=== PATIENT | male | born 1945 | race Caucasian/White ===

== ENCOUNTER 2019-05-16 14:53 | Outpatient (CLI) | payer MEDICARE, SELFPAY ==
[2019-05-16 15:55] LABS: Alanine Aminotransferase 16 U/L (0-41); Alkaline Phosphatase 105 IU/L (40-130); Aspartate Amino Transferase 17 U/L (0-40); C Reactive Protein 22.6 mg/L (0.0-4.9); Globulin 4.7 g/dL (1.3-4.6); Total Bilirubin 0.5 mg/dL (0.15-1.2); Total Protein 8.7 g/dL (6.6-8.7)
[2019-05-16 16:11] LABS: Hepatitis C Virus Antibody Non-Reactive (Nonreactive)
[2019-05-16 16:46] LABS: Basophils # 0.1 10^3/uL (0.0-0.1); Basophils % 1.5 %; Eosinophils # 0.5 10^3/uL (0.0-0.8); Eosinophils % 6.4 %; Hematocrit 42.7 % (42.0-52.0); Hemoglobin 13.5 g/dL (11.7-16.6); Lymphocytes # 1.9 10^3/uL (0.8-4.8); Lymphocytes % 23.1 %; Mean Corpuscular HGB Conc 31.6 g/dL (30.0-36.0); Mean Corpuscular Hemoglobin 28.1 pg (28.0-34.0); Mean Platelet Volume 11.2 fL (7.4-10.4); Monocytes # 1.1 10^3/uL (0.2-0.9); Monocytes % 13.3 %; Neutrophils # 4.5 10^3/uL (1.8-7.7); Neutrophils % 55.5 %; Nucleated Red Blood Cells % 0 %; Platelet Count 155 10^3/cmm (130-400); Red Cell Distribution Width 15.6 % (12.1-15.1)
[2019-05-16 16:54] LABS: Hepatitis B Surface Antigen. Non-Reactive (Nonreactive)
[2019-05-16 20:09] LABS: Erythrocyte Sedimentation Rate 69 mm/hr (0-10)
[2019-05-19 12:12] LABS: Quantiferon Mitogen 7.03 IU/mL; Quantiferon Nil 0.02 IU/mL; Quantiferon Plus TB1 0.01 IU/mL; Quantiferon Plus TB2 0.02 IU/mL; Quantiferon TB Gold NEGATIVE (NEGATIVE)
== END 2019-05-16 14:54 | disposition home or self-care (01) ==
LOC: LAB 14:58
PROVIDERS: PCP Family Medicine; Visit Provider Internal Medicine Rheumatology
DX: M05.79 Rheumatoid arthritis with rheumatoid factor of multiple sites without organ or systems involvement (principal); Z79.899 Other long term (current) drug therapy
CPT/HCPCS: 80076; 82565; 85025; 85651; 86140; 86480; 86704; 86803; 87340

== ENCOUNTER 2019-06-11 15:20 | Emergency (ER) | payer MEDICARE, MEDICAID, SELFPAY ==
[2019-06-11 15:22] VITALS: BP 180/74; PULSE 79; RESP 16; TEMP 36.7; O2SAT 93; BMI 32.0
--- NOTE | 2019-06-11 15:32 | XR_ITS ---
WS: [id number] PORTABLE CHEST HISTORY: cough COMPARISON: 05/03/2018, 04/13/2017 Persistent costophrenic angle obliteration and blunting. Similar to prior studies. Areas of atelectas is at the lung bases. No pneumothorax. Cardiac size: Mildly enlarged cardiac silhouette. Mediastinum/Aorta: Mild atherosclerosis aorta. Degenerative changes at the shoulder joints. XR/XR chest 1V portable 00006 IMPRESSION: 1. Stable, chronic costophrenic angle blunting. Probable small chronic effusio ns versus pleural thickening. 2. Stable chronic atelectasis at the lung bases.
--- NOTE | 2019-06-11 16:02 | W.ED.GENADLT ---
HPI - General Adult General: Chief complaint: General Medical Stated complaint: COUGH 2-3 DAYS Time Seen by Provider: 06/11/19 15:27 History of Present Illness: HPI narrative: Paul Cornelius is a nice 74-year-old male sent over by the dialysis clinic for a chest x-ray. He states I do not know why I am here . Patient states he feels fine he has had an occasional cough. His family has had a similar cough. They were concerned about the COVID-19 virus that is pandemic but they went ahead and tested him at the dialysis clinic. Mr. Cornelius has an occasional cough but denies chest pain denies shortness of breath and he denies fever. He states I do not know why I am here . He is agreeable after encouragement to at least have a chest x-ray by me. Associated symptoms: Deny chest pain, confusion, diaphoresis, dyspnea, headache(s), malaise, nausea, rash, palpitations, syncope or vomiting Review of Systems General: Reports: other (negative unless marked) Const: Denies: fever, chills, body aches, fatigue, malaise or diaphoresis Eyes: Denies: change in vision or blurry vision ENMT: Denies: throat pain, painful swallowing, hoarseness, ear pain, ear discharge, Change in hearing or nasal discharge Card: Denies: chest pain, palpitations, irregular heart rhythm, syncope, pre-syncope, shortness of breath on exertion or shortness of breath when lying down Resp: Reports: non-productive cough; Denies: shortness of breath, productive cough, wheezing, coughing up blood or chest congestion GI: Denies: abdominal pain, nausea, vomiting, vomiting blood, coffee grounds in vomit, diarrhea, constipation, cramping, blood in stool or black tarry stool : Denies: flank pain, difficulty urinating, painful urination, urinary frequency, urinary urgency, decreased urine ouput, urinary incontinence or blood in urine Musc: Denies: neck pain, back pain, extremity pain, extremity swelling, joint pain, joint swelling, joint warmth or joint stiffness Skin/Breast: Denies: rash, skin tenderness or yellow skin Neuro: Denies: headache, numbness in extremities, weakness in extremities, changes in sensation, lack of coordination, difficulty walking, dizziness, vertigo or confusion Endo: Denies: excessive thirst, tired all the time, cold intolerance, excessive sweating, flushing or hot flashes Frank/Lymph: Denies: easy bruising, easy bleeding, petechiae or enlarged lymph nodes All/Imm: Denies: hives, throat swelling, tongue swelling, facial swelling or acute wheezing PFSH ED PFSH: Medical History Anemia ASHD (arteriosclerotic heart disease) Atrial fibrillation CHF (congestive heart failure) CKD (chronic kidney disease) Diabetes 1.5, managed as type 2 Diabetic gastroparesis Dyslipidemia ESRD (end stage renal disease) on dialysis HTN (hypertension) Hypothyroidism Mitral regurgitation Myocardial infarction PAD (peripheral artery disease) Pulmonary HTN Family History Father , AGE 61 Cancer LUNG Mother , AGE 62 CHF (congestive heart failure) Social History Smoking and tobacco status: never smoked Marital status: service: No Physical Exam Const: COMMON NORMALS: no apparent distress, oriented x3, no limitations, healthy appearing and well nourished EXAM LIMITATIONS: no altered mental status GENERAL APPEARANCE: cooperative, well kempt and well developed ORIENTATION/CONSCIOUSNESS: Yes awake HENMT: COMMON NORMALS: normocephalic, head/scalp atraumatic, hearing grossly normal bilaterally, external ears normal, EAC's normal, external nose normal and moist oral mucous membranes HEAD & SCALP: normal to inspection, normocephalic and atraumatic FACE & SINUS: normal facial exam and face symmetric NOSE: external nose normal and nares normal EXTERNAL EAR: Yes external ears normal EXTERNAL AUDITORY CANAL: EAC's normal MOUTH: oral and palatal mucosa normal and tongue normal Eye: COMMON NORMALS: PERRL, EOMs intact bilaterally, conjunctivae normal and no scleral icterus GENERAL EYE: normal appearance of both eyes and normal light reflex CONJUNCTIVA: Yes conjunctivae normal SCLERA: sclerae normal CORNEA: Yes corneas normal PUPIL: Yes PERRL DIRECT OPHTHALMOSCOPY: Yes normal light reflex Neck/C-Spine: COMMON NORMALS: full ROM, no lymphadenopathy, supple, no meningeal signs and no JVD GENERAL: Yes normal visual inspection and Yes trachea midline CERVICAL SPINE: Yes cervical ROM normal Chest: COMMONS NORMALS: inspection of chest normal and palpation of chest normal Resp: COMMON NORMALS: normal respiratory effort, no retractions, no use of accessory muscles and clear to auscultation bilaterally EFFORT & INSPECTION: Yes able to speak in complete sentences AUSCULTATION: clear to auscultation bilaterally Cardio: COMMON NORMALS: no JVD, regular rate, regular rhythm, S1 normal heart sound, S2 normal heart sound, no gallops, no clicks, no murmurs and no rub JUGULAR VENOUS DISTENTION: no JVD RATE: regular rate RHYTHM: regular rhythm HEART SOUNDS: S1 normal and S2 normal GI: COMMON NORMALS: soft to palpation, non-tender, no hepatosplenomegaly and no masses INSPECTION: Yes normal to inspection PALPATION: Yes soft and Yes no hepatosplenomegaly : COMMON NORMALS: Yes no CVA tenderness BLADDER/KIDNEY EXAM: Yes no CVA tenderness Back/Pelvis: COMMON NORMALS: no CVA tenderness, thoracic and lumbar spine normal to inspection, no thoracic nor lumbar tenderness and thoraco-lumbar ROM normal Extremity: COMMON NORMALS: normal to inspection, full ROM, normal capillary refill, no joint enlargement, no clubbing, cyanosis or edema and no calf tenderness Neuro: COMMON NORMALS: oriented x3, CN's II-XII intact bilaterally, moves all extremities, no focal motor deficits and no sensory deficits noted MENINGEAL SIGNS: Yes no meningeal signs Psych: COMMON NORMALS: mental status grossly normal, thought process normal, cooperative, affect normal, speech normal and activity/motor behavior normal APPEARANCE: Yes well kempt SPEECH: Yes normal speech THOUGHT PROCESS: normal thought process Skin: COMMON NORMALS: no rashes or lesions noted, skin turgor normal, no jaundice, no petechiae and no mottling GENERAL SKIN EXAM: no rashes or lesions noted and turgor normal Course Vital Signs: Vital signs: Vital Signs Temperature 98.0 F 06/11/19 15:22 Pulse Rate 79 06/11/19 15:22 Respiratory Rate 16 06/11/19 15:22 Blood Pressure 180/74 06/11/19 15:22 Pulse Oximetry 93 06/11/19 15:22 MDM - General Adult MDM Narrative: Medical decision making narrative: Mr. Cornelius is a nice 74-year-old male who comes in with a report of cough. He has had family members sick with similar symptoms. He has been tested for the COVID-19 virus but his family has also been tested and they are negative. I will go and cover him with doxycycline. He agrees to return should his symptoms change or worsen but he is still refusing all lab work and IV at this time. Imaging Data^: CXR: My impression: No acute cardiopulmonary findings. Stable pleural thickening since 2017. Chest x-ray discussed with Dr. Sheikh. Discharge Plan Discharge Patient Disposition: Home, Self-Care Clinical Impression: Bronchitis Condition: Stable Prescriptions: New doxycycline hyclate 100 mg capsule 100 mg PO BID 10 Days Qty: 20 RF: 0 No Action nitroglycerin [Nitrostat] 0.4 mg tablet, sublingual 0.4 mg SUBLINGUAL Q5M PRNRF: 0 amiodarone 200 mg tablet 200 mg PO DAILY RF: 0 atorvastatin 40 mg tablet 40 mg PO DAILY RF: 0 Humalog U-100 Insulin 100 unit/mL cartridge 1 sliding scale dose SUBCUT TID RF: 0 RenaPlex 800 mcg- 12.5 mg tablet 1 tab PO DAILY RF: 0 Fosrenol 1,000 mg powder in packet 1,000 mg PO QID RF: 0 levothyroxine 150 mcg capsule 150 mcg PO DAILY RF: 0 promethazine 25 mg tablet 25 mg PO TID PRNRF: 0 docusate sodium 100 mg capsule 100 mg PO BID RF: 0 mirtazapine 15 mg tablet 15 mg PO DAILY RF: 0 cholecalciferol (vitamin D3) PO DAILY RF: 0 pantoprazole 40 mg tablet,delayed release (DR/EC) 40 mg PO DAILY RF: 0 Cimzia 400 mg/2 mL (200 mg/mL x 2) syringe kit 200 mg SUBCUT .every other week Qty: 1 RF: 0 isosorbide mononitrate 60 mg tablet extended release 24 hr 60 mg PO DAILY Qty: 30 RF: 6 Cimzia 400 mg/2 mL (200 mg/mL x 2) syringe kit 200 mg SUBCUT .every other week Qty: 2 RF: 2 Discharge Orders: Discharge Order (Routine); Ordered 06/11/19 Ordered By: Екатерина Rodriguez Referrals: Hanane Saldaña MD [Primary Care Provider] - 1-3 days Discharge Diet: Advance as tolerated Discharge Activity: Increase activity as tolerated Patient Instructions: Acute Bronchitis (ED) Activity Restrictions/Additional Instructions: Please return to the ER immediately for any of the signs or symptoms listed on your discharge instruction sheets, worsening/changing of your symptoms, you are not getting better as quickly as expected, or for ANY other cause or concerns. Coding Level of Care Code ED Sales Representative Wire Rope for Brendan Cummings
[2019-06-11] MEDS: doxycycline 100 mg Tablet 200 MG PO (16:03)
[2019-06-11 16:26] VITALS: BP 167/66; PULSE 75; RESP 16; O2SAT 98
== END 2019-06-11 16:26 | disposition home or self-care (01) ==
PROVIDERS: Emergency Provider Emergency Medicine; PCP Family Medicine
DX: J40 Bronchitis, not specified as acute or chronic (principal); I48.91 Unspecified atrial fibrillation; E11.22 Type 2 diabetes mellitus with diabetic chronic kidney disease; I13.0 Hypertensive heart and chronic kidney disease with heart failure and stage 1 through stage 4 chronic kidney disease, or unspecified chronic kidney disease; N18.9 Chronic kidney disease, unspecified; I50.9 Heart failure, unspecified; Z82.49 Family history of ischemic heart disease and other diseases of the circulatory system; Z79.4 Long term (current) use of insulin
CPT/HCPCS: 12345; 71045; 99281; 99283

== ENCOUNTER 2019-08-14 19:03 | Emergency (ER) | payer MEDICARE, SELFPAY ==
[2019-08-14 19:39] VITALS: BP 157/66; PULSE 68; RESP 16; TEMP 36.8; O2SAT 93; BMI 32.0
--- NOTE | 2019-08-14 19:42 | XR_ITS ---
WS: [id number] XR knee LT 3V* [id number] REASON FOR EXAM: fall FINDINGS: The meniscal spaces are well preserved. There is no fractures of the femur, tibia, fibula. Heavy arteriosclerotic changes are present. The patella femoral spaces are normal. The patella tibial space is normal. XR/XR knee LT 3V* [id number] IMPRESSION: No fractures of the left knee Heavy arteriosclerotic changes.
--- NOTE | 2019-08-14 19:42 | XR_ITS ---
WS: [id number] XR hip BI m 5V wo/w pel* [id number] REASON FOR EXAM: fall FINDINGS: 5 views of the pelvis and hip joints laterally The right hip shows mild osteoarthritic changes. Minimal degenerate changes of the left hip are seen. The ilium, ischium, and pubis were normal. No fractures of the right or left hip are seen. XR/XR hip BI m 5V wo/w pel* [id number] IMPRESSION: No fractures of either hip joint or pelvis. Degenerate changes of the right hip Mild degenerate changes of the left hip The pelvis was normal otherwise.
--- NOTE | 2019-08-14 19:42 | XR_ITS ---
WS: [id number] XR knee RT 3V* [id number] REASON FOR EXAM: fall FINDINGS: Genu valgus changes at the knee are noted. The meniscal spaces appear to be normal. There is heavy arteriosclerotic changes in the popliteal arteries. Patella femoral articulations are normal. Patella tibial spaces were normal. XR/XR knee RT 3V* [id number] IMPRESSION: No fractures are seen involving the right knee Mild genu valgus changes at the knee Arteriosclerotic changes.
--- NOTE | 2019-08-14 19:43 | ED_ITS ---
HPI - Fall General: Chief Complaint: Fall Stated Complaint: fall Time Seen by Provider: 08/14/19 19:15 Source: patient and family Mode of arrival: ambulatory Limitations: no limitations History of Present Illness: HPI Narrative: Patient is a very nice 74-year-old male who presents to ED today for evaluation following a fall. Patient tells me he was in his electronic wheelchair outside when he struck a tree root causing him to fall forward out of the wheelchair. Patient states he struck his bilateral knees. He is complaining of bilateral knee pain and bilateral hip pain. Patient has not been ambulatory in approximately 4 years. He denies striking his head, LOC, neck or back pain. MD complaint: fall Onset (ago): hour(s) Fall from: wheelchair Fall witnessed: yes, by family Place fall occurred: home Prolonged down time: no Symptoms prior to fall: none Location of injury - extremities: Bilateral: knee Associated symptoms-after fall: Reports no associated symptoms; Denies abdominal pain, chest pain, headache(s) or neck pain Review of Systems Eyes: Denies: change in vision or blurry vision Card: Denies: chest pain Resp: Denies: dyspnea GI: Denies: abdominal pain, nausea or vomiting Musc: Reports: joint pain (bilateral knees/hips); Denies: neck pain, back pain, extremity pain, extremity swelling or joint swelling Neuro: Denies: headache(s), numbness in extremities, weakness in extremities or sensory changes [facility] ED PFSH: Medical History (Updated 08/14/19 @ 20:44 by ROBERTO Norris) Anemia ASHD (arteriosclerotic heart disease) Atrial fibrillation CHF (congestive heart failure) CKD (chronic kidney disease) Diabetes 1.5, managed as type 2 Diabetic gastroparesis Dyslipidemia ESRD (end stage renal disease) on dialysis HTN (hypertension) Hypothyroidism Mitral regurgitation Myocardial infarction PAD (peripheral artery disease) Pulmonary HTN Family History Father , AGE 61 Cancer LUNG Mother , AGE 62 CHF (congestive heart failure) Social History Smoking and tobacco status: never smoked Marital status: service: No Physical Exam Const: COMMON NORMALS: no acute distress, average body habitus, patient oriented x3, no limitations, healthy appearing, alert and well nourished HENMT: COMMON NORMALS: normocephalic and atraumatic HEAD & SCALP: normocephalic and atraumatic Neck/C-Spine: COMMON NORMALS: full ROM CERVICAL SPINE: Yes cervical ROM normal, No pain with cervical ROM, No Cervical spine tenderness and No Paracervical muscle tenderness Chest: COMMONS NORMALS: normal inspection of the chest and normal palpation of entire chest wall Resp: COMMON NORMALS: normal respiratory effort and clear to auscultation bilaterally AUSCULTATION: clear to auscultation bilaterally Cardio: COMMON NORMALS: regular rate and regular rhythm RATE: regular rate RHYTHM: regular rhythm Back/Pelvis: COMMON NORMALS: thoracic and lumbar spine normal to inspection, no thoracic nor lumbar tenderness and thoraco-lumbar ROM normal Extremity: GENERAL: Yes normal exam except as noted OTHER: bilateral anterior knee abrasions; he maintains full but painful ROM of bilateral knees L>R (he states pain is only present with bending the knee-no form of palpation causes him discomfort); he is able to flex hip joints; he seems to be tender to palpation of lateral hips; legs are not shortened or rotated; LE pulses and cap refill normal/intact Neuro: COMMON NORMALS: patient oriented x3, moves all extremities, no focal motor deficits and no sensory deficits noted SENSORIUM/ORIENTATION: Yes alert Skin: COMMON NORMALS: no rashes or lesions noted NARRATIVE SKIN EXAM: abrasions to bilateral knees-minor GENERAL SKIN EXAM: no rashes or lesions noted Course Vital Signs: Vital signs: Vital Signs Temperature 98.3 F 08/14/19 19:39 Pulse Rate 65 08/14/19 19:48 Respiratory Rate 18 08/14/19 19:48 Blood Pressure 164/60 08/14/19 19:48 Pulse Oximetry 96 08/14/19 19:48 MDM - Fall Imaging Data^: bilateral hip/pelvis XR: My impression: NAD bilateral knee XR: My impression: arthritis, no acute fxs noted Discharge Plan Discharge Patient Disposition: Home, Self-Care Clinical Impression: Acute bilateral knee pain Fall from motorized wheelchair Qualifiers: Encounter type: initial encounter Qualified Code(s): V00.818A - Other accident with wheelchair (powered), initial encounter Condition: Stable Prescriptions: New hydrocodone-acetaminophen 5-325 mg tablet 1 tab PO Q6H PRN (Reason: pain) Qty: 10 RF: 0 No Action nitroglycerin [Nitrostat] 0.4 mg tablet, sublingual 0.4 mg SUBLINGUAL Q5M PRNRF: 0 atorvastatin 40 mg tablet 40 mg PO DAILY RF: 0 Humalog U-100 Insulin 100 unit/mL cartridge 1 sliding scale dose SUBCUT TID RF: 0 RenaPlex 800 mcg- 12.5 mg tablet 1 tab PO DAILY RF: 0 Fosrenol 1,000 mg powder in packet 1,000 mg PO QID RF: 0 levothyroxine 150 mcg capsule 150 mcg PO DAILY RF: 0 promethazine 25 mg tablet 25 mg PO TID PRNRF: 0 docusate sodium 100 mg capsule 100 mg PO BID RF: 0 mirtazapine 15 mg tablet 15 mg PO DAILY RF: 0 cholecalciferol (vitamin D3) PO DAILY RF: 0 pantoprazole 40 mg tablet,delayed release (DR/EC) 40 mg PO DAILY RF: 0 Cimzia 400 mg/2 mL (200 mg/mL x 2) syringe kit 200 mg SUBCUT .every other week Qty: 1 RF: 0 isosorbide mononitrate 60 mg tablet extended release 24 hr 60 mg PO DAILY Qty: 30 RF: 6 Cimzia 400 mg/2 mL (200 mg/mL x 2) syringe kit 200 mg SUBCUT .every other week Qty: 2 RF: 2 amiodarone 200 mg tablet 200 mg PO DAILY 90 Days Qty: 90 RF: 3 Discharge Orders: Discharge Order (Routine); Ordered 08/14/19 Ordered By: Bridget Roland Referrals: Hanane Saldaña MD [Primary Care Provider] - Activity Restrictions/Additional Instructions: Please follow up with primary care in one week for continued pain. Coding Level of Care Code ED Duct Layer Supervisor for Chg Fwd Exam Comprehensive
[2019-08-14 19:48] VITALS: BP 164/60; PULSE 65; RESP 18; O2SAT 96
[2019-08-14] MEDS: HYDROcodone-acetaminophen 5-325 mg Tablet 2 TAB PO (20:52)
[2019-08-14 21:06] VITALS: BP 151/63; PULSE 66; RESP 16; O2SAT 94
== END 2019-08-14 21:08 | disposition home or self-care (01) ==
PROVIDERS: Emergency Provider Physician Assistant; PCP Family Medicine
DX: M25.562 Pain in left knee (principal); M25.561 Pain in right knee; V00.811A Fall from moving wheelchair (powered), initial encounter; Z79.4 Long term (current) use of insulin; I48.91 Unspecified atrial fibrillation; I11.0 Hypertensive heart disease with heart failure; I50.9 Heart failure, unspecified; E13.9 Other specified diabetes mellitus without complications; E78.5 Hyperlipidemia, unspecified; I25.2 Old myocardial infarction
CPT/HCPCS: 12345; 73523; 73562; 99281; 99283

== ENCOUNTER → 2019-09-03 16:16 | Outpatient (BNVA) | payer MEDICARE, MEDICAID, SELFPAY | PROVIDERS: PCP Family Medicine; Visit Provider Internal Medicine Rheumatology | DX: Z79.899 Other long term (current) drug therapy (principal) | CPT/HCPCS: 36415; 80076; 82565; 85025; 85651; 86140 ==

== ENCOUNTER → 2019-09-17 15:42 | Outpatient (BNVA) | payer MEDICARE, SELFPAY | PROVIDERS: PCP Family Medicine; Visit Provider Internal Medicine | DX: M06.9 Rheumatoid arthritis, unspecified (principal) | CPT/HCPCS: 99213 ==

== ENCOUNTER 2019-09-23 11:53 | Outpatient (CLI) | payer MEDICARE, SELFPAY ==
--- NOTE | 2019-09-23 12:01 | XRR_ITS ---
PROCEDURE INFORMATION: Exam: XR Left Femur Exam date and time: 09/23/2019 12:22 PM Age: 74 years old Clinical indication: Thigh; Patient HX: C/O left femur pain x 5 years; Additional info: Followup abnormal lesion TECHNIQUE: Imaging protocol: XR Left femur. Views: Frontal and lateral views. COMPARISON: CR Femur 2 views LEFT* [id number] 02/03/2015 6:00 PM FINDINGS: Bones/joints: Stable nonspecific cystic and sclerotic lesion of the lesser trochanter. No acute bony abnormality identified. Soft tissues: Unremarkable. Vasculature: Vascular calcifications are present. XR/XR femur LT min 2V* [id number] IMPRESSION: 1. Stable nonspecific cystic and sclerotic lesion of the lesser trochanter. 2. No acute bony abnormality identified.
== END 2019-09-23 11:54 | disposition home or self-care (01) ==
LOC: RAD 11:56
PROVIDERS: PCP Family Medicine; Visit Provider Internal Medicine
DX: M79.605 Pain in left leg (principal)
CPT/HCPCS: 73552

== ENCOUNTER 2019-11-04 07:50 | Outpatient (CLI) | payer MEDICARE, MEDICAID, SELFPAY ==
[2019-11-04 07:56] VITALS: BMI 32.0
--- NOTE | 2019-11-04 07:57 | ECG_ITS ---
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 Interpretive Statements NAME OF STUDY: LEXISCAN SESTAMIBI STRESS TEST INDICATION: [Chest Pain] Procedure: At the baseline, the blood pressure was 169/76 mmHg, oxygen saturation 98% with a heart rate of 60 bpm. The electrocardiogram showed normal sinus rhythm, normal axis and normal ST and T's. The Lexiscan was infused over a period of 20 seconds. Total of 0.4 mg of Lexiscan was infused. The stress phase was continued for a total of 5 minutes. Heart rate at the end of stress phase was 68 bpm, oxygen saturation 94% with a blood pressure of 168/85 mmHg. The EKG at the peak infusion revealed sinus rhythm with no significant ST or T wave changes. Sestamibi was injected 20 seconds after Lexiscan infusion. Blood pressure at the end of recovery phase was 164/81mmHg. Oxygen saturation was 93% with a heart rate of 65 bpm. Conclusions: 1. Normal EKG response to Lexiscan infusion. 2. No Lexiscan induced chest pain or cardiac arrhythmia. 3. Normal blood pressure and heart rate response. 4. Sestamibi/sestamibi perfusion scan pending; see separate report. Electronically Signed On 11-05-2019 11:58:30 CDT by Walt Mcdonald M.D. [email or web address]
--- NOTE | 2019-11-04 07:58 | NMCV_ITS ---
NM heather perf SPECT r/s* [id number] Paul Cornelius Age: 74 Gender: M : 1945 Exam Date: 11/04/2019 08:49 Ordering Phys: Walt Mcdonald M.D ([email or web address]) Technologist: RAGINI Moreno Exam Location: [facility] Indications: CHEST PAIN STRESS TEST [facility] IMAGE PROTOCOL Rest/Stress 1 Lexiscan Day Radiopharmaceutical Dose (mCi) Administration Site Administered by Rest: Tc-99m 10.7 IV RAGINI Bar Sestamibi Stress:Tc-99m 32.9 IV RAGINI Moreno Sestamiree Rest: 04-Nov-2019 60 Discovery 630 Stress: 04-Nov-2019 30 Discovery 630 0.4mg Lexiscan. Images obtained in supine and prone position. SPECT RESULTS Technical Quality: Excellent Raw Data Analysis: Normal Image Corrections: No attenuation or motion correction applied Summed Stress Score: 6 Summed Rest Score: 7 Summed Difference Score: 1 PERFUSION FINDINGS There is basal to mid inferolateral wall perfusion defect with minimal reversibility noted. FUNCTIONAL RESULTS (calculated via Gated SPECT) Stress Image LV EF (%): 57 Stress EDV (mL):138 TID: 0.99 Stress ESV (mL):59 FUNCTIONAL FINDINGS: Overall function is normal. Inferolateral wall shows moderate hypokinesis IMPRESSIONS 1. Basal to mid inferolateral wall mostly fixed perfusion defect is notedQu 2. Normal LV systolic function with EF of 57%. Walt Mcdonald MD (Electronically Signed) Final Date: 05 November 2019 11:22 S
--- NOTE | 2019-11-04 09:34 | SUR.PREOP ---
Patient reports no pain or discomfort prior to the start of the procedure.
[2019-11-04] MEDS: regadenoson 0.4 Mg/5 ml Syringe IVP (09:36)
[2019-11-04 09:50] VITALS: BP 161/64; PULSE 64
== END 2019-11-04 07:51 | disposition home or self-care (01) ==
PROVIDERS: PCP Family Medicine; Visit Provider Internal Medicine
DX: R07.9 Chest pain, unspecified (principal)
CPT/HCPCS: 78452; 93017; A9500; J2785

== ENCOUNTER 2020-01-21 15:32 | Emergency (ER) | payer MEDICARE, MEDICAID, SELFPAY ==
[2020-01-21] VITALS (13 sets, daily range): BP systolic 134–160; BP diastolic 59–74; PULSE 63–69; RESP 15–21; TEMP 36.8–37.3; O2SAT 88–97; BMI 32.0
--- NOTE | 2020-01-21 16:08 | XR_ITS ---
WS: [id number] XR chest 1V portable [id number] REASON FOR EXAM: dyspnea FINDINGS: The heart is enlarged. There is minimal tortuosity of the thoracic aorta. The previous examination of 06/11/2019 demonstrates blunting of the costophrenic angles and chronic i nterstitial changes in both lower lungs. On the current examination these findings are again noted ho wever they appear somewhat more prominent in the right lower lung. The chest is otherwise unchanged compared to the previous study. XR/XR chest 1V portable [id number] IMPRESSION: Significant chronic changes in the lungs make it difficult to determine acute a bnormality. There may be infiltrative changes in the right lung base that are a cute or subacute. The patient has a CT scan of the chest scheduled which should resolve these issues.
--- NOTE | 2020-01-21 16:17 | PC.NURSE ---
Pt was taken to room 11 and placed on 2LNC and COVID precautions.
[2020-01-21 16:38] LABS: Basophils # 0.1 10^3/uL (0.0-0.1); Basophils % 1.6 %; Eosinophils # 0.2 10^3/uL (0.0-0.8); Eosinophils % 3.2 %; Hemoglobin 10.8 g/dL (11.7-16.6); Lymphocytes % 19.4 %; Mean Corpuscular HGB Conc 31.8 g/dL (30.0-36.0); Mean Corpuscular Hemoglobin 28.2 pg (28.0-34.0); Mean Corpuscular Volume 88.8 fL (80-94); Mean Platelet Volume 11.4 fL (7.4-10.4); Monocytes # 0.9 10^3/uL (0.2-0.9); Monocytes % 18.3 %; Neutrophils # 2.84 10^3/uL (1.8-7.7); Neutrophils % 57.3 %; Nucleated Red Blood Cells % 0 %; Platelet Count 88 10^3/cmm (130-400); Red Blood Count 3.83 10^6/uL (4.1-5.3); Red Cell Distribution Width 14.5 % (12.1-15.1)
[2020-01-21 16:49] LABS: Fibrinogen 455 mg/dL (174-498)
[2020-01-21 16:58] LABS: Alanine Aminotransferase 12 U/L (0-41); Albumin Level 3.5 g/dL (3.5-5.2); Alkaline Phosphatase 120 IU/L (40-130); Anion Gap 15.5 (5-19); Aspartate Amino Transferase 22 U/L (0-40); Blood Urea Nitrogen 24 mg/dL (8-23); C Reactive Protein 80.6 mg/L (0.0-4.9); Calcium 8.8 mg/dL (8.5-10.5); Carbon Dioxide 30 mmol/L (22-29); Chloride 94 mmol/L (98-107); Creatine Phosphokinase 48 U/L (39-308); Globulin 3.8 g/dL (1.3-4.6); Glucose 95 mg/dL (65-115); Lactate Dehydrogenase 161 U/L (135-225); Magnesium 2.1 mg/dL (1.7-2.3); Osmolality Calculated 284 mOsm/kg (285-295); Potassium 4.5 mmol/L (3.5-5.1); Sodium 135 mmol/L (136-145); Total Bilirubin 0.8 mg/dL (0.15-1.2); Total Protein 7.3 g/dL (6.6-8.7)
[2020-01-21 17:08] LABS: Lactic Sepsis W/Reflex 1.3 mmol/L (0.5-2.2)
[2020-01-21 17:09] LABS: ABG PCO2 41.9 mmHg (35-45); ABG PH Result 7.48 (7.35-7.45); Alveolar-Arterial Oxygen Gradi 2.7 mmHg (5-10); Arterial Blood Gas Hematocrit 32.4 % (42-52); Base Excess ABG 6.9 mmol/L (-2.0-2.0); Blood Gas Allen Test Pos; Blood Gas Operator Identificat CAK; Blood Gas Sample Site Brachial, left; Blood Gas Sample Type Arterial; Carboxyhemoglobin 1.2 %THgb (0.4-20.1); HCO3 ABG 31.1 mmol/L (22-26); Ionized Calcium Level - ABG 1.1 mmol/L (1.1-1.4); Methemoglobin 0.8 % (0.4-1.5); Oxygen Device NC; Oxygen Saturation ABG 94.9; PO2 ABG 76.7 mmHg (80.0-100.0); Potassium Level - ABG 4.2 mmol/L (3.5-5.0); Total Hemoglobin 10.6 g/dL (14-18)
[2020-01-21 17:14] LABS: Influenza A by IFA Negative (Negative); Influenza B by IFA Negative (Negative)
--- NOTE | 2020-01-21 17:57 | ED_ITS ---
Documented by User: Terrell Peñaloza DO 01/22/20 06:39 HPI - COVID General: Chief Complaint: Infusion Benjamín Stated Complaint: COVID + Time Seen by Provider: 01/21/20 16:08 Triage information: Has fever, cough or shortness of breath . No known COVID + exposure last 14 days History of Present Illness: HPI Narrative: 74-year-old male presents emergency room with complaint of recent positive Covid test. He was tested for rapid antigen test at [facility] there is morning. The [employer] that seen him called and that we are going to get him set up for outpatient IV monoclonal antibody infusion tomorrow. This is a new treatment for COVID-19 and has emergency authorization use. There is no data as to timing of infusing antibody in relation to his dialysis. Was decided after conferring with other physicians and medical branch of incident command to start the infusion after patient had been dialyzed. He is supposed to come tomorrow morning for a scheduled outpatient infusion became tonight to the ER because he does not have a ride for tomorrow morning. Is very vague as to symptoms he has some GI upset with nausea and vomiting intermittently but no diarrhea. He has had some low-grade fever at home. MD complaint: known COVID positive Prior covid testing: yes, results known Prior testing date: 01/21/20 COVID 19 common symptoms: positive non-productive cough, fatigue, body aches, nausea and vomiting; negative throat pain, nasal congestion or diarrhea COVID 19 other sytmptoms: negative chest pressure, chest pain, requiring more oxygen or respiratory distress Onset (ago): day(s) (1-2) Severity: moderate Pertinent comorbid conditions: diabetes, hypertension, COPD/respiratory disease, chronic kidney disease and on home oxygen Treatment prior to arrival: none COVID Results: No Data to Display Review of Systems Const: Reports: body aches and fatigue ENMT: Denies: throat pain, ear or mastoid pain, nasal discharge or nasal congestion Card: Denies: chest pain Resp: Reports: non-productive cough GI: Reports: nausea and vomiting; Denies: diarrhea : Denies: flank pain, dysuria, urinary frequency or urinary urgency Skin/Breast: Denies: rash or pruritus PFSH ED PFSH: Medical History Anemia ASHD (arteriosclerotic heart disease) Atrial fibrillation CHF (congestive heart failure) CKD (chronic kidney disease) Diabetes 1.5, managed as type 2 Diabetic gastroparesis Dyslipidemia ESRD (end stage renal disease) on dialysis HTN (hypertension) Hypothyroidism Mitral regurgitation Myocardial infarction PAD (peripheral artery disease) Pulmonary HTN Rheumatoid arthritis Family History Father , AGE 61 Cancer LUNG Mother , AGE 62 CHF (congestive heart failure) Social History Smoking and tobacco status: never smoked Marital status: service: No Physical Exam Const: COMMON NORMALS: no acute distress GENERAL APPEARANCE: cooperative and comfortable HENMT: COMMON NORMALS: normocephalic, atraumatic and hearing grossly normal bilaterally HEAD & SCALP: normocephalic and atraumatic Eye: COMMON NORMALS: Equal, round and reactive pupils present, EOMs intact bilaterally, conjunctivae normal and no scleral icterus CONJUNCTIVA: Yes conjunctivae normal PUPIL: Yes Equal, round and reactive pupils present Neck/C-Spine: COMMON NORMALS: no JVD Resp: COMMON NORMALS: normal respiratory effort, No retractions, No use of accessory muscles and clear to auscultation bilaterally AUSCULTATION: clear to auscultation bilaterally Cardio: COMMON NORMALS: no JVD, regular rate, regular rhythm and No murmurs present (Cardio) RATE: regular rate RHYTHM: regular rhythm GI: COMMON NORMALS: Soft to palpation and No hepatosplenomegaly present AUSCULTATION: Yes normoactive bowel sounds PALPATION: Yes Soft to palpation, No Tenderness to palpation present (GI), No Guarding due to palpation present (GI) and Yes No hepatosplenomegaly present Extremity: COMMON NORMALS: normal to inspection, capillary refill normal, no clubbing, cyanosis or edema, no calf tenderness and no pedal edema Skin: COMMON NORMALS: no rashes or lesions noted GENERAL SKIN EXAM: no rashes or lesions noted Course Vital Signs: Vital signs: Vital Signs Temperature 98.4 F 01/21/20 22:00 Pulse Rate 65 01/21/20 22:00 Respiratory Rate 15 01/21/20 22:00 Blood Pressure 152/66 01/21/20 22:00 Pulse Oximetry 96 01/21/20 22:00 MDM - COVID MDM Narrative: Medical decision making narrative: Care turned over to Dr. Silva. At change of shift patient should be able to be discharged home. CT results are pending as well. Lab Data: Labs: Lab Results 01/21/20 01/21/20 01/21/20 Range/Units 14:40 16:26 16:26 WBC (4.0-10.0) 10^3/ uL RBC (4.1-5.3) 10^6/u L Hgb (11.7-16.6) g/dL Hct (42.0-52.0) % MCV (80-94) fL MCH (28.0-34.0) pg MCHC (30.0-36.0) g/dL RDW (12.1-15.1) % Plt Count (130-400) 10^3/c mm MPV (7.4-10.4) fL Neut % (Auto) % Lymph % (Auto) % [place] % (Auto) % Eos % (Auto) % Baso % (Auto) % Neut # (Auto) (1.8-7.7) 10^3/u L Lymph # (Auto) (0.8-4.8) 10^3/u L [place] # (Auto) (0.2-0.9) 10^3/u L Eos # (Auto) (0.0-0.8) 10^3/u L Baso # (Auto) (0.0-0.1) 10^3/u L Nucleated RBC % (a uto) % Nucleated RBCs # /100WBC Fibrinogen 455 (174-498) mg/dL D-Dimer 5.60 H (0-0.59) ug/mIFE U Specimen Type Sample Site ABG pH (7.35-7.45) ABG pCO2 (35-45) mmHg ABG pO2 (80.0-100.0) mmH g ABG HCO3 (22-26) mmol/L ABG O2 Saturation ABG Base Excess (-2.0-2.0) mmol/ L Silvio Test A-a O2 Gradient (5-10) mmHg Hematocrit (42-52) % Hgb O2 Saturation (95-100) % Carboxyhemoglobin (0.4-20.1) %THgb Methemoglobin (0.4-1.5) % Total Hemoglobin (14-18) g/dL Ionized Calcium (1.1-1.4) mmol/L O2 Delivery Device O2 Liters/Min % Information Security Manager ID Sodium 135 L (136-145) mmol/L Potassium 4.5 (3.5-5.1) mmol/L Chloride 94 L (98-107) mmol/L Carbon Dioxide 30 H (22-29) mmol/L Anion Gap 15.5 (5-19) BUN 24 H (8-23) mg/dL Creatinine 7.4 H* (0.7-1.2) mg/dL GFR Calculation Not Reportable Glucose 95 (65-115) mg/dL Calculated Osmolal ity 284 L (285-295) mOsm/k g Lactic Acid (0.5-2.2) mmol/L Calcium 8.8 (8.5-10.5) mg/dL Magnesium 2.1 (1.7-2.3) mg/dL Total Bilirubin 0.8 (0.15-1.2) mg/dL AST 22 (0-40) U/L ALT 12 (0-41) U/L Alkaline Phosphata se 120 (40-130) IU/L Lactate Dehydrogen ase 161 (135-225) U/L Creatine Kinase 48 (39-308) U/L C-Reactive Protein 80.6 H (0.0-4.9) mg/L Total Protein 7.3 (6.6-8.7) g/dL Albumin 3.5 (3.5-5.2) g/dL Globulin 3.8 (1.3-4.6) g/dL Procalcitonin 0.50 (0-0.5) ng/mL Influenza Type A A g Negative (Negative) Influenza Type B A g Negative (Negative) 01/21/20 01/21/20 01/21/20 Range/Units 16:26 16:44 16:58 WBC 5.0 (4.0-10.0) 10^3/ uL RBC 3.83 L (4.1-5.3) 10^6/u L Hgb 10.8 L (11.7-16.6) g/dL Hct 34.0 L (42.0-52.0) % MCV 88.8 (80-94) fL MCH 28.2 (28.0-34.0) pg MCHC 31.8 (30.0-36.0) g/dL RDW 14.5 (12.1-15.1) % Plt Count 88 L (130-400) 10^3/c mm MPV 11.4 H (7.4-10.4) fL Neut % (Auto) 57.3 % Lymph % (Auto) 19.4 % [place] % (Auto) 18.3 % Eos % (Auto) 3.2 % Baso % (Auto) 1.6 % Neut # (Auto) 2.84 (1.8-7.7) 10^3/u L Lymph # (Auto) 1.0 (0.8-4.8) 10^3/u L [place] # (Auto) 0.9 (0.2-0.9) 10^3/u L Eos # (Auto) 0.2 (0.0-0.8) 10^3/u L Baso # (Auto) 0.1 (0.0-0.1) 10^3/u L Nucleated RBC % (a uto) 0 % Nucleated RBCs # 0.0 /100WBC Fibrinogen (174-498) mg/dL D-Dimer (0-0.59) ug/mIFE U Specimen Type Arterial Sample Site Brachial, left ABG pH 7.48 H (7.35-7.45) ABG pCO2 41.9 (35-45) mmHg ABG pO2 76.7 L (80.0-100.0) mmH g ABG HCO3 31.1 H (22-26) mmol/L ABG O2 Saturation 94.9 ABG Base Excess 6.9 H (-2.0-2.0) mmol/ L Silvio Test Pos A-a O2 Gradient 2.7 L (5-10) mmHg Hematocrit 32.4 L (42-52) % Hgb O2 Saturation 93.0 L (95-100) % Carboxyhemoglobin 1.2 (0.4-20.1) %THgb Methemoglobin 0.8 (0.4-1.5) % Total Hemoglobin 10.6 L (14-18) g/dL Ionized Calcium 1.1 (1.1-1.4) mmol/L O2 Delivery Device Nc O2 Liters/Min 2.0 % Information Security Manager ID Cak Sodium 136.0 (136-145) mmol/L Potassium 4.2 (3.5-5.1) mmol/L Chloride (98-107) mmol/L Carbon Dioxide (22-29) mmol/L Anion Gap (5-19) BUN (8-23) mg/dL Creatinine (0.7-1.2) mg/dL GFR Calculation Glucose 92.0 (65-115) mg/dL Calculated Osmolal ity (285-295) mOsm/k g Lactic Acid 1.3 (0.5-2.2) mmol/L Calcium (8.5-10.5) mg/dL Magnesium (1.7-2.3) mg/dL Total Bilirubin (0.15-1.2) mg/dL AST (0-40) U/L ALT (0-41) U/L Alkaline Phosphata se (40-130) IU/L Lactate Dehydrogen ase (135-225) U/L Creatine Kinase (39-308) U/L C-Reactive Protein (0.0-4.9) mg/L Total Protein (6.6-8.7) g/dL Albumin (3.5-5.2) g/dL Globulin (1.3-4.6) g/dL Procalcitonin (0-0.5) ng/mL Influenza Type A A g (Negative) Influenza Type B A g (Negative) COVID Results: No Data to Display Bamlanivimab Consideration Inclusion/Exclusion Criteria age >/= 65 positive rapid antigen test at [facility] BMI >/= 35, diabetes and chronic kidney disease with Cr >/= 2.0 not requiring hospitalization and no increase oxygen requirement (if chronically on oxygen) (Patient on a baseline of 2 L/min at home, he is generally noncompliant with) Patient education Bamlanivimab education: patient/family/caregiver received/reviewed fact sheet, Emergency Use Authorization/unapproved drug status discussed with patient/family/caregiver, alternatives to this treatment discussed with patient/family/caregiver, risks and benefits of medication reviewed with patient/family/caregiver, patient/family/caregiver given opportunity for questions, which were answered and patient consents to receiving Bamlanivimab Plan for treatment Meets criteria for BAM infusion Bamlanivimab information given and Order infusion of Bamlanivimab today. Discharge Plan Discharge Patient Disposition: Home Clinical Impression: COVID-19 Condition: Stable Prescriptions: No Action nitroglycerin [Nitrostat] 0.4 mg tablet, sublingual 0.4 mg SUBLINGUAL Q5M PRN (Reason: CHEST PAINS) RF: 0 atorvastatin 40 mg tablet 40 mg PO DAILY RF: 0 RenaPlex 800 mcg- 12.5 mg tablet 1 tab PO DAILY RF: 0 Fosrenol 1,000 mg powder in packet 1,000 mg PO QID RF: 0 levothyroxine 150 mcg capsule 150 mcg PO DAILY RF: 0 promethazine 25 mg tablet 25 mg PO TID PRN (Reason: N/V) RF: 0 docusate sodium 100 mg capsule 100 mg PO BID RF: 0 mirtazapine 15 mg tablet 15 mg PO DAILY RF: 0 cholecalciferol (vitamin D3) 1 tab PO DAILY RF: 0 pantoprazole 40 mg tablet,delayed release (DR/EC) 40 mg PO DAILY RF: 0 amiodarone 200 mg tablet 200 mg PO DAILY 90 Days Qty: 90 RF: 3 Cimzia 400 mg/2 mL (200 mg/mL x 2) syringe kit 200 mg SUBCUT .every other week Qty: 2 RF: 2 isosorbide mononitrate 60 mg tablet extended release 24 hr 60 mg PO DAILY Qty: 90 RF: 3 Cimzia 400 mg/2 mL (200 mg/mL x 2) syringe kit 200 mg SUBCUT .every other week Qty: 2 RF: 5 hydrocodone-acetaminophen 5-325 mg tablet 1 tab PO Q6H PRN (Reason: pain) Qty: 10 RF: 0 cetirizine 10 mg Tablet 10 mg PO DAILY RF: 0 Lido-Prilo Josemanuel Pack 2.5-2.5 % Kit See Rx Instructions .ROUTE .COMPLEX RF: 0 amlodipine 5 mg tablet 5 mg PO DAILY RF: 0 Lantus Solostar U-100 Insulin 100 unit/mL (3 mL) insulin pen See Rx Instructions .ROUTE .COMPLEX RF: 0 Discharge Orders: Discharge Order (Routine); Ordered 01/21/20 Ordered By: Sumi Silva Referrals: Hanane Saldaña MD [Primary Care Provider] - Discharge Diet: Advance as tolerated Discharge Activity: Resume usual activity Patient Instructions: Viral Syndrome (ED) Activity Restrictions/Additional Instructions: return to the ED if increasing shortness of breath or any other new or concerning symptoms. See your primary care doctor about abnormal findings on your CT today - these will need to be further evaluated as an outpatient. Coding Level of Care Code ED Installer Metal Flooring for Jasbirg Fwd Exam Comprehensive Documented by User: Sumi Silva MD 01/24/20 06:16 HPI - COVID General: Chief Complaint: Infusion Bamlanivimab Stated Complaint: COVID + Time Seen by Provider: 01/21/20 16:08 COVID Results: No Data to Display PFS ED PFSH: Medical History Anemia ASHD (arteriosclerotic heart disease) Atrial fibrillation CHF (congestive heart failure) CKD (chronic kidney disease) Diabetes 1.5, managed as type 2 Diabetic gastroparesis Dyslipidemia ESRD (end stage renal disease) on dialysis HTN (hypertension) Hypothyroidism Mitral regurgitation Myocardial infarction PAD (peripheral artery disease) Pulmonary HTN Rheumatoid arthritis Family History Father , AGE 61 Cancer LUNG Mother , AGE 62 CHF (congestive heart failure) Social History Smoking and tobacco status: never smoked Marital status: service: No Course ED course: I assumed care of this patient from Dr. Dean at [facility]. He is a dialysis patient who is positive for Covid. He is a candidate for bamlaivimab and the infusion was done in the ER. He has been observed following the infusion and has had no problems. He is in good spirits. His CT today did show some chronic findings including a right pleural effusion. The radiologist was concerned that it has changed since the CT done a few years ago. She said it has become increasingly complex and calcified and there is concern for some infection possibly even TB or fungal infection. There is also some atelectasis in the right base associated with that. Additionally in his right IJ he had a Port-A-Cath previously and now there is a small fragment of the catheter left in the brachiocephalic vein. The patient tells me that he had that Port-A-Cath removed over a year ago which makes me feel like this is not something that needs to be addressed today. I explained these findings to the patient and he understands to follow-up with his primary care doctor to see if any further interventions need to be done. Vital Signs: Vital signs: Vital Signs Temperature 98.4 F 01/21/20 22:00 Pulse Rate 65 01/21/20 22:00 Respiratory Rate 15 01/21/20 22:00 Blood Pressure 152/66 01/21/20 22:00 Pulse Oximetry 96 01/21/20 22:00 MDM - COVID Lab Data: Labs: Lab Results 01/21/20 01/21/20 01/21/20 Range/Units 14:40 16:26 16:26 WBC (4.0-10.0) 10^3/ uL RBC (4.1-5.3) 10^6/u L Hgb (11.7-16.6) g/dL Hct (42.0-52.0) % MCV (80-94) fL MCH (28.0-34.0) pg MCHC (30.0-36.0) g/dL RDW (12.1-15.1) % Plt Count (130-400) 10^3/c mm MPV (7.4-10.4) fL Neut % (Auto) % Lymph % (Auto) % [place] % (Auto) % Eos % (Auto) % Baso % (Auto) % Neut # (Auto) (1.8-7.7) 10^3/u L Lymph # (Auto) (0.8-4.8) 10^3/u L [place] # (Auto) (0.2-0.9) 10^3/u L Eos # (Auto) (0.0-0.8) 10^3/u L Baso # (Auto) (0.0-0.1) 10^3/u L Nucleated RBC % (a uto) % Nucleated RBCs # /100WBC Fibrinogen 455 (174-498) mg/dL D-Dimer 5.60 H (0-0.59) ug/mIFE U Specimen Type Sample Site ABG pH (7.35-7.45) ABG pCO2 (35-45) mmHg ABG pO2 (80.0-100.0) mmH g ABG HCO3 (22-26) mmol/L ABG O2 Saturation ABG Base Excess (-2.0-2.0) mmol/ L Silvio Test A-a O2 Gradient (5-10) mmHg Hematocrit (42-52) % Hgb O2 Saturation (95-100) % Carboxyhemoglobin (0.4-20.1) %THgb Methemoglobin (0.4-1.5) % Total Hemoglobin (14-18) g/dL Ionized Calcium (1.1-1.4) mmol/L O2 Delivery Device O2 Liters/Min % Information Security Manager ID Sodium 135 L (136-145) mmol/L Potassium 4.5 (3.5-5.1) mmol/L Chloride 94 L (98-107) mmol/L Carbon Dioxide 30 H (22-29) mmol/L Anion Gap 15.5 (5-19) BUN 24 H (8-23) mg/dL Creatinine 7.4 H* (0.7-1.2) mg/dL GFR Calculation Not Reportable Glucose 95 (65-115) mg/dL Calculated Osmolal ity 284 L (285-295) mOsm/k g Lactic Acid (0.5-2.2) mmol/L Calcium 8.8 (8.5-10.5) mg/dL Magnesium 2.1 (1.7-2.3) mg/dL Total Bilirubin 0.8 (0.15-1.2) mg/dL AST 22 (0-40) U/L ALT 12 (0-41) U/L Alkaline Phosphata se 120 (40-130) IU/L Lactate Dehydrogen ase 161 (135-225) U/L Creatine Kinase 48 (39-308) U/L C-Reactive Protein 80.6 H (0.0-4.9) mg/L Total Protein 7.3 (6.6-8.7) g/dL Albumin 3.5 (3.5-5.2) g/dL Globulin 3.8 (1.3-4.6) g/dL Procalcitonin 0.50 (0-0.5) ng/mL Influenza Type A A g Negative (Negative) Influenza Type B A g Negative (Negative) 01/21/20 01/21/20 01/21/20 Range/Units 16:26 16:44 16:58 WBC 5.0 (4.0-10.0) 10^3/ uL RBC 3.83 L (4.1-5.3) 10^6/u L Hgb 10.8 L (11.7-16.6) g/dL Hct 34.0 L (42.0-52.0) % MCV 88.8 (80-94) fL MCH 28.2 (28.0-34.0) pg MCHC 31.8 (30.0-36.0) g/dL RDW 14.5 (12.1-15.1) % Plt Count 88 L (130-400) 10^3/c mm MPV 11.4 H (7.4-10.4) fL Neut % (Auto) 57.3 % Lymph % (Auto) 19.4 % [place] % (Auto) 18.3 % Eos % (Auto) 3.2 % Baso % (Auto) 1.6 % Neut # (Auto) 2.84 (1.8-7.7) 10^3/u L Lymph # (Auto) 1.0 (0.8-4.8) 10^3/u L [place] # (Auto) 0.9 (0.2-0.9) 10^3/u L Eos # (Auto) 0.2 (0.0-0.8) 10^3/u L Baso # (Auto) 0.1 (0.0-0.1) 10^3/u L Nucleated RBC % (a uto) 0 % Nucleated RBCs # 0.0 /100WBC Fibrinogen (174-498) mg/dL D-Dimer (0-0.59) ug/mIFE U Specimen Type Arterial Sample Site Brachial, left ABG pH 7.48 H (7.35-7.45) ABG pCO2 41.9 (35-45) mmHg ABG pO2 76.7 L (80.0-100.0) mmH g ABG HCO3 31.1 H (22-26) mmol/L ABG O2 Saturation 94.9 ABG Base Excess 6.9 H (-2.0-2.0) mmol/ L Silvio Test Pos A-a O2 Gradient 2.7 L (5-10) mmHg Hematocrit 32.4 L (42-52) % Hgb O2 Saturation 93.0 L (95-100) % Carboxyhemoglobin 1.2 (0.4-20.1) %THgb Methemoglobin 0.8 (0.4-1.5) % Total Hemoglobin 10.6 L (14-18) g/dL Ionized Calcium 1.1 (1.1-1.4) mmol/L O2 Delivery Device Nc O2 Liters/Min 2.0 % Information Security Manager ID Cak Sodium 136.0 (136-145) mmol/L Potassium 4.2 (3.5-5.1) mmol/L Chloride (98-107) mmol/L Carbon Dioxide (22-29) mmol/L Anion Gap (5-19) BUN (8-23) mg/dL Creatinine (0.7-1.2) mg/dL GFR Calculation Glucose 92.0 (65-115) mg/dL Calculated Osmolal ity (285-295) mOsm/k g Lactic Acid 1.3 (0.5-2.2) mmol/L Calcium (8.5-10.5) mg/dL Magnesium (1.7-2.3) mg/dL Total Bilirubin (0.15-1.2) mg/dL AST (0-40) U/L ALT (0-41) U/L Alkaline Phosphata se (40-130) IU/L Lactate Dehydrogen ase (135-225) U/L Creatine Kinase (39-308) U/L C-Reactive Protein (0.0-4.9) mg/L Total Protein (6.6-8.7) g/dL Albumin (3.5-5.2) g/dL Globulin (1.3-4.6) g/dL Procalcitonin (0-0.5) ng/mL Influenza Type A A g (Negative) Influenza Type B A g (Negative) COVID Results: No Data to Display Discharge Plan Discharge Patient Disposition: Home Clinical Impression: COVID-19 Condition: Stable Prescriptions: No Action nitroglycerin [Nitrostat] 0.4 mg tablet, sublingual 0.4 mg SUBLINGUAL Q5M PRN (Reason: CHEST PAINS) RF: 0 atorvastatin 40 mg tablet 40 mg PO DAILY RF: 0 RenaPlex 800 mcg- 12.5 mg tablet 1 tab PO DAILY RF: 0 Fosrenol 1,000 mg powder in packet 1,000 mg PO QID RF: 0 levothyroxine 150 mcg capsule 150 mcg PO DAILY RF: 0 promethazine 25 mg tablet 25 mg PO TID PRN (Reason: N/V) RF: 0 docusate sodium 100 mg capsule 100 mg PO BID RF: 0 mirtazapine 15 mg tablet 15 mg PO DAILY RF: 0 cholecalciferol (vitamin D3) 1 tab PO DAILY RF: 0 pantoprazole 40 mg tablet,delayed release (DR/EC) 40 mg PO DAILY RF: 0 amiodarone 200 mg tablet 200 mg PO DAILY 90 Days Qty: 90 RF: 3 Cimzia 400 mg/2 mL (200 mg/mL x 2) syringe kit 200 mg SUBCUT .every other week Qty: 2 RF: 2 isosorbide mononitrate 60 mg tablet extended release 24 hr 60 mg PO DAILY Qty: 90 RF: 3 Cimzia 400 mg/2 mL (200 mg/mL x 2) syringe kit 200 mg SUBCUT .every other week Qty: 2 RF: 5 hydrocodone-acetaminophen 5-325 mg tablet 1 tab PO Q6H PRN (Reason: pain) Qty: 10 RF: 0 cetirizine 10 mg Tablet 10 mg PO DAILY RF: 0 Lido-Prilo Josemanuel Pack 2.5-2.5 % Kit See Rx Instructions .ROUTE .COMPLEX RF: 0 amlodipine 5 mg tablet 5 mg PO DAILY RF: 0 Lantus Solostar U-100 Insulin 100 unit/mL (3 mL) insulin pen See Rx Instructions .ROUTE .COMPLEX RF: 0 Discharge Orders: Discharge Order (Routine); Ordered 01/21/20 Ordered By: Sumi Silva Referrals: Hanane Saldaña MD [Primary Care Provider] - Discharge Diet: Advance as tolerated Discharge Activity: Resume usual activity Patient Instructions: Viral Syndrome (ED) Activity Restrictions/Additional Instructions: return to the ED if increasing shortness of breath or any other new or concerning symptoms. See your primary care doctor about abnormal findings on your CT today - these will need to be further evaluated as an outpatient. Coding Level of Care Code ED Installer Metal Flooring for Chg Fwd Exam Comprehensive
--- NOTE | 2020-01-21 19:09 | CTR_ITS ---
PROCEDURE INFORMATION: Exam: CT Angiography Chest With Contrast Exam date and time: 01/21/2020 7:21 PM Age: 74 years old Clinical indication: Cough and shortness of breath; Additional info: Cp, SOB, covid, esrd TECHNIQUE: Imaging protocol: Computed tomographic angiography of the chest with intravenous contrast. 3D rendering (Not supervised by radiologist): MIP and/or 3D reconstructed images were created by the technologist. Radiation optimization: All CT scans at this facility use at least one of these dose optimization techniques: automated exposure control; mA and/or kV adjustment per patient size (includes targeted exams where dose is matched to clinical indication); or iterative reconstruction. Contrast material: VISI 320; Contrast volume: 70 ml; Contrast route: INTRAVENOUS (IV); COMPARISON: CT Chest/Abdomen/Pelvis wo IV 07/06/2016 4:51 PM RADIATION DOSE METRICS: Total DLP (mGy-cm): 630.45 FINDINGS: Tubes, catheters and devices: The right IJ Port-A-Cath has been removed. There is a small piece of the catheter still within the right brachiocephalic vein however (series 601, image 38). Pulmonary arteries: No filling defects in the pulmonary arteries to suggest pulmonary embolism. Aorta: Moderate atherosclerotic changes in the visualized arteries. No evidence for aortic aneurysm. Lungs: Tracheobronchial structures are patent. Atelectasis and/or pneumonia in the posterior right lower lobe. No pulmonary parenchymal nodules or masses. Pleural space: Small left pleural effusion, decreased in size. Redemonstration of a moderate right pleural effusion. There is interval development of calcification and pleural thickening around the periphery of the effusion. Heart: Stable moderate enlargement of the heart. Insert stable aortic and mitral valveStable moderate atherosclerotic calcification in the coronary arteries. Mediastinal space: The esophagus is unremarkable. The esophagus is unremarkable. Lymph nodes: Numerous mediastinal lymph nodes, the majority measure less than 1 cm in short axis. Few partially calcified lymph nodes. The largest measures 1.4 cm in short axis. Findings are stable. Liver: The visualized liver is unremarkable. Gallbladder and bile ducts: Stable findings consistent with a previous cholecystectomy. Pancreas: The visualized pancreas is unremarkable. No pancreatic ductal dilatation. Spleen: Multiple calcified granulomas in the spleen. Calcification along the lateral surface of the spleen is stable, this may be due to sequela of remote infection or trauma. Adrenals: The right and left adrenal glands are unremarkable. Kidneys and ureters: Moderate atrophy of the visualized left kidney. Bones/joints: Findings suggesting prior cervical spine fusion. Degenerative changes in the spine and shoulders. Soft tissues: The extrathoracic soft tissues are unremarkable. CT/CT angio chest PE protcl [id number] IMPRESSION: 1. Redemonstration of a moderate right pleural effusion. There is interval development of calcification and pleural thickening around the periphery of the effusion. Findings are concerning for an infected pleural effusion, including tuberculous or fungal infection. Recommend clinical correlation. 2. Atelectasis and/or pneumonia in the posterior right lower lobe. Recommend followup chest imaging in 4-6 weeks to insure resolution of these findings. 3. The right IJ Port-A-Cath has been removed. There is a small piece of the catheter still within the right brachiocephalic vein however (series 601, image 38). 4. No evidence for pulmonary embolism. 5. Small left pleural effusion, decreased in size. 6. Few mildly enlarged mediastinal lymph nodes and numerous sub cm short axis lymph nodes are stable. 7. Incidental/nonacute findings are listed in the report. Radiation Dose CTDIVOL = (mGy): DLP = 630.45 (mGy-cm)
[2020-01-21] MEDS: iodixanol 320 mg/mL 100mL Btl 70 ML IV (19:44)
--- NOTE | 2020-01-21 20:56 | PC.NURSE ---
bam infusion complete, to monitor pt for another hour before d/c
--- NOTE | 2020-01-27 14:15 | DCPLANNER ---
Addendum entered by Kathleen Peterson 02/05/20 11:55: 02.03.20 tried to call no answer 02.05.20 - not admitted anywhere - did come to ER but not for anything related to COVID. - patients stated that he is feeling a little better he has good days and he has bad days. Addendum entered by Kathleen Peterson 02/05/20 11:54: 12 spoke with patients , she stated that he has been in the bed all day, getting up and getting ready for dialysis. Patients stated patient is feeling about the same, no fever, still has headache and aches all over but stated that patient stated that he does feel better since the infusion. Addendum entered by Kathleen Peterson 02/05/20 11:53: Monday February 03, 2020 at 3:[address] Saldaña follow up appointment Addendum entered by Kathleen Peterson 02/05/20 11:53: 01.27.20 spoke with patients Sahra *before injection - really sick really down / after injection on 01.24.20 patient was feeling better got out of bed felt really good - no fever - still coughing - on 01.26.20 patient started feeling bad again, but had dialysis on 01.26.20 - has not gotten out of bed today, but not unusually day after dialysis treatment. Has a meter to read oxygen. *Does not have a follow up appointment with Dr. Saldaña, RAKESH made appt for 02.03.20 at 3:40 with , called patient and informed patients of the scheduled appt. Original Note: rehabilitation manager made follow up call with patient due to receiving BAM infusion.
== END 2020-01-21 22:00 | disposition home or self-care (01) ==
PROVIDERS: Family Medicine; Emergency Provider Emergency Medicine; PCP Family Medicine
DX: U07.1 COVID-19 (principal); Z79.4 Long term (current) use of insulin; I48.91 Unspecified atrial fibrillation; I11.0 Hypertensive heart disease with heart failure; I50.9 Heart failure, unspecified; E13.9 Other specified diabetes mellitus without complications; E78.5 Hyperlipidemia, unspecified; I25.2 Old myocardial infarction
CPT/HCPCS: 12345; 36600; 71045; 71275; 80051; 80053; 82330; 82550; 82805; 83605; 83615; 83735; 84145; 85025; 85378; 85384; 86140; 87804; 96365; 99283; 99284; J7050; Q9967

== ENCOUNTER 2020-02-03 09:01 | Emergency (ER) | payer MEDICARE, MEDICAID, SELFPAY ==
[2020-02-03 09:14] VITALS: BP 138/56; PULSE 61; RESP 18; TEMP 37.2; O2SAT 97; BMI 32.0
--- NOTE | 2020-02-03 09:21 | CT_ITS ---
WS: [id number] CT LUMBAR SPINE, noncontrast. HISTORY: pain/radiculopathy TECHNIQUE: Contiguous 2.5 mm axial imaging are performed. Sagittal and coronal reformats are submitte d and reviewed. All CT scans at [facility] use at least one of these dose optimization te chniques: automated exposure control; mA and/or kV adjustment per patient size (includes targeted exa ms where dose is matched to clinical indication); or iterative reconstruction. IV contrast: None DLP: 2597.24 mGy.cm COMPARISON: 12/15/2013 Normal lumbar alignment. No fracture or significant loss of disc space height. No pars defects. L1-2: Normal. L2-3: Mild facet joint arthritis. Ligamentum flavum hypertrophy. No stenosis. L3-4: Mild narrowing of the central canal with mild ligamentum flavum hypertrophy and facet arthritis and annular disc bulging. Mild central and subarticular recess stenosis. L4-5: Diffuse annular disc bulging with mild ligamentum flavum hypertrophy and facet arthritis. Moder ate central stenosis with mild bilateral foraminal stenosis. Mild progression of the central stenosis since the prior study. L5-S1: Mild annular disc bulging. There is a shallow central disc protrusion contacting the ventral t hecal sac. Mild central, subarticular recess and foraminal stenosis. Very similar to the prior study. Moderate atherosclerosis abdominal aorta. Atherosclerotic plaque extends into the proximal mesenteric arteries and into the iliac arteries bilaterally. Small amount of degenerative air in the SI joints. CT/CT lumbar spine wo con* [id number] IMPRESSION: 1. No acute fracture. 2. Moderate central with mild bilateral foraminal stenosis at L4-5. Minimal pr ogression since the prior study. 3. Mild central, subarticular recess and foraminal stenosis at L5-S1. 4. Mild central and subarticular recess stenosis at L3-4.
[2020-02-03 09:57] VITALS: RESP 18
[2020-02-03] MEDS: ondansetron 2 mg/ML SDV 2 mL 4 MG IVP (09:57)
[2020-02-03] MEDS: morphine 4 mg/mL SDV 1 mL IVP (09:57)
[2020-02-03 09:59] LABS: Alanine Aminotransferase 18 U/L (0-41); Albumin Level 3.1 g/dL (3.5-5.2); Alkaline Phosphatase 105 IU/L (40-130); Anion Gap 14.1 (5-19); Aspartate Amino Transferase 23 U/L (0-40); Blood Urea Nitrogen 14 mg/dL (8-23); Calcium 8.1 mg/dL (8.5-10.5); Carbon Dioxide 33 mmol/L (22-29); Chloride 93 mmol/L (98-107); Globulin 3.8 g/dL (1.3-4.6); Glucose 101 mg/dL (65-115); Osmolality Calculated 285 mOsm/kg (285-295); Potassium 3.1 mmol/L (3.5-5.1); Sodium 137 mmol/L (136-145); Total Bilirubin 0.5 mg/dL (0.15-1.2); Total Protein 6.9 g/dL (6.6-8.7)
--- NOTE | 2020-02-03 09:59 | W.ED.BACK ---
HPI - Back Pain/Injury General: Chief Complaint: COVID symptoms Stated Complaint: BACK PAIN Time Seen by Provider: 02/03/20 09:06 History of Present Illness: HPI Narrative: 74-year-old male presents emergency room with complaint of low back pain he has had this chronically has gotten worse lately cannot recall any trauma but he has significantly worse radicular leg pain he reports it is to the point where he is difficult time moving his legs they feel weak he denies any difficulty with bowel or bladder control he denies any urinary retention he does have some decreased urinary output because of his end-stage renal disease. As a secondary note he did test positive for Covid recently and was given a monoclonal antibody infusion. He was previously not on any oxygen he is now at 2 L/min which was started after his antibody infusion but he is maintaining on he said his breathing today is doing well his diarrhea has decreased and overall his symptoms seem to be better. He identifies today's back pain is a separate issue. MD elicited complaint: back pain Pertinent past history: prior back pain Onset (ago): day(s) Timing: constant Severity: severe Similar Symptoms Previously: Yes Quality: sharp and aching Location: lumbar spine Radiation: left leg below the knee and right leg below the knee Exacerbating factors: sitting upright and walking Relieving factors: supine Associated symptoms: Reports difficulty walking, tingling/numbness/burning and weakness; Deny abdominal pain, arthralgias, chills, change in bowel habits, dysuria, fatigue, fecal incontinence, fever(s), hematuria, myalgias, nausea, numbness, syncope, urinary frequency, urinary urgency or vomiting Review of Systems Const: Denies: fever(s), chills or fatigue ENMT: Denies: throat pain, ear or mastoid pain, nasal discharge or nasal congestion Card: Denies: syncope Resp: Denies: dyspnea, productive cough or non-productive cough GI: Denies: abdominal pain, nausea, vomiting, fecal incontinence or change in bowel habits : Denies: dysuria, urinary urgency or hematuria Skin/Breast: Denies: rash or pruritus Neuro: Reports: difficulty walking [facility] PFSH: Medical History (Updated 02/03/20 @ 10:44 by Terrell Peñaloza DO) Anemia ASHD (arteriosclerotic heart disease) Atrial fibrillation CHF (congestive heart failure) CKD (chronic kidney disease) Diabetes 1.5, managed as type 2 Diabetic gastroparesis Dyslipidemia ESRD (end stage renal disease) on dialysis HTN (hypertension) Hypothyroidism Mitral regurgitation Myocardial infarction PAD (peripheral artery disease) Pulmonary HTN Rheumatoid arthritis Family History Father , AGE 61 Cancer LUNG Mother , AGE 62 CHF (congestive heart failure) Social History Smoking and tobacco status: never smoked Marital status: service: No Physical Exam Const: COMMON NORMALS: no acute distress GENERAL APPEARANCE: cooperative and comfortable ORIENTATION/CONSCIOUSNESS: Yes awake, Yes oriented to person, Yes oriented to place and Yes oriented to time HENMT: COMMON NORMALS: normocephalic, atraumatic and hearing grossly normal bilaterally HEAD & SCALP: normocephalic and atraumatic Neck/C-Spine: COMMON NORMALS: no JVD Resp: COMMON NORMALS: normal respiratory effort, No retractions, No use of accessory muscles and clear to auscultation bilaterally AUSCULTATION: clear to auscultation bilaterally Cardio: COMMON NORMALS: no JVD, regular rate, regular rhythm and No murmurs present (Cardio) RATE: regular rate RHYTHM: regular rhythm GI: COMMON NORMALS: Soft to palpation and No hepatosplenomegaly present AUSCULTATION: Yes normoactive bowel sounds PALPATION: Yes Soft to palpation, No Tenderness to palpation present (GI), No Guarding due to palpation present (GI) and Yes No hepatosplenomegaly present Extremity: COMMON NORMALS: normal to inspection, capillary refill normal, no clubbing, cyanosis or edema, no calf tenderness and no pedal edema Neuro: SENSORIUM/ORIENTATION: Yes oriented to person, Yes oriented to place and Yes oriented to time Skin: COMMON NORMALS: no rashes or lesions noted GENERAL SKIN EXAM: no rashes or lesions noted Course Vital Signs: Vital signs: Vital Signs Temperature 99.0 F 02/03/20 09:14 Pulse Rate 61 02/03/20 09:14 Respiratory Rate 18 02/03/20 09:57 Blood Pressure 138/56 02/03/20 09:14 Pulse Oximetry 97 02/03/20 09:14 MDM - Back Pain/Injury MDM Narrative: Medical decision making narrative: CT lumbar spine reviewed discussed with the patient. No significant changes. Currently the patient does not ambulate he usually just uses a wheelchair. We will give him pain medications have him follow-up with his primary care doctor is does say his pain is improved at this point after the medications he was given here. Patient also recently was diagnosed with Covid and was given a monoclonal antibody infusion from his breathing and Covid point of view he seems to be doing very well he has no worsening of symptoms and has not had any increase in oxygen requirement. He had been started on oxygen after his antibody infusion. Lab Data: Labs: Lab Results 02/03/20 02/03/20 Range/Units 09:31 09:31 WBC 5.1 (4.0-10.0) 10^3/ uL RBC 3.92 L (4.1-5.3) 10^6/u L Hgb 10.8 L (11.7-16.6) g/dL Hct 33.5 L (42.0-52.0) % MCV 85.5 (80-94) fL MCH 27.6 L (28.0-34.0) pg MCHC 32.2 (30.0-36.0) g/dL RDW 13.8 (12.1-15.1) % Plt Count 89 L (130-400) 10^3/c mm MPV 11.2 H (7.4-10.4) fL Neut % (Auto) 62.9 % Lymph % (Auto) 16.6 % [place] % (Auto) 15.4 % Eos % (Auto) 3.5 % Baso % (Auto) 1.2 % Neut # (Auto) 3.22 (1.8-7.7) 10^3/u L Lymph # (Auto) 0.9 (0.8-4.8) 10^3/u L [place] # (Auto) 0.8 (0.2-0.9) 10^3/u L Eos # (Auto) 0.2 (0.0-0.8) 10^3/u L Baso # (Auto) 0.1 (0.0-0.1) 10^3/u L Nucleated RBC % (a uto) 0 % Nucleated RBCs # 0.0 /100WBC Sodium 137 (136-145) mmol/L Potassium 3.1 L (3.5-5.1) mmol/L Chloride 93 L (98-107) mmol/L Carbon Dioxide 33 H (22-29) mmol/L Anion Gap 14.1 (5-19) BUN 14 (8-23) mg/dL Creatinine 4.7 H (0.7-1.2) mg/dL GFR Calculation Not Reportable Glucose 101 (65-115) mg/dL Calculated Osmolal ity 285 (285-295) mOsm/k g Calcium 8.1 L (8.5-10.5) mg/dL Total Bilirubin 0.5 (0.15-1.2) mg/dL AST 23 (0-40) U/L ALT 18 (0-41) U/L Alkaline Phosphata se 105 (40-130) IU/L Total Protein 6.9 (6.6-8.7) g/dL Albumin 3.1 L (3.5-5.2) g/dL Globulin 3.8 (1.3-4.6) g/dL Discharge Plan Discharge Patient Disposition: Home Clinical Impression: Back pain of lumbar region with sciatica, ESRD (end stage renal disease) on dialysis, COVID-19 Condition: Stable Prescriptions: New hydrocodone-acetaminophen 5-325 mg tablet 1 tab PO Q6H PRN (Reason: pain) Qty: 20 RF: 0 No Action nitroglycerin [Nitrostat] 0.4 mg tablet, sublingual 0.4 mg SUBLINGUAL Q5M PRN (Reason: CHEST PAINS) RF: 0 atorvastatin 40 mg tablet 40 mg PO DAILY RF: 0 Fosrenol 1,000 mg powder in packet See Rx Instructions .ROUTE .COMPLEX RF: 0 levothyroxine 150 mcg capsule 150 mcg PO DAILY RF: 0 promethazine 25 mg tablet 25 mg PO TID PRN (Reason: Nausea And Vomiting) RF: 0 docusate sodium 100 mg capsule 100 mg PO BID PRN (Reason: Constipation) RF: 0 mirtazapine 15 mg tablet 15 mg PO BEDTIME RF: 0 pantoprazole 40 mg tablet,delayed release (DR/EC) 40 mg PO DAILY RF: 0 amiodarone 200 mg tablet 200 mg PO DAILY 90 Days Qty: 90 RF: 3 isosorbide mononitrate 60 mg tablet extended release 24 hr 60 mg PO DAILY Qty: 90 RF: 3 Cimzia 400 mg/2 mL (200 mg/mL x 2) syringe kit 200 mg SUBCUT .every other week Qty: 2 RF: 5 hydrocodone-acetaminophen 5-325 mg tablet 1 tab PO Q6H PRN (Reason: pain) Qty: 10 RF: 0 Tylenol Extra Strength 500 mg Tablet 1,000 mg PO PRN RF: 0 lidocaine-prilocaine 2.5-2.5 % cream See Rx Instructions .ROUTE .COMPLEX RF: 0 Vitamin D3 25 mcg (1,000 unit) Tablet 25 mcg PO DAILY RF: 0 RenaPlex-D 800 mcg-12.5 mg -2,000 unit tablet 1 tab PO DAILY RF: 0 cetirizine 10 mg Tablet 10 mg PO DAILY RF: 0 amlodipine 5 mg tablet 5 mg PO DAILY RF: 0 Lantus Solostar U-100 Insulin 100 unit/mL (3 mL) insulin pen See Rx Instructions .ROUTE .COMPLEX RF: 0 Discharge Orders: Discharge ED (Routine); Ordered 02/03/20 Ordered By: Terrell Peñaloza Referrals: Hanane Saldaña MD [Primary Care Provider] - Discharge Diet: Usual diet Discharge Activity: Resume usual activity Coding Level of Care Code ED 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
--- NOTE | 2020-02-03 10:07 | PC.NURSE ---
patient to ct
[2020-02-03 10:38] LABS: Basophils # 0.1 10^3/uL (0.0-0.1); Basophils % 1.2 %; Eosinophils # 0.2 10^3/uL (0.0-0.8); Eosinophils % 3.5 %; Hematocrit 33.5 % (42.0-52.0); Hemoglobin 10.8 g/dL (11.7-16.6); Lymphocytes # 0.9 10^3/uL (0.8-4.8); Lymphocytes % 16.6 %; Mean Corpuscular HGB Conc 32.2 g/dL (30.0-36.0); Mean Corpuscular Hemoglobin 27.6 pg (28.0-34.0); Mean Corpuscular Volume 85.5 fL (80-94); Mean Platelet Volume 11.2 fL (7.4-10.4); Monocytes # 0.8 10^3/uL (0.2-0.9); Monocytes % 15.4 %; Neutrophils # 3.22 10^3/uL (1.8-7.7); Neutrophils % 62.9 %; Nucleated Red Blood Cells % 0 %; Platelet Count 89 10^3/cmm (130-400); Red Blood Count 3.92 10^6/uL (4.1-5.3); Red Cell Distribution Width 13.8 % (12.1-15.1); White Blood Count 5.1 10^3/uL (4.0-10.0)
[2020-02-03] MEDS: metoclopramide 5 mg/mL SDV 2 mL 10 MG IVP (10:58)
[2020-02-03 11:22] LABS: Gastricult Occult Blood Negative (Negative)
[2020-02-03 11:45] VITALS: BP 138/54; PULSE 60; RESP 18; O2SAT 99
[2020-02-03 11:46] VITALS: BP 134/56; PULSE 61; RESP 20; O2SAT 99
== END 2020-02-03 11:48 | disposition home or self-care (01) ==
PROVIDERS: Emergency Provider Family Medicine; PCP Family Medicine
DX: M54.40 Lumbago with sciatica, unspecified side (principal); U07.1 COVID-19; E13.22 Other specified diabetes mellitus with diabetic chronic kidney disease; I13.2 Hypertensive heart and chronic kidney disease with heart failure and with stage 5 chronic kidney disease, or end stage renal disease; I50.9 Heart failure, unspecified; N18.6 End stage renal disease; Z99.2 Dependence on renal dialysis; Z79.4 Long term (current) use of insulin; I48.91 Unspecified atrial fibrillation; E78.5 Hyperlipidemia, unspecified; I25.2 Old myocardial infarction
CPT/HCPCS: 12345; 72131; 80053; 82271; 85025; 96374; 96375; 99282; 99283; J2270; J2405; J2765

== ENCOUNTER 2020-04-10 22:19 | Emergency (ER) | payer MEDICARE, MEDICAID, SELFPAY ==
[2020-04-10 22:28] VITALS: BP 181/72; PULSE 73; RESP 16; TEMP 36.3; O2SAT 97; BMI 32.0
--- NOTE | 2020-04-10 22:40 | XRR_ITS ---
PROCEDURE INFORMATION: Exam: XR Abdomen, 1 View Exam date and time: 04/10/2020 11:09 PM Age: 75 years old Clinical indication: Constipation TECHNIQUE: Imaging protocol: XR of the abdomen. Views: Frontal supine view of the abdomen. 1 View. COMPARISON: CT abdomen con [id number] 02/05/2017 4:36 PM FINDINGS: Gastrointestinal tract: Lucency in the central abdominal suggest free air. No bowel dilation. Bones/joints: Unremarkable. XR/XR KUB [id number] IMPRESSION: Free air is suspected. A CT of the abdomen and pelvis is suggested for further evaluation.
--- NOTE | 2020-04-10 22:43 | ED_ITS ---
HPI - Abdominal Pain General: Chief Complaint: Abdominal Pain Stated Complaint: constipation, ab pain Time Seen by Provider: 04/10/20 22:37 Source: patient Mode of arrival: ambulatory Limitations: no limitations History of Present Illness: HPI narrative: 75-year-old male history of end- stage renal disease and is currently on dialysis. He states that he gets constipation at times has not had a bowel movement last 3 to 4 days. He is taking stool softeners but states he still has not had a bowel movement and is starting to have some lower abdominal pain. Denies any nausea or vomiting. States his pain is cramping and rates it a 7 out of 10. MD elicited complaint: abdominal pain Pertinent past history: constipation Onset (ago): day(s) Pain Consistency: constant Location: Periumbilical Severity: moderate Quality: cramping Radiation: none Associated Symptoms: Reports constipation; Denies chills, dysuria and fever(s) Review of Systems Const: Denies: fever(s), chills, body aches or change in appetite Eyes: Denies: blurry vision or eye discomfort ENMT: Denies: throat pain or dental pain Card: Denies: chest pain Resp: Denies: dyspnea GI: Reports: abdominal pain and constipation : Denies: dysuria Musc: Denies: neck pain or back pain Skin/Breast: Denies: rash Neuro: Denies: headache(s) Psych: Denies: depression Frank/Lymph: Denies: easy bruising All/Imm: Denies: urticaria PFSH ED PFSH: Medical History (Updated 04/11/20 @ 02:08 by Yanet Gutierrez MD) Anemia ASHD (arteriosclerotic heart disease) Atrial fibrillation CHF (congestive heart failure) CKD (chronic kidney disease) Diabetes 1.5, managed as type 2 Diabetic gastroparesis Dyslipidemia ESRD (end stage renal disease) on dialysis HTN (hypertension) Hypothyroidism Mitral regurgitation Myocardial infarction PAD (peripheral artery disease) Pulmonary HTN Rheumatoid arthritis Family History Father , AGE 61 Cancer LUNG Mother , AGE 62 CHF (congestive heart failure) Social History Smoking and tobacco status: never smoked Marital status: service: No Physical Exam Const: COMMON NORMALS: no acute distress, patient oriented x3 and healthy appearing HENMT: COMMON NORMALS: normocephalic and atraumatic HEAD & SCALP: normocephalic and atraumatic Eye: COMMON NORMALS: Equal, round and reactive pupils present and EOMs intact bilaterally PUPIL: Yes Equal, round and reactive pupils present Neck/C-Spine: COMMON NORMALS: full ROM and supple Chest: COMMONS NORMALS: normal inspection of the chest and normal palpation of entire chest wall Resp: COMMON NORMALS: normal respiratory effort, No retractions, No use of accessory muscles and clear to auscultation bilaterally AUSCULTATION: clear to auscultation bilaterally Cardio: COMMON NORMALS: regular rate, regular rhythm and No murmurs present (Cardio) RATE: regular rate RHYTHM: regular rhythm GI: COMMON NORMALS: Normal to inspection, nondistended, normoactive bowel sounds present, Soft to palpation, non-tender and no masses PALPATION: Yes Soft to palpation Extremity: COMMON NORMALS: normal to inspection and full ROM Neuro: COMMON NORMALS: patient oriented x3, moves all extremities and no focal motor deficits Psych: COMMON NORMALS: mental status grossly normal, Normal thought process present and cooperative THOUGHT PROCESS: Normal thought process present Skin: COMMON NORMALS: no rashes or lesions noted and no wounds GENERAL SKIN EXAM: no rashes or lesions noted Course Vital Signs: Vital signs: Vital Signs Temperature 97.9 F 04/11/20 02:50 Pulse Rate 76 04/11/20 02:50 Respiratory Rate 16 04/11/20 02:50 Blood Pressure 160/74 04/11/20 02:50 Pulse Oximetry 95 04/11/20 02:50 MDM - Abdominal Pain MDM Narrative: Medical decision making narrative: Paul presents here with abdominal pain does have cystitis noted on CT along with hematuria. He has no small bowel obstruction or constipation. Did offer him admission as he is having pain and a cystitis with his end-stage renal disease. He states he like to try outpatient treatment first. We will place him on oral antibiotics and nausea medicine and he is to follow-up with PCP as scheduled and return to ER if worsening. He understands and agrees the plan. Lab Data: Labs: Lab Results 04/11/20 04/11/20 04/11/20 Range/Units 01:25 01:25 01:43 WBC 12.0 H (4.0-10.0) 10^3/ uL RBC 4.64 (4.1-5.3) 10^6/u L Hgb 13.3 (11.7-16.6) g/dL Hct 40.6 L (42.0-52.0) % MCV 87.5 (80-94) fL MCH 28.7 (28.0-34.0) pg MCHC 32.8 (30.0-36.0) g/dL RDW 17.2 H (12.1-15.1) % Plt Count 128 L (130-400) 10^3/c mm MPV 11.4 H (7.4-10.4) fL Neut % (Auto) 72.9 % Lymph % (Auto) 11.6 % [place] % (Auto) 9.0 % Eos % (Auto) 5.1 % Baso % (Auto) 1.2 % Neut # (Auto) 8.77 H (1.8-7.7) 10^3/u L Lymph # (Auto) 1.4 (0.8-4.8) 10^3/u L [place] # (Auto) 1.1 H (0.2-0.9) 10^3/u L Eos # (Auto) 0.6 (0.0-0.8) 10^3/u L Baso # (Auto) 0.1 (0.0-0.1) 10^3/u L Nucleated RBC % (a uto) 0 % Nucleated RBCs # 0.0 /100WBC Sodium Cancelled 127 L Potassium Cancelled 4.0 Chloride Cancelled 89 L Carbon Dioxide Cancelled 25 Anion Gap Cancelled 17.0 BUN Cancelled 26 H Creatinine Cancelled 5.0 H GFR Calculation Cancelled Not Reportable Glucose Cancelled 163 H Calculated Osmolal ity Cancelled 272 L Calcium Cancelled 8.6 Total Bilirubin Cancelled 0.4 AST Cancelled 20 ALT Cancelled 23 Alkaline Phosphata se Cancelled 133 H Total Protein Cancelled 7.9 Albumin Cancelled 3.4 L Globulin Cancelled 4.5 Lipase Cancelled 56 Imaging Data ^: CT Abd/Pel: Radiologist's impression: [address] [address] [address] Scan Report Signed Patient: Paul Cornelius [id number] 1945 [id number] Age/Sex: 75 / M ADM Date: 04/10/20 Loc: ER Room/Bed: Attending Dr: Ordering Provider/Ordering MD: Yanet Gutierrez MD Date of Service: 04/11/20 Procedure(s): CT abdomen pelvis wo con [id number] Accession Number(s): [id number] Report Number: [id number] PROCEDURE INFORMATION: Exam: CT Abdomen And Pelvis Without Contrast Exam date and time: 04/11/2020 12:55 AM Age: 75 years old Clinical indication: Other: Hematuria; Abdominal pain; Generalized; Additional info: Abd pain TECHNIQUE: Imaging protocol: Computed tomography of the abdomen and pelvis without contrast. Radiation optimization: All CT scans at this facility use at least one of these dose optimization techniques: automated exposure control; mA and/or kV adjustment per patient size (includes targeted exams where dose is matched to clinical indication); or iterative reconstruction. COMPARISON: CT Chest/Abdomen/Pelvis wo IV 07/06/2016 4:51 PM RADIATION DOSE METRICS: Total DLP (mGy-cm): 1382.56 FINDINGS: Pleural spaces: There is a small loculated right pleural effusion with marked pleural thickening and calcification. There is partial atelectasis of the right lower lobe. There is a 10 mm noncalcified pulmonary nodule in the inferior left lower lobe. Liver: The liver is normal. Gallbladder and bile ducts: The gallbladder is absent. There is no intrahepatic or extrahepatic bile duct dilation. Pancreas: The pancreas is unremarkable. Spleen: The spleen is mildly enlarged. There is dystrophic calcification along the lateral aspect of the spleen. Adrenal glands: The adrenal glands are unremarkable. Kidneys and ureters: There is moderate atrophy of both kidneys. There is no hydronephrosis or stones. Stomach and bowel: The stomach is unremarkable. The small bowel is nondilated. The colon is unremarkable. Appendix: The appendix is not visible. Intraperitoneal space: There is no free air or significant intraperitoneal free fluid. Vasculature: There is severe aortic atherosclerotic disease. Lymph nodes: There is no lymphadenopathy in the retroperitoneum, mesentery, pelvis or inguinal regions. Urinary bladder: The bladder wall is markedly thickened. There is pericystic edema. Reproductive: The prostate and seminal vesicles are unremarkable. Bones/joints: Bones are unremarkable. Soft tissues: The abdominal wall is intact. CT/CT abdomen pelvis wo con [id number] IMPRESSION: 1. Markedly thickened bladder wall with pericystic edema suggests cystitis. 2. Chronic loculated right pleural effusion or empyema. 3. 10 mm left lower lobe pulmonary nodule. For both low risk and high risk patients, consider CT Chest at 3 months, PET/CT, or biopsy. (Reference: Amanda) 4. Bilateral renal atrophy. No hydronephrosis or stones. 5. Incidental findings above. Discharge Plan Discharge Patient Disposition: Home Clinical Impression: Acute cystitis Qualifiers: Hematuria presence: with hematuria Qualified Code(s): N30.01 - Acute cystitis with hematuria Abdominal pain Qualifiers: Abdominal location: generalized Qualified Code(s): R10.84 - Generalized abdominal pain Condition: Stable Prescriptions: New Keflex 500 mg capsule 500 mg PO Q6H 7 Days Qty: 28 RF: 0 ondansetron 4 mg tablet,disintegrating 4 mg PO Q6H PRN (Reason: nausea and vomiting) Qty: 14 RF: 0 No Action ceftriaxone 1 gram recon soln 1 g IM ONCE Qty: 1 RF: 0 lidocaine (PF) 20 mg/mL (2 %) solution 20 mg IM ONCE Qty: 1 RF: 0 clindamycin HCl 300 mg capsule 300 mg PO TID Qty: 30 RF: 0 nitroglycerin [Nitrostat] 0.4 mg tablet, sublingual 0.4 mg SUBLINGUAL Q5M PRN (Reason: CHEST PAINS) RF: 0 atorvastatin 40 mg tablet 40 mg PO DAILY RF: 0 Fosrenol 1,000 mg powder in packet See Rx Instructions .ROUTE .COMPLEX RF: 0 levothyroxine 150 mcg capsule 150 mcg PO DAILY RF: 0 promethazine 25 mg tablet 25 mg PO TID PRN (Reason: Nausea And Vomiting) RF: 0 docusate sodium 100 mg capsule 100 mg PO BID PRN (Reason: Constipation) RF: 0 mirtazapine 15 mg tablet 15 mg PO BEDTIME RF: 0 pantoprazole 40 mg tablet,delayed release (DR/EC) 40 mg PO DAILY RF: 0 amiodarone 200 mg tablet 200 mg PO DAILY 90 Days Qty: 90 RF: 3 isosorbide mononitrate 60 mg tablet extended release 24 hr 60 mg PO DAILY Qty: 90 RF: 3 Cimzia 400 mg/2 mL (200 mg/mL x 2) syringe kit 200 mg SUBCUT .every other week Qty: 2 RF: 5 Tylenol Extra Strength 500 mg Tablet 1,000 mg PO PRN RF: 0 lidocaine-prilocaine 2.5-2.5 % cream See Rx Instructions .ROUTE .COMPLEX RF: 0 Vitamin D3 25 mcg (1,000 unit) Tablet 25 mcg PO DAILY RF: 0 RenaPlex-D 800 mcg-12.5 mg -2,000 unit tablet 1 tab PO DAILY RF: 0 hydrocodone-acetaminophen 5-325 mg tablet 1 tab PO Q6H PRN (Reason: pain) Qty: 20 RF: 0 cetirizine 10 mg Tablet 10 mg PO DAILY RF: 0 amlodipine 5 mg tablet 5 mg PO DAILY RF: 0 Lantus Solostar U-100 Insulin 100 unit/mL (3 mL) insulin pen See Rx Instructions .ROUTE .COMPLEX RF: 0 Discharge Orders: Discharge ED (Routine); Ordered 04/11/20 Ordered By: Yanet Gutierrez Referrals: Hanane Saldñaa MD [Primary Care Provider] - 1-3 days Discharge Diet: Advance as tolerated Discharge Activity: Resume usual activity Patient Instructions: Urinary Tract Infection in Men (ED), Abdominal Pain (ED) Coding Level of Care Code ED Education Technician for Brendan Fwnaomi Exam Comprehensive
[2020-04-10 22:51] VITALS: BP 169/63; PULSE 67; RESP 16; O2SAT 97
[2020-04-10 23:32] VITALS: BP 167/82; PULSE 78; RESP 16; O2SAT 97
[2020-04-11] VITALS: BP 157/66; PULSE 76; RESP 16; O2SAT 96
[2020-04-11] MEDS: lactulose oral liq 20 gm/30 mL UDC 30 GM PO (00:21)
[2020-04-11 00:30] VITALS: BP 157/66; PULSE 65; RESP 16; O2SAT 97
--- NOTE | 2020-04-11 00:52 | CTR_ITS ---
PROCEDURE INFORMATION: Exam: CT Abdomen And Pelvis Without Contrast Exam date and time: 04/11/2020 12:55 AM Age: 75 years old Clinical indication: Other: Hematuria; Abdominal pain; Generalized; Additional info: Abd pain TECHNIQUE: Imaging protocol: Computed tomography of the abdomen and pelvis without contrast. Radiation optimization: All CT scans at this facility use at least one of these dose optimization techniques: automated exposure control; mA and/or kV adjustment per patient size (includes targeted exams where dose is matched to clinical indication); or iterative reconstruction. COMPARISON: CT Chest/Abdomen/Pelvis wo IV 07/06/2016 4:51 PM RADIATION DOSE METRICS: Total DLP (mGy-cm): 1382.56 FINDINGS: Pleural spaces: There is a small loculated right pleural effusion with marked pleural thickening and calcification. There is partial atelectasis of the right lower lobe. There is a 10 mm noncalcified pulmonary nodule in the inferior left lower lobe. Liver: The liver is normal. Gallbladder and bile ducts: The gallbladder is absent. There is no intrahepatic or extrahepatic bile duct dilation. Pancreas: The pancreas is unremarkable. Spleen: The spleen is mildly enlarged. There is dystrophic calcification along the lateral aspect of the spleen. Adrenal glands: The adrenal glands are unremarkable. Kidneys and ureters: There is moderate atrophy of both kidneys. There is no hydronephrosis or stones. Stomach and bowel: The stomach is unremarkable. The small bowel is nondilated. The colon is unremarkable. Appendix: The appendix is not visible. Intraperitoneal space: There is no free air or significant intraperitoneal free fluid. Vasculature: There is severe aortic atherosclerotic disease. Lymph nodes: There is no lymphadenopathy in the retroperitoneum, mesentery, pelvis or inguinal regions. Urinary bladder: The bladder wall is markedly thickened. There is pericystic edema. Reproductive: The prostate and seminal vesicles are unremarkable. Bones/joints: Bones are unremarkable. Soft tissues: The abdominal wall is intact. CT/CT abdomen pelvis wo con [id number] IMPRESSION: 1. Markedly thickened bladder wall with pericystic edema suggests cystitis. 2. Chronic loculated right pleural effusion or empyema. 3. 10 mm left lower lobe pulmonary nodule. For both low risk and high risk patients, consider CT Chest at 3 months, PET/CT, or biopsy. (Reference: Amanda) 4. Bilateral renal atrophy. No hydronephrosis or stones. 5. Incidental findings above. REFERENCES: Amanda Tanner, et al. Guidelines for Management of Incidental Pulmonary Nodules Detected on CT Images: From the Fleischner Society 2017. Radiology. 2017;284(1):228-243. Radiation Dose CTDIVOL = (mGy): DLP = 1382.56 (mGy-cm)
[2020-04-11 01:30] LABS: Basophils # 0.1 10^3/uL (0.0-0.1); Basophils % 1.2 %; Eosinophils # 0.6 10^3/uL (0.0-0.8); Eosinophils % 5.1 %; Hematocrit 40.6 % (42.0-52.0); Hemoglobin 13.3 g/dL (11.7-16.6); Lymphocytes # 1.4 10^3/uL (0.8-4.8); Lymphocytes % 11.6 %; Mean Corpuscular HGB Conc 32.8 g/dL (30.0-36.0); Mean Corpuscular Hemoglobin 28.7 pg (28.0-34.0); Mean Corpuscular Volume 87.5 fL (80-94); Mean Platelet Volume 11.4 fL (7.4-10.4); Monocytes # 1.1 10^3/uL (0.2-0.9); Neutrophils # 8.77 10^3/uL (1.8-7.7); Neutrophils % 72.9 %; Nucleated Red Blood Cells % 0 %; Platelet Count 128 10^3/cmm (130-400); Red Blood Count 4.64 10^6/uL (4.1-5.3); Red Cell Distribution Width 17.2 % (12.1-15.1)
[2020-04-11 02:00] VITALS: BP 196/68; PULSE 87; RESP 16; O2SAT 95
[2020-04-11 02:03] LABS: Alanine Aminotransferase 23 U/L (0-41); Albumin Level 3.4 g/dL (3.5-5.2); Alkaline Phosphatase 133 IU/L (40-130); Aspartate Amino Transferase 20 U/L (0-40); Blood Urea Nitrogen 26 mg/dL (8-23); Calcium 8.6 mg/dL (8.5-10.5); Carbon Dioxide 25 mmol/L (22-29); Chloride 89 mmol/L (98-107); Globulin 4.5 g/dL (1.3-4.6); Glucose 163 mg/dL (65-115); Lipase 56 U/L (13-60); Osmolality Calculated 272 mOsm/kg (285-295); Sodium 127 mmol/L (136-145); Total Bilirubin 0.4 mg/dL (0.15-1.2); Total Protein 7.9 g/dL (6.6-8.7)
[2020-04-11] MEDS: cefTRIAXone 1,000 MG in sodium chloride 0.9% (plus) 50 ML 100 MG IV (02:20)
[2020-04-11] MEDS: ondansetron 2 mg/ML SDV 2 mL 4 MG IVP (02:20)
[2020-04-11 02:50] VITALS: BP 160/74; PULSE 76; RESP 16; TEMP 36.6; O2SAT 95
== END 2020-04-11 02:50 | disposition home or self-care (01) ==
PROVIDERS: Emergency Provider Emergency Medicine; PCP Family Medicine
DX: N30.01 Acute cystitis with hematuria (principal); Z79.4 Long term (current) use of insulin; I48.91 Unspecified atrial fibrillation; E13.22 Other specified diabetes mellitus with diabetic chronic kidney disease; I13.2 Hypertensive heart and chronic kidney disease with heart failure and with stage 5 chronic kidney disease, or end stage renal disease; I50.9 Heart failure, unspecified; N18.6 End stage renal disease; Z99.2 Dependence on renal dialysis; E78.5 Hyperlipidemia, unspecified; I25.2 Old myocardial infarction
CPT/HCPCS: 74018; 74176; 80053; 83690; 85025; 96365; 96375; 99283; J0696; J2405

== ENCOUNTER 2020-04-19 11:52 | Observation (INO) | payer MEDICARE, MEDICAID, SELFPAY ==
[2020-04-19] VITALS (22 sets, daily range): BP systolic 100–164; BP diastolic 40–73; PULSE 55–63; RESP 14–18; TEMP 36.3–37.1; O2SAT 92–96; BMI 32.0
--- NOTE | 2020-04-19 09:00 | XACV_ITS ---
Exam Room: [facility] Ht: 185 cm Wt: 110 kg BSA: 2.41 m2 Gender: Male : 1945 Any Known Allergies: Other Exam Priority: Routine Procedure(s): Procedure Description: Diagnostic procedure Procedure Description: Coronary Angiography Procedure Description: Pressure Wire Diagnostic Cath Status: Elective Diagnostic Findings * LM has mild luminal irregularities. * RCA has diffuse minor luminal irregularities.. * Proximal LAD is a calcified artery. It has a moderate to severe proximal vessel 70% stenosis. * P * roximal Left Anterior Descending Coronary Artery: Moderate 70% stenosis, JUAN JOSE: 3 flow. * Ostial left circumflex artery has severe 90% stenosis. pCIRC: Severe 90% stenosis, JUAN JOSE: 3 flow. * Coronary angiography shows right dominance. Interventional Findings * Given moderate to severe proximal LAD stenosis, we decided to perform FFR of LAD. Left main artery was engaged with XB 3.5 guide catheter. IV heparin was used to maintain an ACT above 250 seconds. After zeroing and equalizing the pressure wire, it was used to cross into mid LAD. IV adenosine infusion was started and FFR was measured. It was ischemic with a FFR value of 0.76. At this time we decided to consult with CT surgery and procedure was stopped. FFR wire and guide catheter were removed. 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 . Conclusions 1. There is severe coronary artery disease with two vessel disease including proximal LAD( FFR ischemic at 0.76) and ostial LCx disease. Recommendations * Admit to CSU. * We will consult CT surgery team for evaluation for CABG as has an ostial LCx stenosis and proximal LAD severe disease. * In case CT surgery does not consider him a good surgical candidate, we will proceed with multivessel PCI. * Patient missed his hemodialysis today, will consult nephrololgy to dialyze him today. Interventional RX Recommendation: CABG Diagnostic RX Recommendation: CABG Anticoagulation: Heparin Pressures Phase:Rest AO : 127 / 54 ( 75 ) @ 6:16:00 AM Clinical Evaluation EBL: 5mL-10mL Procedural Details Procedure Consent Obtained. Pre-Procedure Time Out. Identified patient by full name and date of as verbalized by the patient/guarantor. Does the consent match the physician's order: Yes. Accurate & Complete Informed Consent: Yes. Inpatient/Outpatient History & Physical on Chart: Yes. If H&P is completed, is and addenduem needed: No; If yes, is the addendum complete: N/A. Visualize and Verify Site with Patient/Guarantor: N/A. Relevant Radiology Images available: N/A. Pre-op teaching completed and patient verbalized understanding. The risks, benefits, and alternatives of sedation and/or procedure were discussed by physician. The patient agrees to continue. Procedure started. [facility] Clinical Fraility Score: 4: Vulnerable. 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 Chest Pain Symptom Assessment: Typical Angina Symptoms. Cardiovascular Instability: No. Correct patient, site and procedure confirmed by cath team. PERRLA. Strong, equal hand respiratory tech bilaterally. Lungs clear x 5 lobes. IV Site on Arrival: 20 gauge in the left IJ. IV Site on Arrival: 18 gauge in the left anticubital. IV Fluids: 0.9% NaCl at KVO. 0 mL infused prior to manufacturing lab technician. Pre Procedural Pulses: bilateral dorsalis pedis was Doppled. Pre Procedural Pulses: bilateral posterior tibial was Doppled. Oxygen started at 2liters/min via nasal canula. PT has AV fistula in right arm for hemodialysis. bilateral groins was prepped with chloroprep then draped in the usual sterile fashion. Baseline sample Acquired. HR: 65 BPM. Physician notified. Equipment: 6F - Femoral. Cardiac Cath Pack. ACIST Manifold Kit Model BT 2000. Heparinized Saline (2 units/mL), 1000 mL bag. Kit, Micropuncture. Physician arrived. Physician scrubbed in. Immediate Pre-Procedure Time Out. Correct Patient: Yes; Correct Procedure: Yes; Correct Site: Yes; Correct Patient Position: Yes; Correct Supplies: Yes; Dried Flammable Prep: Yes; Blood Products Available: N/A;. Lidocaine 1% infiltrated to the right groin. Arterial access obtained with micropuncture set. A 6 [place] JL4 catheter in over wire. Multiple views taken of left coronary artery. Catheter removed over the standard wire. A 5 [place] JR4 catheter in over wire. Multiple views taken of right coronary artery. Catheter removed over the standard wire. Inventory is CRD 6 FR XB 3.5 GUIDE. 6 [place] XB 3.5 guide catheter was inserted over the wire. FFR guidewire was advanced through the guide catheter to lesion in the prox LAD. An FFR value of 0.77 was obtained for a lesion located at Prox LAD. Dr Mcdonald spoke with Dr Ramsay at this time to discuss case. Fractional flow reserve measurements obtained. Wire out. Guide catheter out. Physician scrubbed out. A Suture was successful obtaining hemostatsis at the Right Femoral artery insertion site. Sheath(s) sutured into position with 2-0 silk and sterile 4x4's and Op-site applied over the site. No oozing or signs and symptoms of hematoma noted. Post Procedure: Pulses reassessed and unchanged. PERRLA. Strong, equal hand respiratory tech bilaterally. No VTE prophylaxis required. Medication's Wasted: Lidocaine 1% = 12 mL. Medication's Wasted: Heparin = 2000 units. Medication's Wasted: Other = adenosine 59 mg. Total IV fluids: 75 mL. Contrast type used: Omnipaque 300 mgI/mL, 500 mL bottle. Post-op diagnosis: multivessel CAD,. Complications: none. Estimated blood loss: 5mL-10mL. Procedure completed. Patient transferred by bed to 1st floor. Vital chart was stopped. Access Site Site: Right Femoral artery Sheath Size: 6 Fr Hemostasis Method: Suture Hemostasis Success: Successful Procedure Medications Start: 12:10 PM Stop: 12:10 PM Medication: Versed Amount: 1 mg Route: I.V. Start: 12:10 PM Stop: 12:10 PM Medication: Fentanyl Amount: 50 mcg Route: I.V. Start: 12:14 PM Stop: 12:14 PM Medication: Versed Amount: 1 mg Route: I.V. Start: 12:17 PM Stop: 12:17 PM Medication: Fentanyl Amount: 50 mcg Route: I.V. Start: 12:24 PM Stop: 12:24 PM Medication: Heparin Amount: 7000 units Route: I.V. I, the attending physician, have reviewed and verified all procedure medications. Yes, all medications given per verbal order History/Risk Factors Hypertension: Yes Dyslipidemia: Yes Peripheral Arterial Disease (PAD): Yes Myocardial Infarction (HI): Yes Obesity: Yes Renal Disease: Yes Tobacco Use: Never Dialysis: Current Prior Interventions PCI: No CABG: No Valve Surgery: No Report Signatures Finalized by Walt Mcdonald MD on 04/29/2020 11:09 AM
[2020-04-19 10:12] LABS: Basophils # 0.1 10^3/uL (0.0-0.1); Basophils % 0.9 %; Eosinophils # 0.8 10^3/uL (0.0-0.8); Eosinophils % 8.9 %; Hemoglobin 10.5 g/dL (11.7-16.6); Lymphocytes # 1.6 10^3/uL (0.8-4.8); Lymphocytes % 18.5 %; Mean Corpuscular HGB Conc 31.8 g/dL (30.0-36.0); Mean Corpuscular Hemoglobin 28.5 pg (28.0-34.0); Mean Corpuscular Volume 89.4 fL (80-94); Mean Platelet Volume 10.4 fL (7.4-10.4); Monocytes # 0.9 10^3/uL (0.2-0.9); Monocytes % 10.2 %; Neutrophils # 5.15 10^3/uL (1.8-7.7); Neutrophils % 61.1 %; Nucleated Red Blood Cells % 0 %; Platelet Count 157 10^3/cmm (130-400); Red Blood Count 3.69 10^6/uL (4.1-5.3); White Blood Count 8.4 10^3/uL (4.0-10.0)
[2020-04-19 10:23] LABS: INR 1.16 (0.8-1.2)
[2020-04-19 10:29] LABS: Anion Gap 18.8 (5-19); Blood Urea Nitrogen 40 mg/dL (8-23); Calcium 8.4 mg/dL (8.5-10.5); Carbon Dioxide 25 mmol/L (22-29); Chloride 96 mmol/L (98-107); Glucose 91 mg/dL (65-115); Osmolality Calculated 287 mOsm/kg (285-295); Potassium 5.8 mmol/L (3.5-5.1); Sodium 134 mmol/L (136-145)
--- NOTE | 2020-04-19 10:48 | SUR.PREOP ---
CRITICAL LAB THIS NURSE RECEIVED A CALL FROM LAB REPORTING A CRITICAL CREATININE OF 8.0. DR LANE WAS NOTIFIED IN PERSON. THE PATIENT HAS ESRD ON HEMODIALYSIS, WHICH HE HAD Sunday04/16/20. ORDERS RECEIVED TO ARRANGE FOR INPATIENT DIALYSIS TODAY AFTER THE PATIENTS PROCEDURE.
[2020-04-19] MEDS: diphenhydrAMINE 50 mg Capsule PO (10:50)
--- NOTE | 2020-04-19 10:53 | PC.NURSE ---
pt complaining of pain on his bottom. looked and he has a large reddened area including both buttocks, in the reddened area on left buttock there is a darker red area. pt is laying on his side to relieve that pain.
[2020-04-19] MEDS: ondansetron 2 mg/ML SDV 2 mL 4 MG IVP (11:48)
--- NOTE | 2020-04-19 11:49 | P.HP_ITS ---
Providers/Chief Complaint Primary Care Provider: Hanane Saldaña MD Chief Complaint: [facility] History of Present Illness 75 year-old man with past medical history of coronary artery disease, end-stage renal disease on dialysis, peripheral artery disease, diabetes, atrial fibrillation who underwent angiogram by Dr. Otero in 2019 when he found one vessel disease involving circumflex lesion at the ostium which he decided not to intervene on because of ostial disease and risk for compromising LAD flow. Previously his pain was well controlled with medical therapy however now his says that he is grabbing his chest more frequently and chest pain comes on and off almost daily now. It is substernal, both on exertion and at rest. He is not on anticoagulation at this time. On his last visit we had ordered a Lexiscan which showed mostly fixed perfusion defect in basal to mid inferolateral wall. Review of Systems Const: Denies: fever(s), chills, body aches or change in appetite Eyes: Denies: blurry vision or eye discomfort ENMT: Denies: throat pain or dental pain Card: Denies: chest pain Resp: Denies: dyspnea : Denies: dysuria Musc: Denies: neck pain or back pain Skin/Breast: Denies: rash Neuro: Denies: headache(s) Psych: Denies: depression Frank/Lymph: Denies: easy bruising All/Imm: Denies: urticaria Medications/Allergies Home Medications Medication Instructions Recorded Confirmed Last Taken Type docusate sodium 100 mg capsule 100 mg PO BID PRN 04/11/19 04/19/20 04/19/20 06:00 History lanthanum 1,000 mg oral powder See Rx Instructions .ROUTE 04/11/19 04/19/20 04/19/20 06:00 History packet .COMPLEX each levothyroxine 150 mcg capsule 150 mcg PO DAILY 04/11/19 04/19/20 04/19/20 06:00 History mirtazapine 15 mg tablet 15 mg PO BEDTIME 04/11/19 04/19/20 04/19/20 06:00 History nitroglycerin 0.4 mg sublingual 0.4 mg SUBLINGUAL Q5M PRN 04/11/19 04/19/20 04/19/20 06:00 History tablet pantoprazole 40 mg tablet,delayed 40 mg PO DAILY 04/11/19 04/19/20 04/19/20 06:00 History release promethazine 25 mg tablet 25 mg PO TID PRN 04/11/19 04/19/20 04/19/20 06:00 History amiodarone 200 mg tablet 200 mg PO DAILY 90 Days #90 tab 07/08/19 04/19/20 04/19/20 06:00 Rx isosorbide mononitrate 60 mg 60 mg PO DAILY #90 tab 11/04/19 04/19/20 04/19/20 06:00 Rx tablet,extended release 24 hr certolizumab pegol 200 mg SUBCUT .every other week #2 12/11/19 04/19/20 03/20/20 Rx each amlodipine 5 mg PO DAILY 01/21/20 04/19/20 04/19/20 06:00 History cetirizine 10 mg PO DAILY 01/21/20 04/19/20 04/19/20 06:00 History insulin glargine [Lantus Solostar See Rx Instructions .ROUTE .COMPLEX 01/21/20 04/19/20 Unknown History U-100 Insulin] acetaminophen [Tylenol Extra 1,000 mg PO PRN 02/03/20 04/19/20 04/19/20 06:00 History Strength] cholecalciferol (vitamin D3) 25 mcg PO DAILY 02/03/20 04/19/20 04/19/20 06:00 History [Vitamin D3] hydrocodone-acetaminophen 1 tab PO Q6H PRN #20 tab 02/03/20 04/19/20 04/19/20 06:00 Rx lidocaine-prilocaine See Rx Instructions .ROUTE .COMPLEX 02/03/20 04/19/20 04/19/20 06:00 History vit B,D-MO-bbvt-selen-vit D3-E 1 tab PO DAILY 02/03/20 04/19/20 04/19/20 06:00 History [RenaPlex-D] clindamycin HCl 300 mg capsule 300 mg PO TID #30 cap 02/17/20 04/19/20 04/19/20 06:00 Rx ondansetron 4 mg PO Q6H PRN #14 tab 04/11/20 04/19/20 04/19/20 06:00 Rx Allergies Allergy/AdvReac Type Severity Reaction Status Date / Time No Known Allergies Allergy Verified 04/10/20 22:32 PFSH Acute PFSH: Medical History Anemia ASHD (arteriosclerotic heart disease) Atrial fibrillation CHF (congestive heart failure) CKD (chronic kidney disease) Diabetes 1.5, managed as type 2 Diabetic gastroparesis Dyslipidemia ESRD (end stage renal disease) on dialysis HTN (hypertension) Hypothyroidism Mitral regurgitation Myocardial infarction PAD (peripheral artery disease) Pulmonary HTN Rheumatoid arthritis Family History Father , AGE 61 Cancer LUNG Mother , AGE 62 CHF (congestive heart failure) Social History Smoking and tobacco status: never smoked Marital status: service: No Vitals/I&O/Wt Last Vital Signs Temp 98.2 F 04/19/20 10:36 Pulse 63 04/19/20 10:36 Resp 17 04/19/20 10:36 BP 146/64 04/19/20 10:36 Pulse Ox 96 04/19/20 10:36 Weight last 48 hrs Weight 243 lb Physical Exam Const: COMMON NORMALS: no acute distress and patient oriented x3 HENMT: COMMON NORMALS: normocephalic Eye: COMMON NORMALS: Equal, round and reactive pupils present Resp: COMMON NORMALS: normal respiratory effort AUSCULTATION: clear to a uscultation bilaterally Cardio: HEART SOUNDS: S1 normal heart sound present, S2 normal heart sound present and no murmurs GI: PALPATION: Yes Soft to palpation Extremity: COMMON NORMALS: no pedal edema Neuro: COMMON NORMALS: patient oriented x3 Data : 04/19/20 10:00 04/19/20 10:00 A&P Assessment and plan (1) Chest pain: Status: Acute (2) ESRD (end stage renal disease) on dialysis: Status: Acute (3) PAD (peripheral artery disease): Status: Acute (4) Diabetes 1.5, managed as type 2: Status: Acute (5) ASHD (arteriosclerotic heart disease): Status: Acute (6) HTN (hypertension): Status: Acute (7) Dyslipidemia: Status: Acute Patient has been having worsening typical chest pain. He has known stenosis of ostial LCx which was a medium sized vessel and was treated medically . But now the symptoms are worse. We will proceed with left heart cath and possible percutaneous coronary intervention. Risks and benefits discussed with patient and his . Risks including bleeding, infection, abnormal heart rhythm, heart attack, stroke and have been discussed. Patient understands the risks and benefits and wants to proceed with the procedure. Attestations Medical Necessity Statement*: Care not expected to cross 2 midnights. Patient will undergo left heart cath with possible coronary intervention. Patient will require to be dialyzed post procedure. 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
[2020-04-19 11:50] LABS: SARS Covid-2 Antigen Negative (Negative)
[2020-04-19] MEDS: aspirin 325 mg Tablet PO (11:55)
--- NOTE | 2020-04-19 13:11 | PC.NURSE ---
Received pt to room 108 from cardiac cath. A&O x3. Resp even and non-labored no distress noted. IV patent no redness or swelling noted. Pts drsg on groin dry and intact. Pt had no c/o pain or discomfort at the present time.
--- NOTE | 2020-04-19 14:35 | P.CONIM_ITS ---
Providers/Reason For Consult Consulting Physican/Specialty*: Nephrology Reason for Consult*: ESRD mgmt Attending Physician: Walt Mcdonald M.D Primary Care Provider: Hanane Saldaña MD History of Present Illness History of Present Illness Paul Cornelius is a 75 year old male presenting for elective LHC given increase in symptoms of chest pain. He has dialysis MWF at a local clinic, missed today. He feels otherwise well, denies extremity edema and no other hypervolemic Sx. No uremic Sx He has been on hemodialysis for roughly 4 years, he is unaware of the cause of his renal failure. He has a fistula in his right arm which is working nicely. No recent issues with this. Hemodynamics reviewed, stable. Review of Systems Narrative: ROS - 12 point review of systems completed per HPI and subjective assessment, this includes Constitutional: No weakness, fatigue Respiratory: No SOB on exertion, comfortable at rest CardioVasc: No chest pain, palpitations Gastrointestinal: No nausea, no vomiting Neurological: No seizures, no AMS Derm: No new rashes, lesions or wounds Immunological: No seasonal and no food allergies Meds/Allergies Home Medications and Allergies Home Medications Medication Instructions Recorded Confirmed Last Taken Type docusate sodium 100 mg capsule 100 mg PO BID PRN 04/11/19 04/19/20 04/19/20 06:00 History lanthanum 1,000 mg oral powder See Rx Instructions .ROUTE 04/11/19 04/19/20 04/19/20 06:00 History packet .COMPLEX each levothyroxine 150 mcg capsule 150 mcg PO DAILY 04/11/19 04/19/20 04/19/20 06:00 History mirtazapine 15 mg tablet 15 mg PO BEDTIME 04/11/19 04/19/20 04/19/20 06:00 History nitroglycerin 0.4 mg sublingual 0.4 mg SUBLINGUAL Q5M PRN 04/11/19 04/19/20 04/19/20 06:00 History tablet pantoprazole 40 mg tablet,delayed 40 mg PO DAILY 04/11/19 04/19/20 04/19/20 06:00 History release promethazine 25 mg tablet 25 mg PO TID PRN 04/11/19 04/19/20 04/19/20 06:00 History amiodarone 200 mg tablet 200 mg PO DAILY 90 Days #90 tab 07/08/19 04/19/20 04/19/20 06:00 Rx isosorbide mononitrate 60 mg 60 mg PO DAILY #90 tab 11/04/19 04/19/20 04/19/20 06:00 Rx tablet,extended release 24 hr certolizumab pegol 200 mg SUBCUT .every other week #2 12/11/19 04/19/20 03/20/20 Rx each amlodipine 5 mg PO DAILY 01/21/20 04/19/20 04/19/20 06:00 History cetirizine 10 mg PO DAILY 01/21/20 04/19/20 04/19/20 06:00 History insulin glargine [Lantus Solostar See Rx Instructions .ROUTE .COMPLEX 01/21/20 04/19/20 Unknown History U-100 Insulin] acetaminophen [Tylenol Extra 1,000 mg PO PRN 02/03/20 04/19/20 04/19/20 06:00 History Strength] cholecalciferol (vitamin D3) 25 mcg PO DAILY 02/03/20 04/19/20 04/19/20 06:00 History [Vitamin D3] hydrocodone-acetaminophen 1 tab PO Q6H PRN #20 tab 02/03/20 04/19/20 04/19/20 06:00 Rx lidocaine-prilocaine See Rx Instructions .ROUTE .COMPLEX 02/03/20 04/19/20 04/19/20 06:00 History vit B,P-ZD-fdya-selen-vit D3-E 1 tab PO DAILY 02/03/20 04/19/20 04/19/20 06:00 History [RenaPlex-D] clindamycin HCl 300 mg capsule 300 mg PO TID #30 cap 02/17/20 04/19/20 04/19/20 06:00 Rx ondansetron 4 mg PO Q6H PRN #14 tab 04/11/20 04/19/20 04/19/20 06:00 Rx Allergies Allergy/AdvReac Type Severity Reaction Status Date / Time No Known Allergies Allergy Verified 04/10/20 22:32 Current Medications Current Medications Generic Name Dose Route Start Last Admin Trade Name Freq PRN Reason Stop Dose Admin Sodium Chloride 1,000 mls @ 50 mls/hr 04/19/20 09:00 04/19/20 10:57 Sodium Chloride 0.9% IV 04/20/20 04:59 Not Given .Q20H ONE PFSH Acute PFSH: Medical History Anemia ASHD (arteriosclerotic heart disease) Atrial fibrillation CHF (congestive heart failure) CKD (chronic kidney disease) Diabetes 1.5, managed as type 2 Diabetic gastroparesis Dyslipidemia ESRD (end stage renal disease) on dialysis HTN (hypertension) Hypothyroidism Mitral regurgitation Myocardial infarction PAD (peripheral artery disease) Pulmonary HTN Rheumatoid arthritis Family History Father , AGE 61 Cancer LUNG Mother , AGE 62 CHF (congestive heart failure) Social History Smoking and tobacco status: never smoked Marital status: service: No Vitals/I&O/Wt Last Vital Signs Temp 97.9 F 04/19/20 13:08 Pulse 60 04/19/20 13:08 Resp 18 04/19/20 13:08 BP 142/54 04/19/20 13:08 Pulse Ox 96 04/19/20 10:36 Weight last 48 hrs Weight 110.223 kg Physical Exam Narrative: EXAM NARRATIVE: Constitutional: Awake, comfortable HEENT: Wet mucosa, no jvp, non icteric Lungs: Bilaterally clear without discernible wheeze, rales in all lung zones CVS: S1 S2, no murmurs Abdo: Soft, BS ok Ext 4: Minimal edema, peripheral perfusion with no cyanosis Neurological: Grossly non-focal A&P Additional A&P Information 1. ESRD We will plan to do dialysis today, 2K bath, ultrafiltration of 2-3 L. If he remains in the hospital Sunday, will dialyze him then also. Dose medications for GFR less than 15 on dialysis. 2. CAD For [facility] with PCI tomorrow per Dr. Mcdonald Defer management to him of course 3. Hyperkalemia. This will correct with hemodialysis, a.m. labs. 4. Chronic dialysis issues Management of all chronic outpatient dialysis issues will be deferred to the outpatient dialysis team including anemia management, secondary hyperparathyroidism, hyperphosphatemia etc. Continue phosphorus binders during hospital stay, will give him some PhosLo. Allen Lr MD Nephrology [phone] Patient seen and examined via telemedicine, with the assistance of the bedside RN > 25 min spent in evaluation and mgmt of patient Coding Level of Care Code Acute Bone Cooking Operator for Brendan Cummings
[2020-04-19] MEDS: HYDROcodone-acetaminophen 5-325 mg Tablet 1 TAB PO (14:55)
[2020-04-19] MEDS: clindamycin 150 mg Capsule 300 MG PO ×2 (14:55→19:56)
[2020-04-19 15:43] LABS: Partial Thromboplastin Time 77.9 SECONDS (23.9-36.7)
[2020-04-19 16:39] LABS: Partial Thromboplastin Time 39.1 SECONDS (23.9-36.7)
--- NOTE | 2020-04-19 17:05 | PC.NURSE ---
Sheath removed at this time PTT less than 45 pressure held for 20 min patinet tolerated well no hematoma formation patient verbalized understanding of bedrest will contniue to monitor
--- NOTE | 2020-04-19 17:52 | PC.NURSE ---
Pt presents lying in bed receiving dialysis. Pt had no c/o pain or discomfort at the present time. Pt had no s/s of bleeding or hematoma around cath sight. Call light in reach. Will continue to monitor.
[2020-04-19] MEDS: calcium acetate 667 mg Capsule 1334 MG PO (18:21)
--- NOTE | 2020-04-19 18:35 | PC.NURSE ---
Pts has permission from Dr. Flores to stay the night with pt. instrument assembly supervisor and security notified.
--- NOTE | 2020-04-19 20:19 | PC.NURSE ---
See dialysis vital signs from 1720 - 1905.
[2020-04-19 23:32] LABS: Glucose Point of Care 102 mg/dL (70-110)
--- NOTE | 2020-04-19 23:40 | PC.NURSE ---
Dr. Groves notified of patient having 10 units of Lantus due and blood sugar of 102. Ordered to non-admin.
[2020-04-20] VITALS (79 sets, daily range): BP systolic 112–164; BP diastolic 42–69; PULSE 56–74; RESP 16–18; TEMP 36.3–36.8; O2SAT 56–100
[2020-04-20] MEDS: ondansetron 4 MG Tablet PO ×2 (03:19→16:50)
[2020-04-20 04:00] LABS: Basophils # 0.1 10^3/uL (0.0-0.1); Basophils % 1.2 %; Eosinophils # 0.4 10^3/uL (0.0-0.8); Eosinophils % 7.6 %; Hematocrit 31.4 % (42.0-52.0); Hemoglobin 10.3 g/dL (11.7-16.6); Lymphocytes # 1.3 10^3/uL (0.8-4.8); Lymphocytes % 21.5 %; Mean Corpuscular HGB Conc 32.8 g/dL (30.0-36.0); Mean Corpuscular Hemoglobin 28.5 pg (28.0-34.0); Mean Platelet Volume 11.2 fL (7.4-10.4); Monocytes # 0.7 10^3/uL (0.2-0.9); Monocytes % 12.2 %; Neutrophils # 3.33 10^3/uL (1.8-7.7); Neutrophils % 57.3 %; Nucleated Red Blood Cells % 0 %; Platelet Count 147 10^3/cmm (130-400); Red Blood Count 3.61 10^6/uL (4.1-5.3); Red Cell Distribution Width 15.9 % (12.1-15.1); White Blood Count 5.8 10^3/uL (4.0-10.0)
[2020-04-20 04:19] LABS: Anion Gap 14.3 (5-19); Blood Urea Nitrogen 22 mg/dL (8-23); Calcium 8.3 mg/dL (8.5-10.5); Carbon Dioxide 30 mmol/L (22-29); Chloride 96 mmol/L (98-107); Glucose 97 mg/dL (65-115); Osmolality Calculated 283 mOsm/kg (285-295); Potassium 5.3 mmol/L (3.5-5.1); Sodium 135 mmol/L (136-145)
[2020-04-20 05:46] LABS: Glucose Point of Care 101 mg/dL (70-110)
--- NOTE | 2020-04-20 06:48 | XACV_ITS ---
Exam Room: [facility] Ht: 185 cm Wt: 110 kg BSA: 2.41 m2 Gender: Male : 1945 Any Known Allergies: Other Exam Priority: Routine Procedure(s): Procedure Description: Diagnostic procedure Procedure Description: PCI procedure Procedure Description: Drug Eluting Coronary Stent Procedure Description: PTCA Diagnostic Cath Status: Elective Diagnostic Findings * Indication: Patient has been having worsening anginal symptoms. We consulted CT surgery for possible CABG, however, they thought PCI will be better option as they might not be able to graft the LCx. * This is a staged PCI. For complete diagnostic procedure report, please refer to procedure performed on 04/19/2020. * LM has mild luminal irregularities.. * Proximal Left Anterior Descending Coronary Artery: Moderate 70% stenosis, JUAN JOSE: 3 flow. FFR was ischemic.. * Ostial to pCIRC: Severe 90% stenosis, JUAN JOSE: 3 flow. * Coronary angiography shows right dominance. PCI Status: Elective PCI Indication: Other Interventional Findings * Procedure detail: We engaged left main artery using XB 3.5 guide catheter. IV heparin was used to maintain an ACT above 250 seconds. A 0.014 run-through guidewire was used to cross theLAD stenosis. We predilated the stenosis with 3.00x 8 mm semicompliant balloon. This was followed by placement of 4.0x18mm resolute [place] drug-eluting stent. We post dilated the stent with a 4.0x6mm NC balloon. We then crossed the LCx stenosis with a runthrough guidewire. We predilated the stenosis with a 2.5x8mm semicompliant balloon. This was followed by placement of a 2.5x12mm Resolute [place] SHANIA. At this time final angiogram was performed that showed excellent stent expansion, no residual stenosis and JUAN JOSE-3 flow. Guidewire and guide catheter were removed. Femoral sheath was sutured in place for removal later. Patient left the Furniture Decals Inspector in a stable condition. * Proximal Left Anterior Descending Coronary Artery: 70% stenosis treated with AB TREK 3.00X08 RX BALLOON, AB TREK 3.00X15 RX BALLOON, MDT R OMAR 4.0X18 SHANIA, and CHARLEY MALCOLM EUPHORA RX 4.0X06MM BALLOON. 0% residual stenosis, JUAN JOSE: 3 flow. * pCIRC: 90% stenosis treated with AB TREK 2.50X8 RX BALLOON and MDT R OMAR 2.5X12 SHANIA. 0% residual stenosis, JUAN JOSE: 3 flow. Conclusions 1. There is severe coronary artery disease with two vessel disease. 2. Proximal Left Anterior Descending Coronary Artery was treated with three Balloon and Drug Eluting Stent. 3. pCIRC was treated with Balloon and Drug Eluting Stent. Recommendations * Aspirin and Plavix for atleast 1 year. * Statin thearpy. * Blood pressure control. * Dialyze inpatient before discharge tomorrow. * Follow up with cardiology office in 7-10 days. Interventional RX Recommendation: PCI w/o planned CABG Diagnostic RX Recommendation: PCI w/o planned CABG Anticoagulation: Heparin Pressures Phase:Rest AO : 124 / 57 ( 84 ) @ 5:41:00 AM 124 / 65 ( 86 ) @ 6:27:00 AM Clinical Evaluation EBL: 5mL-10mL Procedural Details Pre-Procedure Time Out. Identified patient by full name and date of as verbalized by the patient/guarantor. Does the consent match the physician's order: Yes. Accurate & Complete Informed Consent: Yes. Inpatient/Outpatient History & Physical on Chart: Yes. If H&P is completed, is and addenduem needed: No; If yes, is the addendum complete: N/A. Visualize and Verify Site with Patient/Guarantor: N/A. Relevant Radiology Images available: Yes. Pre-op teaching completed and patient verbalized understanding. The risks, benefits, and alternatives of sedation and/or procedure were discussed by physician. The patient agrees to continue. Procedure started. Correct patient, site and procedure confirmed by cath team. Current diagnosis: Chest Pain. PERRLA. 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 Lungs clear x 5 lobes. IV Site on Arrival: 20 gauge in the left anticubital. IV Fluids: 0.9% NaCl at KVO. 0 mL infused prior to labeling strategist. Pre Procedural Pulses: bilateral posterior tibial was 2+. Pre Procedural Pulses: bilateral dorsalis pedis was 2+. Pre Procedural Pulses: bilateral radial was 3+. Oxygen started at 2liters/min via nasal canula. bilateral groins was prepped with chloroprep then draped in the usual sterile fashion. right radial was prepped with chloroprep then draped in the usual sterile fashion. Physician notified. Baseline sample Acquired. HR: 62 BPM. Equipment: 6F - Femoral. Cardiac Cath Pack. ACIST Manifold Kit Model BT 2000. Heparinized Saline (2 units/mL), 1000 mL bag. Kit, Micropuncture. Physician arrived. Physician scrubbed in. Immediate Pre-Procedure Time Out. Correct Patient: Yes; Correct Procedure: Yes; Correct Site: Yes; Correct Patient Position: Yes; Correct Supplies: Yes; Dried Flammable Prep: Yes; Blood Products Available: No;. Lidocaine 1% infiltrated to the right groin. Arterial access obtained with micropuncture set. 6FR glidesheath inserted into the femoral artery. 6 azerbaijani XB 3.5 guide catheter was inserted over the wire. [place] guidewire was advanced through the guide catheter to lesion in the prox LAD. ACT drawn. Results 265 seconds. Therapeutic limits - pre-heparin administration 90-150 seconds and monitoring heparin during a vascular procedure >250 seconds. Inflation number : 1 A AB TREK 3.00X08 RX BALLOON was prepped and advanced across the Prox LAD , then inflated to 8 ESHA for 0:12 seconds. Inflation number: 2 The AB TREK 3.00X08 RX BALLOON was reinflated across the Prox LAD, to 8 ESHA for 0:16 seconds. Inflation number: 3 The AB TREK 3.00X08 RX BALLOON was reinflated across the Prox LAD, to 8 ESHA for 0:09 seconds. Balloon out. Inflation number : 4 A AB TREK 3.00X15 RX BALLOON was prepped and advanced across the Prox LAD , then inflated to 12 ESHA for 0:25 seconds. Balloon out. Inflation number: 5 The AB TREK 3.00X15 RX BALLOON was reinflated across the Prox LAD, to 12 ESHA for 0:19 seconds. Inflation number: 6 The AB TREK 3.00X15 RX BALLOON was reinflated across the Prox LAD, to 12 ESHA for 0:08 seconds. Balloon out. Runthrough wire inserted. Inflation Number : 7 A MDT R OMAR 4.0X18 SHANIA -Lot Number# [id number] was prepped and advanced across the Prox LAD. The stent was deployed at 12 ESHA for 0:30 seconds. Stent expiration date: 11/17/2021. Inflation number : 8 A MDT NC EUPHORA RX 4.0X06MM BALLOON was prepped and advanced across the Prox LAD , then inflated to 16 ESHA for 0:13 seconds. Inflation number: 9 The MDT NC EUPHORA RX 4.0X06MM BALLOON was reinflated across the Prox LAD, to 16 ESHA for 0:19 seconds. Balloon out. Diag wire out. [place] wire out. [place] guidewire was advanced through the guide catheter to lesion in the prox Circ. Guidewire advanced across lesion. Inflation number : 1 A AB TREK 2.50X8 RX BALLOON was prepped and advanced across the Prox CX , then inflated to 8 ESHA for 0:11 seconds. Inflation number: 2 The AB TREK 2.50X8 RX BALLOON was reinflated across the Prox CX, to 10 ESHA for 0:22 seconds. Angiography performed. Balloon out over wire. Angiography performed. Inflation Number : 3 A MDT R OMAR 2.5X12 SHANIA -Lot Number# [id number] was prepped and advanced across the Prox CX. The stent was deployed at 12 ESHA for 0:25 seconds. Expiration: 12-26-2021. Stent balloon out over wire. Angiography performed. Physicain review of films. Runthrough wire out. Angiography performed. Guide catheter out. A Right femoral angiogram was performed to determine safe placement of closure device. Sheath(s) sutured into position with 2-0 silk and sterile 4x4's and Op-site applied over the site. No oozing or signs and symptoms of hematoma noted. Arterial sheath flushed and connected to tranducer and pressure bag with heparinized saline. Post Procedure: Pulses reassessed and unchanged. PERRLA. 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 No VTE prophylaxis required. Contrast type used: Visipaque 320 mgI/mL, 500 mL bottle. A Suture was successful obtaining hemostatsis at the Right Femoral artery insertion site. Total IV fluids: 95 mL. Medication's Wasted: Other = Fentanyl 25 mcg. Medication's Wasted: Nitro = 49.8 mcg. Estimated blood loss: 5mL-10mL. Procedure completed. Medication's Wasted: Heparin = 3000 units. ACT drawn. Results 269 seconds. Therapeutic limits - pre-heparin administration 90-150 seconds and monitoring heparin during a vascular procedure >250 seconds. Vital chart was stopped. Patient transferred by bed to 1st floor. Access Site Site: Right Femoral artery Sheath Size: 6 Fr Hemostasis Method: Suture Hemostasis Success: Successful Procedure Medications Start: 11:21 AM Stop: 11:21 AM Medication: Versed Amount: 1 mg Route: I.V. Start: 11:22 AM Stop: 11:22 AM Medication: Fentanyl Amount: 12.5 mcg Route: I.V. Start: 11:26 AM Stop: 11:26 AM Medication: Heparin Amount: 8000 units Route: I.V. Start: 11:28 AM Stop: 11:28 AM Medication: Versed Amount: 0.5 mg Route: I.V. Start: 11:36 AM Stop: 11:36 AM Medication: Heparin Amount: 1000 units Route: I.V. Start: 11:48 AM Stop: 11:48 AM Medication: Versed Amount: 0.5 mg Route: I.V. Start: 11:48 AM Stop: 11:48 AM Medication: Fentanyl Amount: 25 mcg Route: I.V. Start: 11:53 AM Stop: 11:53 AM Medication: Versed Amount: 0.5 mg Route: I.V. Start: 11:53 AM Stop: 11:53 AM Medication: Fentanyl Amount: 25 mcg Route: I.V. Start: 11:54 AM Stop: 11:54 AM Medication: Versed Amount: 0.5 mg Route: I.V. Start: 11:54 AM Stop: 11:54 AM Medication: Heparin Amount: 1000 units Route: I.V. Start: 12:03 PM Stop: 12:03 PM Medication: Nitrogylcerin Amount: 200 mcg Route: I.A. Start: 12:13 PM Stop: 12:13 PM Medication: Plavix Amount: 600 mg Route: P.O. Start: 12:13 PM Stop: 12:13 PM Medication: Heparin Amount: 1000 units Route: I.V. Start: 12:16 PM Stop: 12:16 PM Medication: Versed Amount: 1 mg Route: I.V. Start: 12:24 PM Stop: 12:24 PM Medication: Aggrastat 12.5 mg/250 mL Amount: 55 ml Route: I.V. bolus Start: 12:25 PM Stop: 12:25 PM Medication: Aggrastat 12.5 mg/250 mL Amount: 19.8 ml/hr Route: I.VDebbie ruiz I, the attending physician, have reviewed and verified all procedure medications. Yes, all medications given per verbal order History/Risk Factors Hypertension: Yes Dyslipidemia: Yes Peripheral Arterial Disease (PAD): Yes Myocardial Infarction ([place]): Yes Obesity: Yes Renal Disease: Yes Tobacco Use: Never Dialysis: Current Prior Interventions PCI: No CABG: No Valve Surgery: No Report Signatures Finalized by Walt Mcdonald MD on 05/02/2020 01:10 PM
--- NOTE | 2020-04-20 09:43 | PC.CHAP ---
Pastoral Care Encounter/Spiritual Assessment Type of Contact [] Declined foreign exchange dealer visit [] Patient/Family/Request visit [] Outpatient visit [] Follow-up visit [] Physician referral [] Code/Alert [x] Routine visit [] Staff referral [] Actively dying [] Patient sleeping [x] Family support [] [] Out of room [] Palliative care [] [] Receiving care in room [] Pre-surgical visit [] Trauma [] Long length of stay [] ICU visit [] Other: Relational/Emotional Strength [] Patient feels connected with others/family/visitors/staff [] Distress [] Loneliness/isolation [] Abandonment Spirituality of Patient [x] Person of Jesika [] Attends Uatsdin of their Jesika [] Believes in Prayer [] Reads Bible or Buddhist materials [] There are Spiritual issues to be addressed Small Products Assembler Interventions [x] Prayer [x] Active listening [x] Non-anxious presence [x] Spiritual/emotional support [] Crisis/trauma care [] Spiritual counseling [] Bereavement support [] Provided bereavement packet [] Provided Bible/devotional materials [] Provided toy/stuffed animal, coloring book to patient or family member [] Provided Communion [] Anointing/[place] [] Salvation [x] Completed spiritual assessment [] Other: Impact on Illness or Injury [] Angry [] Fearful [] Anxious [] Often cries [] Exhaustion [] Unable to work [] Unable to attend uatsdin [] Unable to walk/stand [] Unable to read [] Unable to drive [] Unable to eat/drink [] Unable to sleep [] Unable to be with family [] Patient intubated [] Other: Summary present with patient.. patient feeling stronger.. Time spent with patient 15 min
[2020-04-20] MEDS: clindamycin 150 mg Capsule 300 MG PO ×2 (10:08→15:37)
[2020-04-20] MEDS: amiodarone 200 mg Tablet PO (10:08)
[2020-04-20] MEDS: levothyroxine 75 mcg Tablet 150 MCG PO (10:08)
[2020-04-20] MEDS: isosorbide mononitrate ER 60 mg Tablet PO (10:09)
[2020-04-20] MEDS: amlodipine 5 mg Tablet PO (10:09)
[2020-04-20] MEDS: calcium acetate 667 mg Capsule 1334 MG PO ×2 (10:09→21:11)
--- NOTE | 2020-04-20 12:16 | PC.NURSE ---
Pt left room in route to radiographer cardiac catheterization at approximately 1100am.
--- NOTE | 2020-04-20 13:05 | PC.NURSE ---
Pt arrived in room from heart cath at 1300. Received report from MARTHA Bonilla. Pt arrived to room receiving aggrastat IV at 19.8 ml/hr. will call to confirm dosage
--- NOTE | 2020-04-20 13:44 | PM.PN ---
Subjective Subjective: Interval history: Just returned from [facility] where he had a stent placed. Feels otherwise well and he doesn't have any acute uremic or hypervolemic Sx He denies chest pain, palpitations, shortness of breath. Eating and drinking normally, Vitals/I&O/Wt Last Vital Signs Temp 98.0 F 04/20/20 13:30 Pulse 57 L 04/20/20 13:33 Resp 18 04/20/20 13:33 BP 138/58 04/20/20 13:33 Pulse Ox 95 04/20/20 13:33 04/19/20 04/20/20 04/20/20 22:59 06:59 14:59 Intake Total 300 / 300 Balance 300 / 300 Weight last 48 hrs Weight 110.223 kg Physical Exam Narrative: EXAM NARRATIVE: Constitutional: Awake, comfortable HEENT: Wet mucosa, no jvp, non icteric Lungs: Bilaterally clear without discernible wheeze, rales in all lung zones CVS: S1 S2, no murmurs Abdo: Soft, BS ok Ext 4: Minimal edema, peripheral perfusion with no cyanosis Neurological: Grossly non-focal Data : 04/20/20 03:16 04/20/20 03:16 A&P Additional A&P Information 1. ESRD We will plan to do dialysis tomorrow, 2K bath, ultrafiltration of 2-3 L. If he remains in the hospital Sunday, will dialyze him then also. Dose medications for GFR less than 15 on dialysis. 2. CAD S/p [facility] with stent placed; report pending, mgmt per Dr Mcdonald 3. Hyperkalemia. Mild and will correct with hemodialysis in am 4. Chronic dialysis issues Management of all chronic outpatient dialysis issues will be deferred to the outpatient dialysis team including anemia management, secondary hyperparathyroidism, hyperphosphatemia etc. Continue phosphorus binders during hospital stay, will give him some PhosLo. Likely DC tomorrow Allen Lr MD Nephrology [phone] Patient seen and examined via telemedicine, with the assistance of the bedside RN > 25 min spent in evaluation and mgmt of patient Attestations Medical Necessity Statement*: ESRD mgmt Coding Level of Care Code Acute Configuration Management Advisor for Jasbirg Emiliano
--- NOTE | 2020-04-20 13:53 | PC.NURSE ---
Pt lying in bed resting with eyes closed. Resp even and non-labored no distress noted. Drsg to groin dry and intact. No irregularities noted. Pt had no c/o pain or discomfort at the present time. Call light in reach. at bedside. Will cont to monitor.
[2020-04-20 13:55] LABS: Glucose Point of Care 95 mg/dL (70-110)
--- NOTE | 2020-04-20 15:30 | PC.NURSE ---
Pts PTT resulted at 167.0. Mark Ortiz notified. No new orders received.
[2020-04-20] MEDS: aspirin 325 mg Tablet PO (15:37)
--- NOTE | 2020-04-20 15:48 | PC.NURSE ---
Pt lying in bed resting with eyes closed. Resp even and non-labored no distress or sob noted. Pts drsg to groin dry and intact no irregularities noted. Pt aggrastate at 19.8 ml/hr. Pts IV patent and intact no redness noted. Pt had no c/o pain or discomfort at the present time. Call light in reach. Will continue to monitor.
--- NOTE | 2020-04-20 16:30 | PC.NURSE ---
Aggrastat stopped at 1630.
[2020-04-20 16:55] LABS: Glucose Point of Care 90 mg/dL (70-110)
[2020-04-20 19:25] LABS: Partial Thromboplastin Time 33.7 SECONDS (23.9-36.7)
--- NOTE | 2020-04-20 19:58 | PC.NURSE ---
Pt lying in bed resting with eyes open watching TV. Pt resp even and non-labored no distress noted. Pts drsg to groin dry and intact. Pt had no c/o pain or discomfort at the present time. Call light in reach will continue to monitor.
--- NOTE | 2020-04-20 20:01 | PC.NURSE ---
Pts PTT resulted at 167.0. Dr. Flores notified.
--- NOTE | 2020-04-20 20:39 | PM.PN ---
Subjective Subjective: Interval history: Patient came yesterday for outpatient for left heart cath with worsening angina. Cardiac cath showed severe ostial LCx stenosis and severe proximal LAD stenosis (FFR 0.77). Patient was admitted. Case was discussed with Dr Ramsay for possible CABG, however he recommended proceeding with PCI after looking at the cath images and given patient's risk factors he will be high risk for CABG. He was dialyzed yesterday. Patient underwent successful PCI of proximal LAD and ostial LCx with SHANIA x 2. Started on aspirin and Plavix Vitals/I&O/Wt Last Vital Signs Temp 98.0 F 04/20/20 20:15 Pulse 58 L 04/20/20 20:15 Resp 18 04/20/20 20:15 BP 142/67 04/20/20 20:15 Pulse Ox 98 04/20/20 20:15 04/20/20 04/20/20 04/20/20 06:59 14:59 22:59 Intake Total 300 / 300 Balance 300 / 300 Weight last 48 hrs Weight 243 lb Physical Exam Const: COMMON NORMALS: no acute distress and patient oriented x3 HENMT: COMMON NORMALS: normocephalic Eye: COMMON NORMALS: Equal, round and reactive pupils present Resp: COMMON NORMALS: normal respiratory effort AUSCULTATION: clear to auscultation bilaterally Cardio: HEART SOUNDS: S1 normal heart sound present, S2 normal heart sound present and no murmurs GI: PALPATION: Yes Soft to palpation Extremity: COMMON NORMALS: no pedal edema Neuro: COMMON NORMALS: patient oriented x3 Psych: COMMON NORMALS: mental status grossly normal Data : 04/20/20 03:16 04/20/20 03:16 A&P Assessment and plan (1) Chest pain: Status: Acute (2) ESRD (end stage renal disease) on dialysis: Status: Acute (3) PAD (peripheral artery disease): Status: Acute (4) Diabetes 1.5, managed as type 2: Status: Acute (5) ASHD (arteriosclerotic heart disease): Status: Acute (6) HTN (hypertension): Status: Acute (7) Dyslipidemia: Status: Acute Patient underwent successful PCI of proximal LAD and ostial LCx with SHANIA x 2 today after discussion with CT surgery. They reviewed the images and given patient's underlying risk fators have recommended percutaneous revascularization. Aspirin and Plavix Statin therapy Sliding scale insulin Nephrology on board. Patient was dialyzed yesterday. Likely patient will be dialyzed before discharge tomorrow Attestations Medical Necessity Statement*: Care expected to cross 2 midnights. Patient underwent PCI of proximal LAD and ostial LCx today. Will need dialysis tomorrow morning before discharge. Coding Level of Care Code Acute Scanning Supervisor for Jasbirg Fwd Diagnoses Chest pain R07.9 ESRD (end stage renal disease) on dialysis N18.6; Z99.2 PAD (peripheral artery disease) I73.9 Diabetes 1.5, managed as type 2 E13.9 ASHD (arteriosclerotic heart disease) I25.10 HTN (hypertension) I10 Dyslipidemia E78.5
[2020-04-20 21:05] LABS: Glucose Point of Care 71 mg/dL (70-110)
--- NOTE | 2020-04-20 21:12 | PC.NURSE ---
Dr Groves notified of blood glucose 71, order to hold lantus and give juice
--- NOTE | 2020-04-20 22:36 | PC.NURSE ---
pulled sheath at 2154 with Destiny Simeon RN, held manual pressure for 20 min, small hematoma noted at site, held pressure with flat hand for additional 5 min with improvement noted, pedal pulses present, pt tolerated well, no bleeding noted to site
[2020-04-21] VITALS (9 sets, daily range): BP systolic 132–154; BP diastolic 54–58; PULSE 56–59; RESP 12–18; TEMP 36.3–36.6; O2SAT 100
[2020-04-21 04:55] LABS: Basophils # 0.1 10^3/uL (0.0-0.1); Basophils % 1.5 %; Eosinophils # 0.5 10^3/uL (0.0-0.8); Eosinophils % 7.1 %; Hematocrit 31.8 % (42.0-52.0); Hemoglobin 10.1 g/dL (11.7-16.6); Lymphocytes # 1.1 10^3/uL (0.8-4.8); Lymphocytes % 14.3 %; Mean Corpuscular HGB Conc 31.8 g/dL (30.0-36.0); Mean Corpuscular Hemoglobin 28.2 pg (28.0-34.0); Mean Corpuscular Volume 88.8 fL (80-94); Mean Platelet Volume 11.4 fL (7.4-10.4); Monocytes # 0.8 10^3/uL (0.2-0.9); Monocytes % 10.4 %; Neutrophils # 5.02 10^3/uL (1.8-7.7); Neutrophils % 66.3 %; Nucleated Red Blood Cells % 0 %; Platelet Count 153 10^3/cmm (130-400); Red Blood Count 3.58 10^6/uL (4.1-5.3); Red Cell Distribution Width 15.9 % (12.1-15.1); White Blood Count 7.6 10^3/uL (4.0-10.0)
[2020-04-21 05:10] LABS: Anion Gap 15.6 (5-19); Blood Urea Nitrogen 33 mg/dL (8-23); Carbon Dioxide 27 mmol/L (22-29); Chloride 92 mmol/L (98-107); Glucose 63 mg/dL (65-115); Osmolality Calculated 273 mOsm/kg (285-295); Potassium 5.6 mmol/L (3.5-5.1); Sodium 129 mmol/L (136-145)
--- NOTE | 2020-04-21 06:27 | PM.PN ---
Subjective Subjective: Interval history: seen during dialysis, no complaints Medications: Reviewed: Yes Vitals/I&O/Wt Last Vital Signs Temp 97.8 F 04/21/20 04:15 Pulse 57 L 04/21/20 05:45 Resp 12 04/21/20 04:15 BP 154/56 04/21/20 04:15 Pulse Ox 100 04/21/20 04:15 Weight last 48 hrs Weight 110.223 kg Physical Exam Const: COMMON NORMALS: no acute distress GENERAL APPEARANCE: cooperative Extremity: OTHER: RUE AVF Data : 04/21/20 04:26 04/21/20 04:26 A&P Additional A&P Information 1. ESRD, HD MWF 2. CAD s/p PCI, SHANIA x 2 yesterday 3. DM 4. Hypertension 5. Anemia 6. Mild hyponatremia, hyperkalemia - HD today Recommend: low K diet, fluid restrict, no IVs, BPs, blood draws right arm Attestations Medical Necessity Statement*: per primary service Time Spent in Patient Care: 16 - 35 minutes Coding Level of Care Code Acute Sales Agent Food Vending Service for Brendan Cummings
[2020-04-21] MEDS: levothyroxine 75 mcg Tablet 150 MCG PO (10:55)
[2020-04-21] MEDS: clopidogrel 75 mg Tablet PO (10:55)
[2020-04-21] MEDS: isosorbide mononitrate ER 60 mg Tablet PO (10:56)
[2020-04-21 10:58] LABS: Glucose Point of Care 106 mg/dL (70-110)
[2020-04-21] MEDS: aspirin 81 mg EC Tablet PO (10:59)
[2020-04-21] MEDS: amlodipine 5 mg Tablet PO (11:01)
--- NOTE | 2020-04-21 11:03 | PM.DCS ---
Discharge Providers Date of Admission: 04/19/20 11:52 Date of Discharge: April 21, 2020 Attending Provider at Admission: Walt Mcdonald M.D Attending Provider at Discharge: Walt Mcdonald M.D Primary Care Provider: Hanane Saldaña MD Diagnoses at Discharge Discharge Diagnosis (1) Chest pain: Status: Resolved (2) ESRD (end stage renal disease) on dialysis: Status: Acute (3) PAD (peripheral artery disease): Status: Acute (4) Diabetes 1.5, managed as type 2: Status: Acute (5) ASHD (arteriosclerotic heart disease): Status: Acute (6) HTN (hypertension): Status: Acute (7) Dyslipidemia: Status: Acute Reason for Visit Reason for Visit: [facility] Brief History: 75 year-old man with past medical history of coronary artery disease, end-stage renal disease on dialysis, peripheral artery disease, diabetes, atrial fibrillation who underwent angiogram by Dr. Otero in 2019 when he found one vessel disease involving circumflex lesion at the ostium which he decided not to intervene on because of ostial disease and risk for compromising LAD flow. Previously his pain was well controlled with medical therapy however now his says that he is grabbing his chest more frequently and chest pain comes on and off almost daily now. It is substernal, both on exertion and at rest. He is not on anticoagulation at this time. On his last visit we had ordered a Lexiscan which showed mostly fixed perfusion defect in basal to mid inferolateral wall. However given significant worsening chest pain symptoms, patient was scheduled for coronary angiography. Hospital Course Hospital Course 75 year-old man with past medical history of coronary artery disease, end-stage renal disease on dialysis, peripheral artery disease, diabetes, atrial fibrillation who underwent angiogram by Dr. Otero in 2019 when he found one vessel disease involving circumflex lesion at the ostium which he decided not to intervene on because of ostial disease and risk for compromising LAD flow. Previously his pain was well controlled with medical therapy however now his says that he is grabbing his chest more frequently and chest pain comes on and off almost daily now. It is substernal, both on exertion and at rest. He is not on anticoagulation at this time. On his last visit we had ordered a Lexiscan which showed mostly fixed perfusion defect in basal to mid inferolateral wall. Patient was found to have severe ostial left circumflex artery disease. We also performed FFR for proximal LAD stenosis which was significant and confirmed severe stenosis. We discussed the case with Dr. Ramsay from CT surgery for possible revascularization with CABG however he thought percutaneous coronary intervention would be a better option. As patient had missed his dialysis as outpatient, we consulted nephrology and got patient dialyzed. Next day patient underwent successful revascularization of ostial left circumflex artery and proximal LAD with SHANIA x2. Patient had a repeat dialysis after PCI. He was discharged in a stable condition the following day with plan for follow-up as outpatient. Physical Exam Const: COMMON NORMALS: no acute distress and patient oriented x3 HENMT: COMMON NORMALS: normocephalic Eye: COMMON NORMALS: Equal, round and reactive pupils present Resp: COMMON NORMALS: normal respiratory effort AUSCULTATION: clear to auscultation bilaterally Cardio: HEART SOUNDS: S1 normal heart sound present, S2 normal heart sound present and no murmurs GI: PALPATION: Yes Soft to palpation Extremity: COMMON NORMALS: no pedal edema Neuro: COMMON NORMALS: patient oriented x3 Psych: COMMON NORMALS: mental status grossly normal Discharge Data Data Completed and Pending: Pending at discharge Category Date Time Status CAMPUS MONITOR request for service Routin e Exams 04/19/20 09:00 Taken CAMPUS MONITOR request for service Routin e Exams 04/20/20 06:48 Ordered Labs from last 24 hours 04/21/20 04/21/20 04/21/20 10:54 04:26 04:26 WBC 7.6 RBC 3.58 L Hgb 10.1 L Hct 31.8 L MCV 88.8 MCH 28.2 MCHC 31.8 RDW 15.9 H Plt Count 153 MPV 11.4 H Neut % (Auto) 66.3 Lymph % (Auto) 14.3 [place] % (Auto) 10.4 Eos % (Auto) 7.1 Baso % (Auto) 1.5 Neut # (Auto) 5.02 Lymph # (Auto) 1.1 [place] # (Auto) 0.8 Eos # (Auto) 0.5 Baso # (Auto) 0.1 Nucleated RBC % (a uto) 0 Nucleated RBCs # 0.0 APTT Sodium 129 L Potassium 5.6 H Chloride 92 L Carbon Dioxide 27 Anion Gap 15.6 BUN 33 H Creatinine 6.9 H* GFR Calculation Not Reportable Glucose 63 L POC Glucose 106 Calculated Osmolal ity 273 L Calcium 9.0 04/20/20 04/20/20 04/20/20 21:00 18:30 16:48 WBC RBC Hgb Hct MCV MCH MCHC RDW Plt Count MPV Neut % (Auto) Lymph % (Auto) [place] % (Auto) Eos % (Auto) Baso % (Auto) Neut # (Auto) Lymph # (Auto) [place] # (Auto) Eos # (Auto) Baso # (Auto) Nucleated RBC % (a uto) Nucleated RBCs # APTT 33.7 D Sodium Potassium Chloride Carbon Dioxide Anion Gap BUN Creatinine GFR Calculation Glucose POC Glucose 71 90 Calculated Osmolal ity Calcium 04/20/20 04/20/20 15:20 13:39 WBC RBC Hgb Hct MCV MCH MCHC RDW Plt Count MPV Neut % (Auto) Lymph % (Auto) [place] % (Auto) Eos % (Auto) Baso % (Auto) Neut # (Auto) Lymph # (Auto) [place] # (Auto) Eos # (Auto) Baso # (Auto) Nucleated RBC % (a uto) Nucleated RBCs # APTT 167.0 H* D Sodium Potassium Chloride Carbon Dioxide Anion Gap BUN Creatinine GFR Calculation Glucose POC Glucose 95 Calculated Osmolal ity Calcium Vitals: Last Vital Signs Temp 97.8 F 04/21/20 04:15 Pulse 57 L 04/21/20 05:45 Resp 12 04/21/20 04:15 BP 154/56 04/21/20 04:15 Pulse Ox 100 04/21/20 04:15 Discharge Plan Discharge Patient Disposition: Home Condition: Stable Prescriptions: New clopidogrel 75 mg Tablet 75 mg PO DAILY Qty: 90 RF: 3 aspirin 81 mg Tablet,Delayed Release (Dr/Ec) 81 mg PO DAILY Qty: 90 RF: 3 Continued nitroglycerin [Nitrostat] 0.4 mg tablet, sublingual 0.4 mg SUBLINGUAL Q5M PRN (Reason: CHEST PAINS) RF: 0 Fosrenol 1,000 mg powder in packet See Rx Instructions .ROUTE .COMPLEX RF: 0 levothyroxine 150 mcg capsule 150 mcg PO DAILY RF: 0 docusate sodium 100 mg capsule 100 mg PO BID PRN (Reason: Constipation) RF: 0 mirtazapine 15 mg tablet 15 mg PO BEDTIME RF: 0 pantoprazole 40 mg tablet,delayed release (DR/EC) 40 mg PO DAILY RF: 0 amiodarone 200 mg tablet 200 mg PO DAILY 90 Days Qty: 90 RF: 3 Cimzia 400 mg/2 mL (200 mg/mL x 2) syringe kit 200 mg SUBCUT .every other week Qty: 2 RF: 5 acetaminophen [Tylenol Extra Strength] 500 mg Tablet 1,000 mg PO PRN RF: 0 RenaPlex-D 800 mcg-12.5 mg -2,000 unit tablet 1 tab PO DAILY RF: 0 hydrocodone-acetaminophen 5-325 mg tablet 1 tab PO Q6H PRN (Reason: pain) Qty: 20 RF: 0 cephalexin 500 mg Capsule 500 mg PO UNK RF: 0 cetirizine 10 mg Tablet 10 mg PO DAILY RF: 0 Lantus Solostar U-100 Insulin 100 unit/mL (3 mL) insulin pen See Rx Instructions .ROUTE .COMPLEX RF: 0 ondansetron 4 mg tablet,disintegrating 4 mg PO Q6H PRN (Reason: nausea and vomiting) Qty: 14 RF: 0 Changed amlodipine 5 mg tablet 10 mg PO DAILY Qty: 0 RF: 0 Discontinued isosorbide mononitrate 60 mg tablet extended release 24 hr 60 mg PO DAILY Qty: 90 RF: 3 Discharge Orders: Discharge Order (Routine); Ordered 04/21/20 Ordered By: Walt Mcdonald Referrals: Walt Mcdonald M.D [Physician] - 1 month (Please follow-up with Dr. Mcdonald on May 19 at 2:00P.M. If you have any questions or need to reschedule. Please call ) Elinor Kessler FNP [Nurse Practitioner] - 7-10 days (Please follow-up with Elinor Kessler on April 28 at 1:30P.M. If any questions or need to reschedule. Please call ) Discharge Diet: Cardiac and Diabetic Discharge Activity: Increase activity as tolerated Patient Instructions: Aspirin (By mouth), Clopidogrel (By mouth), Left Heart Catheterization (DC), Coronary Angioplasty (DC), Chest Pain Stoplight, Post Angiogram Home Care Instructions Activity Restrictions/Additional Instructions: Please do not lift more than 5 pounds of weight for the next 5 days Discharge Attestations Time Spent in Discharge Care*: greater than 30 min Quality Metrics Clinical Quality Measures During this hospital stay, did patient experience: None Coding Level of Care Code Acute Coastal/Harbor Defense Officer for Chg Fwd Diagnoses Chest pain R07.9 ESRD (end stage renal disease) on dialysis N18.6; Z99.2 PAD (peripheral artery disease) I73.9 Diabetes 1.5, managed as type 2 E13.9 ASHD (arteriosclerotic heart disease) I25.10 HTN (hypertension) I10 Dyslipidemia E78.5
[2020-04-21] MEDS: calcium acetate 667 mg Capsule 1334 MG PO (11:04)
--- NOTE | 2020-04-21 12:55 | PC.NURSE ---
Discharge instructions given per the physician's orders. Patient verbalized understanding of teaching and medication changes and did not have any further questions. IV has been removed. Patient requests to wait to get dressed until arrives to help him. No further needs identified at this time. Nurse to continue to monitor.
== END 2020-04-21 13:36 | disposition home or self-care (01) ==
LOC: CSU 04-20 07:29
PROVIDERS: Admitting Provider Internal Medicine; PCP Family Medicine; Visit Provider Internal Medicine
DX: I25.10 Atherosclerotic heart disease of native coronary artery without angina pectoris (principal); R07.9 Chest pain, unspecified; N18.6 End stage renal disease; Z99.2 Dependence on renal dialysis; I73.9 Peripheral vascular disease, unspecified; E13.9 Other specified diabetes mellitus without complications; I10 Essential (primary) hypertension; E78.5 Hyperlipidemia, unspecified; E03.9 Hypothyroidism, unspecified; I25.2 Old myocardial infarction; M06.9 Rheumatoid arthritis, unspecified
CPT/HCPCS: 36415; 36416; 80048; 82962; 85025; 85347; 85610; 85730; 87426; 90935; 93454; 93571; C1725; C1769; C1874; C1887; C1894; C9600; C9601; G0378; J0153; J1644; J2250; J2405; J3010; J3246; J3490; J7030; Q0162; Q0163; Q3014; Q9967

== ENCOUNTER 2020-05-07 11:46 | Inpatient (IN) | payer MEDICARE, MEDICAID, SELFPAY ==
[2020-05-07] VITALS (25 sets, daily range): BP systolic 97–132; BP diastolic 51–70; PULSE 67–145; RESP 13–26; TEMP 36.4–36.9; O2SAT 90–100; BMI 32.0
--- NOTE | 2020-05-07 11:53 | XR_ITS ---
WS: [id number] Portable AP upright chest, 05/07/2020 Clinical Data: a fib rvr Comparison: Portable chest, 01/21/2020 Findings: Bilateral lower lobe patchy opacities are present with more opacity on the right than the l eft. There are small pleural effusions or pleural reaction bilaterally unchanged. The upper lobes are clear. The heart is minimally enlarged. The pulmonary vascularity is not increased. No pneumonia or pneumothorax is seen. The aortic arch and descending aorta show calcification and tortuosity. Monitor leads are on the chest wall. The patient has had an anterior cervical disc fusion. XR/XR chest 1V portable [id number] Impression: 1. Bilateral lower lobe opacities which may represent chronic lower lobe inters titial change. 2. Pleural reaction or small bilateral pleural effusions unchanged. 3. Atherosclerosis and cardiomegaly.
--- NOTE | 2020-05-07 11:56 | ECG_ITS ---
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1945 Requested By: Derek Preciado Order Number: [id number] Justin MD: KIMBERLY MOORE Measurements Intervals [place] Rate: 132 P: [place]: QRS: -60 QRSD: 145 T: 90 QT: 354 QTc: 525 Interpretive Statements ATRIAL FIBRILLATION WITH RAPID VENTRICULAR RESPONSE LEFT AXIS DEVIATION [QRS AXIS < -30] INTRAVENTRICULAR CONDUCTION DELAY [130+ ms QRS DURATION] Compared to ECG 05/03/2018 23:46:01 Left-axis deviation now present Intraventricular conduction delay now present Sinus rhythm no longer present Short DE interval no longer present Prolonged QT interval no longer present Electronically Signed On 05-07-2020 19:24:03 PIPE FINISHER by KIMBERLY MOORE [id number]
[2020-05-07 12:21] LABS: ABG PCO2 32.5 mmHg (35-45); Arterial Blood Gas Hematocrit 38.1 % (42-52); Base Excess ABG 2.8 mmol/L (-2.0-2.0); Blood Gas Allen Test Pos; Blood Gas Operator Identificat glc; Blood Gas Sample Site Radial, left; Blood Gas Sample Type Arterial; HCO3 ABG 25.5 mmol/L (22-26); Oxygen Device ROOM AIR; PO2 ABG 56.1 mmHg (80.0-100.0)
--- NOTE | 2020-05-07 13:21 | W.ED.ARRPALP ---
HPI - Arrhythmia/Palpitations General: Chief Complaint: Arrhythmia/Palpitations Stated Complaint: TACHYCARDIA/ AFIB Time Seen by Provider: 05/07/20 11:48 History of Present Illness: HPI narrative: The patient is a 75-year-old male with past medical history atrial fibrillation, end-stage renal disease on hemodialysis Sunday. Patient had up to hemodialysis and was very short of breath saying he did not feel very well. He was in A. fib RVR rate 160s with left bundle branch block. EMS gave 150 mg amiodarone in route. His rate on arrival was 140s. He did not get hemodialysis. MD complaint: rapid heart beat Duration: constant Severity: severe Arrhythmia history: atrial fibrillation Associated symptoms: Reports short of breath; Deny anxiety Review of Systems General: Reports: 10 or more systems reviewed and unremarkable except in HPI and below Const: Denies: fatigue Eyes: Denies: change in vision, blurry vision or eye redness ENMT: Denies: throat pain, swelling of lips/tongue, ear or mastoid pain or nasal congestion Card: Reports: palpitations; Denies: chest pain, irregular heart rhythm, edema, dyspnea on exertion or orthopnea Resp: Reports: dyspnea; Denies: productive cough or non-productive cough GI: Denies: abdominal pain, diarrhea or GI cramping : Denies: flank pain, urinary frequency or urinary urgency Musc: Denies: neck pain, back pain, extremity pain, joint pain, joint redness, limited range of motion or muscle weakness Skin/Breast: Denies: rash, pruritus, erythema, skin pain or skin tenderness Neuro: Denies: headache(s), numbness in extremities, weakness in extremities, sensory changes, difficulty walking, dizziness, confusion or Slurred speech present Psych: Denies: anxiety or depression Endo: Denies: polyuria All/Imm: Denies: urticaria, throat swelling or tongue swelling PFSH ED PFSH: Medical History (Updated 05/07/20 @ 13:57 by Derek Preciado MD) Anemia ASHD (arteriosclerotic heart disease) Atrial fibrillation CHF (congestive heart failure) CKD (chronic kidney disease) Diabetes 1.5, managed as type 2 Diabetic gastroparesis Dyslipidemia ESRD (end stage renal disease) on dialysis HTN (hypertension) Hypothyroidism Mitral regurgitation Myocardial infarction PAD (peripheral artery disease) Pulmonary HTN Rheumatoid arthritis Family History Father , AGE 61 Cancer LUNG Mother , AGE 62 CHF (congestive heart failure) Social History Smoking and tobacco status: never smoked Marital status: service: No Physical Exam Const: COMMON NORMALS: no acute distress, average body habitus, patient oriented x3, no limitations, healthy appearing, alert and well nourished GENERAL APPEARANCE: cooperative, comfortable, well kempt, well developed and anxious ORIENTATION/CONSCIOUSNESS: Yes awake, Yes oriented to person, Yes oriented to place and Yes oriented to time HENMT: COMMON NORMALS: normocephalic, external ears normal and Normal external nose present HEAD & SCALP: normal to inspection and normocephalic NOSE: Normal external nose present EXTERNAL EAR: Yes external ears normal MOUTH: Normal oral and palatal mucosa present THROAT: posterior oropharynx normal Eye: COMMON NORMALS: Equal, round and reactive pupils present and EOMs intact bilaterally GENERAL EYE: appearance normal, both eyes and all related structures PUPIL: Yes Equal, round and reactive pupils present Neck/C-Spine: COMMON NORMALS: full ROM, no lymphadenopathy, no meningeal signs and no JVD GENERAL: Yes normal visual inspection Lymph: LYMPHATIC: no lymphadenopathy noted Chest: COMMONS NORMALS: normal inspection of the chest and normal palpation of entire chest wall Resp: COMMON NORMALS: normal respiratory effort, No retractions, No use of accessory muscles, clear to auscultation bilaterally and percussion normal EFFORT & INSPECTION: Yes able to speak in complete sentences AUSCULTATION: clear to auscultation bilaterally PERCUSSION: percussion normal Cardio: COMMON NORMALS: no JVD, S1 normal heart sound present, S2 normal heart sound present and Peripheral pulses 2+ throughout RATE: tachycardic RHYTHM: abnormal rhythm (A. fib RVR rate 140s) irregularly irregular HEART SOUNDS: S1 normal heart sound present and S2 normal heart sound present PERIPHERAL PULSES: Peripheral pulses 2+ throughout GI: COMMON NORMALS: Normal to inspection, nondistended, normoactive bowel sounds present, Soft to palpation, non-tender and no masses INSPECTION: Yes normal to inspection PALPATION: Yes Soft to palpation : COMMON NORMALS: Yes no CVA tenderness BLADDER/KIDNEY EXAM: Yes no CVA tenderness Back/Pelvis: COMMON NORMALS: no CVA tenderness, thoracic and lumbar spine normal to inspection, no thoracic nor lumbar tenderness and thoraco-lumbar ROM normal Extremity: COMMON NORMALS: normal to inspection, full ROM, capillary refill normal, no joint enlargement and no pedal edema NARRATIVE EXTREMITY EXAM: Patent fistula upper extremity GENERAL: Yes normal exam except as noted Neuro: COMMON NORMALS: patient oriented x3, CN's II-XII intact bilaterally, moves all extremities, no focal motor deficits, no sensory deficits noted and gait normal SENSORIUM/ORIENTATION: Yes alert, Yes oriented to person, Yes oriented to place and Yes oriented to time MENINGEAL SIGNS: Yes no meningeal signs Psych: COMMON NORMALS: mental status grossly normal, Normal thought process present, cooperative, normal affect and speech normal APPEARANCE: Yes well kempt ATTITUDE: Yes calm SPEECH: Yes normal speech THOUGHT PROCESS: Normal thought process present Skin: COMMON NORMALS: no rashes or lesions noted GENERAL SKIN EXAM: no rashes or lesions noted Course Vital Signs: Vital signs: Vital Signs Temperature 98.5 F 05/07/20 11:49 Pulse Rate 120 H 05/07/20 12:46 Respiratory Rate 23 H 05/07/20 12:46 Blood Pressure 122/68 05/07/20 12:46 Pulse Oximetry 100 05/07/20 12:46 MDM - Arrhythmia/Palpitations MDM Narrative: Medical decision making narrative: Patient has A. fib with RVR and elevated creatinine from his end-stage renal disease. He was given 150 amiodarone by the EMS and started on a Cardizem drip. His rate is now in the low 100s. He is stable for admission. Discussed with Dr. Bullard who accepts to the CSU Lab Data: Labs: Lab Results 05/07/20 05/07/20 05/07/20 Range/Units 12:09 12:58 13:03 WBC 9.9 (4.0-10.0) 10^3/ uL RBC 3.39 L (4.1-5.3) 10^6/u L Hgb 9.7 L (11.7-16.6) g/dL Hct 31.0 L (42.0-52.0) % MCV 91.4 (80-94) fL MCH 28.6 (28.0-34.0) pg MCHC 31.3 (30.0-36.0) g/dL RDW 16.1 H (12.1-15.1) % Plt Count 137 (130-400) 10^3/c mm MPV 10.6 H (7.4-10.4) fL Neut % (Auto) 78.3 % Lymph % (Auto) 8.5 % [place] % (Auto) 10.0 % Eos % (Auto) 1.5 % Baso % (Auto) 0.9 % Neut # (Auto) 7.78 H (1.8-7.7) 10^3/u L Lymph # (Auto) 0.8 (0.8-4.8) 10^3/u L [place] # (Auto) 1.0 H (0.2-0.9) 10^3/u L Eos # (Auto) 0.2 (0.0-0.8) 10^3/u L Baso # (Auto) 0.1 (0.0-0.1) 10^3/u L Nucleated RBC % (a uto) 0 % Nucleated RBCs # 0.0 /100WBC PT 15.40 H (12.1-14.9) SECO NDS INR 1.18 (0.8-1.2) Specimen Type Arterial Sample Site Radial, left ABG pH 7.50 H (7.35-7.45) ABG pCO2 32.5 L (35-45) mmHg ABG pO2 56.1 L (80.0-100.0) mmH g ABG HCO3 25.5 (22-26) mmol/L ABG Base Excess 2.8 H (-2.0-2.0) mmol/ L Silvio Test Pos Hematocrit 38.1 L (42-52) % O2 Delivery Device Room air FiO2 21.0 % Agricultural Aircraft Pilot ID glc Sodium (136-145) mmol/L Potassium (3.5-5.1) mmol/L Chloride (98-107) mmol/L Carbon Dioxide (22-29) mmol/L Anion Gap (5-19) BUN (8-23) mg/dL Creatinine (0.7-1.2) mg/dL GFR Calculation Glucose (65-115) mg/dL Calculated Osmolal ity (285-295) mOsm/k g Lactate (0.5-2.2) mmol/L Calcium (8.5-10.5) mg/dL Total Bilirubin (0.15-1.2) mg/dL AST (0-40) U/L ALT (0-41) U/L Alkaline Phosphata se (40-130) IU/L Troponin T Baselin e (0-15) ng/L Total Protein (6.6-8.7) g/dL Albumin (3.5-5.2) g/dL Globulin (1.3-4.6) g/dL 05/07/20 05/07/20 05/07/20 Range/Units 13:03 13:03 13:03 WBC (4.0-10.0) 10^3/ uL RBC (4.1-5.3) 10^6/u L Hgb (11.7-16.6) g/dL Hct (42.0-52.0) % MCV (80-94) fL MCH (28.0-34.0) pg MCHC (30.0-36.0) g/dL RDW (12.1-15.1) % Plt Count (130-400) 10^3/c mm MPV (7.4-10.4) fL Neut % (Auto) % Lymph % (Auto) % [place] % (Auto) % Eos % (Auto) % Baso % (Auto) % Neut # (Auto) (1.8-7.7) 10^3/u L Lymph # (Auto) (0.8-4.8) 10^3/u L [place] # (Auto) (0.2-0.9) 10^3/u L Eos # (Auto) (0.0-0.8) 10^3/u L Baso # (Auto) (0.0-0.1) 10^3/u L Nucleated RBC % (a uto) % Nucleated RBCs # /100WBC PT (12.1-14.9) SECO NDS INR (0.8-1.2) Specimen Type Sample Site ABG pH (7.35-7.45) ABG pCO2 (35-45) mmHg ABG pO2 (80.0-100.0) mmH g ABG HCO3 (22-26) mmol/L ABG Base Excess (-2.0-2.0) mmol/ L Silvio Test Hematocrit (42-52) % O2 Delivery Device FiO2 % Agricultural Aircraft Pilot ID Sodium 132 L (136-145) mmol/L Potassium 5.0 (3.5-5.1) mmol/L Chloride 94 L (98-107) mmol/L Carbon Dioxide 23 (22-29) mmol/L Anion Gap 20.0 H (5-19) BUN 30 H (8-23) mg/dL Creatinine 6.6 H* (0.7-1.2) mg/dL GFR Calculation Not Reportable Glucose 139 H (65-115) mg/dL Calculated Osmolal ity 282 L (285-295) mOsm/k g Lactate 1.8 (0.5-2.2) mmol/L Calcium 7.9 L (8.5-10.5) mg/dL Total Bilirubin 0.6 (0.15-1.2) mg/dL AST 17 (0-40) U/L ALT 15 (0-41) U/L Alkaline Phosphata se 125 (40-130) IU/L Troponin T Baselin e 67 H (0-15) ng/L Total Protein 6.8 (6.6-8.7) g/dL Albumin 3.0 L (3.5-5.2) g/dL Globulin 3.8 (1.3-4.6) g/dL Discharge Plan Discharge Patient Disposition: Admitted As Inpatient Clinical Impression: Atrial fibrillation with rapid ventricular response, ESRD on dialysis, Elevated troponin Condition: Stable Coding Level of Care Code ED Climbing Guide for Brendan Fwd Exam Comprehensive
[2020-05-07 13:24] LABS: Basophils # 0.1 10^3/uL (0.0-0.1); Basophils % 0.9 %; Eosinophils # 0.2 10^3/uL (0.0-0.8); Eosinophils % 1.5 %; Hemoglobin 9.7 g/dL (11.7-16.6); Lymphocytes # 0.8 10^3/uL (0.8-4.8); Lymphocytes % 8.5 %; Mean Corpuscular HGB Conc 31.3 g/dL (30.0-36.0); Mean Corpuscular Hemoglobin 28.6 pg (28.0-34.0); Mean Corpuscular Volume 91.4 fL (80-94); Mean Platelet Volume 10.6 fL (7.4-10.4); Neutrophils # 7.78 10^3/uL (1.8-7.7); Neutrophils % 78.3 %; Nucleated Red Blood Cells % 0 %; Platelet Count 137 10^3/cmm (130-400); Red Blood Count 3.39 10^6/uL (4.1-5.3); Red Cell Distribution Width 16.1 % (12.1-15.1); White Blood Count 9.9 10^3/uL (4.0-10.0)
[2020-05-07 13:27] LABS: INR 1.18 (0.8-1.2)
[2020-05-07] MEDS: levofloxacin-dextrose 5 % 750 MG/150 ML PREMIX 100 MG IV (13:31)
[2020-05-07 13:33] LABS: Lactate (Lactic Acid level) 1.8 mmol/L (0.5-2.2)
[2020-05-07 13:34] LABS: Alanine Aminotransferase 15 U/L (0-41); Alkaline Phosphatase 125 IU/L (40-130); Aspartate Amino Transferase 17 U/L (0-40); Blood Urea Nitrogen 30 mg/dL (8-23); Calcium 7.9 mg/dL (8.5-10.5); Carbon Dioxide 23 mmol/L (22-29); Chloride 94 mmol/L (98-107); Globulin 3.8 g/dL (1.3-4.6); Glucose 139 mg/dL (65-115); Osmolality Calculated 282 mOsm/kg (285-295); Sodium 132 mmol/L (136-145); Total Bilirubin 0.6 mg/dL (0.15-1.2); Total Protein 6.8 g/dL (6.6-8.7)
[2020-05-07 13:36] LABS: Troponin(5th) Baseline 67 ng/L (0-15)
--- NOTE | 2020-05-07 13:56 | ECG_ITS ---
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1945 Requested By: Derek Preciado Order Number: [id number] Justin MD: KIMBERLY MOORE Measurements Intervals [place] Rate: 108 P: [place]: QRS: -57 QRSD: 140 T: 99 QT: 395 QTc: 530 Interpretive Statements ATRIAL FIBRILLATION WITH RAPID VENTRICULAR RESPONSE WITH ABERRANT CONDUCTION OR VENTRICULAR PREMATURE COMPLEXES LEFT AXIS DEVIATION [QRS AXIS < -30] INTRAVENTRICULAR CONDUCTION DELAY [130+ ms QRS DURATION] Compared to ECG 05/07/2020 12:07:14 THERE IS NO SIGNIFICANT CHANGE Electronically Signed On 05-07-2020 19:26:48 BUILDING TECH by KIMBERLY MOORE [id number]
--- NOTE | 2020-05-07 16:07 | PM.HP ---
Providers/Chief Complaint Admitting Physician: David Bullard MD Primary Care Provider: Hanane Saldaña MD Chief Complaint: TACHYCARDIA/ AFIB History of Present Illness Paul Cornelius is a 75 year old male presents to emergency department from outpatient dialysis unit with atrial fibrillation with rapid ventricular response. Patient had incomplete dialysis. His right arm was clamped and needle stayed in when he presents to medical [facility]. Patient produced very minimal amount of urine and apparently patient had green purulent urine on Sunday and was started on some antibiotic, details unknown. He had fever 102 on Sunday along with nausea and vomiting. at bedside reports that patient vomited bilious fluid throughout the whole day yesterday. In ER patient noted to be in atrial fibrillation with rapid ventricular response and started on Cardizem drip. Apparently he had some ectopic ventricular beats but no telemetry available. His history is complicated by coronary angiogram with 2 stents placed approximately 1 week ago to circumflex and LAD. Reports that next day after procedure he had some mild pressure-like chest discomfort off-and-on. Reports that he has been somewhat short of breath. Reports that he is supposed to use oxygen at home but does not have tanks. During my evaluation patient denies chest pain or shortness of breath. Review of Systems Narrative: Except as mentioned in HPI. Const: Reports: fever(s); Denies: chills Eyes: Denies: change in vision ENMT: Denies: throat pain or change in hearing Card: Denies: chest pain, edema or lightheadedness Resp: Denies: dyspnea or productive cough GI: Reports: nausea, vomiting and diarrhea; Denies: abdominal pain, dysphagia, constipation, hematochezia or melena : Reports: dysuria Musc: Denies: joint pain or joint swelling Skin/Breast: Denies: rash or erythema Neuro: Denies: headache(s) or weakness in extremities Psych: Denies: depression Endo: Denies: excessive sweating Frank/Lymph: Denies: easy bleeding or tender lymph nodes All/Imm: Denies: throat swelling Medications/Allergies Home Medications Medication Instructions Recorded Confirmed Last Taken Type docusate sodium 100 mg capsule 100 mg PO BID@0700,2100 PRN 04/11/19 05/07/20 05/06/20 History lanthanum 1,000 mg oral powder See Rx Instructions .ROUTE 04/11/19 05/07/20 04/19/20 06:00 History packet .COMPLEX each levothyroxine 150 mcg capsule 150 mcg PO DAILY@0900 04/11/19 05/07/20 05/07/20 History mirtazapine 15 mg tablet 15 mg PO BEDTIME@2100 04/11/19 05/07/20 05/06/20 History nitroglycerin 0.4 mg sublingual 0.4 mg SUBLINGUAL Q5M PRN 04/11/19 05/07/20 04/19/20 06:00 History tablet pantoprazole 40 mg tablet,delayed 40 mg PO DAILY@0900 04/11/19 05/07/20 05/07/20 History release certolizumab pegol 200 mg SUBCUT .every other week #2 12/11/19 05/07/20 03/20/20 Rx each Lantus Solostar U-100 Insulin See Rx Instructions .ROUTE .COMPLEX 01/21/20 05/07/20 Unknown History cetirizine 10 mg PO DAILY@0901/21/20 05/07/20 05/07/20 History RenaPlex-D 1 tab PO DAILY@0902/03/20 05/07/20 05/07/20 History acetaminophen [Tylenol Extra 1,000 mg PO PRN 02/03/20 05/07/20 05/06/20 History Strength] hydrocodone-acetaminophen 1 tab PO Q6H PRN #20 tab 02/03/20 05/07/20 04/19/20 06:00 Rx ondansetron 4 mg PO Q6H PRN #14 tab 04/11/20 05/07/20 04/19/20 06:00 Rx amiodarone 200 mg PO DAILY@0905/07/20 05/07/20 05/07/20 History amlodipine 10 mg PO DAILY@0905/07/20 05/07/20 05/07/20 History aspirin 81 mg PO DAILY@0905/07/20 05/07/20 05/07/20 History clopidogrel 75 mg PO DAILY@0900 05/07/20 05/07/20 05/07/20 History Allergies Allergy/AdvReac Type Severity Reaction Status Date / Time No Known Allergies Allergy Verified 04/10/20 22:32 PFSH Acute PFSH: Medical History (Updated 05/07/20 @ 16:23 by David Bullard MD) Anemia ASHD (arteriosclerotic heart disease) Atrial fibrillation BPH (benign prostatic hyperplasia) CHF (congestive heart failure) CKD (chronic kidney disease) DDD (degenerative disc disease) Diabetes 1.5, managed as type 2 Diabetic gastroparesis Dyslipidemia ESRD (end stage renal disease) on dialysis GERD (gastroesophageal reflux disease) HTN (hypertension) Hypothyroidism Mitral regurgitation Myocardial infarction PAD (peripheral artery disease) Pulmonary HTN Rheumatoid arthritis Surgical History (Updated 05/07/20 @ 16:16 by David Bullard MD) S/P appendectomy S/P carpal tunnel release S/P cervical spinal fusion S/P cholecystectomy Status post coronary angiogram Family History Father , AGE 61 Cancer LUNG Mother , AGE 62 CHF (congestive heart failure) Social History Smoking and tobacco status: never smoked Marital status: service: No Vitals/I&O/Wt Last Vital Signs Temp 97.6 F 05/07/20 15:44 Pulse 95 05/07/20 15:44 Resp 24 H 05/07/20 15:44 BP 132/51 05/07/20 15:44 Pulse Ox 100 05/07/20 15:44 05/07/20 05/07/20 05/07/20 06:59 14:59 22:59 Intake Total 150 / 150 Balance 150 / 150 Weight last 48 hrs Weight 110.223 kg Physical Exam Const: COMMON NORMALS: no acute distress, patient oriented x3 and alert HENMT: COMMON NORMALS: normocephalic and atraumatic HEAD & SCALP: normocephalic and atraumatic Eye: COMMON NORMALS: EOMs intact bilaterally, conjunctivae normal and no scleral icterus CONJUNCTIVA: Yes conjunctivae normal Neck/C-Spine: COMMON NORMALS: no lymphadenopathy and no meningeal signs Lymph: LYMPHATIC: no lymphadenopathy noted Chest: COMMONS NORMALS: normal palpation of entire chest wall Resp: COMMON NORMALS: No use of accessory muscles OTHER: Minimal bibasilar Rales. Cardio: COMMON NORMALS: regular rate RHYTHM: abnormal rhythm irregularly irregular OTHER: No lower extremity edema GI: COMMON NORMALS: Soft to palpation and non-tender PALPATION: Yes Soft to palpation RECTAL EXAM: Yes deferred : COMMON NORMALS: Yes no CVA tenderness BLADDER/KIDNEY EXAM: Yes no CVA tenderness Back/Pelvis: COMMON NORMALS: no CVA tenderness and thoracic and lumbar spine normal to inspection Extremity: COMMON NORMALS: normal to inspection and capillary refill normal Neuro: COMMON NORMALS: patient oriented x3 and no focal motor deficits SENSORIUM/ORIENTATION: Yes alert MENINGEAL SIGNS: Yes no meningeal signs Psych: COMMON NORMALS: mental status grossly normal, Normal thought process present and cooperative THOUGHT PROCESS: Normal thought process present Skin: COMMON NORMALS: no rashes or lesions noted Data : 05/07/20 13:03 05/07/20 13:03 Micro: Microbiology 05/07/20 13:19 Blood Culture - Preliminary Blood SPECIMEN COLLECTED 05/07/20 13:03 Blood Culture - Preliminary Blood SPECIMEN COLLECTED A&P Assessment and plan (1) Atrial fibrillation with rapid ventricular response: Status: Acute (2) ESRD on dialysis: Status: Acute (3) Urinary tract infection: Status: Acute (4) Normocytic normochromic anemia: Status: Acute (5) Atypical chest pain: Status: Acute (6) Dehydration with hyponatremia: Status: Acute Additional A&P Information PLAN: Continue Cardizem drip. Continue Plavix and aspirin. Patient reports compliance at home. Patient is not therapeutically anticoagulated. Dr. Mcdonald will see patient in consultation and we will discuss regarding therapeutic anticoagulation with Arpit. Heparin for prophylaxis for now with monitoring of hemoglobin and platelets. Discussed with Dr. Dasilva and we will go ahead and remove right arm clamp but leave needle in at this point. Dialysis nurse will see patient and remove needle. Plan to have dialysis tomorrow. We will straight cath and send urine for urinalysis and start patient on Primaxin. Awaiting culture results. Consider small normal saline boluses if BP on the low side. Since patient reported somewhat diarrheal bowel movement will check for C. difficile infection. Attestations Medical Necessity Statement*: Patient with atrial fibrillation and rapid ventricle response as well as UTI requires close inpatient monitoring and treatment. I expect patient will require more than 2 midnights. Time Spent in Patient Care: Greater than 35 minutes Coding Level of Care Code Acute Embroidery Specialist for [facility] Fwd Diagnoses Atrial fibrillation with rapid ventricular response I48.91 ESRD on dialysis N18.6; Z99.2 Urinary tract infection N39.0 Normocytic normochromic anemia D64.9 Atypical chest pain R07.89 Dehydration with hyponatremia E86.0; E87.1
[2020-05-07] MEDS: HYDROcodone-acetaminophen 5-325 mg Tablet 1 TAB PO (16:19)
[2020-05-07 16:20] LABS: Troponin 5 2HR 61.23 ng/L (0-15)
[2020-05-07 16:21] LABS: Troponin 5 2HR Delta -5.77 ABS# (0-10)
[2020-05-07 16:39] LABS: Glucose Point of Care 137 mg/dL (70-110)
[2020-05-07] MEDS: heparin 5,000 unit/mL INJ 1 mL 5000 UNIT SUBCUT (17:04)
[2020-05-07] MEDS: dilTIAZem 30 mg Tablet PO ×2 (17:28→23:26)
--- NOTE | 2020-05-07 17:56 | ECG_ITS ---
[facility] Test Date: 2020-05-07 Pat Name: Paul Cornelius Department: Room: 112 Gender: Male Lead Carpenter: : 1945 Requested By: Derek Preciado Order Number: [id number] Justin MD: KIMBERLY MOORE Measurements Intervals [place] Rate: 92 P: ID: QRS: -49 QRSD: 137 T: 83 QT: 428 QTc: 531 Interpretive Statements ATRIAL FIBRILLATION MARKED LEFT AXIS DEVIATION [QRS AXIS < -30] INTRAVENTRICULAR CONDUCTION DELAY [130+ ms QRS DURATION] Compared to ECG 05/07/2020 13:41:55 Atrial flutter no longer present Ventricular premature complex(es) no longer present Aberrant conduction of supraventricular beat(s) no longer present Electronically Signed On 05-07-2020 19:25:06 [employer] 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
[2020-05-07 18:43] LABS: Sulfosalicylic Acid Urine Positive (Negative); Urine Appearance Hazy (CLEAR); Urine Color Brown (Yellow); pH Urine 8 (5-7)
[2020-05-07 18:44] LABS: Add Urine Microscopic? YES; Bilirubin Urine Neg (Negative); Blood Urine 3+ (Negative); Glucose Urine UA Norm (Normal); Ketones Urine Negative (Negative); Leukocyte Esterase Urine 2+ (Negative); Nitrate Urine Negative (Negative); Protein Urine 3+ (Negative); Urobilinogen Urine Norm (Negative)
[2020-05-07 18:46] LABS: Add Urine Culture? Yes; Amorphous Sediment Urine 4+ /hpf; Bacteria Urine 1+ /hpf; Squamous Epithelial Cell Urine 0-4 /hpf (0-5); WBC Urine TOO NUMEROUS TO CNT /hpf (0-5)
--- NOTE | 2020-05-07 19:26 | PC.NURSE ---
admitted from er via stretcher at 1540.report received.pt is alert and awake.oriented x 4.was at dialysis clinic when heart rate noted to be elevated.emergently brought to er...so right dialysis fistula remained accessed.[facility] nurse contacted,and she states she will come and remove needle.afib on monitor.cardizem drip infusing at 5 mg/hr.hr 90's to 100.bp stable.oriented to room environment.instructed to notify staff for any pain,bleeding,sob..or for any concerns at all.pt verb understanding of instructions.
--- NOTE | 2020-05-07 19:34 | PC.NURSE ---
nurse from [facility] came and de-accessed right upper arm dialysis fistula at 1800.drsg remains dry and intact.palpable thrill and audible bruit noted.
--- NOTE | 2020-05-07 20:23 | P.CONIM_ITS ---
Providers/Reason For Consult Consulting Physican/Specialty*: Teresa Dasilva DO, telenephrology Reason for Consult*: ESRD Attending Physician: David Bullard MD Primary Care Provider: Hanane Saldaña MD History of Present Illness History of Present Illness Paul Cornelius is a 75 year old male sent to ER from dialysis due to tachycardia. He arrived with one needle in AVF and clamp on second needle site. pharmacy sales assistant removed needle and made sure hemostasis occurred. Recent UTI, PTCA with stent placement. MARTHA Degroot states he is sleeping comfortably and O2 sat 97% room air Meds/Allergies Home Medications and Allergies Home Medications Medication Instructions Recorded Confirmed Last Taken Type docusate sodium 100 mg capsule 100 mg PO BID@0700,2100 PRN 04/11/19 05/07/20 05/06/20 History lanthanum 1,000 mg oral powder See Rx Instructions .ROUTE 04/11/19 05/07/20 04/19/20 06:00 History packet .COMPLEX each levothyroxine 150 mcg capsule 150 mcg PO DAILY@0900 04/11/19 05/07/20 05/07/20 History mirtazapine 15 mg tablet 15 mg PO BEDTIME@2100 04/11/19 05/07/20 05/06/20 History nitroglycerin 0.4 mg sublingual 0.4 mg SUBLINGUAL Q5M PRN 04/11/19 05/07/20 06:00 History tablet pantoprazole 40 mg tablet,delayed 40 mg PO DAILY@0900 04/11/19 05/07/20 05/07/20 History release certolizumab pegol 200 mg SUBCUT .every other week #2 12/11/19 05/07/20 03/20/20 Rx each Lantus Solostar U-100 Insulin See Rx Instructions .ROUTE .COMPLEX 01/21/20 05/07/20 Unknown History cetirizine 10 mg PO DAILY@0900 01/21/20 05/07/20 05/07/20 History RenaPlex-D 1 tab PO DAILY@0900 02/03/20 05/07/20 05/07/20 History acetaminophen [Tylenol Extra 1,000 mg PO PRN 02/03/20 05/07/20 05/06/20 History Strength] hydrocodone-acetaminophen 1 tab PO Q6H PRN #20 tab 02/03/20 05/07/20 04/19/20 06:00 Rx ondansetron 4 mg PO Q6H PRN #14 tab 04/11/20 05/07/20 04/19/20 06:00 Rx amiodarone 200 mg PO DAILY@0900 05/07/20 05/07/20 05/07/20 History amlodipine 10 mg PO DAILY@0900 05/07/20 05/07/20 05/07/20 History aspirin 81 mg PO DAILY@0900 05/07/20 05/07/20 05/07/20 History clopidogrel 75 mg PO DAILY@0900 05/07/20 05/07/20 05/07/20 History Allergies Allergy/AdvReac Type Severity Reaction Status Date / Time No Known Allergies Allergy Verified 04/10/20 22:32 Current Medications Current Medications Generic Name Dose Route Start Last Admin Trade Name Freq PRN Reason Stop Dose Admin Hydrocodone Bitart/Acetaminophen 1 tab 05/07/20 15:40 05/07/20 16:19 Hydrocodone-Acetaminophen 5-325 Mg Tablet PO 1 tab Q6H PRN Administration pain Diltiazem HCl 30 mg 05/07/20 17:30 05/07/20 17:28 Diltiazem 30 Mg Tablet PO 30 mg Q6H ANNEMARIE Administration Diltiazem HCl 125 mg/ Sodium 125 mls @ 0 mls/hr 05/07/20 12:30 05/07/20 12:34 Chloride IV 5 mg/hr .Q0M ANNEMARIE 5 mls/hr Administration Protocol Per Protocol Imipenem/Cilastatin Sodium 250 100 mls @ 200 mls/hr 05/07/20 17:15 05/07/20 17:03 mg/ Sodium Chloride IV 200 mls/hr Q12H ANNEMARIE Administration Protocol Insulin Aspart 0 unit 05/07/20 18:00 05/07/20 19:13 Insulin Aspart 100 Unit/1 Ml SUBCUT Not Given TIDWM ANNEMARIE Protocol PFSH Acute PFSH: Medical History Anemia ASHD (arteriosclerotic heart disease) Atrial fibrillation BPH (benign prostatic hyperplasia) CHF (congestive heart failure) CKD (chronic kidney disease) DDD (degenerative disc disease) Diabetes 1.5, managed as type 2 Diabetic gastroparesis Dyslipidemia ESRD (end stage renal disease) on dialysis GERD (gastroesophageal reflux disease) HTN (hypertension) Hypothyroidism Mitral regurgitation Myocardial infarction PAD (peripheral artery disease) Pulmonary HTN Rheumatoid arthritis Surgical History S/P appendectomy S/P carpal tunnel release S/P cervical spinal fusion S/P cholecystectomy Status post coronary angiogram Family History Father , AGE 61 Cancer LUNG Mother , AGE 62 CHF (congestive heart failure) Social History Smoking and tobacco status: never smoked Marital status: service: No Vitals/I&O/Wt Last Vital Signs Temp 97.8 F 05/07/20 19:35 Pulse 79 05/07/20 19:35 Resp 18 05/07/20 19:35 BP 113/54 05/07/20 19:35 Pulse Ox 98 05/07/20 19:35 05/07/20 05/07/20 05/07/20 06:59 14:59 22:59 Intake Total 270 / 270 Output Total 0 / 0 Balance 270 / 270 Weight last 48 hrs Weight 110.223 kg Data Micro: Micro: Microbiology 05/07/20 13:19 Blood Culture - Pr eliminary Blood SPECIMEN [facility] 05/07/20 13:03 Blood Culture - Pr eliminary Blood SPECIMEN [facility] Other Data: Other data: CXR 1. Bilateral lower lobe opacities which may represent chronic lower lobe interstitial change. 2. Pleural reaction or small bilateral pleural effusions unchanged. 3. Atherosclerosis and cardiomegaly. A&P Additional A&P Information 1. ESRD on incenter HD 3x weekly 2. New onset atrial fibrillation 3. CAD 4. Recent UTI with CT 04/11/20 findings of significant cystitis 5. Anemia 6. Hyponatremia Recommend: HD 05/08/20. Panculture. NO IVs, BPs, blood draws arm with AVF Coding Level of Care Code Acute Catcher Plug for Chg [facility]
[2020-05-07 20:40] LABS: Glucose Point of Care 138 mg/dL (70-110)
[2020-05-07] MEDS: apixaban 5 mg Tablet PO (20:54)
[2020-05-07] MEDS: mirtazapine 15 mg Tablet PO (20:54)
--- NOTE | 2020-05-07 22:20 | P.CONIM_ITS ---
Providers/Reason For Consult Consulting Physican/Specialty*: Walt Mcdonald MD/ Cardiology Reason for Consult*: Troponin elevation/Afib Attending Physician: David Bullard MD Primary Care Provider: Hanane Saldaña MD History of Present Illness History of Present Illness 75 year old male presented to emergency department from outpatient dialysis unit with palpitations and tachycardia. Patient was found to be in afib with RVR. Cardiology consulted as patient had recent PCI to proximal LAD and ostial circumflex artery and had troponin elevation. Patient had incomplete dialysis. He had recent fever as well. Patient denies active chest pain. EKG shows afib but no ischemic changes. He is not on anticoagulation and is on aspirin and plavix. Review of Systems Narrative: Except as mentioned in HPI. Const: Reports: fever(s); Denies: chills Eyes: Denies: change in vision ENMT: Denies: throat pain or change in hearing Card: Denies: chest pain, edema or lightheadedness Resp: Denies: dyspnea or productive cough GI: Reports: nausea, vomiting and diarrhea; Denies: abdominal pain, dysphagia, constipation, hematochezia or melena : Reports: dysuria Musc: Denies: joint pain or joint swelling Skin/Breast: Denies: rash or erythema Neuro: Denies: headache(s) or weakness in extremities Psych: Denies: depression Endo: Denies: excessive sweating Frank/Lymph: Denies: easy bleeding or tender lymph nodes All/Imm: Denies: throat swelling Meds/Allergies Home Medications and Allergies Home Medications Medication Instructions Recorded Confirmed Last Taken Type docusate sodium 100 mg capsule 100 mg PO BID@0700,2100 PRN 04/11/19 05/07/20 05/06/20 History lanthanum 1,000 mg oral powder See Rx Instructions .ROUTE 04/11/19 05/07/20 04/19/20 06:00 History packet .COMPLEX each levothyroxine 150 mcg capsule 150 mcg PO DAILY@0900 04/11/19 05/07/20 05/07/20 History mirtazapine 15 mg tablet 15 mg PO BEDTIME@2100 04/11/19 05/07/20 05/06/20 History nitroglycerin 0.4 mg sublingual 0.4 mg SUBLINGUAL Q5M PRN 04/11/19 05/07/20 04/19/20 06:00 History tablet pantoprazole 40 mg tablet,delayed 40 mg PO DAILY@0900 04/11/19 05/07/20 05/07/20 History release certolizumab pegol 200 mg SUBCUT .every other week #2 12/11/19 05/07/20 03/20/20 Rx each Lantus Solostar U-100 Insulin See Rx Instructions .ROUTE .COMPLEX 01/21/20 05/07/20 Unknown History cetirizine 10 mg PO DAILY@0900 01/21/20 05/07/20 05/07/20 History RenaPlex-D 1 tab PO DAILY@0900 02/03/20 05/07/20 05/07/20 History acetaminophen [Tylenol Extra 1,000 mg PO PRN 02/03/20 05/07/20 05/06/20 History Strength] hydrocodone-acetaminophen 1 tab PO Q6H PRN #20 tab 02/03/20 05/07/20 04/19/20 06:00 Rx ondansetron 4 mg PO Q6H PRN #14 tab 04/11/20 05/07/20 04/19/20 06:00 Rx amiodarone 200 mg PO DAILY@0900 05/07/20 05/07/20 05/07/20 History amlodipine 10 mg PO DAILY@0900 05/07/20 05/07/20 05/07/20 History aspirin 81 mg PO DAILY@0900 05/07/20 05/07/20 05/07/20 History clopidogrel 75 mg PO DAILY@0900 05/07/20 05/07/20 05/07/20 History Allergies Allergy/AdvReac Type Severity Reaction Status Date / Time No Known Allergies Allergy Verified 04/10/20 22:32 Current Medications Current Medications Generic Name Dose Route Start Last Admin Trade Name Freq PRN Reason Stop Dose Admin Hydrocodone Bitart/Acetaminophen 1 tab 05/07/20 15:40 05/07/20 16:19 Hydrocodone-Acetaminophen 5-325 Mg Tablet PO 1 tab Q6H PRN Administration pain Apixaban 5 mg 05/07/20 21:00 05/07/20 20:54 Apixaban 5 Mg Tablet PO 5 mg BID@0900,2100 ANNEMARIE Administration Diltiazem HCl 30 mg 05/07/20 17:30 05/07/20 17:28 Diltiazem 30 Mg Tablet PO 30 mg Q6H ANNEMARIE Administration Diltiazem HCl 125 mg/ Sodium 125 mls @ 0 mls/hr 05/07/20 12:30 05/07/20 12:34 Chloride IV 5 mg/hr .Q0M ANNEMARIE 5 mls/hr Administration Protocol Per Protocol Imipenem/Cilastatin Sodium 250 100 mls @ 200 mls/hr 05/07/20 17:15 05/07/20 17:03 mg/ Sodium Chloride IV 200 mls/hr Q12H ANNEMARIE Administration Protocol Insulin Aspart 0 unit 05/07/20 18:00 05/07/20 19:13 Insulin Aspart 100 Unit/1 Ml SUBCUT Not Given TIDWM ANNEMARIE Protocol Mirtazapine 15 mg 05/07/20 21:00 05/07/20 20:54 Mirtazapine 15 Mg Tablet PO 15 mg BEDTIME@2100 ANNEMARIE Administration PFSH Acute PFSH: Medical History Anemia ASHD (arteriosclerotic heart disease) Atrial fibrillation BPH (benign prostatic hyperplasia) CHF (congestive heart failure) CKD (chronic kidney disease) DDD (degenerative disc disease) Diabetes 1.5, managed as type 2 Diabetic gastroparesis Dyslipidemia ESRD (end stage renal disease) on dialysis GERD (gastroesophageal reflux disease) HTN (hypertension) Hypothyroidism Mitral regurgitation Myocardial infarction PAD (peripheral artery disease) Pulmonary HTN Rheumatoid arthritis Surgical History S/P appendectomy S/P carpal tunnel release S/P cervical spinal fusion S/P cholecystectomy Status post coronary angiogram Family History Father , AGE 61 Cancer LUNG Mother , AGE 62 CHF (congestive heart failure) Social History Smoking and tobacco status: never smoked Marital status: service: No Vitals/I&O/Wt Last Vital Signs Temp 97.8 F 05/07/20 19:35 Pulse 67 05/07/20 20:25 Resp 18 05/07/20 19:35 BP 113/54 05/07/20 19:35 Pulse Ox 96 05/07/20 20:25 05/07/20 05/07/20 05/07/20 06:59 14:59 22:59 Intake Total 270 / 270 Output Total 0 / 0 Balance 270 / 270 Weight last 48 hrs Weight 243 lb Physical Exam Const: COMMON NORMALS: no acute distress and patient oriented x3 Resp: COMMON NORMALS: clear to auscultation bilaterally AUSCULTATION: clear to auscultation bilaterally Cardio: COMMON NORMALS: S2 normal heart sound present RATE: tachycardic RHYTHM: abnormal rhythm HEART SOUNDS: S1 normal heart sound present and S2 normal heart sound present GI: COMMON NORMALS: Soft to palpation PALPATION: Yes Soft to palpation Extremity: COMMON NORMALS: normal to inspection, full ROM and no pedal edema Neuro: COMMON NORMALS: patient oriented x3 Psych: COMMON NORMALS: mental status grossly normal Data Micro: Micro: Microbiology 05/07/20 13:03 Blood Culture - Pr eliminary Blood 05/07/20 13:19 Blood Culture - Pr eliminary Blood SPECIMEN [facility] A&P Assessment and plan (1) Elevated troponin: Status: Acute (2) ESRD on dialysis: Status: Acute (3) Atrial fibrillation with rapid ventricular response: Status: Acute (4) HTN (hypertension): Status: Acute (5) CHF (congestive heart failure): Status: Acute (6) Coronary artery disease: Status: Acute Patient presented with chest discomfort and afib with RVR. We were consulted by ER for troponin elevation in setting of recent PCI to proximal LAD and ostial LCx. Patient's EKG does not show ischemic changes. He is chest pain free at this time. Troponin elevation secondary to demand ischemia in setting of tachycardia and ESRD Trend Troponins Order Echo Will recommend initiating Eliquis 5mg BID. Can stop aspirin. Continue plavix Continue amiodarone PO. Can switch cardizem gtt to PO cardizem 30q 6 Thank you for involving us with care of this patient. We will continue to follow. Please call with questions Coding Level of Care Code Acute Foreign Languages Professor for [facility] Fwd Diagnoses Elevated troponin R77.8 ESRD on dialysis N18.6; Z99.2 Atrial fibrillation with rapid ventricular response I48.91 HTN (hypertension) I10 CHF (congestive heart failure) I50.9 Coronary artery disease I25.10
[2020-05-08] VITALS (32 sets, daily range): BP systolic 103–128; BP diastolic 59–65; PULSE 84–105; RESP 13–26; TEMP 36.1–37.6; O2SAT 93–98
[2020-05-08 05:58] LABS: Basophils # 0.1 10^3/uL (0.0-0.1); Basophils % 0.7 %; Eosinophils # 0.4 10^3/uL (0.0-0.8); Eosinophils % 5.2 %; Hematocrit 30.7 % (42.0-52.0); Hemoglobin 9.6 g/dL (11.7-16.6); Lymphocytes # 0.8 10^3/uL (0.8-4.8); Mean Corpuscular HGB Conc 31.3 g/dL (30.0-36.0); Mean Corpuscular Hemoglobin 28.1 pg (28.0-34.0); Mean Corpuscular Volume 89.8 fL (80-94); Monocytes # 0.7 10^3/uL (0.2-0.9); Monocytes % 8.7 %; Neutrophils % 75.9 %; Nucleated Red Blood Cells % 0 %; Platelet Count 132 10^3/cmm (130-400); Red Blood Count 3.42 10^6/uL (4.1-5.3); Red Cell Distribution Width 15.7 % (12.1-15.1); White Blood Count 8.3 10^3/uL (4.0-10.0)
[2020-05-08] MEDS: dilTIAZem 30 mg Tablet PO (06:20)
[2020-05-08 06:25] LABS: Alanine Aminotransferase 14 U/L (0-41); Albumin Level 2.7 g/dL (3.5-5.2); Alkaline Phosphatase 106 IU/L (40-130); Anion Gap 18.2 (5-19); Aspartate Amino Transferase 15 U/L (0-40); Blood Urea Nitrogen 44 mg/dL (8-23); Carbon Dioxide 25 mmol/L (22-29); Chloride 93 mmol/L (98-107); Glucose 107 mg/dL (65-115); Magnesium 1.9 mg/dL (1.7-2.3); Osmolality Calculated 284 mOsm/kg (285-295); Potassium 5.2 mmol/L (3.5-5.1); Sodium 131 mmol/L (136-145); Thyroid Stimulating Hormone 2.02 uIU/mL (0.27-4.20); Total Bilirubin 0.5 mg/dL (0.15-1.2); Total Protein 6.7 g/dL (6.6-8.7)
[2020-05-08 06:41] LABS: Glucose Point of Care 113 mg/dL (70-110)
[2020-05-08 07:18] LABS: Hepatitis B Surface Antigen Non-Reactive (Nonreactive)
--- NOTE | 2020-05-08 08:28 | P.PN_ITS ---
Subjective Subjective: Interval history: seen during dialysis no new complaints. Reports suprapubic pain, states he makes very little urine Medications: Reviewed: Yes Vitals/I&O/Wt Last Vital Signs Temp 98.6 F 05/08/20 03:52 Pulse 104 H 05/08/20 06:00 Resp 20 H 05/08/20 03:52 BP 103/59 05/08/20 03:52 Pulse Ox 97 05/08/20 03:52 05/07/20 05/08/20 05/08/20 22:59 06:59 14:59 Intake Total 567.167 / 567.167 0 / 567.167 Output Total 0 / 0 Balance 567.167 / 567.167 0 / 567.167 Weight last 48 hrs Weight 110.223 kg Physical Exam Const: COMMON NORMALS: no acute distress GENERAL APPEARANCE: cooperative Extremity: GENERAL: No edema Data : 05/08/20 05:21 05/08/20 05:21 Other Labs: U/A TNTC WBC albumin 2.7, Ca 8, Mg 1.9, LFT normal Micro: Microbiology 05/07/20 13:03 Blood Culture - Preliminary Blood 05/07/20 13:19 Blood Culture - Preliminary Blood SPECIMEN COLLECTED A&P Additional A&P Information 1. ESRD on incenter HD 3x weekly 2. New onset atrial fibrillation 3. CAD 4. UTI with CT 04/11/20 findings of significant cystitis 5. Anemia 6. Hyponatremia Recommend: HD today. Begin antibiotics pending culture results. Bladder scan. Consulting urology. NO IVs, BPs, blood draws arm with AVF Attestations Medical Necessity Statement*: per primary service Time Spent in Patient Care: 16 - 35 minutes Coding Level of Care Code Acute [employer] Lay Out Worker for Brendan Cummings
[2020-05-08] MEDS: pantoprazole DR 40 mg Tablet PO ×2 (11:04→11:09)
[2020-05-08] MEDS: apixaban 5 mg Tablet PO ×2 (11:05→21:18)
[2020-05-08] MEDS: amiodarone 200 mg Tablet PO (11:05)
[2020-05-08] MEDS: levothyroxine 150 mcg Tablet PO (11:05)
[2020-05-08] MEDS: HYDROcodone-acetaminophen 5-325 mg Tablet 1 TAB PO (11:06)
[2020-05-08] MEDS: clopidogrel 75 mg Tablet PO (11:06)
[2020-05-08] MEDS: cetirizine 10 mg Tablet PO (11:06)
--- NOTE | 2020-05-08 11:37 | P.PN_ITS ---
Subjective Subjective: Interval history: Cardiology coverage This is a 75-year-old white male with history of atherosclerotic heart disease, status post recent PCI of the proximal LAD and ostial circumflex artery, on hemodialysis,, is admitted to hospital with new onset of atrial flutter/fibrill ation with rapid ventricular rate. He was started on IV Cardizem and is currently on p.o. Heart rate seems to be staying in the normal range. He was started on Eliquis. Aspirin was discontinued. Patient seems to be doing okay with no evidence of any bleeding. No chest pain or unusual shortness of breath. Medications: Reviewed: Yes Medication Review Details: Current Medications Acetaminophen (Acetaminophen 500 Mg Tablet) 1,000 mg PO PRN PRN PRN Reason: MILD PAIN OR INCREASE TEMP Hydrocodone Bitart/Acetaminophen (Hydrocodone-Acetaminophen 5-325 Mg Tablet) 1 tab PO Q6H PRN PRN Reason: pain Last Admin: 05/08/20 11:06 Dose: 1 tab Documented by: Amiodarone HCl (Amiodarone 200 Mg Tablet) 200 mg PO DAILY@0900 [facility] Last Admin: 05/08/20 11:05 Dose: 200 mg Documented by: Apixaban (Apixaban 5 Mg Tablet) 5 mg PO BID@0900,2100 [facility] Last Admin: 05/08/20 11:05 Dose: 5 mg Documented by: Cetirizine HCl (Cetirizine 10 Mg Tablet) 10 mg PO DAILY@0900 [facility] Last Admin: 05/08/20 11:06 Dose: 10 mg Documented by: Clopidogrel Bisulfate (Clopidogrel 75 Mg Tablet) 75 mg PO DAILY@0900 [facility] Last Admin: 05/08/20 11:06 Dose: 75 mg Documented by: Dextrose (Dextrose 50% Syringe 50 Ml) 25 ml IVP ONCE PRN; Protocol PRN Reason: hypoglycemia protocol Dextrose (Dextrose 50% Syringe 50 Ml) 50 ml IVP PRN PRN; Protocol PRN Reason: hypoglycemia protocol Diltiazem HCl (Diltiazem 30 Mg Tablet) 30 mg PO Q6H [facility] Last Admin: 05/08/20 06:20 Dose: 30 mg Documented by: Docusate Sodium (Docusate Sodium 100 Mg Capsule) 100 mg PO BID@0700,2100 PRN PRN Reason: Constipation Glucagon (Glucagon 1 Mg/Ml Inj 1 Ml) 1 mg IM ONCE PRN; Protocol PRN Reason: Adult Acute Hypoglycemia Prot. Diltiazem HCl 125 mg/ Sodium (Chloride) 125 mls @ 0 mls/hr IV .Q0M [facility]; Protocol Last Titration: 05/08/20 05:09 Dose: Infused Documented by: Imipenem/Cilastatin Sodium 250 (mg/ Sodium Chloride) 100 mls @ 200 mls/hr IV Q12H [facility]; Protocol Last Admin: 05/08/20 06:20 Dose: 200 mls/hr Documented by: Dextrose (D5w) 500 mls @ 100 mls/hr IV ONCE PRN; Protocol PRN Reason: Adult Acute Hypoglycemia Prot Sodium Chloride (Sodium Chloride 0.9%) 1,000 mls @ 0 mls/hr IV .Q0M PRN PRN Reason: hypotension or symptomatic Insulin Aspart (Insulin Aspart 100 Unit/1 Ml) 0 unit SUBCUT TIDWM [facility]; Protocol Last Admin: 05/08/20 09:42 Dose: Not Given Documented by: Levothyroxine Sodium (Levothyroxine 150 Mcg Tablet) 150 mcg PO DAILY@0900 [facility] Last Admin: 05/08/20 11:05 Dose: 150 mcg Documented by: Mirtazapine (Mirtazapine 15 Mg Tablet) 15 mg PO BEDTIME@2100 [facility] Last Admin: 05/07/20 20:54 Dose: 15 mg Documented by: Nitroglycerin (Nitroglycerin 0.4 Mg Sublingual Tablet) 0.4 mg SUBLINGUAL Q5M PRN PRN Reason: CHEST PAINS Non-Formulary Medication (Vit B,A-Ls-Elaf-Selen-Vit D3-E [Renaplex-D]) 1 tab PO DAILY@0900 [facility] Last Admin: 05/08/20 11:11 Dose: Not Given Documented by: Ondansetron HCl (Ondansetron 2 Mg/Ml Sdv 2 Ml) 4 mg IVP Q8H PRN PRN Reason: vomiting, or N/V if npo Pantoprazole Sodium (Pantoprazole Dr 40 Mg Tablet) 40 mg PO DAILY@0900 [facility] Last Admin: 05/08/20 11:04 Dose: 40 mg Documented by: Pantoprazole Sodium (Pantoprazole Dr 40 Mg Tablet) 40 mg PO DAILY [facility] Last Admin: 05/08/20 11:09 Dose: 40 mg Documented by: Vitals/I&O/Wt Last Vital Signs Temp 97.0 F L 05/08/20 10:59 Pulse 98 05/08/20 10:59 Resp 21 H 05/08/20 10:59 BP 128/59 05/08/20 10:59 Pulse Ox 97 05/08/20 10:59 05/07/20 05/08/20 05/08/20 22:59 06:59 14:59 Intake Total 567.167 / 567.167 0 / 567.167 Output Total 0 / 0 Balance 567.167 / 567.167 0 / 567.167 Weight last 48 hrs Weight 243 lb Physical Exam Narrative: EXAM NARRATIVE: GENERAL: The patient is alert and oriented times three. Not in any acute distress. HEENT: Moderate pallor. No icterus or lymphadenopathy.Oral cavity: There are no mucous membrane lesions. NECK: Trachea appears to be central. No masses noted. No JVD or thyromegaly appreciated. RESPIRATORY: Chest is symmetrical. No intercostals muscle retraction or any accessory muscle activation. There is no chest wall tenderness. Breath sounds are heard bilaterally. No rales or rhonchi heard. No evidence of any consolida tion. BREASTS: Deferred. HEART: The heart sounds are normal. No S3 or S4. Short systolic murmur at the base of the heart. No diastolic murmurs. No pericardial rub ABDOMEN: No vessel pulsations or distention. No tenderness. No organomegaly appreciated. Bowel sounds are normally heard. : Deferred. RECTAL: Deferred. LYMPHATIC: No lymphadenopathy noted in the neck or groin. EXTREMITIES: Dialysis fistula in the right upper extremity MUSCULOSKELETAL: No acute joint deformities or swelling SKIN: There are no significant rashes or ecchymosis NEUROPSYCHIATRIC: The patient is alert and oriented x3. Appears to be in a good mood. No tremors or rigidity noted. Data : 05/08/20 05:21 05/08/20 05:21 Micro: Microbiology 05/07/20 13:03 Blood Culture - Preliminary Blood 05/07/20 13:19 Blood Culture - Preliminary Blood SPECIMEN COLLECTED A&P Assessment and plan (1) ASHD (arteriosclerotic heart disease): Patient is status post recent PCI of the proximal LAD/ostial circumflex artery lesion. Currently remaining stable with no chest pain. No evidence of a myocardial injury. The 6-hour troponin T delta was -2. Status: Acute (2) ESRD (end stage renal disease) on dialysis: Patient is on hemodialysis. Seems to be stable. Status: Acute (3) Atrial fibrillation with rapid ventricular response: Currently he is in sinus rhythm with a heart rate of 82 bpm. May continue on the current medications. Status: Acute (4) Normocytic normochromic anemia: Most likely from the end-stage renal disease. Status: Acute (5) PAD (peripheral artery disease): Currently for stable with no specific symptoms. May continue on the current medication. Status: Acute Attestations Medical Necessity Statement*: Disposition as per the primary. Other Attestations: If the patient continues to remain stable, may be dis charged home from a cardiac standpoint. Need to be seen in the [facility] in a week to be seen by the nurse practitioner. Please make an appointment to be seen by Dr. Mcdonald in 1 month. Coding Level of Care Code Acute Combatant Diver Qualified for [facility] Fwd Diagnoses ASHD (arteriosclerotic heart disease) I25.10 ESRD (end stage renal disease) on dialysis N18.6; Z99.2 Atrial fibrillation with rapid ventricular response I48.91 Normocytic normochromic anemia D64.9 PAD (peripheral artery disease) I73.9
[2020-05-08 11:46] LABS: Glucose Point of Care 87 mg/dL (70-110)
[2020-05-08] MEDS: dilTIAZem ER (24HR) 120 mg Capsule PO (14:14)
--- NOTE | 2020-05-08 15:43 | PM.PN ---
Subjective Subjective: Interval history: Patient reports feeling much better this morning. He had hemodialysis earlier today. His urine is showing gross pyuria. His vitals appear stable. He denies shortness of breath or chest pain. Denies abdominal pain. Vitals/I&O/Wt Last Vital Signs Temp 97.3 F L 05/08/20 15:21 Pulse 87 05/08/20 15:21 Resp 18 05/08/20 15:21 BP 113/65 05/08/20 15:21 Pulse Ox 98 05/08/20 15:21 05/08/20 05/08/20 05/08/20 06:59 14:59 22:59 Intake Total 0 / 567.167 450 / 450 Balance 0 / 567.167 450 / 450 Weight last 48 hrs Weight 110.223 kg Data : 05/08/20 05:21 05/08/20 05:21 Micro: Microbiology 05/07/20 13:19 Blood Culture - Preliminary Blood NEGATIVE TO DATE 05/07/20 13:03 Blood Culture - Preliminary Blood A&P Assessment and plan (1) Atrial fibrillation with rapid ventricular response: Status: Acute (2) ESRD on dialysis: Status: Acute (3) Urinary tract infection: Status: Acute (4) Normocytic normochromic anemia: Status: Acute (5) Atypical chest pain: Status: Acute (6) Dehydration with hyponatremia: Status: Acute Additional A&P Information PLAN: Will continue current monitoring and treatment including IV antibiotics. Awaiting culture results. UTI appears to be the reason of patient's A. fib with RVR. Appreciate Dr. Aguilar's help Attestations Medical Necessity Statement*: Patient with urine tract infection as well as A. fib with RVR requires close inpatient monitoring and treatment until deemed safe for discharge. 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
[2020-05-08 16:36] LABS: Glucose Point of Care 161 mg/dL (70-110)
--- NOTE | 2020-05-08 19:33 | PC.NURSE ---
bedside report conducted with day shift nurse. Patient had dialysis today and 2.5 L of fluid was removed. Patient doing well with pulse controlled on Cardizem 120 ER. Patient possible discharge to home tomorrow. Will continue to monitor and assist as needed following CPOC
[2020-05-08 20:14] LABS: Glucose Point of Care 106 mg/dL (70-110)
[2020-05-08] MEDS: mirtazapine 15 mg Tablet PO (21:18)
[2020-05-09] VITALS (64 sets, daily range): BP systolic 114–127; BP diastolic 61–67; PULSE 85–91; RESP 12–16; TEMP 36.6–37; O2SAT 93–98
[2020-05-09 05:08] LABS: Basophils # 0.1 10^3/uL (0.0-0.1); Basophils % 1.3 %; Eosinophils # 0.7 10^3/uL (0.0-0.8); Eosinophils % 10.5 %; Hematocrit 27.5 % (42.0-52.0); Hemoglobin 8.7 g/dL (11.7-16.6); Lymphocytes % 15.8 %; Mean Corpuscular HGB Conc 31.6 g/dL (30.0-36.0); Mean Corpuscular Hemoglobin 28.3 pg (28.0-34.0); Mean Corpuscular Volume 89.6 fL (80-94); Mean Platelet Volume 11.1 fL (7.4-10.4); Monocytes # 0.7 10^3/uL (0.2-0.9); Monocytes % 11.5 %; Neutrophils # 3.79 10^3/uL (1.8-7.7); Neutrophils % 60.3 %; Nucleated Red Blood Cells % 0 %; Platelet Count 132 10^3/cmm (130-400); Red Blood Count 3.07 10^6/uL (4.1-5.3); Red Cell Distribution Width 15.6 % (12.1-15.1); White Blood Count 6.3 10^3/uL (4.0-10.0)
[2020-05-09 05:37] LABS: Alanine Aminotransferase 11 U/L (0-41); Albumin Level 2.6 g/dL (3.5-5.2); Alkaline Phosphatase 114 IU/L (40-130); Anion Gap 14.2 (5-19); Aspartate Amino Transferase 15 U/L (0-40); Blood Urea Nitrogen 34 mg/dL (8-23); Carbon Dioxide 29 mmol/L (22-29); Chloride 93 mmol/L (98-107); Globulin 3.9 g/dL (1.3-4.6); Glucose 107 mg/dL (65-115); Magnesium 1.9 mg/dL (1.7-2.3); Osmolality Calculated 282 mOsm/kg (285-295); Potassium 4.2 mmol/L (3.5-5.1); Sodium 132 mmol/L (136-145); Total Bilirubin 0.5 mg/dL (0.15-1.2); Total Protein 6.5 g/dL (6.6-8.7)
[2020-05-09 07:27] LABS: Glucose Point of Care 123 mg/dL (70-110)
[2020-05-09] MEDS: dilTIAZem ER (24HR) 120 mg Capsule PO (08:43)
[2020-05-09] MEDS: cetirizine 10 mg Tablet PO (08:44)
[2020-05-09] MEDS: levothyroxine 150 mcg Tablet PO (08:44)
[2020-05-09] MEDS: clopidogrel 75 mg Tablet PO (08:44)
[2020-05-09] MEDS: apixaban 5 mg Tablet PO (08:44)
[2020-05-09] MEDS: amiodarone 200 mg Tablet PO (08:44)
[2020-05-09] MEDS: pantoprazole DR 40 mg Tablet PO ×2 (08:45→09:01)
--- NOTE | 2020-05-09 09:10 | P.PN_ITS ---
Subjective Subjective: Interval history: no new complaints. No sensation to void. Bladder scan 390 ml Medications: Reviewed: Yes Vitals/I&O/Wt Last Vital Signs Temp 97.8 F 05/09/20 07:29 Pulse 89 05/09/20 07:29 Resp 12 05/09/20 07:29 BP 115/61 05/09/20 07:29 Pulse Ox 94 05/09/20 07:29 05/08/20 05/09/20 05/09/20 21:59 06:59 14:59 Intake Total 220 / 220 Output Total Balance 220 / 220 Weight last 48 hrs Weight 110.223 kg Physical Exam Const: COMMON NORMALS: no acute distress GENERAL APPEARANCE: cooperative Extremity: OTHER: Right UE AVF + bruising, + thrill per [facility] Data : 05/09/20 04:28 05/09/20 04:28 Other Labs: Hb 8.7, albumin 2.6, calcium 8, Mg 1.9, LFT normal C diff neg urine culture no growth ( was on antibiotics prior to admission) Micro: Microbiology 05/07/20 15:20 C.difficile Toxin B Gene (PCR) - Final Stool Routine Collection 05/07/20 13:19 Blood Culture - Preliminary Blood NEGATIVE TO DATE A&P Additional A&P Information 1. ESRD on [facility]center HD 3x weekly MWF 2. New onset atrial fibrillation 3. CAD 4. UTI with CT 04/11/20 findings of significant cystitis. On imipenem, urine culture no growth 5. Anemia. Hb lower today. Heme test stool 6. Hyponatremia, mild, stable Recommend: HD tomorrow. Consult urology. NO IVs, BPs, blood draws right arm Attestations Medical Necessity Statement*: per primarys service Time Spent in Patient Care: Greater than 35 minutes Coding Level of Care Code Acute Daytime Babysitter for Brendan Cummings
--- NOTE | 2020-05-09 09:20 | PC.NURSE ---
Addendum entered by VARUN Salas 05/09/20 09:22: 05/08/2020 0900am Original Note: Patient did not receive 0900 meds because he was off the unit receiving dialysis. Patient got meds when he returned to the floor just before 11am. Pt did not require insulin per sliding scale before departure to dialysis.
[2020-05-09 11:45] LABS: Glucose Point of Care 148 mg/dL (70-110)
--- NOTE | 2020-05-09 12:28 | P.DS_ITS ---
Discharge Providers Date of Admission: 05/07/20 13:52 Date of Discharge: May 09, 2020 Attending Provider at Admission: David Bullard MD Attending Provider at Discharge: David Bullard MD Primary Care Provider: Hanane Saldaña MD Diagnoses at Discharge Discharge Diagnosis (1) Atrial fibrillation with rapid ventricular response: Status: Acute (2) ESRD on dialysis: Status: Acute (3) Urinary tract infection: Status: Acute (4) Normocytic normochromic anemia: Status: Acute (5) Atypical chest pain: Status: Acute (6) Dehydration with hyponatremia: Status: Acute Reason for Visit Reason for Visit: TACHYCARDIA/ AFIB Hospital Course Hospital Course Patient presented with atrial fibrillation with rapid ventricular response. Patient was started on Cardizem and heart rate gradually improved. He was found to have urinary tract infection treated with Primaxin initially. This morning patient denied any complaints including shortness of breath or chest pain. Patient reports that he really wants to go home. He denies fever chills or s weating. Reports good appetite and oral intake. Patient is not interested in waiting for urine culture to be back. He does understand that antibiotic with discharging may not be sufficient. Reports that he will come back if he is not doing well. Since patient is on amiodarone I cannot dismiss patient on fluoroquinolones. He responded well to Primaxin. I will change antibiotic to cefepime 2 g after hemodialysis. We will give him first dose now and I will prescribe 3 more doses post discharge. Since patient is started on Eliquis after discussing risks and benefits. I will discontinue aspirin. Patient has baseline anemia and I will request CBC repeat in several days with results sent to primary care physician. Patient's bladder scan showed 394 mL of urine. I am worried to discharge patient with Mendez catheter. I will request outpatient follow-up with Dr. Monique for further evaluation. Physical Exam Narrative: EXAM NARRATIVE: Lungs are clear and heart is irregularly irregular. Abdomen is soft and nontender with positive bowel sounds. No lower extremity edema. Discharge Data Data Completed and Pending: Completed Studies During Hospitalization Category Date Time Status XR chest 1V [place] [id number] Urgent Exams 05/07/20 11:53 Completed Pending at discharge Category Date Time Status Blood Culture Sta t Lab 05/07/20 13:19 Results Complete Blood Co unt w/Auto AM LABS Lab 05/10/20 04:00 Ordered Comprehensive Met abolic Panel AM LA BS Lab 05/10/20 04:00 Ordered Magnesium AM LABS Lab 05/10/20 04:00 Ordered Urine Culture Sta t Lab 05/07/20 16:25 Results Labs from last 24 hours 05/09/20 05/09/20 05/09/20 11:15 07:13 04:28 WBC RBC Hgb Hct MCV MCH MCHC RDW Plt Count MPV Neut % (Auto) Lymph % (Auto) [place] % (Auto) Eos % (Auto) Baso % (Auto) Neut # (Auto) Lymph # (Auto) [place] # (Auto) Eos # (Auto) Baso # (Auto) Nucleated RBC % (a uto) Nucleated RBCs # Sodium 132 L Potassium 4.2 Chloride 93 L Carbon Dioxide 29 Anion Gap 14.2 BUN 34 H Creatinine 6.0 H* GFR Calculation Not Reportable Glucose 107 POC Glucose 148 H 123 H Calculated Osmolal ity 282 L Calcium 8.0 L Magnesium 1.9 Total Bilirubin 0.5 AST 15 ALT 11 Alkaline Phosphata se 114 Total Protein 6.5 L Albumin 2.6 L Globulin 3.9 05/09/20 05/08/20 05/08/20 04:28 20:03 16:32 WBC 6.3 RBC 3.07 L Hgb 8.7 L Hct 27.5 L MCV 89.6 MCH 28.3 MCHC 31.6 RDW 15.6 H Plt Count 132 MPV 11.1 H Neut % (Auto) 60.3 Lymph % (Auto) 15.8 [place] % (Auto) 11.5 Eos % (Auto) 10.5 Baso % (Auto) 1.3 Neut # (Auto) 3.79 Lymph # (Auto) 1.0 [place] # (Auto) 0.7 Eos # (Auto) 0.7 Baso # (Auto) 0.1 Nucleated RBC % (a uto) 0 Nucleated RBCs # 0.0 Sodium Potassium Chloride Carbon Dioxide Anion Gap BUN Creatinine GFR Calculation Glucose POC Glucose 106 161 H Calculated Osmolal ity Calcium Magnesium Total Bilirubin AST ALT Alkaline Phosphata se Total Protein Albumin Globulin 05/08/20 11:31 WBC RBC Hgb Hct MCV MCH MCHC RDW Plt Count MPV Neut % (Auto) Lymph % (Auto) [place] % (Auto) Eos % (Auto) Baso % (Auto) Neut # (Auto) Lymph # (Auto) [place] # (Auto) Eos # (Auto) Baso # (Auto) Nucleated RBC % (a uto) Nucleated RBCs # Sodium Potassium Chloride Carbon Dioxide Anion Gap BUN Creatinine GFR Calculation Glucose POC Glucose 87 Calculated Osmolal ity Calcium Magnesium Total Bilirubin AST ALT Alkaline Phosphata se Total Protein Albumin Globulin Vitals: Last Vital Signs Temp 98.3 F 05/09/20 11:24 Pulse 87 05/09/20 11:06 Resp 12 05/09/20 11:06 BP 126/66 05/09/20 11:06 Pulse Ox 95 05/09/20 11:06 Discharge Plan Discharge Patient Disposition: Home Condition: Stable Prescriptions: New Eliquis 5 mg Tablet 5 mg PO BID@0900,2100 Qty: 60 RF: 0 cefepime 2 gram recon soln 2 g IV Q48H Qty: 3 RF: 0 diltiazem HCl 120 mg Capsule,Extended Release 24hr 120 mg PO DAILY Qty: 30 RF: 0 Continued nitroglycerin [Nitrostat] 0.4 mg tablet, sublingual 0.4 mg SUBLINGUAL Q5M PRN (Reason: CHEST PAINS) RF: 0 Fosrenol 1,000 mg powder in packet See Rx Instructions .ROUTE .COMPLEX RF: 0 levothyroxine 150 mcg capsule 150 mcg PO DAILY@0900 RF: 0 docusate sodium 100 mg capsule 100 mg PO BID@0700,2100 PRN (Reason: Constipation) RF: 0 mirtazapine 15 mg tablet 15 mg PO BEDTIME@2100 RF: 0 pantoprazole 40 mg tablet,delayed release (DR/EC) 40 mg PO DAILY@0900 RF: 0 Cimzia 400 mg/2 mL (200 mg/mL x 2) syringe kit 200 mg SUBCUT .every other week Qty: 2 RF: 5 acetaminophen [Tylenol Extra Strength] 500 mg Tablet 1,000 mg PO PRN RF: 0 RenaPlex-D 800 mcg-12.5 mg -2,000 unit tablet 1 tab PO DAILY@0900 RF: 0 hydrocodone-acetaminophen 5-325 mg tablet 1 tab PO Q6H PRN (Reason: pain) Qty: 20 RF: 0 amiodarone 200 mg tablet 200 mg PO DAILY@0900 RF: 0 clopidogrel 75 mg tablet 75 mg PO DAILY@0900 RF: 0 cetirizine 10 mg Tablet 10 mg PO DAILY@0900 RF: 0 Lantus Solostar U-100 Insulin 100 unit/mL (3 mL) insulin pen See Rx Instructions .ROUTE .COMPLEX RF: 0 ondansetron 4 mg tablet,disintegrating 4 mg PO Q6H PRN (Reason: nausea and vomiting) Qty: 14 RF: 0 Discontinued amlodipine 5 mg tablet 10 mg PO DAILY@0900 RF: 0 aspirin 81 mg tablet,delayed release (DR/EC) 81 mg PO DAILY@0900 RF: 0 Discharge Orders: Discharge Order (Routine); Ordered 05/09/20 Ordered By: David Bullard Other Ambulatory Orders: Complete Blood Count w/Auto (Routine) Timeframe: 3 Days Location: Determined by Patient Ordered By: David Bullard Referrals: Brenden Monique MD [Physician] - 1 week (Earliest possible) Walt Mcdonald M.D [Physician] - 2 weeks Hanane Saldaña MD [Primary Care Provider] - 4-7 days Discharge Diet: Advance as tolerated Discharge Activity: Increase activity as tolerated Activity Restrictions/Additional Instructions: Please call your doctor or present to emergency department if your condition worsens or you develop diarrhea, lightheadedness, fatigue or see blood in your stool or black stool. Please note that you will need to have 3 more days of antibiotic after hemodialysis. Please discuss with your doctor to follow-up on urine culture results to adjust antibiotic as needed. Discharge Attestations Time Spent in Discharge Care*: greater than 30 min Quality Metrics Clinical Quality Measures During this hospital stay, did patient experience: None Coding Level of Care Code Acute Chg FW DC note Diagnoses Atrial fibrillation with rapid ventricular response I48.91 ESRD on dialysis N18.6; Z99.2 Urinary tract infection N39.0 Normocytic normochromic anemia D64.9 Atypical chest pain R07.89 Dehydration with hyponatremia E86.0; E87.1
[2020-05-09] MEDS: cefepime 2,000 MG in sodium chloride 0.9% (plus) 50 ML 100 MG IV (13:10)
[2020-05-09] MEDS: HYDROcodone-acetaminophen 5-325 mg Tablet 1 TAB PO (13:18)
--- NOTE | 2020-05-09 14:30 | PC.NURSE ---
Spoke with [facility] care management with concerns of ordered IV medications Dr Bullard wrote for infusions to be given after Dialysis Meena made attempts to contact dialysis company no after hours number available plan to fax discharge info and RX to dialysis company for infusion [facility]ena to follow up New medications called in to [facility] [place]: medications electronically sent to [facility] by mistake
== END 2020-05-09 15:45 | disposition home or self-care (01) | DRG 308 ==
LOC: ER 13:57 → CSU 14:53
PROVIDERS: Internal Medicine; Admitting Provider Internal Medicine; Emergency Provider Family Medicine; PCP Family Medicine; Visit Provider Internal Medicine
DX: I48.91 Unspecified atrial fibrillation (principal); N18.6 End stage renal disease; I13.2 Hypertensive heart and chronic kidney disease with heart failure and with stage 5 chronic kidney disease, or end stage renal disease; N39.0 Urinary tract infection, site not specified; E87.1 Hypo-osmolality and hyponatremia; I25.10 Atherosclerotic heart disease of native coronary artery without angina pectoris; Z95.5 Presence of coronary angioplasty implant and graft; Z99.81 Dependence on supplemental oxygen; D63.1 Anemia in chronic kidney disease; N40.0 Benign prostatic hyperplasia without lower urinary tract symptoms; E11.22 Type 2 diabetes mellitus with diabetic chronic kidney disease; I50.9 Heart failure, unspecified; E78.5 Hyperlipidemia, unspecified; K21.9 Gastro-esophageal reflux disease without esophagitis; E03.9 Hypothyroidism, unspecified; I34.0 Nonrheumatic mitral (valve) insufficiency; I25.2 Old myocardial infarction; E11.51 Type 2 diabetes mellitus with diabetic peripheral angiopathy without gangrene; I27.20 Pulmonary hypertension, unspecified; M06.9 Rheumatoid arthritis, unspecified; Z98.1 Arthrodesis status; E86.0 Dehydration; Z79.4 Long term (current) use of insulin; Z79.02 Long term (current) use of antithrombotics/antiplatelets; Z79.891 Long term (current) use of opiate analgesic
CPT/HCPCS: 36415; 36416; 36600; 71045; 80053; 81001; 82803; 82962; 83605; 83735; 84443; 84484; 85025; 85610; 87040; 87086; 87340; 87493; 90935; 93005; 96365; 96366; 96367; 96372; 97162; 97530; 99285; J0692; J0743; J1644; J1815; J1956; J3490

== ENCOUNTER 2020-06-03 20:55 | Inpatient (IN) | payer MEDICARE, MEDICAID, SELFPAY ==
[2020-06-03 20:59] VITALS: BP 97/55; PULSE 142; RESP 20; O2SAT 94; BMI 32.0
--- NOTE | 2020-06-03 21:16 | ECG_ITS ---
[facility] Test Date: 2020-06-03 Pat Name: Paul Cornelius Department: Room: Gender: Male [employer] Dispatcher: : 1945 Requested By: Derek Preciado Order Number: [id number] Anderson MD: Farrah Guzman M.D. Measurements Intervals [place] Rate: 150 P: AL: QRS: -68 QRSD: 166 T: 87 QT: 348 QTc: 550 Interpretive Statements ATRIAL FLUTTER/TACHYCARDIA WITH RAPID VENTRICULAR RESPONSE LEFT AXIS DEVIATION [QRS AXIS < -30] INTRAVENTRICULAR CONDUCTION DELAY [130+ ms QRS DURATION] CRITICAL TEST RESULT Compared to ECG 05/07/2020 17:41:24 Atrial fibrillation no longer present Electronically Signed On 06-03-2020 22:25:54 CDT by Farrah Guzman M.D. [id number]
[2020-06-03 21:40] VITALS: BP 96/54; PULSE 150; RESP 26; O2SAT 95
[2020-06-03] MEDS: ondansetron 2 mg/ML SDV 2 mL 4 MG IVP (21:55)
[2020-06-03] MEDS: sodium chloride 0.9% 1,000 ML 999 ML IV ×2 (21:55→22:51)
[2020-06-03] MEDS: diphenhydrAMINE 50 mg/mL SDV 1mL 25 MG IVP (21:55)
[2020-06-03 22:02] LABS: Basophils # 0.1 10^3/uL (0.0-0.1); Basophils % 1.3 %; Eosinophils % 0.1 %; Hematocrit 32.9 % (42.0-52.0); Lymphocytes # 0.7 10^3/uL (0.8-4.8); Lymphocytes % 9.5 %; Mean Corpuscular HGB Conc 30.4 g/dL (30.0-36.0); Mean Corpuscular Volume 95.4 fL (80-94); Mean Platelet Volume 10.3 fL (7.4-10.4); Monocytes # 0.6 10^3/uL (0.2-0.9); Monocytes % 7.6 %; Neutrophils # 6.07 10^3/uL (1.8-7.7); Neutrophils % 81.1 %; Nucleated Red Blood Cells % 0 %; Platelet Count 98 10^3/cmm (130-400); Red Blood Count 3.45 10^6/uL (4.1-5.3); Red Cell Distribution Width 17.2 % (12.1-15.1); White Blood Count 7.5 10^3/uL (4.0-10.0)
[2020-06-03 22:10] VITALS: BP 102/54; PULSE 147; RESP 19; O2SAT 96
[2020-06-03 22:22] LABS: Lactate (Lactic Acid level) 3.8 mmol/L (0.5-2.2)
[2020-06-03 22:25] LABS: Troponin(5th) Baseline 69 ng/L (0-15)
--- NOTE | 2020-06-03 22:28 | CTR_ITS ---
PROCEDURE INFORMATION: Exam: CT Abdomen And Pelvis Without Contrast Exam date and time: 06/03/2020 10:31 PM Age: 75 years old Clinical indication: Vomiting; Prior surgery; Surgery type: Stents; Additional info: Vomiting blood, diarrhea TECHNIQUE: Imaging protocol: Computed tomography of the abdomen and pelvis without contrast. Radiation optimization: All CT scans at this facility use at least one of these dose optimization techniques: automated exposure control; mA and/or kV adjustment per patient size (includes targeted exams where dose is matched to clinical indication); or iterative reconstruction. COMPARISON: CT abdomen pelvis wo con [id number] 04/11/2020 1:46 AM RADIATION DOSE METRICS: Total DLP (mGy-cm): 1799.17 FINDINGS: Lungs: Stable 9 mm left lower lobe nodule versus rounded atelectasis. Pleural spaces: Stable loculated right pleural effusion with a calcified wall. Liver: Normal. No mass. Gallbladder and bile ducts: There has been a cholecystectomy. Pancreas: There is mild haziness in the fat surrounding the pancreas. Spleen: Stable splenic calcifications. Adrenal glands: Normal. No mass. Kidneys and ureters: Stable bilateral renal atrophy. Stable small left renal cysts. Stomach and bowel: There is gastric wall thickening with perigastric fat stranding. There is rectal wall thickening and perirectal fat stranding. Appendix: No evidence of appendicitis. Intraperitoneal space: Unremarkable. No free air. No significant fluid collection. Vasculature: Unremarkable. No abdominal aortic aneurysm. Lymph nodes: Unremarkable. No enlarged lymph nodes. Urinary bladder: Unremarkable as visualized. Reproductive: Unremarkable as visualized. Bones/joints: Unremarkable. No acute fracture. Soft tissues: Unremarkable. CT/CT abdomen pelvis con [id number] IMPRESSION: 1. Gastritis. 2. Proctitis. 3. Questionable, mild acute pancreatitis. 4. Stable 9 mm left lower lobe nodule versus rounded atelectasis. Radiation Dose CTDIVOL = (mGy): DLP = 1799.17 (mGy-cm)
--- NOTE | 2020-06-03 22:40 | ED_ITS ---
HPI - Arrhythmia/Palpitations General: Chief Complaint: Arrhythmia/Palpitations Stated Complaint: n,v,weakness,high hr Time Seen by Provider: 06/03/20 21:07 History of Present Illness: HPI narrative: The patient is a 75-year-old male with past medical history of end-stage renal disease on dialysis comes to the ER severely hypotensive and A. fib with RVR. He says he got his second Covid shot yesterday and after dialysis began to feel ill nauseous, vomiting, and diarrhea. It continued all today and he feels generally weak. He has atrial fibrillation, had stents placed in his heart 2 weeks ago, has end-stage renal disease on dialysis, chronic A. fib on Eliquis. His vomit today began to look dark as well. His arrival blood pressure was 97/55 with heart rate in the 140s. He is pale and generally weak. Associated symptoms: Reports nausea and vomiting; Deny anxiety Review of Systems General: Reports: 10 or more systems reviewed and unremarkable except in HPI and below Const: Reports: fatigue and malaise; Denies: fever(s) or chills Eyes: Denies: change in vision, blurry vision or eye redness ENMT: Denies: throat pain, swelling of lips/tongue, ear or mastoid pain or nasal congestion Card: Denies: chest pain, palpitations, irregular heart rhythm, edema, dyspnea on exertion or orthopnea Resp: Denies: dyspnea, productive cough or non-productive cough GI: Reports: nausea, vomiting and diarrhea; Denies: abdominal pain or GI cramping : Denies: flank pain, urinary frequency or urinary urgency Musc: Denies: neck pain, back pain, extremity pain, joint pain, joint redness, limited range of motion or muscle weakness Skin/Breast: Denies: rash, pruritus, erythema, skin pain or skin tenderness Neuro: Denies: headache(s), numbness in extremities, weakness in extremities, sensory changes, difficulty walking, dizziness, confusion or Slurred speech present Psych: Denies: anxiety or depression Endo: Denies: polyuria All/Imm: Denies: urticaria, throat swelling or tongue swelling PFSH ED PFSH: Medical History Anemia ASHD (arteriosclerotic heart disease) Atrial fibrillation BPH (benign prostatic hyperplasia) CHF (congestive heart failure) CKD (chronic kidney disease) DDD (degenerative disc disease) Diabetes 1.5, managed as type 2 Diabetic gastroparesis Dyslipidemia ESRD (end stage renal disease) on dialysis GERD (gastroesophageal reflux disease) HTN (hypertension) Hypothyroidism Mitral regurgitation Myocardial infarction PAD (peripheral artery disease) Pulmonary HTN Rheumatoid arthritis Surgical History S/P appendectomy S/P carpal tunnel release S/P cervical spinal fusion S/P cholecystectomy Status post coronary angiogram Family History Father , AGE 61 Cancer LUNG Mother , AGE 62 CHF (congestive heart failure) Social History Smoking and tobacco status: never smoked Marital status: service: No Physical Exam 2 Const: COMMON NORMALS: no acute distress, average body habitus, patient oriented x3, no limitations, alert and well nourished GENERAL APPEARANCE: cooperative and ill appearing NUTRITIONAL APPEARANCE: overweight ORIENTATION/CONSCIOUSNESS: Yes awake, Yes oriented to person, Yes oriented to place and Yes oriented to time OTHER: Somnolent HENMT: COMMON NORMALS: normocephalic, external ears normal and Normal external nose present HEAD & SCALP: normal to inspection and normocephalic NOSE: Normal external nose present EXTERNAL EAR: Yes external ears normal MOUTH: Normal oral and palatal mucosa present THROAT: posterior oropharynx normal Eye: COMMON NORMALS: Equal, round and reactive pupils present and EOMs intact bilaterally GENERAL EYE: appearance normal, both eyes and all related structures PUPIL: Yes Equal, round and reactive pupils present Neck/C-Spine: COMMON NORMALS: full ROM, no lymphadenopathy, no meningeal signs and no JVD GENERAL: Yes normal visual inspection Lymph: LYMPHATIC: no lymphadenopathy noted Chest: COMMONS NORMALS: normal inspection of the chest and normal palpation of entire chest wall Resp: COMMON NORMALS: normal respiratory effort, No retractions, No use of accessory muscles, clear to auscultation bilaterally and percussion normal EFFORT & INSPECTION: Yes able to speak in complete sentences AUSCULTATION: clear to auscultation bilaterally PERCUSSION: percussion normal Cardio: COMMON NORMALS: no JVD, S1 normal heart sound present, S2 normal heart sound present and Peripheral pulses 2+ throughout RATE: tachycardic RHYTHM: abnormal rhythm irregularly irregular HEART SOUNDS: S1 normal heart sound present and S2 normal heart sound present PERIPHERAL PULSES: Peripheral pulses 2+ throughout OTHER: Initially A. fib RVR then went to a sinus tachycardia rate 140s shortly after arrival. GI: COMMON NORMALS: Normal to inspection, nondistended, normoactive bowel sounds present, Soft to palpation, non-tender and no masses INSPECTION: Yes normal to inspection PALPATION: Yes Soft to palpation : COMMON NORMALS: Yes no CVA tenderness BLADDER/KIDNEY EXAM: Yes no CVA tenderness Back/Pelvis: COMMON NORMALS: no CVA tenderness, thoracic and lumbar spine normal to inspection, no thoracic nor lumbar tenderness and thoraco-lumbar ROM normal Extremity: COMMON NORMALS: normal to inspection, full ROM, capillary refill normal, no joint enlargement and no pedal edema GENERAL: Yes normal exam except as noted Neuro: COMMON NORMALS: patient oriented x3, CN's II-XII intact bilaterally, moves all extremities, no focal motor deficits, no sensory deficits noted and gait normal SENSORIUM/ORIENTATION: Yes alert, Yes oriented to person, Yes oriented to place and Yes oriented to time MENINGEAL SIGNS: Yes no meningeal signs Psych: COMMON NORMALS: mental status grossly normal, Normal thought process present, cooperative, normal affect and speech normal ATTITUDE: Yes calm SPEECH: Yes normal speech THOUGHT PROCESS: Normal thought process present Skin: COMMON NORMALS: no rashes or lesions noted NARRATIVE SKIN EXAM: Pallo r GENERAL SKIN EXAM: no rashes or lesions noted and pallor Course Vital Signs: Vital signs: Vital Signs Pulse Rate 140 H 06/03/20 23:30 Respiratory Rate 26 H 06/03/20 23:30 Blood Pressure 104/52 06/03/20 23:30 Pulse Oximetry 93 06/03/20 23:30 MDM - Arrhythmia/Palpitations MDM Narrative: Medical decision making narrative: Patient came in severely hypotensive and tachycardic in A. fib RVR after a day and a half of vomiting and diarrhea likely related to his second Covid vaccine. He was given 2 L of IV fluids with some mild improvement of his blood pressure. His original heart rate was A. fib RVR however he transition to a atrial flutter/tachycardia which is sinus and in the 140s. Antiarrhythmics were held due to his low blood pre ssure and the fact that he already takes Cardizem and amiodarone orally. Also he had a mild dark vomitus in the ER on arrival likely related to his Eliquis. Potassium was also elevated and he was given calcium gluconate, D50, and insulin to help with this. Lactic acid also elevated as expected in his condition. Discussed with Dr. Schwartz who agreed with plan of care IV fluids and admit to ICU. Discussed with Dr. Groves who accepts to ICU Lab Data: Labs: Lab Results 06/03/20 06/03/20 06/03/20 Range/Units 21:47 21:47 21:47 WBC 7.5 (4.0-10.0) 10^3/ uL RBC 3.45 L (4.1-5.3) 10^6/u L Hgb 10.0 L (11.7-16.6) g/dL Hct 32.9 L (42.0-52.0) % MCV 95.4 H (80-94) fL MCH 29.0 (28.0-34.0) pg MCHC 30.4 (30.0-36.0) g/dL RDW 17.2 H (12.1-15.1) % Plt Count 98 L (130-400) 10^3/c mm MPV 10.3 (7.4-10.4) fL Neut % (Auto) 81.1 % Lymph % (Auto) 9.5 % [place] % (Auto) 7.6 % Eos % (Auto) 0.1 % Baso % (Auto) 1.3 % Neut # (Auto) 6.07 (1.8-7.7) 10^3/u L Lymph # (Auto) 0.7 L (0.8-4.8) 10^3/u L [place] # (Auto) 0.6 (0.2-0.9) 10^3/u L Eos # (Auto) 0.0 (0.0-0.8) 10^3/u L Baso # (Auto) 0.1 (0.0-0.1) 10^3/u L Nucleated RBC % (a uto) 0 % Nucleated RBCs # 0.0 /100WBC Sodium 131 L (136-145) mmol/L Potassium 6.0 H (3.5-5.1) mmol/L Chloride 91 L (98-107) mmol/L Carbon Dioxide 23 (22-29) mmol/L Anion Gap 23.0 H (5-19) BUN 28 H (8-23) mg/dL Creatinine 5.7 H* (0.7-1.2) mg/dL GFR Calculation Not Reportable Glucose 162 H (65-115) mg/dL Calculated Osmolal ity 281 L (285-295) mOsm/k g Lactate 3.8 H (0.5-2.2) mmol/L Calcium 8.1 L (8.5-10.5) mg/dL Total Bilirubin 0.5 (0.15-1.2) mg/dL AST 27 (0-40) U/L ALT 22 (0-41) U/L Alkaline Phosphata se 139 H (40-130) IU/L Troponin T Baselin e (0-15) ng/L Total Protein 7.6 (6.6-8.7) g/dL Albumin 3.6 (3.5-5.2) g/dL Globulin 4.0 (1.3-4.6) g/dL Lipase 20 (13-60) U/L 06/03/20 Range/Units 21:47 WBC (4.0-10.0) 10^3/ uL RBC (4.1-5.3) 10^6/u L Hgb (11.7-16.6) g/dL Hct (42.0-52.0) % MCV (80-94) fL MCH (28.0-34.0) pg MCHC (30.0-36.0) g/dL RDW (12.1-15.1) % Plt Count (130-400) 10^3/c mm MPV (7.4-10.4) fL Neut % (Auto) % Lymph % (Auto) % [place] % (Auto) % Eos % (Auto) % Baso % (Auto) % Neut # (Auto) (1.8-7.7) 10^3/u L Lymph # (Auto) (0.8-4.8) 10^3/u L [place] # (Auto) (0.2-0.9) 10^3/u L Eos # (Auto) (0.0-0.8) 10^3/u L Baso # (Auto) (0.0-0.1) 10^3/u L Nucleated RBC % (a uto) % Nucleated RBCs # /100WBC Sodium (136-145) mmol/L Potassium (3.5-5.1) mmol/L Chloride (98-107) mmol/L Carbon Dioxide (22-29) mmol/L Anion Gap (5-19) BUN (8-23) mg/dL Creatinine (0.7-1.2) mg/dL GFR Calculation Glucose (65-115) mg/dL Calculated Osmolal ity (285-295) mOsm/k g Lactate (0.5-2.2) mmol/L Calcium (8.5-10.5) mg/dL Total Bilirubin (0.15-1.2) mg/dL AST (0-40) U/L ALT (0-41) U/L Alkaline Phosphata se (40-130) IU/L Troponin T Baselin e 69 H (0-15) ng/L Total Protein (6.6-8.7) g/dL Albumin (3.5-5.2) g/dL Globulin (1.3-4.6) g/dL Lipase (13-60) U/L Discharge Plan Discharge Patient Disposition: Admitted As Inpatient Clinical Impression: Acute hypotension, Gastroenteritis, Atrial fibrillation with rapid ventricular response, Elevated lactic acid level, Acute hyperkalemia, Dialysis patient Condition: Stable Coding Level of Care Code ED Animal Treatment Investigator for Brendan Cummings
[2020-06-03 22:51] LABS: Alanine Aminotransferase 22 U/L (0-41); Albumin Level 3.6 g/dL (3.5-5.2); Alkaline Phosphatase 139 IU/L (40-130); Aspartate Amino Transferase 27 U/L (0-40); Blood Urea Nitrogen 28 mg/dL (8-23); Calcium 8.1 mg/dL (8.5-10.5); Carbon Dioxide 23 mmol/L (22-29); Glucose 162 mg/dL (65-115); Lipase 20 U/L (13-60); Total Bilirubin 0.5 mg/dL (0.15-1.2); Total Protein 7.6 g/dL (6.6-8.7)
[2020-06-03 23:01] VITALS: BP 98/54; PULSE 148; RESP 16; O2SAT 99
[2020-06-03 23:04] LABS: Chloride 91 mmol/L (98-107); Osmolality Calculated 281 mOsm/kg (285-295); Sodium 131 mmol/L (136-145)
--- NOTE | 2020-06-03 23:16 | ECG_ITS ---
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1945 Requested By: Derek Preciado Order Number: [id number] Justin MD: KIMBERLY MOORE Measurements Intervals [place] Rate: 140 P: NE: QRS: -84 QRSD: 157 T: 81 QT: 367 QTc: 562 Interpretive Statements ATRIAL FLUTTER/TACHYCARDIA WITH RAPID VENTRICULAR RESPONSE RIGHT BUNDLE BRANCH BLOCK [120+ ms QRS DURATION, UPRIGHT V1, 40+ ms S IN I/aVL/V4/V5/V6] LEFT ANTERIOR FASCICULAR BLOCK [QRS AXIS <= -45, QR IN I, RS IN II] Compared to ECG 06/03/2020 22:07:03 Right bundle-branch block now present Left anterior fascicular block now present Left-axis deviation no longer present Intraventricular conduction delay no longer present Electronically Signed On 06-04-2020 20:22:53 CDT by KIMBERLY MOORE [id number]
[2020-06-03 23:30] VITALS: BP 104/52; PULSE 140; RESP 26; O2SAT 93
--- NOTE | 2020-06-03 23:51 | PM.HP ---
Providers/Chief Complaint Primary Care Provider: Hanane Saldaña MD Chief Complaint: n,v,weakness,high hr History of Present Illness Paul Cornelius is a 75 year old male who has arterial disease gets dialyzed Sunday and Sunday, presented today with chief complaint of recurrent nausea and vomiting. Patient is stating that his symptoms started after his last dialysis session on Sunday, no preexciting event, his is not sick with similar complaints, no recent use of antibiotics, he is endorsing fever 102.2 at home, no dysuria, endorsing abdominal pain and multiple bouts of emesis. He has not noticed any blood in his stool, no recent traveling, he is also stating that his symptoms began after getting second shot of COVID-19 vaccine. Patient is endorsing chronic neck pain and headache he has not noticed any change in the intensity of pain. Diagnosis in the ER revealed hypotension, dehydration, lactic acidemia due to dehydration, heart rate 150s A. fib RVR, he was given 2 L normal saline bolus which improved his blood pressure 204/52 and heart rate came down to 100-140 range, he was awake and alert was able to mention above HPI. CT abdomen pelvis revealed gastroenteritis no leukocytosis, he has been afebrile however septic on admission, noticed that his vomitus contained coffee-ground content, BMP revealed potassium of 6 for which she received insulin along D50 and calcium gluconate Review of Systems Const: Reports: fever(s), chills, fatigue and malaise Eyes: Denies: change in vision ENMT: Denies: throat pain Card: Denies: chest pain Resp: Denies: dyspnea GI: Reports: abdominal pain, nausea, vomiting and diarrhea : Denies: flank pain Musc: Reports: neck pain and back pain Skin/Breast: Reports: lesions Neuro: Reports: headache(s) Psych: Denies: anxiety Endo: Denies: polyuria Frank/Lymph: Denies: easy bruising All/Imm: Denies: urticaria Medications/Allergies Home Medications Medication Instructions Recorded Confirmed Last Taken Type docusate sodium 100 mg capsule 100 mg PO BID@0700,2100 PRN 04/11/19 05/18/20 05/06/20 History lanthanum 1,000 mg oral powder See Rx Instructions .ROUTE 04/11/19 05/18/20 04/19/20 06:00 History packet .COMPLEX each levothyroxine 150 mcg capsule 150 mcg PO DAILY@0900 04/11/19 05/18/20 05/07/20 History mirtazapine 15 mg tablet 15 mg PO BEDTIME@2100 04/11/19 05/18/20 05/06/20 History nitroglycerin 0.4 mg sublingual 0.4 mg SUBLINGUAL Q5M PRN 04/11/19 05/18/20 04/19/20 06:00 History tablet pantoprazole 40 mg tablet,delayed 40 mg PO DAILY@0900 04/11/19 05/18/20 05/07/20 History release certolizumab pegol 200 mg SUBCUT .every other week #2 12/11/19 05/18/20 03/20/20 Rx each Lantus Solostar U-100 Insulin See Rx Instructions .ROUTE .COMPLEX 01/21/20 05/18/20 Unknown History cetirizine 10 mg PO DAILY@0900 01/21/20 05/18/20 05/07/20 History RenaPlex-D 1 tab PO DAILY@0900 02/03/20 05/18/20 05/07/20 History acetaminophen [Tylenol Extra 1,000 mg PO PRN 02/03/20 05/18/20 05/06/20 History Strength] hydrocodone-acetaminophen 1 tab PO Q6H PRN #20 tab 02/03/20 05/18/20 04/19/20 06:00 Rx ondansetron 4 mg PO Q6H PRN #14 tab 04/11/20 05/18/20 04/19/20 06:00 Rx clopidogrel 75 mg PO DAILY@0900 05/07/20 05/18/20 05/07/20 History apixaban [Eliquis] 5 mg PO BID@0900,2100 #60 tab 05/09/20 05/18/20 Unknown Rx cefepime 2 g IV Q48H #3 ea 05/09/20 05/18/20 Unknown Rx diltiazem HCl 120 mg PO DAILY #30 cap 05/09/20 05/18/20 Unknown Rx isosorbide mononitrate 60 mg 60 mg PO DAILY #90 tab 05/18/20 05/18/20 Unknown Rx tablet,extended release 24 hr amiodarone 200 mg tablet 200 mg PO DAILY@0900 #90 tab 06/01/20 Unknown Rx Allergies Allergy/AdvReac Type Severity Reaction Status Date / Time No Known Allergies Allergy Verified 05/11/20 15:53 PFSH Acute PFSH: Medical History Anemia ASHD (arteriosclerotic heart disease) Atrial fibrillation BPH (benign prostatic hyperplasia) CHF (congestive heart failure) CKD (chronic kidney disease) DDD (degenerative disc disease) Diabetes 1.5, managed as type 2 Diabetic gastroparesis Dyslipidemia ESRD (end stage renal disease) on dialysis GERD (gastroesophageal reflux disease) HTN (hypertension) Hypothyroidism Mitral regurgitation Myocardial infarction PAD (peripheral artery disease) Pulmonary HTN Rheumatoid arthritis Surgical History S/P appendectomy S/P carpal tunnel release S/P cervical spinal fusion S/P cholecystectomy Status post coronary angiogram Family History Father , AGE 61 Cancer LUNG Mother , AGE 62 CHF (congestive heart failure) Social History Smoking and tobacco status: never smoked Marital status: service: No Vitals/I&O/Wt Last Vital Signs Pulse 140 H 06/03/20 23:30 Resp 26 H 06/03/20 23:30 BP 104/52 06/03/20 23:30 Pulse Ox 93 06/03/20 23:30 Weight last 48 hrs Weight 110.223 kg Physical Exam Narrative: EXAM NARRATIVE: Very pleasant male Clinically dehydrated laying flat/supine in his bed Saturating well on room air Tender abdomen on deep palpation S1, S2 variable A. fib RVR Clinical signs of dehydration Low symmetry no edema gangrene ulcer Left great toe amputation Awake alert oriented x3 GCS 15 No neurological deficits Dry mucous membranes No sign of cellulitis or joint swelling Data : 06/03/20 21:47 06/03/20 21:47 A&P Assessment and plan (1) Sepsis: Status: Acute (2) Gastroenteritis: Status: Acute (3) Acute hypotension: Status: Acute (4) Atrial fibrillation with rapid ventricular response: Status: Acute (5) Elevated lactic acid level: Status: Acute (6) Acute hyperkalemia: Status: Acute (7) Diabetic gastroparesis: Status: Acute (8) Hypothyroidism: Status: Acute (9) ESRD (end stage renal disease) on dialysis: Status: Acute Additional A&P Information Sepsis secondary to gastroenteritis CT abdomen also is concerning for proctitis and pancreatitis however lipase level is normal, normal transaminases with high alkaline phosphatase We will keep him on Zosyn and give him gentle fluid he received 2 L normal saline in the ER Requested blood culture and urine analysis A. fib with acute RVR Responding to fluid resuscitation, continue Eliquis, amiodarone for now along diltiazem If he stays above 110 would add Cardizem drip Elevated lactic acid due to sepsis Underlying dehydration Anticipate improvement with fluid resuscitation Hyperkalemia: Received calcium gluconate insulin and D50 in the ER End-stage renal disease: Telemetry nephro consulted, last dialysis session was on Sunday via right fistula Full code Clear liquid diet DVT prophylaxis not indicated due to Eliquis use Attestations Medical Necessity Statement*: Anticipating stay in the hospital cross more than 2 midnights for sepsis secondary to gastroenteritis, pancreatitis Time Spent in Patient Care: (>than 50% of time spent in counselling and/or direct pt care on unit). 50mins Coding Level of Care Code Acute Congressional Representative for Chg Fwd Diagnoses Sepsis A41.9 Gastroenteritis K52.9 Acute hypotension I95.9 Atrial fibrillation with rapid ventricular response I48.91 Elevated lactic acid level R79.89 Acute hyperkalemia E87.5 Diabetic gastroparesis E11.43; K31.84 Hypothyroidism E03.9 ESRD (end stage renal disease) on dialysis N18.6; Z99.2
[2020-06-04] VITALS (88 sets, daily range): BP systolic 75–132; BP diastolic 18–78; PULSE 77–147; RESP 1–28; TEMP 36.4–37; O2SAT 71–100; BMI 29.1
[2020-06-04 00:05] LABS: Troponin 5 2HR 65.11 ng/L (0-15)
[2020-06-04 00:10] LABS: Troponin 5 2HR Delta -3.89 ABS# (0-10)
[2020-06-04] MEDS: insulin regular-human 100 units/1 mL 10 UNIT IVP (01:05)
--- NOTE | 2020-06-04 01:49 | ECG_ITS ---
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1945 Requested By: Roger Groves Order Number: [id number] Reading MD: ROGER MOORE Measurements Intervals [place] Rate: 148 P: 54 MA: 153 QRS: -69 QRSD: 162 T: 83 QT: 357 QTc: 560 Interpretive Statements ATRIAL FLUTTER MARKED LEFT AXIS DEVIATION [QRS AXIS < -30] INTRAVENTRICULAR CONDUCTION DELAY [130+ ms QRS DURATION] WARNING: DATA QUALITY MAY AFFECT INTERPRETATION INTERPRETATION BASED ON A DEFAULT AGE OF 40 YEARS Compared to ECG 06/03/2020 23:36:24 NO SIG CHANGE Electronically Signed On 06-04-2020 20:15:11 CDT by ROGER MOORE [id number]
[2020-06-04] MEDS: sodium chloride 0.9% 1,000 ML 30 ML IV (02:09)
--- NOTE | 2020-06-04 02:49 | PM.CONSULT ---
Providers/Reason For Consult Consulting Physican/Specialty*: tila modi md / telenephrology Reason for Consult*: hyperkalemia and ESRD care Attending Physician: Roger Groves MD Primary Care Provider: Hanane Saldaña MD History of Present Illness History of Present Illness Paul Cornelius is a 75 year old male A fib, h/o uti's, ESRD on HD MWF, DM, htn. Pt here w/ n/v and fevers for 3 days since getting COVID-19 vaccine he states. he also c/o lower abd pain. He was found to be in a fib w/ RVR in ER. pt now in ICU w/ a fib and hypotension. Renal called to consult. Review of Systems General: Reports: 10 or more systems reviewed and unremarkable except in HPI and below Narrative: fevers, n/v/abd pain. no urine output, + diarrhea. no sob or cp. + palps Meds/Allergies Home Medications and Allergies Home Medications Medication Instructions Recorded Confirmed Last Taken Type docusate sodium 100 mg capsule 100 mg PO BID@0700,2100 PRN 04/11/19 05/18/20 05/06/20 History lanthanum 1,000 mg oral powder See Rx Instructions .ROUTE 04/11/19 05/18/20 04/19/20 06:00 History packet .COMPLEX each levothyroxine 150 mcg capsule 150 mcg PO DAILY@0900 04/11/19 05/18/20 05/07/20 History mirtazapine 15 mg tablet 15 mg PO BEDTIME@2100 04/11/19 05/18/20 05/06/20 History nitroglycerin 0.4 mg sublingual 0.4 mg SUBLINGUAL Q5M PRN 04/11/19 05/18/20 04/19/20 06:00 History tablet pantoprazole 40 mg tablet,delayed 40 mg PO DAILY@0900 04/11/19 05/18/20 05/07/20 History release certolizumab pegol 200 mg SUBCUT .every other week #2 12/11/19 05/18/20 03/20/20 Rx each Lantus Solostar U-100 Insulin See Rx Instructions .ROUTE .COMPLEX 01/21/20 05/18/20 Unknown History cetirizine 10 mg PO DAILY@0900 01/21/20 05/18/20 05/07/20 History RenaPlex-D 1 tab PO DAILY@0900 02/03/20 05/18/20 05/07/20 History acetaminophen [Tylenol Extra 1,000 mg PO PRN 02/03/20 05/18/20 05/06/20 History Strength] hydrocodone-acetaminophen 1 tab PO Q6H PRN #20 tab 02/03/20 05/18/20 04/19/20 06:00 Rx ondansetron 4 mg PO Q6H PRN #14 tab 04/11/20 05/18/20 04/19/20 06:00 Rx clopidogrel 75 mg PO DAILY@0900 05/07/20 05/18/20 05/07/20 History apixaban [Eliquis] 5 mg PO BID@0900,2100 #60 tab 05/09/20 05/18/20 Unknown Rx cefepime 2 g IV Q48H #3 ea 05/09/20 05/18/20 Unknown Rx diltiazem HCl 120 mg PO DAILY #30 cap 05/09/20 05/18/20 Unknown Rx isosorbide mononitrate 60 mg 60 mg PO DAILY #90 tab 05/18/20 05/18/20 Unknown Rx tablet,extended release 24 hr amiodarone 200 mg tablet 200 mg PO DAILY@0900 #90 tab 06/01/20 Unknown Rx Allergies Allergy/AdvReac Type Severity Reaction Status Date / Time No Known Allergies Allergy Verified 05/11/20 15:53 Current Medications Current Medications Generic Name Dose Route Start Last Admin Trade Name Freq PRN Reason Stop Dose Admin Sodium Chloride 1,000 mls @ 30 mls/hr 06/04/20 01:38 06/04/20 02:09 Sodium Chloride 0.9% IV 06/04/20 07:00 30 mls/hr .Q24H ANNEMARIE Administration PFSH Acute PFSH: Medical History Anemia ASHD (arteriosclerotic heart disease) Atrial fibrillation BPH (benign prostatic hyperplasia) CHF (congestive heart failure) CKD (chronic kidney disease) DDD (degenerative disc disease) Diabetes 1.5, managed as type 2 Diabetic gastroparesis Dyslipidemia ESRD (end stage renal disease) on dialysis GERD (gastroesophageal reflux disease) HTN (hypertension) Hypothyroidism Mitral regurgitation Myocardial infarction PAD (peripheral artery disease) Pulmonary HTN Rheumatoid arthritis Surgical History S/P appendectomy S/P carpal tunnel release S/P cervical spinal fusion S/P cholecystectomy Status post coronary angiogram Family History Father , AGE 61 Cancer LUNG Mother , AGE 62 CHF (congestive heart failure) Social History Smoking and tobacco status: never smoked Marital status: service: No Vitals/I&O/Wt Last Vital Signs Temp 98.2 F 06/04/20 01:40 Pulse 136 H 06/04/20 02:15 Resp 22 H 06/04/20 02:15 BP 83/56 06/04/20 02:15 Pulse Ox 85 L 06/04/20 02:15 06/03/20 06/03/20 06/04/20 14:59 22:59 06:59 Intake Total 60 / 60 Balance 60 / 60 Weight last 48 hrs Weight 110.223 kg Physical Exam Narrative: EXAM NARRATIVE: vs noted- a fib w/ rvr, hypotension comfortable, NARD heent- nc/at, eomi, anicteric neck supple lungs crackles b/l heart irreg irreg, +JOSIANE abd lower tender b/l, +BS, soft, ND ext - RUE AVF w/ thrill and bruit no leg edema left great toe amputated poor DP and PT pulses seen and examined w/ RN- telehealth visit A&P Additional A&P Information 75 yr old man 1. sepsis- will straight cath and send ua and cx- was negative last admission -however he improved w/ abx CT abd non contrast noted-1. Gastritis. 2. Proctitis. 3. Questionable, mild acute pancreatitis. 4. Stable 9 mm left lower lobe nodule versus rounded atelectasis. 2. urology- Dr. Renetta Barrientos from 05/17/20 noted- cystoscopy: normal urethra, prostate and bladder, no evidence of bloody efflux. 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 ESRD- treat k w/ d50, reg insulin, calcium, bicarb -hold kayexalate given abd issues and question of proctitis -HD in am if BP and HR improves 3b. lactic acidosis- likely from abd process or hypotension- repeat lactate- if remains high and abd pain- please have surgery examine abd and consider contrats ct scan 4.a fib w/ RVR- has had multiple episodes. follows w/ Dr. Aguilar- -getting amiodarone now. may need fluids known CAD- s/p PCI of prox :AD and ostial L Cx in Mar 2020 DM control -will straight cath now for ur cx 5. hgb 10- monitor, may need epo 6. thrombocytopenia- plts down to 98 from 132- q infection related- monitor 7. hyponatremia- appears chronic- monitor w/ HD 8. bone -mineral- metabolism of ESRD- monitor ca, phos, pth -hypocalcemia- also check vit d levels seen w/ rN- telehealth visit discussed w/ Dr. Groves Consult Attestations Medical Necessity Statement: 1. infection- sepsis- given hypotension and RVR, hyperkalemia, ESRD Time Spent in Patient Care: Greater than 35 minutes Coding Level of Care Code Acute Inside Steward/Stewardess for Chg Emiliano
[2020-06-04] MEDS: piperacillin-tazobactam 3.375 GM in sodium chloride 0.9% (plus) 50 ML IV (02:58)
--- NOTE | 2020-06-04 03:28 | PC.NURSE ---
Admitted to ICU 10 via stretcher from ED. Patient awake, alert, and oriented. Large diarrhea BM noted, cleaned and new brief applied. Sacrum, buttock, and testes excoriated, aloe vesta applied. Heart rate 140-150's A-fib noted with heart rate 140's to 150's. Not[address] Dr. Groves, orders given for Amiodarone bolus and Amiodarone drip. Dr. Velasco consulted, telenephrology consent obtained. Assessed per Dr. Velasco, orders given to do straight cath and send urine to lab. Orders given to call Dr. Velasco with chemistry results and notify of urine appearance. Hemodialysis ordered.
[2020-06-04 03:35] LABS: Basophils # 0.1 10^3/uL (0.0-0.1); Basophils % 1.2 %; Eosinophils % 0.3 %; Hematocrit 32.3 % (42.0-52.0); Hemoglobin 9.6 g/dL (11.7-16.6); Lymphocytes # 0.9 10^3/uL (0.8-4.8); Lymphocytes % 11.4 %; Mean Corpuscular HGB Conc 29.7 g/dL (30.0-36.0); Mean Corpuscular Hemoglobin 29.3 pg (28.0-34.0); Mean Corpuscular Volume 98.5 fL (80-94); Monocytes # 0.7 10^3/uL (0.2-0.9); Monocytes % 9.4 %; Neutrophils # 5.99 10^3/uL (1.8-7.7); Neutrophils % 77.3 %; Nucleated Red Blood Cells % 0.3 %; Platelet Count 106 10^3/cmm (130-400); Red Blood Count 3.28 10^6/uL (4.1-5.3); Red Cell Distribution Width 17.3 % (12.1-15.1); White Blood Count 7.7 10^3/uL (4.0-10.0)
[2020-06-04 04:13] LABS: 25 Hydroxy Vitamin D 66 ng/mL (30-100); Alanine Aminotransferase 37 U/L (0-41); Albumin Level 2.9 g/dL (3.5-5.2); Alkaline Phosphatase 121 IU/L (40-130); Anion Gap 19.4 (5-19); Aspartate Amino Transferase 61 U/L (0-40); Blood Urea Nitrogen 31 mg/dL (8-23); Calcium 8.4 mg/dL (8.5-10.5); Carbon Dioxide 21 mmol/L (22-29); Chloride 96 mmol/L (98-107); Globulin 4.2 g/dL (1.3-4.6); Glucose 159 mg/dL (65-115); Iron 50 ug/dL (59-158); Osmolality Calculated 282 mOsm/kg (285-295); Percent Saturation 29.4 % (20-50); Potassium 5.4 mmol/L (3.5-5.1); Sodium 131 mmol/L (136-145); Total Bilirubin 0.6 mg/dL (0.15-1.2); Total Iron Binding Capacity 170 mcg/dl; Total Protein 7.1 g/dL (6.6-8.7); Unsaturated Iron Binding 120 ug/dL (112-347)
[2020-06-04 04:14] LABS: Urine Appearance Cloudy (CLEAR); Urine Color Dark Yellow (Yellow); pH Urine 9 (5-7)
[2020-06-04 04:15] LABS: Bilirubin Urine Neg (Negative); Blood Urine 3+ (Negative); Glucose Urine UA Norm (Normal); Ketones Urine 1+ (Negative); Leukocyte Esterase Urine 2+ (Negative); Nitrate Urine Negative (Negative); Protein Urine 3+ (Negative); Sulfosalicylic Acid Urine Positive (Negative); Urobilinogen Urine Norm (Negative)
[2020-06-04 04:16] LABS: Add Urine Culture? Yes; Amorphous Sediment Urine 4+ /hpf; Bacteria Urine 2+ /hpf; RBC Urine TOO NUMEROUS TO CNT /hpf (0-2); Squamous Epithelial Cell Urine 0-4 /hpf (0-5); WBC Urine TOO NUMEROUS TO CNT /hpf (0-5)
[2020-06-04 04:32] LABS: Ferritin 2292 ng/mL (30-400)
[2020-06-04] MEDS: ondansetron 2 mg/ML SDV 2 mL 4 MG IVP (06:30)
[2020-06-04 07:42] LABS: Glucose Point of Care 170 mg/dL (70-110)
[2020-06-04 07:42] LABS: Glucose Point of Care 100 mg/dL (70-110)
--- NOTE | 2020-06-04 09:22 | PC.NURSE ---
Doctor has been notified about patient pain.
[2020-06-04 10:43] LABS: Lactate (Lactic Acid level) 1.4 mmol/L (0.5-2.2)
--- NOTE | 2020-06-04 10:44 | PM.PN ---
Subjective Subjective: Interval history: Afebrile since admission, hemodynamically stable today, continues on amiodarone infusion, A. fib with RVR, heart rate between 120s to 130s. More awake and alert today. Started on full liquid diet. C. difficile PCR returned positive, discontinue Zosyn, start p.o. vancomycin.Undergoing HD today Medications: Reviewed: Yes Vitals/I&O/Wt Last Vital Signs Temp 98.4 F 06/04/20 10:00 Pulse 94 06/04/20 10:00 Resp 20 H 06/04/20 10:00 BP 117/67 06/04/20 10:00 Pulse Ox 95 06/04/20 09:45 06/03/20 06/04/20 06/04/20 22:59 06:59 14:59 Intake Total 274 / 274 2999 / 2999 Output Total 100 / 100 Balance 174 / 174 2999 / 2999 Weight last 48 hrs Weight 100.289 kg Weight 110.223 kg Physical Exam Narrative: EXAM NARRATIVE: GEN: Awake, alert and oriented, no acute distress CVS: S1S2 N RS: CTA B/L anteriorly Abd: Soft, nt/nd , bs+ Data : 06/05/20 05:00 06/05/20 05:00 A&P Assessment and plan (1) Sepsis: Status: Acute (2) Gastroenteritis: Status: Acute (3) Acute hypotension: Status: Acute (4) Atrial fibrillation with rapid ventricular response: Status: Acute (5) Elevated lactic acid level: Status: Acute (6) Acute hyperkalemia: Status: Acute (7) Diabetic gastroparesis: Status: Acute (8) Hypothyroidism: Status: Acute (9) ESRD (end stage renal disease) on dialysis: Status: Acute Additional A&P Information Sepsis secondary C. difficile diarrhea. CT abdomen also is concerning for proctitis and pancreatitis however lipase level is normal, normal transaminases with high alkaline phosphatase Discontinue piperacillin tazobactam Start p.o. vancomycin 125 every 6 hours Encourage p.o. intake and hydration A. fib with acute RVR Currently on amiodarone infusion, started overlap with p.o. Cardizem, aim to titrate titrate off later today. Elevated lactic acid due to sepsis Now resolved Hyperkalemia: Received calcium gluconate insulin and D50 in the ER, status post hemodialysis today End-stage renal disease: Appreciate renal recommendations Full code Advance diet to full liquid, and if tolerated to GI soft DVT prophylaxis currently on Eliquis Attestations Medical Necessity Statement*: Sepsis due to C. difficile colitis, slowly improving, HD today. Coding Level of Care Code Acute Superintendent Local for g Fwd Diagnoses Sepsis A41.9 Gastroenteritis K52.9 Acute hypotension I95.9 Atrial fibrillation with rapid ventricular response I48.91 Elevated lactic acid level R79.89 Acute hyperkalemia E87.5 Diabetic gastroparesis E11.43; K31.84 Hypothyroidism E03.9 ESRD (end stage renal disease) on dialysis N18.6; Z99.2
[2020-06-04 10:53] LABS: Calcium 8.1 mg/dL (8.5-10.5)
[2020-06-04] MEDS: HYDROcodone-acetaminophen 5-325 mg Tablet 1 TAB PO (11:44)
[2020-06-04] MEDS: pantoprazole DR 40 mg Tablet PO (11:45)
[2020-06-04] MEDS: apixaban 5 mg Tablet PO ×2 (11:45→21:06)
[2020-06-04] MEDS: levothyroxine 75 mcg Tablet 150 MCG PO (11:45)
[2020-06-04] MEDS: dilTIAZem ER (12HR) 60 mg Capsule PO ×2 (11:46→17:35)
[2020-06-04 11:56] LABS: Glucose Point of Care 81 mg/dL (70-110)
[2020-06-04 12:20] LABS: Hepatitis B Surface AB 3.5 (11.5-1000); Hepatitis B Surface Antigen Non-Reactive (Nonreactive); Hepatitis C Virus Antibody Non-Reactive (Nonreactive)
[2020-06-04] MEDS: b-complex-vitamin c Tablet 1 EACH PO (13:12)
--- NOTE | 2020-06-04 13:16 | PC.NURSE ---
PO vitamin and PO vanc given late due to pharmacy.
--- NOTE | 2020-06-04 14:39 | PC.NURSE ---
Patient not coughing.
[2020-06-04 17:31] LABS: Glucose Point of Care 68 mg/dL (70-110)
[2020-06-04] MEDS: mirtazapine 15 mg Tablet PO (21:06)
[2020-06-05] VITALS (95 sets, daily range): BP systolic 89–124; BP diastolic 39–74; PULSE 83–94; RESP 0–29; TEMP 36.6–37.4; O2SAT 62–100
[2020-06-05 00:29] LABS: Glucose Point of Care 84 mg/dL (70-110)
[2020-06-05 05:41] LABS: Basophils # 0.1 10^3/uL (0.0-0.1); Basophils % 0.8 %; Eosinophils # 0.3 10^3/uL (0.0-0.8); Eosinophils % 3.5 %; Hematocrit 26.7 % (42.0-52.0); Hemoglobin 8.3 g/dL (11.7-16.6); Lymphocytes # 0.8 10^3/uL (0.8-4.8); Mean Corpuscular HGB Conc 31.1 g/dL (30.0-36.0); Mean Corpuscular Hemoglobin 29.2 pg (28.0-34.0); Mean Platelet Volume 11.6 fL (7.4-10.4); Monocytes # 0.6 10^3/uL (0.2-0.9); Monocytes % 8.1 %; Neutrophils # 6.01 10^3/uL (1.8-7.7); Neutrophils % 77.2 %; Nucleated Red Blood Cells % 0 %; Platelet Count 91 10^3/cmm (130-400); Red Blood Count 2.84 10^6/uL (4.1-5.3); Red Cell Distribution Width 16.9 % (12.1-15.1); White Blood Count 7.8 10^3/uL (4.0-10.0)
[2020-06-05 06:04] LABS: Alanine Aminotransferase 65 U/L (0-41); Albumin Level 2.4 g/dL (3.5-5.2); Alkaline Phosphatase 96 IU/L (40-130); Aspartate Amino Transferase 79 U/L (0-40); Blood Urea Nitrogen 22 mg/dL (8-23); Calcium 7.2 mg/dL (8.5-10.5); Carbon Dioxide 28 mmol/L (22-29); Chloride 93 mmol/L (98-107); Globulin 3.3 g/dL (1.3-4.6); Glucose 228 mg/dL (65-115); Magnesium 1.7 mg/dL (1.7-2.3); Osmolality Calculated 285 mOsm/kg (285-295); Phosphorus 4.7 mg/dL (2.5-4.5); Sodium 132 mmol/L (136-145); Total Bilirubin 0.4 mg/dL (0.15-1.2); Total Protein 5.7 g/dL (6.6-8.7)
[2020-06-05 07:39] LABS: Glucose Point of Care 98 mg/dL (70-110)
[2020-06-05] MEDS: dilTIAZem ER (12HR) 60 mg Capsule PO ×2 (09:04→18:02)
[2020-06-05] MEDS: levothyroxine 75 mcg Tablet 150 MCG PO (09:05)
[2020-06-05] MEDS: atorvastatin 40 mg Tablet PO (09:05)
[2020-06-05] MEDS: pantoprazole DR 40 mg Tablet PO (09:06)
[2020-06-05] MEDS: b-complex-vitamin c Tablet 1 EACH PO (09:18)
[2020-06-05] MEDS: apixaban 5 mg Tablet PO ×2 (09:18→21:12)
--- NOTE | 2020-06-05 10:52 | PM.PN ---
Subjective Subjective: Interval history: 3 episodes of diarrhea overnight. No further episodes of vomiting. Tolerating a full liquid diet currently. Converted back to sinus rhythm, heart rate between 80 to 90 bpm. Afebrile, hemodynamically stable Medications: Reviewed: Yes Vitals/I&O/Wt Last Vital Signs Temp 98.6 F 06/05/20 10:00 Pulse 84 06/05/20 10:00 Resp 20 H 06/05/20 10:00 BP 110/55 06/05/20 10:00 Pulse Ox 99 06/05/20 10:00 06/04/20 06/05/20 06/05/20 22:59 06:59 14:59 Intake Total 1238 / 5237 1700 / 6937 1112 / 1112 Output Total 100 / 100 Balance 1138 / 5137 1700 / 6837 1112 / 1112 Weight last 48 hrs Weight 100.244 kg Weight 100.289 kg Weight 110.223 kg Physical Exam Narrative: EXAM NARRATIVE: GEN: Awake, alert and oriented, no acute distress CVS: S1S2 N RS: CTA B/L anteriorly Abd: Soft, nt/nd , bs+ Extremities bilateral lower extremity foot drop, toe amputation, no current signs of infection or cellulitis. Data : 06/05/20 05:00 06/05/20 05:00 Micro: Microbiology 06/05/20 08:00 Sputum Culture - Preliminary Sputum - Expectorated Sputum 06/04/20 03:13 Urine Culture - Preliminary Urine,Clean Catch 06/04/20 01:45 Enteric Pathogens (PCR) - Final Stool - Stool Aspirate C.difficile Toxin B Gene (PCR) - Final A&P Assessment and plan (1) Sepsis: Status: Acute (2) Gastroenteritis: Status: Acute (3) Acute hypotension: Status: Acute (4) Atrial fibrillation with rapid ventricular response: Status: Acute (5) Elevated lactic acid level: Status: Acute (6) Acute hyperkalemia: Status: Acute (7) Diabetic gastroparesis: Status: Acute (8) Hypothyroidism: Status: Acute (9) ESRD (end stage renal disease) on dialysis: Status: Acute (10) C. difficile colitis: Status: Acute Additional A&P Information Sepsis secondary C. difficile diarrhea. Sepsis is now resolved, patient is hemodynamically stable, afebrile, no leukocytosis at this present time. Overnight with 3 episodes of diarrhea, reports some mild soreness in the periumbilical area but improved over yesterday. Tolerating full liquid diet, advance to GI soft. CT abdomen with findings of proctitis, incidentally noted pancreatitis, however no clinical symptoms to suggest this otherwise. Lipase within normal limits Continue p.o. vancomycin 125 every 6 hours Risk factor likely to be recent course of cefepime for UTI. Encourage p.o. intake and hydration Discontinue IV fluids today. No urgent indication for HD today. A. fib with acute RVR Converted to sinus rhythm now, discontinue amiodarone infusion, continue p.o. Cardizem for now Hyperkalemia: Now resolved End-stage renal disease: Appreciate renal recommendations Chronic anemia, hemoglobin currently stable at 8.3. Thrombocytopenia, chronic, fluctuates between 80-120 Full code Advance diet to full liquid, and if tolerated to GI soft DVT prophylaxis currently on Eliquis PT/OT eval Attestations Medical Necessity Statement*: C diff diarrhea, A fib with RVR, turn off amiodarone today, monitor closely Coding Level of Care Code Acute Membership Sales Representative for Chg Fwd Diagnoses Sepsis A41.9 Gastroenteritis K52.9 Acute hypotension I95.9 Atrial fibrillation with rapid ventricular response I48.91 Elevated lactic acid level R79.89 Acute hyperkalemia E87.5 Diabetic gastroparesis E11.43; K31.84 Hypothyroidism E03.9 ESRD (end stage renal disease) on dialysis N18.6; Z99.2 C. difficile colitis A04.72
--- NOTE | 2020-06-05 10:59 | PM.PN ---
Subjective Subjective: Interval history: Doing better today with improved diarrhea. Dialysis went well yesterday. Remains slightly tachycardic but in sinus rhythm now. No edema and no other volume related Sx. No uremic Sx Vitals/I&O/Wt Last Vital Signs Temp 98.6 F 06/05/20 10:00 Pulse 84 06/05/20 10:00 Resp 20 H 06/05/20 10:00 BP 110/55 06/05/20 10:00 Pulse Ox 99 06/05/20 10:00 06/04/20 06/05/20 06/05/20 22:59 06:59 14:59 Intake Total 1238 / 5237 1700 / 6937 1112 / 1112 Output Total 100 / 100 Balance 1138 / 5137 1700 / 6837 1112 / 1112 Weight last 48 hrs Weight 100.244 kg Weight 100.289 kg Weight 110.223 kg Physical Exam Const: COMMON NORMALS: no acute distress Neck/C-Spine: COMMON NORMALS: no JVD Chest: COMMONS NORMALS: normal inspection of the chest and normal palpation of entire chest wall Resp: COMMON NORMALS: normal respiratory effort and No retractions Cardio: COMMON NORMALS: no JVD, regular rate, regular rhythm, S1 normal heart sound present and S2 normal heart sound present RATE: regular rate RHYTHM: regular rhythm HEART SOUNDS: S1 normal heart sound present and S2 normal heart sound present Extremity: COMMON NORMALS: normal to inspection Data : 06/05/20 05:00 06/05/20 05:00 Micro: Microbiology 06/05/20 08:00 Sputum Culture - Preliminary Sputum - Expectorated Sputum 06/04/20 03:13 Urine Culture - Preliminary Urine,Clean Catch 06/04/20 01:45 Enteric Pathogens (PCR) - Final Stool - Stool Aspirate C.difficile Toxin B Gene (PCR) - Final A&P Additional A&P Information 1. ESRD No acute need for dialysis today, plan next session on Sunday cont dialysis MWF Dose meds for eGFR < 15 on HD 2. CDiff On Po Vanco 3. Afib/SVT Back in NSR, rate coming down Mgmt per cardiology team 4. Anemia Hb drifting down, if this persists will give EPO and check iron Thanks for consult, it is a pleasure to follow these cases with you > 25 min spent in patient hannah Lr MD Nephro [phone] Attestations Medical Necessity Statement*: Eval for ESRD Coding Level of Care Code Acute Shellfish Meat Separator Operator for Chg Emiliano
[2020-06-05 11:39] LABS: Glucose Point of Care 146 mg/dL (70-110)
[2020-06-05] MEDS: HYDROcodone-acetaminophen 5-325 mg Tablet 1 TAB PO (13:33)
--- NOTE | 2020-06-05 13:35 | PC.NURSE ---
Patient states that he will be unable to sit up and urinate.
[2020-06-05 18:37] LABS: Glucose Point of Care 103 mg/dL (70-110)
[2020-06-05 20:42] LABS: Glucose Point of Care 150 mg/dL (70-110)
[2020-06-05] MEDS: mirtazapine 15 mg Tablet PO (21:12)
[2020-06-06] VITALS (54 sets, daily range): BP systolic 97–123; BP diastolic 47–65; PULSE 80–93; RESP 7–32; TEMP 36.6–36.8; O2SAT 88–100
[2020-06-06 05:33] LABS: Basophils # 0.1 10^3/uL (0.0-0.1); Basophils % 0.7 %; Eosinophils # 0.5 10^3/uL (0.0-0.8); Eosinophils % 6.8 %; Hematocrit 28.8 % (42.0-52.0); Hemoglobin 9.1 g/dL (11.7-16.6); Lymphocytes # 1.1 10^3/uL (0.8-4.8); Lymphocytes % 15.2 %; Mean Corpuscular HGB Conc 31.6 g/dL (30.0-36.0); Mean Corpuscular Hemoglobin 29.7 pg (28.0-34.0); Mean Corpuscular Volume 94.1 fL (80-94); Mean Platelet Volume 11.3 fL (7.4-10.4); Monocytes # 0.9 10^3/uL (0.2-0.9); Neutrophils # 4.69 10^3/uL (1.8-7.7); Nucleated Red Blood Cells % 0 %; Platelet Count 110 10^3/cmm (130-400); Red Blood Count 3.06 10^6/uL (4.1-5.3); Red Cell Distribution Width 16.8 % (12.1-15.1); White Blood Count 7.2 10^3/uL (4.0-10.0)
[2020-06-06 05:51] LABS: Alanine Aminotransferase 65 U/L (0-41); Albumin Level 2.8 g/dL (3.5-5.2); Alkaline Phosphatase 104 IU/L (40-130); Anion Gap 16.4 (5-19); Aspartate Amino Transferase 50 U/L (0-40); Blood Urea Nitrogen 32 mg/dL (8-23); Calcium 7.4 mg/dL (8.5-10.5); Carbon Dioxide 28 mmol/L (22-29); Chloride 93 mmol/L (98-107); Globulin 3.6 g/dL (1.3-4.6); Glucose 104 mg/dL (65-115); Magnesium 1.9 mg/dL (1.7-2.3); Osmolality Calculated 283 mOsm/kg (285-295); Potassium 4.4 mmol/L (3.5-5.1); Sodium 133 mmol/L (136-145); Total Bilirubin 0.5 mg/dL (0.15-1.2); Total Protein 6.4 g/dL (6.6-8.7)
[2020-06-06 07:22] LABS: Glucose Point of Care 126 mg/dL (70-110)
--- NOTE | 2020-06-06 07:35 | P.PN_ITS ---
Subjective Subjective: Interval history: seen and examined. feels better. back in sinus rhythm. diarrhea improving, has some edema. converted to sinus rhythm. Medications: Reviewed: Yes Medication Review Details: Current Medications Hydrocodone Bitart/Acetaminophen (Hydrocodone-Acetaminophen 5-325 Mg Tablet) 1 tab PO Q4H PRN PRN Reason: MODERATE PAIN Last Admin: 06/05/20 13:33 Dose: 1 tab Documented by: Apixaban (Apixaban 5 Mg Tablet) 5 mg PO BID@0900,2100 COUNT INCLUDES THE [facility] Last Admin: 06/05/20 21:12 Dose: 5 mg Documented by: Atorvastatin Calcium (Atorvastatin 40 Mg Tablet) 40 mg PO DAILY COUNT INCLUDES THE [facility] Last Admin: 06/05/20 09:05 Dose: 40 mg Documented by: Bisacodyl (Bisacodyl 5 Mg Tablet) 5 mg PO DAILY COUNT INCLUDES THE [facility] Last Admin: 06/05/20 09:15 Dose: Not Given Documented by: Dextrose (Dextrose 50% Syringe 50 Ml) 25 ml IVP ONCE PRN; Protocol PRN Reason: hypoglycemia protocol Dextrose (Dextrose 50% Syringe 50 Ml) 50 ml IVP PRN PRN; Protocol PRN Reason: hypoglycemia protocol Diltiazem HCl (Diltiazem Er (12hr) 60 Mg Capsule) 60 mg PO BID COUNT INCLUDES THE [facility] Last Admin: 06/05/20 18:02 Dose: 60 mg Documented by: Glucagon (Glucagon 1 Mg/Ml Inj 1 Ml) 1 mg IM ONCE PRN; Protocol PRN Reason: Adult Acute Hypoglycemia Prot. Dextrose (D5w) 500 mls @ 100 mls/hr IV ONCE PRN; Protocol PRN Reason: Adult Acute Hypoglycemia Prot Albumin Human (Albumin) 12.5 gm in 50 mls @ 60 mls/hr IV PRN PRN PRN Reason: Hypotension and/or symptomatic Insulin Aspart (Insulin Aspart 100 Unit/1 Ml) 0 unit SUBCUT WM&BEDTIME COUNT INCLUDES THE [facility]; Protocol Last Admin: 06/06/20 07:34 Dose: Not Given Documented by: Levothyroxine Sodium (Levothyroxine 75 Mcg Tablet) 150 mcg PO DAILY@0900 COUNT INCLUDES THE [facility] Last Admin: 06/05/20 09:05 Dose: 150 mcg Documented by: Mirtazapine (Mirtazapine 15 Mg Tablet) 15 mg PO BEDTIME@2100 COUNT INCLUDES THE [facility] Last Admin: 06/05/20 21:12 Dose: 15 mg Documented by: Multivitamins (B-Hobkkzz-Wcpnyvx C Tablet) 1 each PO DAILY@0900 COUNT INCLUDES THE [facility] Last Admin: 06/05/20 09:18 Dose: 1 each Documented by: Ondansetron HCl (Ondansetron 2 Mg/Ml Sdv 2 Ml) 4 mg IVP Q6H PRN PRN Reason: NAUSEA AND VOMITING Last Admin: 06/04/20 06:30 Dose: 4 mg Documented by: Pantoprazole Sodium (Pantoprazole Dr 40 Mg Tablet) 40 mg PO DAILY@0900 COUNT INCLUDES THE [facility] Last Admin: 06/05/20 09:06 Dose: 40 mg Documented by: Vancomycin HCl (Vancomycin 1,000 Mg Oral Naya (Btl)) 125 mg PO QID COUNT INCLUDES THE [facility] Last Admin: 06/05/20 17:13 Dose: 1.25 ml Documented by: Vitals/I&O/Wt Last Vital Signs Temp 98.3 F 06/06/20 04:00 Pulse 85 06/06/20 06:15 Resp 11 L 06/06/20 06:15 BP 101/55 06/06/20 06:15 Pulse Ox 97 06/06/20 06:15 06/05/20 06/06/20 06/06/20 22:59 06:59 14:59 Intake Total 704 / 2400 325 / 2725 Output Total 0 / 0 0 / 0 Balance 704 / 2400 325 / 2725 Weight last 48 hrs Weight 100.244 kg Physical Exam Narrative: EXAM NARRATIVE: vs noted- BP low, but in NSR comfortable, NARD heent- nc/at, eomi, anicteric neck supple lungs basal crackles b/l heart - NSR, +JOSIANE abd lower tender b/l, +BS, soft, ND ext - RUE AVF w/ thrill and bruit 1+ leg edema left great toe amputated poor DP and PT pulses seen and examined w/ RN- telehealth visit Data : 06/06/20 05:11 06/06/20 05:11 Micro: Microbiology 06/05/20 08:00 Sputum Culture - Preliminary Sputum - Expectorated Sputum 06/04/20 03:13 Urine Culture - Preliminary Urine,Clean Catch A&P Additional A&P Information 1. ESRD No acute need for dialysis today, plan next session on Sunday cont dialysis MWF Dose meds for eGFR < 15 on HD 2. CDiff On Po Vanco 3. Afib/SVT Back in NSR, Mgmt per cardiology team 4. Anemia Hb 9.1 will give EPO iron sat 29%, ferritin 2292- no iv iron 5. hyponatremia- from renal failure- monitor w/ HD 6. DM control 7. lactate improved 8. phos binders -pth 92- no vit d analouges -vit d levels pending 9. abnormal u/a noted -ur cx NGTD Thanks for consult, it is a pleasure to follow these cases with you 30 min spent in patient eval Attestations Medical Necessity Statement*: c diff, ESRD, a fib to NSR Time Spent in Patient Care: 16 - 35 minutes Coding Level of Care Code Acute Test Data Developer for Brendan Cummings
[2020-06-06] MEDS: levothyroxine 75 mcg Tablet 150 MCG PO (08:37)
[2020-06-06] MEDS: atorvastatin 40 mg Tablet PO (08:37)
[2020-06-06] MEDS: sevelamer 800 mg Tablet PO (08:37)
[2020-06-06] MEDS: apixaban 5 mg Tablet PO (08:37)
[2020-06-06] MEDS: pantoprazole DR 40 mg Tablet PO (08:37)
[2020-06-06] MEDS: b-complex-vitamin c Tablet 1 EACH PO (08:37)
[2020-06-06] MEDS: dilTIAZem ER (12HR) 60 mg Capsule PO (08:37)
[2020-06-06 11:22] LABS: Glucose Point of Care 155 mg/dL (70-110)
--- NOTE | 2020-06-06 13:32 | PM.DCS ---
Discharge Providers Date of Admission: 06/04/20 00:23 Date of Discharge: June 06, 2020 Attending Provider at Admission: Rogre Groves MD Attending Provider at Discharge: Laureen Rock MD Primary Care Provider: Hanane Saldaña MD Diagnoses at Discharge Discharge Diagnosis (1) Sepsis: Status: Acute (2) Gastroenteritis: Status: Acute (3) Acute hypotension: Status: Acute (4) Atrial fibrillation with rapid ventricular response: Status: Acute (5) Elevated lactic acid level: Status: Acute (6) Acute hyperkalemia: Status: Acute (7) Diabetic gastroparesis: Status: Acute (8) Hypothyroidism: Status: Acute (9) ESRD (end stage renal disease) on dialysis: Status: Acute (10) C. difficile colitis: Status: Acute Reason for Visit Reason for Visit: n,v,weakness,high hr Hospital Course Hospital Course Paul Cornelius is a 75 year old male presented on May with chief complaint of recurrent nausea and vomiting and diarrhea that developed while in the hospital. endorsing fever 102.2 at home, no dysuria, endorsing abdominal pain. Diagnostics in the ER revealed hypotension, dehydration, lactic acidemia due to dehydration, heart rate 150s A. fib RVR, for which he was treated with amiodarone infusion, changed to amiodarone 200mg daily which is his maintainence dose along with cardizem 120mg po daily.MEt sepsis crietria on admission. Ct abdomen showed gatritis and proctitis. Initially started on emepiric rx with Zosyn, however eventually testing resulted positive for C.diff, at which time Zosyn was discontinued and he was started on po vancomycin. He responded well, BP imporved, diarrhea is resolved at time of discharge. A fib was treated initially with amiodarone infusion, now back on his home dose. After reviewing cardiology's last notes, aspirin was discontinued and patient has been continued on Plavix and Eliquis. Recent history of PCI in March 2020. All antihypertensives remain on hold during the course of admission, blood pressure is currently maintained at systolic 120. At the time of discharge amlodipine is being held, Imdur dose has been decreased to 30 mg p.o. daily. Instructed to check blood pressure, follow-up with primary care physician in the next 7 to 10 days. Offer to arrange home health aide, however patient declines extra services at this time. Physical Exam Narrative: EXAM NARRATIVE: GEN: Awake, alert and oriented, no acute distress CVS: S1S2 N RS: CTA B/L Abd: Soft, nt/nd , bs+ [employer]LE[employer]: no focal neuro deficits Discharge Data Data Completed and Pending: Completed Studies During Hospitalization Category Date Time Status CT abdomen pelvis wo con [id number] Urge nt Cat Scan 06/03/20 22:28 Completed Pending at discharge Category Date Time Status Complete Blood Co unt w/Auto AM LABS Lab 06/07/20 04:00 Ordered Comprehensive Met abolic Panel AM LA BS Lab 06/07/20 04:00 Ordered Histoplasma Quant itative AG Routine Lab 06/04/20 10:40 Uncollected Magnesium AM LABS Lab 06/07/20 04:00 Ordered Miscellaneous Maki t AM LABS Lab 06/05/20 05:00 Received Phosphorus AM LAB S Lab 06/07/20 04:00 Ordered Sputum Culture Ro utine Lab 06/04/20 10:40 Results Vitamin D 1,25 Di hydroxy Routine Lab 06/04/20 10:05 Received Labs from last 24 hours 06/06/20 06/06/20 06/06/20 11:15 07:19 05:11 WBC RBC Hgb Hct MCV MCH MCHC RDW Plt Count MPV Neut % (Auto) Lymph % (Auto) [place] % (Auto) Eos % (Auto) Baso % (Auto) Neut # (Auto) Lymph # (Auto) [place] # (Auto) Eos # (Auto) Baso # (Auto) Nucleated RBC % (a uto) Nucleated RBCs # Sodium 133 L Potassium 4.4 Chloride 93 L Carbon Dioxide 28 Anion Gap 16.4 BUN 32 H Creatinine 5.6 H* GFR Calculation Not Reportable Glucose 104 POC Glucose 155 H 126 H Calculated Osmolal ity 283 L Calcium 7.4 L Phosphorus 5.0 H Magnesium 1.9 Total Bilirubin 0.5 AST 50 H ALT 65 H Alkaline Phosphata se 104 Total Protein 6.4 L Albumin 2.8 L Globulin 3.6 06/06/20 06/05/20 06/05/20 05:11 20:38 16:27 WBC 7.2 RBC 3.06 L Hgb 9.1 L Hct 28.8 L MCV 94.1 H MCH 29.7 MCHC 31.6 RDW 16.8 H Plt Count 110 L MPV 11.3 H Neut % (Auto) 65.0 Lymph % (Auto) 15.2 [place] % (Auto) 12.0 Eos % (Auto) 6.8 Baso % (Auto) 0.7 Neut # (Auto) 4.69 Lymph # (Auto) 1.1 [place] # (Auto) 0.9 Eos # (Auto) 0.5 Baso # (Auto) 0.1 Nucleated RBC % (a uto) 0 Nucleated RBCs # 0.0 Sodium Potassium Chloride Carbon Dioxide Anion Gap BUN Creatinine GFR Calculation Glucose POC Glucose 150 H 103 Calculated Osmolal ity Calcium Phosphorus Magnesium Total Bilirubin AST ALT Alkaline Phosphata se Total Protein Albumin Globulin Vitals: Last Vital Signs Temp 98.3 F 06/06/20 04:00 Pulse 91 06/06/20 12:15 Resp 22 H 06/06/20 12:15 BP 123/62 06/06/20 12:15 Pulse Ox 98 06/06/20 12:15 Discharge Plan Discharge Patient Disposition: Home Condition: Stable Prescriptions: New vancomycin 125 mg capsule 125 mg PO QID 14 Days Qty: 56 RF: 0 Continued nitroglycerin [Nitrostat] 0.4 mg tablet, sublingual 0.4 mg SUBLINGUAL Q5M PRN (Reason: CHEST PAINS) RF: 0 levothyroxine 150 mcg capsule 150 mcg PO DAILY@0900 RF: 0 mirtazapine 15 mg tablet 15 mg PO BEDTIME@2100 RF: 0 pantoprazole 40 mg tablet,delayed release (DR/EC) 40 mg PO DAILY@0900 RF: 0 amiodarone 200 mg tablet 200 mg PO DAILY@0900 Qty: 90 RF: 3 acetaminophen [Tylenol Extra Strength] 500 mg Tablet 1,000 mg PO PRN RF: 0 RenaPlex-D 800 mcg-12.5 mg -2,000 unit tablet 1 tab PO DAILY@0900 RF: 0 clopidogrel 75 mg tablet 75 mg PO DAILY@0900 RF: 0 diltiazem HCl 120 mg Capsule,Extended Release 24hr 120 mg PO DAILY Qty: 30 RF: 0 Eliquis 5 mg Tablet 5 mg PO BID@0900,2100 Qty: 60 RF: 0 atorvastatin 40 mg Tablet 40 mg PO DAILY RF: 0 Lido-Prilo Josemanuel Pack 2.5-2.5 % Kit See Rx Instructions .ROUTE .COMPLEX RF: 0 bisacodyl 5 mg Tablet,Delayed Release (Dr/Ec) 5 mg PO DAILY RF: 0 sorbitol 70 % Solution 30 ml PO BID PRN (Reason: constipation) RF: 0 Cimzia 400 mg/2 mL (200 mg/mL x 2) Syringe Kit See Rx Instructions .ROUTE .COMPLEX RF: 0 cetirizine 10 mg Tablet 10 mg PO DAILY@0900 RF: 0 ondansetron 4 mg tablet,disintegrating 4 mg PO Q6H PRN (Reason: nausea and vomiting) Qty: 14 RF: 0 Changed isosorbide mononitrate 60 mg tablet extended release 24 hr 30 mg PO DAILY Qty: 90 RF: 3 Discontinued amlodipine 5 mg Tablet 5 mg PO BEDTIME RF: 0 amlodipine 10 mg Tablet 10 mg PO DAILY RF: 0 Cartia XT 120 mg Capsule,Extended Release 24hr 120 mg PO DAILY RF: 0 aspirin 81 mg Tablet 81 mg PO DAILY RF: 0 Discharge Orders: Discharge Order (Routine); Ordered 06/06/20 Ordered By: Laureen Rock Referrals: Vidal Milan MD [Physician] - 2 weeks (please call [phone] to make a follow up appt with Dr Milan) Hanane Saldaña MD [Primary Care Provider] - 7-10 days (please call [phone] to make an appt with Hanane Saldaña) Discharge Diet: Usual diet Discharge Activity: Resume usual activity Patient Instructions: Clostridium Difficile, Vancomycin (By mouth), Gastroenteritis (DC), Sepsis (DC) Discharge Attestations Time Spent in Discharge Care*: greater than 30 min Quality Metrics Clinical Quality Measures During this hospital stay, did patient experience: None Coding Level of Care Code Acute Chg FW DC note Diagnoses Sepsis A41.9 Gastroenteritis K52.9 Acute hypotension I95.9 Atrial fibrillation with rapid ventricular response I48.91 Elevated lactic acid level R79.89 Acute hyperkalemia E87.5 Diabetic gastroparesis E11.43; K31.84 Hypothyroidism E03.9 ESRD (end stage renal disease) on dialysis N18.6; Z99.2 C. difficile colitis A04.72
--- NOTE | 2020-06-06 16:18 | PC.NURSE ---
unable to make apts as offices closed on sunday gave phone numbers and dates to return
[2020-06-12 20:32] LABS: Vit D 1,25 (Oh)2, Total 15 pg/mL (18-72); Vit D2 1,25 (Oh)2 <8 pg/mL; Vit D3 1,25 (Oh)2 15 pg/mL
== END 2020-06-06 16:21 | disposition home or self-care (01) | DRG 871 ==
LOC: ER 06-04 00:09 → ICU 06-04 00:24
PROVIDERS: Internal Medicine Nephrology; Admitting Provider Internal Medicine; Emergency Provider Family Medicine; PCP Family Medicine; Visit Provider Student in an Organized Health Care Education/Training Program
DX: A41.9 Sepsis, unspecified organism (principal); N18.6 End stage renal disease; K85.90 Acute pancreatitis without necrosis or infection, unspecified; E87.2 Acidosis; I13.2 Hypertensive heart and chronic kidney disease with heart failure and with stage 5 chronic kidney disease, or end stage renal disease; E87.1 Hypo-osmolality and hyponatremia; A04.72 Enterocolitis due to Clostridium difficile, not specified as recurrent; I95.9 Hypotension, unspecified; I25.10 Atherosclerotic heart disease of native coronary artery without angina pectoris; G89.29 Other chronic pain; M54.2 Cervicalgia; E86.0 Dehydration; I48.91 Unspecified atrial fibrillation; K52.9 Noninfective gastroenteritis and colitis, unspecified; D63.1 Anemia in chronic kidney disease; N40.0 Benign prostatic hyperplasia without lower urinary tract symptoms; I50.9 Heart failure, unspecified; E11.22 Type 2 diabetes mellitus with diabetic chronic kidney disease; Z99.2 Dependence on renal dialysis; E11.43 Type 2 diabetes mellitus with diabetic autonomic (poly)neuropathy; E11.51 Type 2 diabetes mellitus with diabetic peripheral angiopathy without gangrene; K31.84 Gastroparesis; E78.5 Hyperlipidemia, unspecified; K21.9 Gastro-esophageal reflux disease without esophagitis; E03.9 Hypothyroidism, unspecified; I34.0 Nonrheumatic mitral (valve) insufficiency; I25.2 Old myocardial infarction; Z79.02 Long term (current) use of antithrombotics/antiplatelets; Z79.01 Long term (current) use of anticoagulants; D69.6 Thrombocytopenia, unspecified; R91.8 Other nonspecific abnormal finding of lung field; K62.89 Other specified diseases of anus and rectum; Z89.412 Acquired absence of left great toe; Z87.440 Personal history of urinary (tract) infections; E87.5 Hyperkalemia; Z98.1 Arthrodesis status; M06.9 Rheumatoid arthritis, unspecified; I27.20 Pulmonary hypertension, unspecified
CPT/HCPCS: 36415; 36416; 51702; 74176; 80053; 81001; 82306; 82310; 82652; 82728; 82962; 83540; 83550; 83605; 83690; 83735; 83970; 84100; 84484; 85025; 86635; 86706; 86803; 87070; 87086; 87340; 87493; 87506; 93005; 96361; 96365; 96372; 96375; 97161; 97165; 97530; 99291; J0282; J0610; J1200; J1815; J2405; J2543; J3370; J7030; J7060; Q3014

== ENCOUNTER → 2020-06-15 15:12 | Outpatient (BNVA) | payer MEDICARE, MEDICAID, SELFPAY | PROVIDERS: PCP Family Medicine; Visit Provider Internal Medicine | DX: M06.9 Rheumatoid arthritis, unspecified (principal); N18.6 End stage renal disease; Z99.2 Dependence on renal dialysis; A04.72 Enterocolitis due to Clostridium difficile, not specified as recurrent | CPT/HCPCS: 99213 ==

== ENCOUNTER 2020-07-05 15:43 | Emergency (ER) | payer MEDICARE, MEDICAID, SELFPAY ==
[2020-07-05 15:49] VITALS: BP 126/59; PULSE 94; RESP 16; TEMP 36.6; O2SAT 94; BMI 32.0
--- NOTE | 2020-07-05 16:02 | XRR_ITS ---
PROCEDURE INFORMATION: Exam: XR Chest Exam date and time: 07/05/2020 4:14 PM Age: 75 years old Clinical indication: Dyspnea; Patient HX: N/v/d TECHNIQUE: Imaging protocol: XR of the chest. Views: 1 view. COMPARISON: CR XR chest 1V portable [id number] 05/07/2020 1:42 PM FINDINGS: Lungs: Mild pulmonary venous congestion. Partial atelectasis at both lung bases more on the right than on the left. Pleural spaces: Bilateral pleural effusions. Heart/Mediastinum: Moderate cardiomegaly. Bones/joints: Unremarkable. XR/XR chest 1V portable [id number] IMPRESSION: 1. Congestive heart failure. 2. Bilateral pleural effusions. 3. Basilar atelectasis.
--- NOTE | 2020-07-05 16:04 | ECG_ITS ---
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 Measurements Intervals [address] Rate: 91 P: GA: QRS: 183 QRSD: 131 T: 79 QT: 356 QTc: 440 Interpretive Statements ATRIAL FIBRILLATION INTRAVENTRICULAR CONDUCTION DELAY [130+ ms QRS DURATION] LATERAL MYOCARDIAL INFARCTION , OF INDETERMINATE AGE [40+ ms Q WAVE AND/OR ST/T ABNORMALITY IN I/aVL/V5/V6] Compared to ECG 06/04/2020 01:43:22 Myocardial infarct finding now present Atrial flutter no longer present Left-axis deviation no longer present Electronically Signed On 07-06-2020 9:24:45 CDT by Farrah Guzman M.D. [id number]
--- NOTE | 2020-07-05 16:17 | ED_ITS ---
HPI - Chest Pain General: Chief Complaint: Chest Pain Stated Complaint: Chest pressure, nausea, vomiting Time Seen by Provider: 07/05/20 15:47 History of Present Illness: HPI narrative: The patient is a 75-year-old male with past medical history end-stage renal disease on dialysis Sunday, diabetes, CHF, coronary artery disease, A. fib on Eliquis. He has been recently suffering from C. difficile and just stopped his oral antibiotic recently because the prescription was finished. He says he continues to have diarrhea. He was sent from dialysis after having low blood pressure and an episode of chest pain that lasted a few seconds. They gave him Phenergan and 1.5 L IV fluids to stabilize his pressure. They completed the dialysis treatment. He says he has not been feeling well for 5 days and has been feeling generally weak and having diarrhea. Today he did admit to a few second long episode of left-sided chest pain at dialysis and that spontaneously resolved but he does still complain of pressure on his chest. Pertinent past history: coronary artery disease Onset (ago): hour(s) (1) Timing of current episode: constant Prior episodes: Yes Onset: during rest Pain location: substernal Pain radiation: none Severity: mild Relieving factors: other (pressure) Exacerbating factors: nothing Associated symptoms: Reports other (diarrhea); Deny abdominal pain, dyspnea, nausea, palpitations or vomiting Treatment prior to arrival: none Review of Systems General: Reports: 10 or more systems reviewed and unremarkable except in HPI and below Const: Denies: fatigue Eyes: Denies: change in vision, blurry vision or eye redness ENMT: Denies: throat pain, swelling of lips/tongue, ear or mastoid pain or nasal congestion Card: Reports: other (chest pressure); Denies: chest pain, palpitations, irregular heart rhythm, edema, dyspnea on exertion or orthopnea Resp: Denies: dyspnea, productive cough or non-productive cough GI: Reports: diarrhea; Denies: abdominal pain, nausea, vomiting or GI cramping : Denies: flank pain, urinary frequency or urinary urgency Musc: Denies: neck pain, back pain, extremity pain, joint pain, joint redness, limited range of motion or muscle weakness Skin/Breast: Denies: rash, pruritus, erythema, skin pain or skin tenderness Neuro: Denies: headache(s), numbness in extremities, weakness in extremities, sensory changes, difficulty walking, dizziness, confusion or Slurred speech present Psych: Denies: anxiety or depression Endo: Denies: polyuria All/Imm: Denies: urticaria, throat swelling or tongue swelling PFSH ED PFSH: Medical History Anemia ASHD (arteriosclerotic heart disease) Atrial fibrillation BPH (benign prostatic hyperplasia) CHF (congestive heart failure) CKD (chronic kidney disease) DDD (degenerative disc disease) Diabetes 1.5, managed as type 2 Diabetic gastroparesis Dyslipidemia ESRD (end stage renal disease) on dialysis GERD (gastroesophageal reflux disease) HTN (hypertension) Hypothyroidism Mitral regurgitation Myocardial infarction PAD (peripheral artery disease) Pulmonary HTN Rheumatoid arthritis Surgical History S/P appendectomy S/P carpal tunnel release S/P cervical spinal fusion S/P cholecystectomy Status post coronary angiogram Family History Father , AGE 61 Cancer LUNG Mother , AGE 62 CHF (congestive heart failure) Social History Smoking and tobacco status: never smoked Marital status: service: No Physical Exam Const: COMMON NORMALS: no acute distress, average body habitus, patient oriented x3, no limitations, healthy appearing, alert and well nourished GENERAL APPEARANCE: cooperative, comfortable, well kempt and well developed ORIENTATION/CONSCIOUSNESS: Yes awake, Yes oriented to person, Yes oriented to place and Yes oriented to time HENMT: COMMON NORMALS: normocephalic, external ears normal and Normal external nose present HEAD & SCALP: normal to inspection and normocephalic NOSE: Normal external nose present EXTERNAL EAR: Yes external ears normal MOUTH: Normal oral and palatal mucosa present THROAT: posterior oropharynx normal Eye: COMMON NORMALS: Equal, round and reactive pupils present and EOMs intact bilaterally GENERAL EYE: appearance normal, both eyes and all related structures PUPIL: Yes Equal, round and reactive pupils present Neck/C-Spine: COMMON NORMALS: full ROM, no lymphadenopathy, no meningeal signs and no JVD GENERAL: Yes normal visual inspection Lymph: LYMPHATIC: no lymphadenopathy noted Chest: COMMONS NORMALS: normal inspection of the chest and normal palpation of entire chest wall Resp: COMMON NORMALS: normal respiratory effort, No retractions, No use of accessory muscles, clear to auscultation bilaterally and percussion normal EFFORT & INSPECTION: Yes able to speak in complete sentences AUSCULTATION: clear to auscultation bilaterally PERCUSSION: percussion normal Cardio: COMMON NORMALS: no JVD, regular rate, regular rhythm, S1 normal heart sound present, S2 normal heart sound present and Peripheral pulses 2+ throughout RATE: regular rate RHYTHM: regular rhythm HEART SOUNDS: S1 normal heart sound present and S2 normal heart sound present PERIPHERAL PULSES: Peripheral pulses 2+ throughout GI: COMMON NORMALS: Normal to inspection, nondistended, normoactive bowel sounds present, Soft to palpation, non-tender and no masses INSPECTION: Yes normal to inspection PALPATION: Yes Soft to palpation : COMMON NORMALS: Yes no CVA tenderness BLADDER/KIDNEY EXAM: Yes no CVA tenderness Back/Pelvis: COMMON NORMALS: no CVA tenderness, thoracic and lumbar spine normal to inspection, no thoracic nor lumbar tenderness and thoraco-lumbar ROM normal Extremity: COMMON NORMALS: normal to inspection, full ROM, capillary refill normal, no joint enlargement and no pedal edema GENERAL: Yes normal exam except as noted Neuro: COMMON NORMALS: patient oriented x3, CN's II-XII intact bilaterally, moves all extremities, no focal motor deficits, no sensory deficits noted and gait normal SENSORIUM/ORIENTATION: Yes alert, Yes oriented to person, Yes oriented to place and Yes oriented to time MENINGEAL SIGNS: Yes no meningeal signs Psych: COMMON NORMALS: mental status grossly normal, Normal thought process present, cooperative, normal affect and speech normal APPEARANCE: Yes well kempt ATTITUDE: Yes calm SPEECH: Yes normal speech THOUGHT PROCESS: Normal thought process present Skin: COMMON NORMALS: no rashes or lesions noted GENERAL SKIN EXAM: no rashes or lesions noted Course Vital Signs: Vital signs: Vital Signs Temperature 97.9 F 07/05/20 15:49 Pulse Rate 82 07/05/20 19:42 Respiratory Rate 22 H 07/05/20 19:42 Blood Pressure 125/64 07/05/20 19:42 Pulse Oximetry 97 07/05/20 19:42 MDM - Chest Pain MDM Narrative: Medical decision making narrative: The patient came to the ER for an episode of hypotension, vomiting, chronic diarrhea, and chest pain at dialysis today. His chest pain resolved prior to arrival and he did complain of pressure on arrival. That resolved shortly after arrival spontaneously. He was given aspirin. EKG was negative x2 just shows chronic A. fib which is a chronic problem for him. Troponins stable after the 2-hour. I offered him admission for this problem because of his chronic illness and previous IN. He declined and prefers discharge home. I discussed with Dr. Aguilar who recommended he call Dr. Mcdonald tomorrow. I have communicated this to the patient. He will return to the ER with worsening symptoms. He also came with acute episode of hypotension from dialysis. They gave him a liter and half of fluids and Phenergan. He has also recently been treated for C. difficile and his stool tested negative on Sunday. He has some residual diarrhea and this is likely part of his problem. He has had no diarrhea in the ED today and is stable for discharge. Recommended he follow-up with his primary care physician later this week to discuss further. ER with worsening symptoms. Lab Data: Labs: Lab Results 07/05/20 07/05/20 07/05/20 Range/Units 16:40 16:40 16:40 WBC 7.0 (4.0-10.0) 10^3/ uL RBC 3.62 L (4.1-5.3) 10^6/u L Hgb 10.5 L (11.7-16.6) g/dL Hct 34.2 L (42.0-52.0) % MCV 94.5 H (80-94) fL MCH 29.0 (28.0-34.0) pg MCHC 30.7 (30.0-36.0) g/dL RDW 16.5 H (12.1-15.1) % Plt Count 148 (130-400) 10^3/c mm MPV 10.4 (7.4-10.4) fL Neut % (Auto) 72.5 % Lymph % (Auto) 14.0 % [place] % (Auto) 7.0 % Eos % (Auto) 4.6 % Baso % (Auto) 1.6 % Neut # (Auto) 5.08 (1.8-7.7) 10^3/u L Lymph # (Auto) 1.0 (0.8-4.8) 10^3/u L [place] # (Auto) 0.5 (0.2-0.9) 10^3/u L Eos # (Auto) 0.3 (0.0-0.8) 10^3/u L Baso # (Auto) 0.1 (0.0-0.1) 10^3/u L Nucleated RBC % (a uto) 0 % Nucleated RBCs # 0.0 /100WBC Specimen Type Sample Site ABG pH (7.35-7.45) ABG pCO2 (35-45) mmHg ABG pO2 (80.0-100.0) mmH g ABG HCO3 (22-26) mmol/L ABG Base Excess (-2.0-2.0) mmol/ L Silvio Test Hematocrit (42-52) % Hgb O2 Saturation (95-100) % Carboxyhemoglobin (0.4-20.1) %THgb Methemoglobin (0.4-1.5) % Total Hemoglobin (14-18) g/dL O2 Delivery Device O2 Liters/Min % FiO2 % Store Operations Manager ID Sodium 138 (136-145) mmol/L Potassium 3.9 (3.5-5.1) mmol/L Chloride 97 L (98-107) mmol/L Carbon Dioxide 32 H (22-29) mmol/L Anion Gap 12.9 (5-19) BUN 8 (8-23) mg/dL Creatinine 2.6 H (0.7-1.2) mg/dL GFR Calculation Not Reportable Glucose 96 (65-115) mg/dL Calculated Osmolal ity 284 L (285-295) mOsm/k g Lactic Acid (0.5-2.2) mmol/L Calcium 8.0 L (8.5-10.5) mg/dL Total Bilirubin 0.8 (0.15-1.2) mg/dL AST 28 (0-40) U/L ALT 11 (0-41) U/L Alkaline Phosphata se 159 H (40-130) IU/L Troponin T Baselin e 68 H (0-15) ng/L Troponin T 120 Min [place] (0-15) ng/L Delta Troponin T (0-10) ABS# Total Protein 6.9 (6.6-8.7) g/dL Albumin 3.3 L (3.5-5.2) g/dL Globulin 3.6 (1.3-4.6) g/dL 07/05/20 07/05/20 07/05/20 Range/Units 16:40 17:41 19:14 WBC (4.0-10.0) 10^3/ uL RBC (4.1-5.3) 10^6/u L Hgb (11.7-16.6) g/dL Hct (42.0-52.0) % MCV (80-94) fL MCH (28.0-34.0) pg MCHC (30.0-36.0) g/dL RDW (12.1-15.1) % Plt Count (130-400) 10^3/c mm MPV (7.4-10.4) fL Neut % (Auto) % Lymph % (Auto) % Emery % (Auto) % Eos % (Auto) % Baso % (Auto) % Neut # (Auto) (1.8-7.7) 10^3/u L Lymph # (Auto) (0.8-4.8) 10^3/u L Emery # (Auto) (0.2-0.9) 10^3/u L Eos # (Auto) (0.0-0.8) 10^3/u L Baso # (Auto) (0.0-0.1) 10^3/u L Nucleated RBC % (a uto) % Nucleated RBCs # /100WBC Specimen Type Arterial Sample Site Brachial, left ABG pH 7.51 H (7.35-7.45) ABG pCO2 40.2 (35-45) mmHg ABG pO2 54.0 L (80.0-100.0) mmH g ABG HCO3 31.7 H (22-26) mmol/L ABG Base Excess 7.9 H (-2.0-2.0) mmol/ L Silvio Test Pos Hematocrit 30.7 L (42-52) % Hgb O2 Saturation 85.7 L (95-100) % Carboxyhemoglobin 1.7 (0.4-20.1) %THgb Methemoglobin 0.9 (0.4-1.5) % Total Hemoglobin 10.0 L (14-18) g/dL O2 Delivery Device Nc O2 Liters/Min 4.0 % FiO2 36.0 % Store Operations Manager ID Cak Sodium (136-145) mmol/L Potassium (3.5-5.1) mmol/L Chloride (98-107) mmol/L Carbon Dioxide (22-29) mmol/L Anion Gap (5-19) BUN (8-23) mg/dL Creatinine (0.7-1.2) mg/dL GFR Calculation Glucose (65-115) mg/dL Calculated Osmolal ity (285-295) mOsm/k g Lactic Acid 1.7 (0.5-2.2) mmol/L Calcium (8.5-10.5) mg/dL Total Bilirubin (0.15-1.2) mg/dL AST (0-40) U/L ALT (0-41) U/L Alkaline Phosphata se (40-130) IU/L Troponin T Baselin e (0-15) ng/L Troponin T 120 Min [place] 62.59 H (0-15) ng/L Delta Troponin T -5.41 L (0-10) ABS# Total Protein (6.6-8.7) g/dL Albumin (3.5-5.2) g/dL Globulin (1.3-4.6) g/dL Discharge Plan Discharge Patient Disposition: Home Clinical Impression: Chest pain, Diarrhea, Hypotension Condition: Stable Prescriptions: No Action nitroglycerin [Nitrostat] 0.4 mg tablet, sublingual 0.4 mg SUBLINGUAL Q5M PRN (Reason: CHEST PAINS) RF: 0 levothyroxine 150 mcg capsule 150 mcg PO DAILY@0900 RF: 0 mirtazapine 15 mg tablet 15 mg PO BEDTIME@2100 RF: 0 pantoprazole 40 mg tablet,delayed release (DR/EC) 40 mg PO DAILY@0900 RF: 0 Cimzia 400 mg/2 mL (200 mg/mL x 2) syringe kit See Rx Instructions .ROUTE .COMPLEX Qty: 2 RF: 5 amiodarone 200 mg tablet 200 mg PO DAILY@0900 Qty: 90 RF: 3 Eliquis 5 mg tablet 5 mg PO BID@0900,2100 Qty: 180 RF: 3 acetaminophen [Tylenol Extra Strength] 500 mg Tablet 1,000 mg PO PRN RF: 0 RenaPlex-D 800 mcg-12.5 mg -2,000 unit tablet 1 tab PO DAILY@0900 RF: 0 clopidogrel 75 mg tablet 75 mg PO DAILY@0900 RF: 0 atorvastatin 40 mg Tablet 40 mg PO BEDTIME@2100 RF: 0 lidocaine-prilocaine [Lido-Prilo Josemanuel Pack] 2.5-2.5 % Kit See Rx Instructions .ROUTE .COMPLEX RF: 0 bisacodyl 5 mg Tablet,Delayed Release (Dr/Ec) 5 mg PO DAILY PRN (Reason: Constipation) RF: 0 isosorbide dinitrate 30 mg tablet 30 mg PO DAILY@0900 RF: 0 diltiazem HCl 120 mg capsule,extended release 24hr 120 mg PO DAILY@0900 RF: 0 amlodipine 10 mg Tablet 10 mg PO DAILY@0900 RF: 0 cetirizine 10 mg Tablet 10 mg PO DAILY@0900 RF: 0 ondansetron 4 mg tablet,disintegrating 4 mg PO Q6H PRN (Reason: nausea and vomiting) Qty: 14 RF: 0 Discharge Orders: Discharge ED (Routine); Ordered 07/05/20 Ordered By: Derek Preciado Referrals: Hanane Saldaña MD [Primary Care Provider] - Discharge Diet: Advance as tolerated Discharge Activity: Resume usual activity Patient Instructions: Chest Pain (ED), Acute Diarrhea (ED), Hypotension (ED), Opioid Safety Activity Restrictions/Additional Instructions: 1. You had a very short episode of chest pain that resolved prior to your arrival and some slight pressure that resolved slightly after your arrival to the ED. Your troponins are normal and EKG has no changes. Please call Dr. Mcdonald tomorrow to discuss further and get a follow-up appointment. Return to the ER with any chest pain, shortness of breath or any other worrisome symptoms 2. You had an episode of low blood pressure likely related to diarrhea and dialysis and vomiting. They gave you fluids and your blood pressure has been stable here. It is encouraging that your feces tested negative for C. difficile on Sunday. Call your primary care doctor for an appointment this week to discuss these problems. Return to the ER with worsening symptoms. Coding Level of Care Code ED Audio Production Instructor for Brendan Fwnaomi Exam Comprehensive
[2020-07-05 16:47] VITALS: BP 124/50; PULSE 87; RESP 22; O2SAT 96
[2020-07-05] MEDS: aspirin 81 mg Chew Tablet 324 MG PO (16:54)
[2020-07-05 16:58] LABS: Basophils # 0.1 10^3/uL (0.0-0.1); Basophils % 1.6 %; Eosinophils # 0.3 10^3/uL (0.0-0.8); Eosinophils % 4.6 %; Hematocrit 34.2 % (42.0-52.0); Hemoglobin 10.5 g/dL (11.7-16.6); Mean Corpuscular HGB Conc 30.7 g/dL (30.0-36.0); Mean Corpuscular Volume 94.5 fL (80-94); Mean Platelet Volume 10.4 fL (7.4-10.4); Monocytes # 0.5 10^3/uL (0.2-0.9); Neutrophils # 5.08 10^3/uL (1.8-7.7); Neutrophils % 72.5 %; Nucleated Red Blood Cells % 0 %; Platelet Count 148 10^3/cmm (130-400); Red Blood Count 3.62 10^6/uL (4.1-5.3); Red Cell Distribution Width 16.5 % (12.1-15.1)
[2020-07-05 17:29] LABS: Lactic Sepsis W/Reflex 1.7 mmol/L (0.5-2.2)
[2020-07-05 17:30] LABS: Alanine Aminotransferase 11 U/L (0-41); Albumin Level 3.3 g/dL (3.5-5.2); Alkaline Phosphatase 159 IU/L (40-130); Blood Urea Nitrogen 8 mg/dL (8-23); Carbon Dioxide 32 mmol/L (22-29); Chloride 97 mmol/L (98-107); Globulin 3.6 g/dL (1.3-4.6); Glucose 96 mg/dL (65-115); Osmolality Calculated 284 mOsm/kg (285-295); Sodium 138 mmol/L (136-145); Total Bilirubin 0.8 mg/dL (0.15-1.2); Total Protein 6.9 g/dL (6.6-8.7)
[2020-07-05 17:33] LABS: Troponin(5th) Baseline 68 ng/L (0-15)
[2020-07-05 17:37] LABS: Anion Gap 12.9 (5-19)
[2020-07-05 17:38] LABS: Aspartate Amino Transferase 28 U/L (0-40); Potassium 3.9 mmol/L (3.5-5.1)
[2020-07-05 17:52] LABS: ABG PCO2 40.2 mmHg (35-45); ABG PH Result 7.51 (7.35-7.45); Arterial Blood Gas Hematocrit 30.7 % (42-52); Base Excess ABG 7.9 mmol/L (-2.0-2.0); Blood Gas Allen Test Pos; Blood Gas Operator Identificat CAK; Blood Gas Sample Site Brachial, left; Blood Gas Sample Type Arterial; Carboxyhemoglobin 1.7 %THgb (0.4-20.1); HCO3 ABG 31.7 mmol/L (22-26); HGB O2 Sat 85.7 % (95-100); Methemoglobin 0.9 % (0.4-1.5); Oxygen Device NC
--- NOTE | 2020-07-05 18:04 | ECG_ITS ---
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 Measurements Intervals [place] Rate: 95 P: NM: QRS: -29 QRSD: 133 T: 94 QT: 417 QTc: 526 Interpretive Statements ATRIAL FIBRILLATION BORDERLINE LEFT AXIS DEVIATION [QRS AXIS < -20] INTRAVENTRICULAR CONDUCTION DELAY [130+ ms QRS DURATION] Compared to ECG 07/05/2020 15:51:27 Myocardial infarct finding no longer present Electronically Signed On 07-06-2020 9:51:09 CDT by Farrah Guzman M.D. [id number]
[2020-07-05 18:37] VITALS: BP 118/60; PULSE 79; RESP 19; O2SAT 91
[2020-07-05 19:38] LABS: Troponin 5 2HR 62.59 ng/L (0-15)
[2020-07-05 19:42] VITALS: BP 125/64; PULSE 82; RESP 22; O2SAT 97
[2020-07-05 19:43] LABS: Troponin 5 2HR Delta -5.41 ABS# (0-10)
[2020-07-05 20:28] VITALS: BP 122/70; PULSE 86; RESP 20; O2SAT 97
[2020-07-07 10:29] LABS: NT Pro B Type Natriuretic Pept 47641 pg/mL (0-125)
== END 2020-07-05 20:29 | disposition home or self-care (01) ==
PROVIDERS: Emergency Provider Family Medicine; PCP Family Medicine
DX: R07.9 Chest pain, unspecified (principal); R19.7 Diarrhea, unspecified; I95.9 Hypotension, unspecified; Z79.01 Long term (current) use of anticoagulants; Z79.02 Long term (current) use of antithrombotics/antiplatelets; I48.91 Unspecified atrial fibrillation; E78.5 Hyperlipidemia, unspecified; I13.2 Hypertensive heart and chronic kidney disease with heart failure and with stage 5 chronic kidney disease, or end stage renal disease; E13.22 Other specified diabetes mellitus with diabetic chronic kidney disease; N18.6 End stage renal disease; I50.9 Heart failure, unspecified; I25.2 Old myocardial infarction
CPT/HCPCS: 36415; 36600; 71045; 80053; 82805; 83605; 83880; 84484; 85025; 93005; 99283

== ENCOUNTER 2020-07-13 11:20 | Emergency (ER) | payer MEDICARE, MEDICAID, SELFPAY ==
[2020-07-13 11:54] VITALS: BP 101/62; PULSE 87; RESP 16; TEMP 36.4; O2SAT 95; BMI 32.0
--- NOTE | 2020-07-13 12:19 | XRR_ITS ---
PROCEDURE INFORMATION: Exam: XR Chest Exam date and time: 07/13/2020 12:30 PM Age: 75 years old Clinical indication: Pain; Chest pressure; Additional info: Chest pain TECHNIQUE: Imaging protocol: XR of the chest. Views: 1 view. COMPARISON: CR XR chest 1V portable [id number] 07/05/2020 4:10 PM FINDINGS: Lungs: There is bibasilar atelectasis and fibrosis which is greater on the right side. When compared to the previous study the aeration of the right base is improving. Pleural spaces: Small bilateral pleural effusions are present. This has not significantly changed allowing for differences in position. Heart/Mediastinum: The cardiac silhouette is enlarged but unchanged. There is calcification of the aortic arch. Bones/joints: Unremarkable. XR/XR chest 1V portable [id number] IMPRESSION: 1. Bibasilar fibrosis and atelectasis with mildly improved aeration of the bases since previous study. 2. Essentially stable small pleural effusions.
--- NOTE | 2020-07-13 12:19 | ECG_ITS ---
[facility] Test Date: 2020-07-13 Pat Name: Paul Cornelius Department: Room: Gender: Male Integration Analyst: : 1945 Requested By: Bridget Roland Order Number: [id number] Justin MD: Jeanette Aguilar M.D. Measurements Intervals [place] Rate: 81 P: 158 OR: 133 QRS: 120 QRSD: 120 T: 29 QT: 452 QTc: 526 Interpretive Statements SINUS RHYTHM POSSIBLE RIGHT VENTRICULAR HYPERTROPHY [SOME/ALL OF: PROMINENT R IN V1, LATE TRANSITION, RAD, ENOC, SSS] MODERATE ST DEPRESSION [0.05+ mV ST DEPRESSION] PROLONGED QT INTERVAL Compared to ECG 07/05/2020 18:13:41 ST (T wave) deviation now present Prolonged QT interval now present Atrial fibrillation no longer present Intraventricular conduction delay no longer present Electronically Signed On 07-15-2020 10:05:50 CDT by Jeanette Aguilar M.D. [id number]
--- NOTE | 2020-07-13 14:19 | ECG_ITS ---
[facility] Test Date: 2020-07-13 Pat Name: Paul Cornelius Department: Room: Gender: Male Materials Technician: : 1945 Requested By: Bridget Roland Order Number: [id number] Justin MD: Farrah Guzman M.D. Measurements Intervals [place] Rate: 80 P: 114 [place]: 173 QRS: 106 QRSD: 118 T: 24 QT: 437 QTc: 504 Interpretive Statements SINUS RHYTHM RIGHT AXIS DEVIATION [QRS AXIS > 100] MODERATE INTRAVENTRICULAR CONDUCTION DELAY [110+ ms QRS DURATION] MODERATE ST DEPRESSION [0.05+ mV ST DEPRESSION] PROLONGED QT INTERVAL Compared to ECG 07/13/2020 14:20:53 Right-axis deviation now present Intraventricular conduction delay now present ST (T wave) deviation still present Electronically Signed On 07-14-2020 7:00:42 CDT by Farrah Guzman M.D. [id number]
[2020-07-13 15:43] LABS: Basophils # 0.1 10^3/uL (0.0-0.1); Basophils % 1.6 %; Eosinophils # 0.6 10^3/uL (0.0-0.8); Eosinophils % 7.9 %; Hematocrit 34.1 % (42.0-52.0); Hemoglobin 10.3 g/dL (11.7-16.6); Lymphocytes # 1.5 10^3/uL (0.8-4.8); Mean Corpuscular HGB Conc 30.2 g/dL (30.0-36.0); Mean Corpuscular Hemoglobin 29.4 pg (28.0-34.0); Mean Corpuscular Volume 97.4 fL (80-94); Mean Platelet Volume 10.7 fL (7.4-10.4); Monocytes # 0.8 10^3/uL (0.2-0.9); Monocytes % 10.8 %; Neutrophils # 4.06 10^3/uL (1.8-7.7); Neutrophils % 58.4 %; Nucleated Red Blood Cells % 0 %; Platelet Count 143 10^3/cmm (130-400); Red Cell Distribution Width 17.4 % (12.1-15.1)
[2020-07-13 16:07] LABS: Troponin(5th) Baseline 59 ng/L (0-15)
[2020-07-13 16:16] LABS: Alanine Aminotransferase 6 U/L (0-41); Albumin Level 3.4 g/dL (3.5-5.2); Alkaline Phosphatase 154 IU/L (40-130); Anion Gap 14.9 (5-19); Aspartate Amino Transferase 16 U/L (0-40); Blood Urea Nitrogen 14 mg/dL (8-23); Calcium 8.4 mg/dL (8.5-10.5); Carbon Dioxide 28 mmol/L (22-29); Chloride 97 mmol/L (98-107); Globulin 4.4 g/dL (1.3-4.6); Glucose 87 mg/dL (65-115); Osmolality Calculated 282 mOsm/kg (285-295); Potassium 3.9 mmol/L (3.5-5.1); Sodium 136 mmol/L (136-145); Total Bilirubin 0.6 mg/dL (0.15-1.2); Total Protein 7.8 g/dL (6.6-8.7)
--- NOTE | 2020-07-13 16:31 | ED_ITS ---
HPI - General Adult General: Chief complaint: General Medical Stated complaint: fluid retention Time Seen by Provider: 07/13/20 15:57 Source: patient, family () and old records reviewed Mode of arrival: ambulatory Limitations: no limitations History of Present Illness: HPI narrative: 75-year-old male with a history of A. fib, end-stage renal disease on peritoneal dialysis, hypertension, rheumatoid arthritis, presents to the emergency department with cough and shortness of breath. The states that he was seen here about 8 days ago and diagnosed with pleural effusion and because the symptoms are not any improved and may be a little worse she thinks the effusions are getting worse. He has had thoracocentesis done in the past so she thinks that he needs 1 again. He does not make any urine. He also has associated bilateral leg swelling. No fever. He has associated shortness of breath. Onset (ago): week(s) (2) Associated symptoms: Reports cough and short of breath; Deny chest pain, confusion, diaphoresis, decreased appetite, dyspnea, fevers/chi lls, headache(s), malaise, nausea, rash, palpitations, seizures, syncope, vomiting or weakness Treatments prior to arrival: none Review of Systems General: Reports: 10 or more systems reviewed and unremarkable except in HPI and below Const: Denies: malaise or diaphoresis Card: Denies: chest pain, palpitations or syncope Resp: Denies: dyspnea GI: Denies: nausea or vomiting Skin/Breast: Denies: rash Neuro: Denies: headache(s) or confusion PFS ED PFSH: Medical History (Reviewed 07/13/20 @ 21:25 by Angelica Mar MD, [facility] [place]) Anemia ASHD (arteriosclerotic heart disease) Atrial fibrillation BPH (benign prostatic hyperplasia) CHF (congestive heart failure) CKD (chronic kidney disease) DDD (degenerative disc disease) Diabetes 1.5, managed as type 2 Diabetic gastroparesis Dyslipidemia ESRD (end stage renal disease) on dialysis GERD (gastroesophageal reflux disease) HTN (hypertension) Hypothyroidism Mitral regurgitation Myocardial infarction PAD (peripheral artery disease) Pulmonary HTN Rheumatoid arthritis Surgical History (Reviewed 07/13/20 @ 21:25 by Angelica Mar MD, [facility] [place]) S/P appendectomy S/P carpal tunnel release S/P cervical spinal fusion S/P cholecystectomy Status post coronary angiogram Family History (Reviewed 07/13/20 @ 21:25 by Angelica Mar MD, [facility] [place]) Father , AGE 61 Cancer LUNG Mother , AGE 62 CHF (congestive heart failure) Social History (Reviewed 07/13/20 @ 21:25 by Angelica Mar MD, [facility] [place]) Smoking and tobacco status: never smoked Marital status: service: No Physical Exam Const: COMMON NORMALS: no acute distress, average body habitus, patient oriented x3, no limitations, healthy appearing, alert and well nourished HENMT: COMMON NORMALS: normocephalic, atraumatic and moist oral mucous membranes HEAD & SCALP: normocephalic and atraumatic Neck/C-Spine: COMMON NORMALS: no meningeal signs and no JVD Chest: COMMONS NORMALS: normal inspection of the chest and normal palpation of entire chest wall Resp: COMMON NORMALS: normal respiratory effort, No retractions, No use of accessory muscles, clear to auscultation bilaterally and percussion normal AUSCULTATION: clear to auscultation bilaterally PERCUSSION: percussion normal Cardio: COMMON NORMALS: no JVD, regular rate, regular rhythm, S1 normal heart sound present, S2 normal heart sound present, No gallops present (Cardio), No clicks present (Cardio), No murmurs present (Cardio), No rub (Cardio) and Peripheral pulses 2+ throughout RATE: regular rate RHYTHM: regular rhythm HEART SOUNDS: S1 normal heart sound present and S2 normal heart sound present PERIPHERAL PULSES: Peripheral pulses 2+ throughout GI: COMMON NORMALS: Normal to inspection, nondistended, normoactive bowel sounds present, Soft to palpation, non-tender, No hepatosplenomegaly present, no masses and no bruits PALPATION: Yes Soft to palpation and Yes No h epatosplenomegaly present Extremity: COMMON NORMALS: normal to inspection, full ROM, capillary refill normal and no calf tenderness GENERAL: Yes edema Neuro: COMMON NORMALS: patient oriented x3 SENSORIUM/ORIENTATION: Yes alert MENINGEAL SIGNS: Yes no meningeal signs Skin: COMMON NORMALS: no rashes or lesions noted, no wounds, turgor normal, no jaundice, no petechiae and no mottling GENERAL SKIN EXAM: no rashes or lesions noted and turgor normal Course Reevaluation(s): Reevaluation #1: Discussed her lab and imaging findings with the patient and his , nothing acute. Will discharge him home with no new orders. They voiced understanding and all questions answered. Time: 18:30 Vital Signs: Vital signs: Vital Signs Temperature 97.6 F 07/13/20 11:54 Pulse Rate 82 07/13/20 18:52 Respiratory Rate 17 07/13/20 18:52 Blood Pressure 108/72 07/13/20 18:52 Pulse Oximetry 96 07/13/20 18:52 MDM - General Adult MDM Narrative: Medical decision making narrative: 75-year-old male who came to the emergency department because he thought he needed a thoracocentesis. He has had a history of pleural effusion and required thoracocentesis in the past. About 8 days ago he was diagnosed with pleural effusion and assess cough has persisted he thought he may require another thoracocentesis. Evaluation in the emergency department however shows that he has small pleural effusions, unchanged from his previous imaging findings and no acute findings. He has end- stage renal disease and is on hemodialysis. He produces no urine. He is discharged home with no new orders. Lab Data: Labs: Lab Results 07/13/20 07/13/20 07/13/20 Range/Units 15:30 15:30 15:30 WBC 7.0 (4.0-10.0) 10^3/ uL RBC 3.50 L (4.1-5.3) 10^6/u L Hgb 10.3 L (11.7-16.6) g/dL Hct 34.1 L (42.0-52.0) % MCV 97.4 H (80-94) fL MCH 29.4 (28.0-34.0) pg MCHC 30.2 (30.0-36.0) g/dL RDW 17.4 H (12.1-15.1) % Plt Count 143 (130-400) 10^3/c mm MPV 10.7 H (7.4-10.4) fL Neut % (Auto) 58.4 % Lymph % (Auto) 21.0 % [place] % (Auto) 10.8 % Eos % (Auto) 7.9 % Baso % (Auto) 1.6 % Neut # (Auto) 4.06 (1.8-7.7) 10^3/u L Lymph # (Auto) 1.5 (0.8-4.8) 10^3/u L [place] # (Auto) 0.8 (0.2-0.9) 10^3/u L Eos # (Auto) 0.6 (0.0-0.8) 10^3/u L Baso # (Auto) 0.1 (0.0-0.1) 10^3/u L Nucleated RBC % (a uto) 0 % Nucleated RBCs # 0.0 /100WBC Sodium 136 (136-145) mmol/L Potassium 3.9 (3.5-5.1) mmol/L Chloride 97 L (98-107) mmol/L Carbon Dioxide 28 (22-29) mmol/L Anion Gap 14.9 (5-19) BUN 14 (8-23) mg/dL Creatinine 4.5 H (0.7-1.2) mg/dL GFR Calculation Not Reportable Glucose 87 (65-115) mg/dL Calculated Osmolal ity 282 L (285-295) mOsm/k g Calcium 8.4 L (8.5-10.5) mg/dL Total Bilirubin 0.6 (0.15-1.2) mg/dL AST 16 (0-40) U/L ALT 6 (0-41) U/L Alkaline Phosphata se 154 H (40-130) IU/L Troponin T Baselin e 59 H (0-15) ng/L Troponin T 120 Min senthil (0-15) ng/L Delta Troponin T (0-10) ABS# NT-Pro-B Natriuret Pep 99767 H (0-125) pg/mL Total Protein 7.8 (6.6-8.7) g/dL Albumin 3.4 L (3.5-5.2) g/dL Globulin 4.4 (1.3-4.6) g/dL // Range/Units 17:22 WBC (4.0-10.0) 10^3/ uL RBC (4.1-5.3) 10^6/u L Hgb (11.7-16.6) g/dL Hct (42.0-52.0) % MCV (80-94) fL MCH (28.0-34.0) pg MCHC (30.0-36.0) g/dL RDW (12.1-15.1) % Plt Count (130-400) 10^3/c mm MPV (7.4-10.4) fL Neut % (Auto) % Lymph % (Auto) % [place] % (Auto) % Eos % (Auto) % Baso % (Auto) % Neut # (Auto) (1.8-7.7) 10^3/u L Lymph # (Auto) (0.8-4.8) 10^3/u L [place] # (Auto) (0.2-0.9) 10^3/u L Eos # (Auto) (0.0-0.8) 10^3/u L Baso # (Auto) (0.0-0.1) 10^3/u L Nucleated RBC % (a uto) % Nucleated RBCs # /100WBC Sodium (136-145) mmol/L Potassium (3.5-5.1) mmol/L Chloride (98-107) mmol/L Carbon Dioxide (22-29) mmol/L Anion Gap (5-19) BUN (8-23) mg/dL Creatinine (0.7-1.2) mg/dL GFR Calculation Glucose (65-115) mg/dL Calculated Osmolal ity (285-295) mOsm/k g Calcium (8.5-10.5) mg/dL Total Bilirubin (0.15-1.2) mg/dL AST (0-40) U/L ALT (0-41) U/L Alkaline Phosphata se (40-130) IU/L Troponin T Baselin e (0-15) ng/L Troponin T 120 Min senthil 53.45 H (0-15) ng/L Delta Troponin T -5.55 L (0-10) ABS# NT-Pro-B Natriuret Pep (0-125) pg/mL Total Protein (6.6-8.7) g/dL Albumin (3.5-5.2) g/dL Globulin (1.3-4.6) g/dL Imaging Data^: CXR: Attestation: I personally reviewed and interpreted this imaging study as follows: Radiologist's impression: [address] [id number] ReportSigned Patient: Paul Cornelius #: [id number]: 8Acct#:[id number]/Sex: 75 / MADM Date: 07/13/20Loc: ERRoom/Bed:Attending Dr: Ordering Provider/Ordering MD: Bridget Roland Date of Service: 07/13/20 Procedure(s): XR chest 1V portable [id number] Accession Number(s): [id number] Report Number: [id number] PROCEDURE INFORMATION: Exam: XR Chest Exam date and time: 07/13/2020 12:30 PM Age: 75 years old Clinical indication: Pain; Chest pressure; Additional info: Chest pain TECHNIQUE: Imaging protocol: XR of the chest. Views: 1 view. COMPARISON: CR XR chest 1V portable [id number] 07/05/2020 4:10 PM FINDINGS: Lungs: There is bibasilar atelectasis and fibrosis which is greater on the right side. When compared to the previous study the aeration of the right base is improving. Pleural spaces: Small bilateral pleural effusions are present. This has not significantly changed allowing for differences in position. Heart/Mediastinum: The cardiac silhouette is enlarged but unchanged. There is calcification of the aortic arch. Bones/joints: Unremarkable. XR/XR chest 1V portable [id number] IMPRESSION: 1. Bibasilar fibrosis and atelectasis with mildly improved aeration of the bases since previous study. 2. Essentially stable small pleural effusions. Dictated By:Randi Tavares By:Randi Tavares Date/Time:07/13/20 1309DD/ 1308 EKG Data^: EKG 1: Attestation: I personally reviewed and interpreted this EKG as follows: EKG interpretation date: 07/13/20 EKG interpretation time: 16:52 Prior EKG tracings: not available for review Interpretation: Sinus rhythm. Heart rate 80 bpm. Right axis deviation. Intraventricular conduction delay. No ST changes Computer generated interpretation: Chest X-Ray 07/13/20 12:19 IMPRESSION: 1. Bibasilar fibrosis and atelectasis with mildly improved aeration of the bases since previous study. 2. Essentially stable small pleural effusions. EKG 2: Attestation: I personally reviewed and interpreted this EKG as follows: EKG interpretation date: 07/13/20 EKG interpretation time: 17:34 Prior EKG tracings: available for review Interpretation: Sinus rhythm. Heart rate 79 bpm. Right axis deviation. No ST changes. No significant change from earlier today. Computer generated interpretation: Chest X-Ray 07/13/20 12:19 IMPRESSION: 1. Bibasilar fibrosis and atelectasis with mildly improved aeration of the bases since previous study. 2. Essentially stable small pleural effusions. Discharge Plan Discharge Patient Disposition: Home Clinical Impression: Cough, Pleural effusion Condition: Stable Prescriptions: Continued nitroglycerin [Nitrostat] 0.4 mg tablet, sublingual 0.4 mg SUBLINGUAL Q5M PRN (Reason: CHEST PAINS) RF: 0 levothyroxine 150 mcg capsule 150 mcg PO DAILY@0900 RF: 0 mirtazapine 15 mg tablet 15 mg PO BEDTIME@2100 RF: 0 pantoprazole 40 mg tablet,delayed release (DR/EC) 40 mg PO DAILY@0900 RF: 0 Cimzia 400 mg/2 mL (200 mg/mL x 2) syringe kit See Rx Instructions .ROUTE .COMPLEX Qty: 2 RF: 5 amiodarone 200 mg tablet 200 mg PO DAILY@0900 Qty: 90 RF: 3 Eliquis 5 mg tablet 5 mg PO BID@0900,2100 Qty: 180 RF: 3 acetaminophen [Tylenol Extra Strength] 500 mg Tablet 1,000 mg PO PRN RF: 0 RenaPlex-D 800 mcg-12.5 mg -2,000 unit tablet 1 tab PO DAILY@0900 RF: 0 clopidogrel 75 mg tablet 75 mg PO DAILY@0900 RF: 0 atorvastatin 40 mg Tablet 40 mg PO BEDTIME@2100 RF: 0 lidocaine-prilocaine [Lido-Prilo Josemanuel Pack] 2.5-2.5 % Kit See Rx Instructions .ROUTE .COMPLEX RF: 0 bisacodyl 5 mg Tablet,Delayed Release (Dr/Ec) 5 mg PO DAILY PRN (Reason: Constipation) RF: 0 isosorbide dinitrate 30 mg tablet 30 mg PO DAILY@0900 RF: 0 diltiazem HCl 120 mg capsule,extended release 24hr 120 mg PO DAILY@0900 RF: 0 amlodipine 10 mg Tablet 10 mg PO DAILY@0900 RF: 0 cetirizine 10 mg Tablet 10 mg PO DAILY@0900 RF: 0 ondansetron 4 mg tablet,disintegrating 4 mg PO Q6H PRN (Reason: nausea and vomiting) Qty: 14 RF: 0 Discharge Orders: Discharge ED (Routine); Ordered 07/13/20 Ordered By: Angelica Mar Referrals: Hanane Saldaña MD [Primary Care Provider] - 1-3 days Discharge Diet: Usual diet Discharge Activity: Increase activity as tolerated Patient Instructions: Pleural Effusion (ED), Acute Cough (ED) Activity Restrictions/Additional Instructions: Return for any new or worsening symptoms. Follow up with your primary care provider within 3 days. Continue your current medications. The fluid outside of your lungs is small and does not need to be drained at this time. It is not any worse than it was the last time around. Coding Level of Care Code ED Subassembly Assembler for Brendan Fwd Exam Comprehensive
[2020-07-13 18:07] LABS: Troponin 5 2HR 53.45 ng/L (0-15)
[2020-07-13 18:26] LABS: Troponin 5 2HR Delta -5.55 ABS# (0-10)
[2020-07-13 18:52] VITALS: BP 108/72; PULSE 82; RESP 17; O2SAT 96
== END 2020-07-13 18:54 | disposition home or self-care (01) ==
PROVIDERS: Physician Assistant; Emergency Provider Family Medicine; PCP Family Medicine
DX: R05 Cough (principal); J90 Pleural effusion, not elsewhere classified; Z79.01 Long term (current) use of anticoagulants; Z79.02 Long term (current) use of antithrombotics/antiplatelets; E78.5 Hyperlipidemia, unspecified; I13.2 Hypertensive heart and chronic kidney disease with heart failure and with stage 5 chronic kidney disease, or end stage renal disease; E13.22 Other specified diabetes mellitus with diabetic chronic kidney disease; N18.6 End stage renal disease; I50.9 Heart failure, unspecified; I25.2 Old myocardial infarction; I48.91 Unspecified atrial fibrillation
CPT/HCPCS: 36415; 71045; 80053; 83880; 84484; 85025; 93005; 99283

== ENCOUNTER 2020-07-26 20:53 | Emergency (ER) | payer MEDICARE, MEDICAID, SELFPAY ==
[2020-07-26 20:59] VITALS: BP 115/66; PULSE 82; RESP 20; TEMP 36.6; O2SAT 85; BMI 31.9
--- NOTE | 2020-07-26 21:07 | ECG_ITS ---
[facility] Test Date: 2020-07-26 Pat Name: Paul Cornelius Department: Room: Gender: Male Body Care Manager: : 1945 Requested By: Yanet Gutierrez Order Number: [id number] Justin MD: Walt Mcdonald M.D. Measurements Intervals [place] Rate: 78 P: [place]: QRS: -25 QRSD: 114 T: -8 QT: 413 QTc: 472 Interpretive Statements SUPRAVENTRICULAR RHYTHM BORDERLINE LEFT AXIS DEVIATION [QRS AXIS < -20] MODERATE INTRAVENTRICULAR CONDUCTION DELAY [110+ ms QRS DURATION] MODERATE ST DEPRESSION [0.05+ mV ST DEPRESSION] Compared to ECG 07/13/2020 16:52:16 Supraventricular rhythm now present Sinus rhythm no longer present Right-axis deviation no longer present Prolonged QT interval no longer present ST (T wave) deviation still present Electronically Signed On 07-27-2020 19:10:25 CDT by Walt Mcdonald M.D. [id number]
--- NOTE | 2020-07-26 21:07 | W.ED.NAVMDI ---
HPI - Nausea/Vomiting/Diarrhea General: Chief complaint: Neck Pain/Injury Stated complaint: nausea, vomitting, diarrhea Time Seen by Provider: 07/26/20 21:00 Source: patient Mode of arrival: ambulatory Limitations: no limitations History of Present Illness: HPI Narrative: 75-year-old male who is currently on dialysis for end-stage renal disease. He states that over the last day he has been having vomiting diarrhea and generalized weakness. He states he is also had a cough along with some chest pain. He denies any worsening improving factors. He does have dialysis Sunday and did go today. Patient is 95% here on 4 L when he is on 4 L at home. Associated nausea: Yes Associated symtoms: Reports chest pain and nausea; Denies dysuria or headache(s) Review of Systems Const: Denies: fever(s), chills, body aches or change in appetite Eyes: Denies: blurry vision or eye discomfort ENMT: Denies: throat pain or dental pain Card: Reports: chest pain Resp: Reports: dyspnea and productive cough GI: Reports: nausea, vomiting and diarrhea : Denies: dysuria Musc: Denies: neck pain or back pain Skin/Breast: Denies: rash Neuro: Denies: headache(s) Psych: Denies: depression Frank/Lymph: Denies: easy bruising All/Imm: Denies: urticaria PFSH ED PFSH: Medical History Anemia ASHD (arteriosclerotic heart disease) Atrial fibrillation BPH (benign prostatic hyperplasia) CHF (congestive heart failure) CKD (chronic kidney disease) DDD (degenerative disc disease) Diabetes 1.5, managed as type 2 Diabetic gastroparesis Dyslipidemia ESRD (end stage renal disease) on dialysis GERD (gastroesophageal reflux disease) HTN (hypertension) Hypothyroidism Mitral regurgitation Myocardial infarction PAD (peripheral artery disease) Pulmonary HTN Rheumatoid arthritis Surgical History S/P appendectomy S/P carpal tunnel release S/P cervical spinal fusion S/P cholecystectomy Status post coronary angiogram Family History Father , AGE 61 Cancer LUNG Mother , AGE 62 CHF (congestive heart failure) Social History Smoking and tobacco status: never smoked Marital status: service: No Physical Exam Const: COMMON NORMALS: no acute distress, patient oriented x3 and healthy appearing HENMT: COMMON NORMALS: normocephalic and atraumatic HEAD & SCALP: normocephalic and atraumatic Eye: COMMON NORMALS: Equal, round and reactive pupils present and EOMs intact bilaterally PUPIL: Yes Equal, round and reactive pupils present Neck/C-Spine: COMMON NORMALS: full ROM and supple Chest: COMMONS NORMALS: normal inspection of the chest and normal palpation of entire chest wall Resp: COMMON NORMALS: normal respiratory effort, No retractions and No use of accessory muscles AUSCULTATION: rales Cardio: COMMON NORMALS: regular rate, regular rhythm and No murmurs present (Cardio) RATE: regular rate RHYTHM: regular rhythm GI: COMMON NORMALS: Normal to inspection, nondistended, normoactive bowel sounds present, Soft to palpation, non-tender and no masses PALPATION: Yes Soft to palpation Extremity: COMMON NORMALS: normal to inspection and full ROM Neuro: COMMON NORMALS: patient oriented x3, moves all extremities and no focal motor deficits Psych: COMMON NORMALS: mental status grossly normal, Normal thought process present and cooperative THOUGHT PROCESS: Normal thought process present Skin: COMMON NORMALS: no rashes or lesions noted and no wounds GENERAL SKIN EXAM: no rashes or lesions noted Course Vital Signs: Vital signs: Vital Signs Temperature 97.8 F 07/26/20 20:59 Pulse Rate 81 07/26/20 22:32 Respiratory Rate 20 H 07/26/20 22:32 Blood Pressure 141/71 07/26/20 22:32 Pulse Oximetry 96 07/26/20 22:32 MDM - Nausea/Vomiting/Diarrhea MDM Narrative: Medical decision making narrative: Paul presents here with vomiting likely viral in origin. He feels much improved here. Was unable to give a stool sample while here. He also had some dyspnea but is in no distress here. His pulse ox is 97% on the 4 L he is typically on. CT showed no pneumonia and has bilateral chronic pleural effusions. He is stable for discharge and is to follow-up his PCP in 2 to 4 days return if worsening. Lab Data: Labs: Lab Results 07/26/20 07/26/20 07/26/20 Range/Units 21:15 21:15 21:15 WBC 6.7 (4.0-10.0) 10^3/ uL RBC 3.72 L (4.1-5.3) 10^6/u L Hgb 10.7 L (11.7-16.6) g/dL Hct 34.6 L (42.0-52.0) % MCV 93.0 (80-94) fL MCH 28.8 (28.0-34.0) pg MCHC 30.9 (30.0-36.0) g/dL RDW 16.2 H (12.1-15.1) % Plt Count 139 (130-400) 10^3/c mm MPV 10.6 H (7.4-10.4) fL Neut % (Auto) 73.8 % Lymph % (Auto) 12.6 % [place] % (Auto) 6.4 % Eos % (Auto) 5.5 % Baso % (Auto) 1.6 % Neut # (Auto) 4.95 (1.8-7.7) 10^3/u L Lymph # (Auto) 0.9 (0.8-4.8) 10^3/u L [place] # (Auto) 0.4 (0.2-0.9) 10^3/u L Eos # (Auto) 0.4 (0.0-0.8) 10^3/u L Baso # (Auto) 0.1 (0.0-0.1) 10^3/u L Nucleated RBC % (a uto) 0 % Nucleated RBCs # 0.0 /100WBC Sodium 137 (136-145) mmol/L Potassium 4.3 (3.5-5.1) mmol/L Chloride 97 L (98-107) mmol/L Carbon Dioxide 28 (22-29) mmol/L Anion Gap 16.3 (5-19) BUN 11 (8-23) mg/dL Creatinine 2.9 H (0.7-1.2) mg/dL GFR Calculation Not Reportable Glucose 96 (65-115) mg/dL Calculated Osmolal ity 283 L (285-295) mOsm/k g Calcium 8.3 L (8.5-10.5) mg/dL Total Bilirubin 1.2 (0.15-1.2) mg/dL AST 30 (0-40) U/L ALT 10 (0-41) U/L Alkaline Phosphata se 163 H (40-130) IU/L Troponin T Baselin e 51 H (0-15) ng/L Troponin T 120 Min [place] (0-15) ng/L Delta Troponin T (0-10) ABS# Total Protein 7.3 (6.6-8.7) g/dL Albumin 3.5 (3.5-5.2) g/dL Globulin 3.8 (1.3-4.6) g/dL Lipase 18 (13-60) U/L // Range/Units 22:55 WBC (4.0-10.0) 10^3/ uL RBC (4.1-5.3) 10^6/u L Hgb (11.7-16.6) g/dL Hct (42.0-52.0) % MCV (80-94) fL MCH (28.0-34.0) pg MCHC (30.0-36.0) g/dL RDW (12.1-15.1) % Plt Count (130-400) 10^3/c mm MPV (7.4-10.4) fL Neut % (Auto) % Lymph % (Auto) % [place] % (Auto) % Eos % (Auto) % Baso % (Auto) % Neut # (Auto) (1.8-7.7) 10^3/u L Lymph # (Auto) (0.8-4.8) 10^3/u L [place] # (Auto) (0.2-0.9) 10^3/u L Eos # (Auto) (0.0-0.8) 10^3/u L Baso # (Auto) (0.0-0.1) 10^3/u L Nucleated RBC % (a uto) % Nucleated RBCs # /100WBC Sodium (136-145) mmol/L Potassium (3.5-5.1) mmol/L Chloride (98-107) mmol/L Carbon Dioxide (22-29) mmol/L Anion Gap (5-19) BUN (8-23) mg/dL Creatinine (0.7-1.2) mg/dL GFR Calculation Glucose (65-115) mg/dL Calculated Osmolal ity (285-295) mOsm/k g Calcium (8.5-10.5) mg/dL Total Bilirubin (0.15-1.2) mg/dL AST (0-40) U/L ALT (0-41) U/L Alkaline Phosphata se (40-130) IU/L Troponin T Baselin e (0-15) ng/L Troponin T 120 Min [place] 54.18 H (0-15) ng/L Delta Troponin T 3.18 (0-10) ABS# Total Protein (6.6-8.7) g/dL Albumin (3.5-5.2) g/dL Globulin (1.3-4.6) g/dL Lipase (13-60) U/L Imaging Data^: CXR: Radiologist's impression: [address] [place] [address] XRay Report Signed Patient: Paul Cornelius Unit #: [id number] : 1945 Age/Sex: 75 / M ADM Date: 07/26/20 Loc: ER Room/Bed: Attending Dr: Ordering Provider/Ordering MD: Yanet Gutierrez MD Date of Service: 07/26/20 Procedure(s): XR chest 1V portable [id number] Accession Number(s): [id number] Report Number: [id number] PROCEDURE INFORMATION: Exam: XR Chest Exam date and time: 07/26/2020 9:12 PM Age: 75 years old Clinical indication: Shortness of breath; Additional info: Cough TECHNIQUE: Imaging protocol: XR of the chest. Views: 1 view. COMPARISON: CR XR chest 1V portable [id number] 07/13/2020 12:28 PM FINDINGS: There is moderate to prominent ill-defined opacification in bilateral mid to lower lung zones, may represent infiltrates, edema/congestion, or a combination thereof. Findings appear similar on right and increased on left. There again appear to be bilateral pleural effusions. There is scattered pulmonary scarring bilaterally. Visualized cardiac silhouette size appears about moderately enlarged. Pericardial effusion not excluded. There are calcifications in the thoracic aorta. Metallic hardware projects over visualized cervical spine. XR/XR chest 1V portable [id number] IMPRESSION: There is moderate to prominent ill-defined opacification in bilateral mid to lower lung zones, may represent infiltrates, edema/congestion, or a combination thereof. Findings appear similar on right and increased on left. There again appear to be bilateral pleural effusions. Visualized cardiac silhouette size appears about moderately enlarged. Pericardial effusion not excluded. CT Chest: Radiologist's impression: [employer] [facility] [employer] [address] [address] Scan Report Signed with Addenda Patient: Paul Cornelius Unit #: [id number] : 1945 Age/Sex: 75 / M ADM Date: 07/26/20 Loc: ER Room/Bed: Attending Dr: Ordering Provider/Ordering MD: Yanet Gutierrez MD Date of Service: 07/26/20 Procedure(s): CT chest w con* [id number] Accession Number(s): [id number] Report Number: [id number]/CT chest w con* [id number] Obviously the letters He under Impression section number 2 are voice instrument tester errors. These errors are common and present in most reports created by computer instrument tester. Radiation Dose CTDIVOL = (mGy): DLP = 976.11 (mGy-cm) Addendum Dictated By: Rebeca Young MD Addendum Signed By: Rebeca Young MD Signed Date/Time: 07/26/20 269 Addendum Cosigned By: PROCEDURE INFORMATION: Exam: CT Chest With Contrast; Diagnostic Exam date and time: 07/26/2020 10:42 PM Age: 75 years old Clinical indication: Sternal or substernal pain; Additional info: Cp TECHNIQUE: Imaging protocol: Diagnostic computed tomography of the chest with contrast. Radiation optimization: All CT scans at this facility use at least one of these dose optimization techniques: automated exposure control; mA and/or kV adjustment per patient size (includes targeted exams where dose is matched to clinical indication); or iterative reconstruction. Contrast material: VISI 320; Contrast volume: 70 ml; Contrast route: INTRAVENOUS (IV); COMPARISON: CT angio chest PE protcl [id number] 01/21/2020 7:25 PM RADIATION DOSE METRICS: Total DLP (mGy-cm): 976.11 FINDINGS: Lungs: See Pleural spaces finding. Pleural spaces: Small bilateral pleural effusions. Next item right-sided chronic calcified pleural plaques with basilar atelectasis. Heart: Multifocal coronary atherosclerosis. Next item both cardiac atria are enlarged. Aorta: Unremarkable. No aortic aneurysm. Lymph nodes: Central mediastinal lymph nodes are increased in number but are not pathologically enlarged all measuring 1 cm or less. Gallbladder and bile ducts: The gallbladder is surgically absent. Spleen: The spleen is upper limits of normal in size. Intraperitoneal space: Small upper abdominal ascites. Bones/joints: Unremarkable. No acute fracture. Soft tissues: Unremarkable. CT/CT chest w con* [id number] IMPRESSION: 1. No pulmonary embolism or pneumonia. 2. He Bilateral pleural effusions with chronic pleural calcifications on the right which are new since 2017. Radiation Dose CTDIVOL = (mGy): DLP = 976.11 ( EKG Data^: EKG 1: Attestation: I personally reviewed and interpreted this EKG as follows: EKG interpretation date: 07/26/20 EKG interpretation time: 21:38 Interpretation: Normal sinus rhythm heart rate [address] or T wave abnormalities QRS 114 QTC 446 Discharge Plan Discharge Patient Disposition: Home Clinical Impression: ESRD (end stage renal disease) on dialysis Vomiting Qualifiers: Vomiting type: unspecified Vomiting Intractability: non-intractable Nausea presence: with nausea Qualified Code(s): R11.2 - Nausea with vomiting, unspecified Dyspnea Qualifiers: Dyspnea type: unspecified Qualified Code(s): R06.00 - Dyspnea, unspecified Condition: Stable Prescriptions: New ondansetron 4 mg tablet,disintegrating 4 mg PO Q6H PRN (Reason: nausea and vomiting) Qty: 14 RF: 0 No Action nitroglycerin [Nitrostat] 0.4 mg tablet, sublingual 0.4 mg SUBLINGUAL Q5M PRN (Reason: CHEST PAINS) RF: 0 levothyroxine 150 mcg capsule 150 mcg PO DAILY@0900 RF: 0 mirtazapine 15 mg tablet 15 mg PO BEDTIME@2100 RF: 0 pantoprazole 40 mg tablet,delayed release (DR/EC) 40 mg PO DAILY@0900 RF: 0 Cimzia 400 mg/2 mL (200 mg/mL x 2) syringe kit See Rx Instructions .ROUTE .COMPLEX Qty: 2 RF: 5 amiodarone 200 mg tablet 200 mg PO DAILY@0900 Qty: 90 RF: 3 Eliquis 5 mg tablet 5 mg PO BID@0900,2100 Qty: 180 RF: 3 acetaminophen [Tylenol Extra Strength] 500 mg Tablet 1,000 mg PO PRN RF: 0 RenaPlex-D 800 mcg-12.5 mg -2,000 unit tablet 1 tab PO DAILY@0900 RF: 0 clopidogrel 75 mg tablet 75 mg PO DAILY@0900 RF: 0 atorvastatin 40 mg Tablet 40 mg PO BEDTIME@2100 RF: 0 lidocaine-prilocaine [Lido-Prilo Josemanuel Pack] 2.5-2.5 % Kit See Rx Instructions .ROUTE .COMPLEX RF: 0 bisacodyl 5 mg Tablet,Delayed Release (Dr/Ec) 5 mg PO DAILY PRN (Reason: Constipation) RF: 0 isosorbide dinitrate 30 mg tablet 30 mg PO DAILY@0900 RF: 0 diltiazem HCl 120 mg capsule,extended release 24hr 120 mg PO DAILY@0900 RF: 0 amlodipine 10 mg Tablet 10 mg PO DAILY@0900 RF: 0 cetirizine 10 mg Tablet 10 mg PO DAILY@0900 RF: 0 ondansetron 4 mg tablet,disintegrating 4 mg PO Q6H PRN (Reason: nausea and vomiting) Qty: 14 RF: 0 Discharge Orders: Discharge ED (Routine); Ordered 07/26/20 Ordered By: Yanet Gutierrez Referrals: Hanane Saldaña MD [Primary Care Provider] - 1-3 days Discharge Diet: Advance as tolerated Discharge Activity: Resume usual activity Patient Instructions: Acute Nausea and Vomiting (ED), Dyspnea (ED) Coding Level of Care Code ED Cash Surrender Calculator for Jasbirg Fwd Exam Comprehensive
[2020-07-26] MEDS: ondansetron 2 mg/ML SDV 2 mL 4 MG IVP (21:21)
[2020-07-26 21:24] LABS: Basophils # 0.1 10^3/uL (0.0-0.1); Basophils % 1.6 %; Eosinophils # 0.4 10^3/uL (0.0-0.8); Eosinophils % 5.5 %; Hematocrit 34.6 % (42.0-52.0); Hemoglobin 10.7 g/dL (11.7-16.6); Lymphocytes # 0.9 10^3/uL (0.8-4.8); Lymphocytes % 12.6 %; Mean Corpuscular HGB Conc 30.9 g/dL (30.0-36.0); Mean Corpuscular Hemoglobin 28.8 pg (28.0-34.0); Mean Platelet Volume 10.6 fL (7.4-10.4); Monocytes # 0.4 10^3/uL (0.2-0.9); Monocytes % 6.4 %; Neutrophils # 4.95 10^3/uL (1.8-7.7); Neutrophils % 73.8 %; Nucleated Red Blood Cells % 0 %; Platelet Count 139 10^3/cmm (130-400); Red Blood Count 3.72 10^6/uL (4.1-5.3); Red Cell Distribution Width 16.2 % (12.1-15.1); White Blood Count 6.7 10^3/uL (4.0-10.0)
[2020-07-26 21:47] LABS: Troponin(5th) Baseline 51 ng/L (0-15)
[2020-07-26 21:50] LABS: Alanine Aminotransferase 10 U/L (0-41); Albumin Level 3.5 g/dL (3.5-5.2); Alkaline Phosphatase 163 IU/L (40-130); Blood Urea Nitrogen 11 mg/dL (8-23); Calcium 8.3 mg/dL (8.5-10.5); Carbon Dioxide 28 mmol/L (22-29); Chloride 97 mmol/L (98-107); Creatinine Clr Calc Pharmacy 29.4722; Globulin 3.8 g/dL (1.3-4.6); Glucose 96 mg/dL (65-115); Lipase 18 U/L (13-60); Osmolality Calculated 283 mOsm/kg (285-295); Sodium 137 mmol/L (136-145); Total Bilirubin 1.2 mg/dL (0.15-1.2); Total Protein 7.3 g/dL (6.6-8.7)
[2020-07-26 22:15] LABS: Anion Gap 16.3 (5-19); Aspartate Amino Transferase 30 U/L (0-40); Potassium 4.3 mmol/L (3.5-5.1)
--- NOTE | 2020-07-26 22:18 | CTR_ITS ---
PROCEDURE INFORMATION: Exam: CT Chest With Contrast; Diagnostic Exam date and time: 07/26/2020 10:42 PM Age: 75 years old Clinical indication: Sternal or substernal pain; Additional info: Cp TECHNIQUE: Imaging protocol: Diagnostic computed tomography of the chest with contrast. Radiation optimization: All CT scans at this facility use at least one of these dose optimization techniques: automated exposure control; mA and/or kV adjustment per patient size (includes targeted exams where dose is matched to clinical indication); or iterative reconstruction. Contrast material: VISI 320; Contrast volume: 70 ml; Contrast route: INTRAVENOUS (IV); COMPARISON: CT angio chest PE protcl [id number] 01/21/2020 7:25 PM RADIATION DOSE METRICS: Total DLP (mGy-cm): 976.11 FINDINGS: Lungs: See Pleural spaces finding. Pleural spaces: Small bilateral pleural effusions. Next item right-sided chronic calcified pleural plaques with basilar atelectasis. Heart: Multifocal coronary atherosclerosis. Next item both cardiac atria are enlarged. Aorta: Unremarkable. No aortic aneurysm. Lymph nodes: Central mediastinal lymph nodes are increased in number but are not pathologically enlarged all measuring 1 cm or less. Gallbladder and bile ducts: The gallbladder is surgically absent. Spleen: The spleen is upper limits of normal in size. Intraperitoneal space: Small upper abdominal ascites. Bones/joints: Unremarkable. No acute fracture. Soft tissues: Unremarkable. CT/CT chest w con* [id number] IMPRESSION: 1. No pulmonary embolism or pneumonia. 2. He Bilateral pleural effusions with chronic pleural calcifications on the right which are new since 2017. Radiation Dose CTDIVOL = (mGy): DLP = 976.11 (mGy-cm)
[2020-07-26 22:32] VITALS: BP 141/71; PULSE 81; RESP 20; O2SAT 96
[2020-07-26] MEDS: iodixanol 320 mg/mL 100mL Btl IV (22:42)
[2020-07-26 23:23] LABS: Troponin 5 2HR 54.18 ng/L (0-15); Troponin 5 2HR Delta 3.18 ABS# (0-10)
[2020-07-26 23:43] VITALS: BP 135/68; PULSE 89; RESP 20; O2SAT 96
== END 2020-07-26 23:44 | disposition home or self-care (01) ==
PROVIDERS: Emergency Provider Emergency Medicine; PCP Family Medicine
DX: R11.2 Nausea with vomiting, unspecified (principal); R06.00 Dyspnea, unspecified; E13.22 Other specified diabetes mellitus with diabetic chronic kidney disease; I13.2 Hypertensive heart and chronic kidney disease with heart failure and with stage 5 chronic kidney disease, or end stage renal disease; I50.9 Heart failure, unspecified; N18.6 End stage renal disease; Z99.2 Dependence on renal dialysis; Z79.01 Long term (current) use of anticoagulants; Z79.02 Long term (current) use of antithrombotics/antiplatelets; I48.91 Unspecified atrial fibrillation; E78.5 Hyperlipidemia, unspecified; I25.2 Old myocardial infarction
CPT/HCPCS: 71045; 71260; 80053; 83690; 84484; 85025; 93005; 96374; 99284; J2405; Q9967

== ENCOUNTER 2020-08-12 13:52 | Emergency (ER) | payer MEDICARE, MEDICAID, SELFPAY ==
[2020-08-12 13:55] VITALS: BP 131/79; PULSE 84; RESP 18; TEMP 36.7; O2SAT 97; BMI 32.0
--- NOTE | 2020-08-12 14:07 | W.ED.GENADLT ---
HPI - General Adult General: Chief complaint: General Medical Stated complaint: BLEEDING FISTULA Time Seen by Provider: 08/12/20 13:59 History of Present Illness: HPI narrative: 75-year-old male presents emergency room with bleeding from his AV fistula in his right upper arm where they accessed for dialysis yesterday. Began bleeding earlier today.Has had this problem in the past he is on Eliquis as well as clopidogrel.He denies any other illness no chest pain no other sites of bleeding. 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 Onset (ago): minute(s) Location: right and upper extremity Severity: mild Relieving factors: other (Direct pressure) Associated symptoms: Deny chest pain, confusion, cough, diaphoresis, decreased appetite, dyspnea, fevers/chills, headache(s), malaise, nausea, rash, palpitations, seizures, short of breath, syncope, vomiting or weakness Treatments prior to arrival: other (Pressure bandage applied) Review of Systems Const: Denies: malaise or diaphoresis ENMT: Denies: throat pain, ear or mastoid pain, nasal discharge or nasal congestion Card: Denies: chest pain, palpitations or syncope Resp: Denies: dyspnea GI: Denies: nausea or vomiting : Denies: flank pain, dysuria, urinary frequency or urinary urgency Skin/Breast: Denies: rash Neuro: Denies: headache(s) or confusion PFSH ED PFSH: Medical History Anemia ASHD (arteriosclerotic heart disease) Atrial fibrillation BPH (benign prostatic hyperplasia) CHF (congestive heart failure) CKD (chronic kidney disease) DDD (degenerative disc disease) Diabetes 1.5, managed as type 2 Diabetic gastroparesis Dyslipidemia ESRD (end stage renal disease) on dialysis GERD (gastroesophageal reflux disease) HTN (hypertension) Hypothyroidism Mitral regurgitation Myocardial infarction PAD (peripheral artery disease) Pulmonary HTN Rheumatoid arthritis Surgical History S/P appendectomy S/P carpal tunnel release S/P cervical spinal fusion S/P cholecystectomy Status post coronary angiogram Family History Father , AGE 61 Cancer LUNG Mother , AGE 62 CHF (congestive heart failure) Social History Smoking and tobacco status: never smoked Alcohol intake: never Marital status: service: No Physical Exam Const: COMMON NORMALS: no acute distress GENERAL APPEARANCE: cooperative and comfortable ORIENTATION/CONSCIOUSNESS: Yes awake, Yes oriented to person, Yes oriented to place and Yes oriented to time HENMT: COMMON NORMALS: normocephalic, atraumatic and hearing grossly normal bilaterally HEAD & SCALP: normocephalic and atraumatic Neck/C-Spine: COMMON NORMALS: no JVD Resp: COMMON NORMALS: normal respiratory effort, No retractions, No use of accessory muscles and clear to auscultation bilaterally AUSCULTATION: clear to auscultation bilaterally Cardio: COMMON NORMALS: no JVD, regular rate, regular rhythm and No murmurs present (Cardio) RATE: regular rate RHYTHM: regular rhythm GI: COMMON NORMALS: Soft to palpation and No hepatosplenomegaly present AUSCULTATION: Yes normoactive bowel sounds PALPATION: Yes Soft to palpation, No Tenderness to palpation present (GI), No Guarding due to palpation present (GI) and Yes No hepatosplenomegaly present Extremity: NARRATIVE EXTREMITY EXAM: Bleeding from puncture wound in the left upper arm of the AV fistula controlled initially by direct pressure ultimately a small myayfr-dt-tshos suture applied which controlled the bleeding from the skin see notes below Neuro: SENSORIUM/ORIENTATION: Yes oriented to person, Yes oriented to place and Yes oriented to time Procedures Laceration Laceration 1: Site: upper extremity Side (If applicable): left Local Anesthetic: lidocaine 1% Size (cm): 5-0 (Single wklvqj-[id number] suture) Number of sutures: 1 Course Vital Signs: Vital signs: Vital Signs Temperature 98.0 F 08/12/20 13:55 Pulse Rate 92 08/12/20 18:29 Respiratory Rate 18 08/12/20 18:29 Blood Pressure 117/69 08/12/20 18:29 Pulse Oximetry 93 08/12/20 18:29 MDM - General Adult MDM Narrative: Medical decision making narrative: Direct pressure applied but each time it was removed patient began to bleed again however I was able to control the bleeding by simply compressing the surface of the skin laterally. After several attempts to get it to stop by direct pressure a single 50 dlxjty-ew-eqlck suture was placed with 5-0 suture with care only to place a suture to the level of the dermis. This provided good control of bleeding she was observed for a time we also ultrasounded the AV fistula there is no evidence of hematoma development under the skin and there is good blood flow through the AV fistula. Patient discharged home. 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 He is scheduled for Lab Data: Labs: Lab Results 08/12/20 Range/Units 14:19 WBC 5.3 (4.0-10.0) 10^3/ uL RBC 3.40 L (4.1-5.3) 10^6/u L Hgb 9.8 L (11.7-16.6) g/dL Hct 32.1 L (42.0-52.0) % MCV 94.4 H (80-94) fL MCH 28.8 (28.0-34.0) pg MCHC 30.5 (30.0-36.0) g/dL RDW 17.0 H (12.1-15.1) % Plt Count 93 L (130-400) 10^3/c mm MPV 9.7 (7.4-10.4) fL Neut % (Auto) 57.8 % Lymph % (Auto) 22.0 % [place] % (Auto) 10.2 % Eos % (Auto) 7.7 % Baso % (Auto) 1.9 % Neut # (Auto) 3.08 (1.8-7.7) 10^3/u L Lymph # (Auto) 1.2 (0.8-4.8) 10^3/u L [place] # (Auto) 0.5 (0.2-0.9) 10^3/u L Eos # (Auto) 0.4 (0.0-0.8) 10^3/u L Baso # (Auto) 0.1 (0.0-0.1) 10^3/u L Nucleated RBC % (a uto) 0 % Nucleated RBCs # 0.0 /100WBC Discharge Plan Discharge Patient Disposition: Home Clinical Impression: Hemorrhage of arteriovenous fistula, Thrombocytopenia Condition: Stable Prescriptions: No Action nitroglycerin [Nitrostat] 0.4 mg tablet, sublingual 0.4 mg SUBLINGUAL Q5M PRN (Reason: CHEST PAINS) RF: 0 levothyroxine 150 mcg capsule 150 mcg PO DAILY@0900 RF: 0 mirtazapine 15 mg tablet 15 mg PO BEDTIME@2100 RF: 0 pantoprazole 40 mg tablet,delayed release (DR/EC) 40 mg PO DAILY@0900 RF: 0 Cimzia 400 mg/2 mL (200 mg/mL x 2) syringe kit See Rx Instructions .ROUTE .COMPLEX Qty: 2 RF: 5 amiodarone 200 mg tablet 200 mg PO DAILY@0900 Qty: 90 RF: 3 Eliquis 5 mg tablet 5 mg PO BID@0900,2100 Qty: 180 RF: 3 acetaminophen [Tylenol Extra Strength] 500 mg Tablet 1,000 mg PO PRN RF: 0 RenaPlex-D 800 mcg-12.5 mg -2,000 unit tablet 1 tab PO DAILY@0900 RF: 0 clopidogrel 75 mg tablet 75 mg PO DAILY@0900 RF: 0 atorvastatin 40 mg Tablet 40 mg PO BEDTIME@2100 RF: 0 lidocaine-prilocaine [Lido-Prilo Josemanuel Pack] 2.5-2.5 % Kit See Rx Instructions .ROUTE .COMPLEX RF: 0 bisacodyl 5 mg Tablet,Delayed Release (Dr/Ec) 5 mg PO DAILY PRN (Reason: Constipation) RF: 0 ondansetron 4 mg tablet,disintegrating 4 mg PO Q6H PRN (Reason: nausea and vomiting) Qty: 14 RF: 0 amlodipine 5 mg tablet 5 mg PO DAILY@0900 RF: 0 isosorbide mononitrate 60 mg tablet extended release 24 hr 60 mg PO DAILY@0900 RF: 0 diltiazem HCl [Cardizem] 30 mg tablet 30 mg PO BID@0900,2100 RF: 0 cetirizine 10 mg Tablet 10 mg PO DAILY@0900 RF: 0 Discharge Orders: Discharge ED (Routine); Ordered 08/12/20 Ordered By: Terrell Peñaloza Referrals: Hanane Saldaña MD [Primary Care Provider] - Discharge Diet: Usual diet Discharge Activity: Resume usual activity Patient Instructions: Opioid Safety Activity Restrictions/Additional Instructions: Follow-up with your doctor tomorrow on the thrombocytopenia and difficulty you had with the AV fistula. Return if bleeding recurs. Coding Level of Care Code ED Commissioned Sales Associate for Brendan Cummings
[2020-08-12 14:28] LABS: Basophils # 0.1 10^3/uL (0.0-0.1); Basophils % 1.9 %; Eosinophils # 0.4 10^3/uL (0.0-0.8); Eosinophils % 7.7 %; Hematocrit 32.1 % (42.0-52.0); Hemoglobin 9.8 g/dL (11.7-16.6); Lymphocytes # 1.2 10^3/uL (0.8-4.8); Mean Corpuscular HGB Conc 30.5 g/dL (30.0-36.0); Mean Corpuscular Hemoglobin 28.8 pg (28.0-34.0); Mean Corpuscular Volume 94.4 fL (80-94); Mean Platelet Volume 9.7 fL (7.4-10.4); Monocytes # 0.5 10^3/uL (0.2-0.9); Monocytes % 10.2 %; Neutrophils # 3.08 10^3/uL (1.8-7.7); Neutrophils % 57.8 %; Nucleated Red Blood Cells % 0 %; Platelet Count 93 10^3/cmm (130-400); White Blood Count 5.3 10^3/uL (4.0-10.0)
[2020-08-12] MEDS: lidocaine 1% INJ 20 mL INJECTION (15:27)
[2020-08-12 15:53] VITALS: BP 117/69; RESP 15; O2SAT 97
--- NOTE | 2020-08-12 16:42 | USR_ITS ---
NOTE: Report was unsigned for reason: Order was edited. Original Signature date and time was: 08/12/2020 1846 PROCEDURE INFORMATION: Exam: US Duplex Hemodialysis Access Exam date and time: 08/12/2020 4:42 PM Age: 75 years old Clinical indication: Symptoms: Bleeding profusely from site that PT received dialysis yesterday; Prior surgery; Surgery date: 6+ months; Surgery type: PT has ripe dialysis shunt RT upper arm. ; Patient HX: Often used shunt for dialysis. Starting this am the pt's dialysis (where needle was inserted) started bleeding and could not easily stop. Finally felt they should come to er; Additional info: Av fistula for patency and subq hemmorhage TECHNIQUE: Imaging protocol: US Duplex hemodialysis access with moody scale, color Doppler, and spectral waveform analysis. Vascular access, inflow and outflow were evaluated. COMPARISON: No relevant prior studies available. FINDINGS: Vascular access: Vascular access is patent. Normal waveforms. No perigraft fluid. No acute traumatic pseudoaneurysm. [place] is mildly aneurysmal. Arterial inflow: Not clearly delineated. Venous outflow: Not clearly delineated. Soft tissues: Visualized soft tissue is unremarkable. No focal soft tissue hematoma identified. [facility] US/US soft tissue/extremity [id number] IMPRESSION: 1. Hemodialysis vascular access is patent. 2. No focal soft tissue hematoma identified.
[2020-08-12 18:01] VITALS: BP 117/69; PULSE 92; RESP 18; O2SAT 93
[2020-08-12 18:29] VITALS: BP 117/69; PULSE 92; RESP 18; O2SAT 93
== END 2020-08-12 18:30 | disposition home or self-care (01) ==
PROVIDERS: Emergency Provider Family Medicine; PCP Family Medicine
DX: T82.838A Hemorrhage due to vascular prosthetic devices, implants and grafts, initial encounter (principal); D69.6 Thrombocytopenia, unspecified; Z79.01 Long term (current) use of anticoagulants; Z79.02 Long term (current) use of antithrombotics/antiplatelets; I13.2 Hypertensive heart and chronic kidney disease with heart failure and with stage 5 chronic kidney disease, or end stage renal disease; E13.22 Other specified diabetes mellitus with diabetic chronic kidney disease; N18.6 End stage renal disease; I50.9 Heart failure, unspecified; E78.5 Hyperlipidemia, unspecified; I25.2 Old myocardial infarction
CPT/HCPCS: 36415; 76882; 85025; 93990; 99283

== ENCOUNTER 2020-08-18 14:03 | Observation (INO) | payer MEDICARE, MEDICAID, SELFPAY ==
[2020-08-18 14:33] VITALS: BP 124/72; PULSE 82; RESP 18; TEMP 36.4; O2SAT 94; BMI 32.0
--- NOTE | 2020-08-18 16:46 | XRR_ITS ---
PROCEDURE INFORMATION: Exam: XR Chest Exam date and time: 08/18/2020 4:46 PM Age: 75 years old Clinical indication: Shortness of breath; Additional info: Reduced breath sounds TECHNIQUE: Imaging protocol: XR of the chest. Views: 1 view. COMPARISON: 1. CT chest w con* [id number] 07/26/2020 10:37 PM 2. CR (CHEST, ) 07/26/2020 9:19 PM 3. CR XR chest 1V portable [id number] 07/13/2020 12:28 PM 4. CR XR chest 1V portable [id number] 07/05/2020 4:10 PM FINDINGS: Lungs: There is persistent atelectasis or scarring at the right lung base not changed from 07/26/2020. There is some minimal subsegmental atelectasis at the left lung base. Left basilar atelectasis is improved compared with previous. Pleural spaces: There are small bilateral pleural effusions. Heart/Mediastinum: Heart is within normal limits of size. Vasculature: There are atherosclerotic changes in the aortic arch. Bones/joints: Unremarkable. XR/XR chest 1V portable [id number] IMPRESSION: 1. Small bilateral pleural effusions. 2. Basilar atelectasis.
--- NOTE | 2020-08-18 16:49 | ECG_ITS ---
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 Measurements Intervals [place] Rate: 79 P: CT: QRS: -50 QRSD: 140 T: 108 QT: 478 QTc: 549 Interpretive Statements Paroxysmal atrial tachycardia with a 2-1 block MARKED LEFT AXIS DEVIATION [QRS AXIS < -30] INTRAVENTRICULAR CONDUCTION DELAY [130+ ms QRS DURATION] POSSIBLE ANTERIOR MYOCARDIAL INFARCTION [30 ms Q WAVE IN V3/V4, OR R < 0.2 mV IN V4], PROBABLY OLD Compared to ECG 07/26/2020 21:38:31 Myocardial infarct finding now present Supraventricular rhythm no longer present ST (T wave) deviation no longer present Electronically Signed On 08-18-2020 20:07:48 CDT by Jeanette Aguilar M.D. [id number]
[2020-08-18 16:53] VITALS: BP 110/52; PULSE 79; RESP 18; O2SAT 97
[2020-08-18 17:24] LABS: Basophils # 0.1 10^3/uL (0.0-0.1); Eosinophils # 0.4 10^3/uL (0.0-0.8); Eosinophils % 7.8 %; Hematocrit 32.9 % (42.0-52.0); Hemoglobin 9.9 g/dL (11.7-16.6); Lymphocytes # 1.2 10^3/uL (0.8-4.8); Lymphocytes % 21.8 %; Mean Corpuscular HGB Conc 30.1 g/dL (30.0-36.0); Mean Corpuscular Hemoglobin 28.9 pg (28.0-34.0); Mean Corpuscular Volume 95.9 fL (80-94); Mean Platelet Volume 10.9 fL (7.4-10.4); Monocytes # 0.5 10^3/uL (0.2-0.9); Monocytes % 9.1 %; Neutrophils # 3.25 10^3/uL (1.8-7.7); Neutrophils % 58.9 %; Nucleated Red Blood Cells % 0 %; Platelet Count 131 10^3/cmm (130-400); Red Blood Count 3.43 10^6/uL (4.1-5.3); Red Cell Distribution Width 17.4 % (12.1-15.1); White Blood Count 5.5 10^3/uL (4.0-10.0)
[2020-08-18 17:50] LABS: Alanine Aminotransferase 9 U/L (0-41); Albumin Level 3.2 g/dL (3.5-5.2); Alkaline Phosphatase 157 IU/L (40-130); Anion Gap 12.9 (5-19); Aspartate Amino Transferase 18 U/L (0-40); Blood Urea Nitrogen 11 mg/dL (8-23); Calcium 8.3 mg/dL (8.5-10.5); Carbon Dioxide 29 mmol/L (22-29); Chloride 97 mmol/L (98-107); Glucose 86 mg/dL (65-115); Osmolality Calculated 279 mOsm/kg (285-295); Potassium 3.9 mmol/L (3.5-5.1); Sodium 135 mmol/L (136-145); Total Bilirubin 0.8 mg/dL (0.15-1.2); Total Protein 7.2 g/dL (6.6-8.7)
[2020-08-18 17:51] LABS: Lipase 28 U/L (13-60)
--- NOTE | 2020-08-18 18:21 | CTR_ITS ---
PROCEDURE INFORMATION: Exam: CT Abdomen And Pelvis Without Contrast Exam date and time: 08/18/2020 6:21 PM Age: 75 years old Clinical indication: Nausea and vomiting and other: Blood in stool; Prior surgery; Surgery type: Appy, gb; Patient HX: Blood in stool yesterday, vomiting blood today after dialysis; Additional info: Vomiting blood/diarrhea blood. On eliquis. Dialysis TECHNIQUE: Imaging protocol: Computed tomography of the abdomen and pelvis without contrast. Radiation optimization: All CT scans at this facility use at least one of these dose optimization techniques: automated exposure control; mA and/or kV adjustment per patient size (includes targeted exams where dose is matched to clinical indication); or iterative reconstruction. COMPARISON: 1. CT abdomen pelvis wo con [id number] 06/03/2020 11:[address] abdomen pelvis wo con [id number] 04/11/2020 1:46 AM RADIATION DOSE METRICS: Total DLP (mGy-cm): 2016.78 FINDINGS: Limitations: The absence of intravenous contrast lessens the sensitivity of this study for solid organ abnormalities. Lungs: There is stable scarring or subsegmental atelectasis at the lung bases. Pleural spaces: There is a small left pleural effusion new from previous. Periphery calcified loculated right pleural effusion not significantly changed. Liver: There is no focal abnormality within the liver. Gallbladder and bile ducts: There has been a cholecystectomy. Pancreas: The pancreas is normal. Spleen: Peripheral splenic calcifications stable from previous. Adrenal glands: The adrenal glands are normal. Kidneys and ureters: Renal atrophy not changed from previous. Bilateral small renal cysts not significantly changed. There is no evidence of hydronephrosis. There is no evidence of renal or ureteral calcifications. Stomach and bowel: There is no evidence of colitis/diverticulitis. There is no evidence of intestinal obstruction. Appendix: Not Identified Intraperitoneal space: There is a moderate amount of free intraperitoneal fluid present. Vasculature: The aorta demonstrates moderate atherosclerotic calcification. There is no evidence of an abdominal aortic aneurysm. Lymph nodes: There are mildly prominent external iliac lymph nodes on both sides measuring up to 11 x 21 mm on the left and also small periaortic lymph nodes not significantly changed. There also small periaortic and inguinal lymph nodes. Urinary bladder: Unremarkable as visualized. Reproductive: The prostate gland demonstrates nonspecific parenchymal calcifications. Bones/joints: Unremarkable. No acute fracture. Soft tissues: Unremarkable. CT/CT abdomen pelvis wo con [id number] IMPRESSION: 1. Moderate ascites which is a new finding. 2. Small left pleural effusion, smaller than on CT chest 07/26/2020 3. Other findings essentially stable compared with previous Radiation Dose CTDIVOL = (mGy): DLP = 2016.78 (mGy-cm)
[2020-08-18 18:31] VITALS: BP 113/61; PULSE 77; RESP 18; O2SAT 94
[2020-08-18 20:26] VITALS: BP 108/48; PULSE 78; RESP 20; O2SAT 94
--- NOTE | 2020-08-18 21:09 | ED_ITS ---
HPI - GI Bleed General: Chief complaint: GI Bleed Stated complaint: RECTAL BLEEDING Time Seen by Provider: 08/18/20 16:45 History of Present Illness: HPI Narrative: Patient is a 75-year-old male with past medical history end-stage renal disease on dialysis Sunday. He went to dialysis and vomited dark red blood. He says last night he had dark-colored stools a couple different times. He takes Eliquis after he had stents placed earlier this year. He has not had bleeding issues. Denies liver disease. Denies alcoholism or history of severe alcohol intake. Vitals are stable and he appears comfortable. Hemoccult grossly positive on exam Onset (ago): day(s) (1) Severity: moderate Relieving factors: none Exacerbating factors: vomiting Context: anticoagulant use (eliquis) Associated symptoms: Reports no associated symptoms, nausea and vomiting; Denies abdominal pain, headache(s) or rash Review of Systems General: Reports: 10 or more systems reviewed and unremarkable except in HPI and below Const: Denies: fatigue Eyes: Denies: change in vision, blurry vision or eye redness ENMT: Denies: throat pain, swelling of lips/tongue, ear or mastoid pain or nasal congestion Card: Denies: chest pain, palpitations, irregular heart rhythm, edema, dyspnea on exertion or orthopnea Resp: Denies: dyspnea, productive cough or non-productive cough GI: Reports: nausea, vomiting, hematemesis and hematochezia; Denies: abdominal pain, diarrhea or GI cramping : Denies: flank pain, urinary frequency or urinary urgency Musc: Denies: neck pain, back pain, extremity pain, joint pain, joint redness, limited range of motion or muscle weakness Skin/Breast: Denies: rash, pruritus, erythema, skin pain or skin tenderness Neuro: Denies: headache(s), numbness in extremities, weakness in extremities, sensory changes, difficulty walking, dizziness, confusion or Slurred speech present Psych: Denies: anxiety or depression Endo: Denies: polyuria All/Imm: Denies: urticaria, throat swelling or tongue swelling PFSH ED PFSH: Medical History Anemia ASHD (arteriosclerotic heart disease) Atrial fibrillation BPH (benign prostatic hyperplasia) CHF (congestive heart failure) CKD (chronic kidney disease) DDD (degenerative disc disease) Diabetes 1.5, managed as type 2 Diabetic gastroparesis Dyslipidemia ESRD (end stage renal disease) on dialysis GERD (gastroesophageal reflux disease) HTN (hypertension) Hypothyroidism Mitral regurgitation Myocardial infarction PAD (peripheral artery disease) Pulmonary HTN Rheumatoid arthritis Surgical History S/P appendectomy S/P carpal tunnel release S/P cervical spinal fusion S/P cholecystectomy Status post coronary angiogram Family History Father , AGE 61 Cancer LUNG Mother , AGE 62 CHF (congestive heart failure) Social History Smoking and tobacco status: never smoked Alcohol intake: never Marital status: service: No Physical Exam Const: COMMON NORMALS: no acute distress, average body habitus, patient oriented x3, no limitations, healthy appearing, alert and well nourished GENERAL APPEARANCE: cooperative, comfortable, well kempt and well developed ORIENTATION/CONSCIOUSNESS: Yes awake, Yes oriented to person, Yes oriented to place and Yes oriented to time HENMT: COMMON NORMALS: normocephalic, external ears normal and Normal external nose present HEAD & SCALP: normal to inspection and normocephalic NOSE: Normal external nose present EXTERNAL EAR: Yes external ears normal MOUTH: Normal oral and palatal mucosa present THROAT: posterior oropharynx normal Eye: COMMON NORMALS: Equal, round and reactive pupils present and EOMs intact bilaterally GENERAL EYE: appearance normal, both eyes and all related structures PUPIL: Yes Equal, round and reactive pupils present Neck/C-Spine: COMMON NORMALS: full ROM, no lymphadenopathy, no meningeal signs and no JVD GENERAL: Yes normal visual inspection Lymph: LYMPHATIC: no lymphadenopathy noted Chest: COMMONS NORMALS: normal inspection of the chest and normal palpation of entire chest wall Resp: COMMON NORMALS: normal respiratory effort, No retractions, No use of accessory muscles, clear to auscultation bilaterally and percussion normal EFFORT & INSPECTION: Yes able to speak in complete sentences AUSCULTATION: clear to auscultation bilaterally PERCUSSION: percussion normal Cardio: COMMON NORMALS: no JVD, regular rate, regular rhythm, S1 normal heart sound present, S2 normal heart sound present and Peripheral pulses 2+ throughout RATE: regular rate RHYTHM: regular rhythm HEART SOUNDS: S1 normal heart sound present and S2 normal heart sound present PERIPHERAL PULSES: Peripheral pulses 2+ throughout GI: COMMON NORMALS: Normal to inspection, nondistended, normoactive bowel sounds present, Soft to palpation, non-tender and no masses INSPECTION: Yes normal to inspection PALPATION: Yes Soft to palpation OTHER: Stool grossly positive for ocult blood. : COMMON NORMALS: Yes no CVA tenderness BLADDER/KIDNEY EXAM: Yes no CVA tenderness Back/Pelvis: COMMON NORMALS: no CVA tenderness, thoracic and lumbar spine normal to inspection, no thoracic nor lumbar tenderness and thoraco-lumbar ROM normal Extremity: COMMON NORMALS: normal to inspection, full ROM, capillary refill normal, no joint enlargement and no pedal edema GENERAL: Yes normal exam except as noted Neuro: COMMON NORMALS: patient oriented x3, CN's II-XII intact bilaterally, moves all extremities, no focal motor deficits, no sensory deficits noted and gait normal SENSORIUM/ORIENTATION: Yes alert, Yes oriented to person, Yes oriented to place and Yes oriented to time MENINGEAL SIGNS: Yes no meningeal signs Psych: COMMON NORMALS: mental status grossly normal, Normal thought process present, cooperative, normal affect and speech normal APPEARANCE: Yes well kempt ATTITUDE: Yes calm SPEECH: Yes normal speech THOUGHT PROCESS: Normal thought process present Skin: COMMON NORMALS: no rashes or lesions noted GENERAL SKIN EXAM: no rashes or lesions noted Course Vital Signs: Vital signs: Vital Signs Temperature 97.6 F 08/18/20 14:33 Pulse Rate 78 08/18/20 20:26 Respiratory Rate 20 H 08/18/20 20:26 Blood Pressure 108/48 08/18/20 20:26 Pulse Oximetry 94 08/18/20 20:26 MDM - GI Bleed MDM Narrative: Medical decision making narrative: Patient came to the ER complaining of a couple episodes of vomiting blood and a couple episodes of diarrhea dark stool yesterday. Today he was at dialysis and vomited 1 time dark red blood. He has no history of liver disease but he does take Eliquis. He has coronary artery disease and had couple of stents placed earlier this year and he was started on Eliquis at that time. Also has history of A. fib. He has never had a GI bleed before and has been tolerating the Eliquis well until now. Discussed with Dr. Blackwell who agrees to consult on this patient and Dr. Groves accepts for observation. Lab Data: Labs: Lab Results 08/18/20 08/18/20 08/18/20 Range/Units 17:10 17:10 17:10 WBC 5.5 (4.0-10.0) 10^3/ uL RBC 3.43 L (4.1-5.3) 10^6/u L Hgb 9.9 L (11.7-16.6) g/dL Hct 32.9 L (42.0-52.0) % MCV 95.9 H (80-94) fL MCH 28.9 (28.0-34.0) pg MCHC 30.1 (30.0-36.0) g/dL RDW 17.4 H (12.1-15.1) % Plt Count 131 (130-400) 10^3/c mm MPV 10.9 H (7.4-10.4) fL Neut % (Auto) 58.9 % Lymph % (Auto) 21.8 % [place] % (Auto) 9.1 % Eos % (Auto) 7.8 % Baso % (Auto) 2.0 % Neut # (Auto) 3.25 (1.8-7.7) 10^3/u L Lymph # (Auto) 1.2 (0.8-4.8) 10^3/u L [place] # (Auto) 0.5 (0.2-0.9) 10^3/u L Eos # (Auto) 0.4 (0.0-0.8) 10^3/u L Baso # (Auto) 0.1 (0.0-0.1) 10^3/u L Nucleated RBC % (a uto) 0 % Nucleated RBCs # 0.0 /100WBC Sodium 135 L (136-145) mmol/L Potassium 3.9 (3.5-5.1) mmol/L Chloride 97 L (98-107) mmol/L Carbon Dioxide 29 (22-29) mmol/L Anion Gap 12.9 (5-19) BUN 11 (8-23) mg/dL Creatinine 3.2 H (0.7-1.2) mg/dL GFR Calculation Not Reportable Glucose 86 (65-115) mg/dL Calculated Osmolal ity 279 L (285-295) mOsm/k g Calcium 8.3 L (8.5-10.5) mg/dL Total Bilirubin 0.8 (0.15-1.2) mg/dL AST 18 (0-40) U/L ALT 9 (0-41) U/L Alkaline Phosphata se 157 H (40-130) IU/L Total Protein 7.2 (6.6-8.7) g/dL Albumin 3.2 L (3.5-5.2) g/dL Globulin 4.0 (1.3-4.6) g/dL Lipase 28 (13-60) U/L Discharge Plan Discharge Patient Disposition: Placed in Observation Clinical Impression: Acute upper gastrointestinal bleeding, Dialysis patient Coding Level of Care Code ED Toll Ticket Clerk for Brendan Fwd Exam Comprehensive
--- NOTE | 2020-08-18 21:09 | PM.HP ---
Providers/Chief Complaint Primary Care Provider: Hanane Saldaña MD Chief Complaint: RECTAL BLEEDING History of Present Illness Paul Cornelius is a 75 year old male who presented from dialysis center after experiencing an episode of hematemesis. Patient is stating that for last 1 week he has been noticing dark-colored stools. He denies previous history of portal hypertension, liver disease hematemesis or GI bleed. He is compliant with his medications and is dialysis dependent Sunday. His athletic events scorer is Dr. Briseno. Patient is stating that after his dialysis today all of a sudden he started feeling sick to his stomach and he vomited. He could not noticed the color of his vomitus however he was told that there was blood in it. Hence he was transferred to the ER for further evaluation. On arrival his blood pressure was normal 121/57 mmHg, heart rate 88, clinically he was not looking dehydrated or fluid overloaded, he only experienced [address] Blackwell was notified and consulted. Review of Systems Const: Denies: fever(s) or chills Eyes: Denies: change in vision ENMT: Denies: throat pain Card: Denies: chest pain Resp: Denies: dyspnea GI: Reports: melena; Denies: abdominal pain : Denies: flank pain Musc: Denies: neck pain Skin/Breast: Denies: rash Neuro: Denies: headache(s) Psych: Denies: anxiety Endo: Denies: polyuria Frank/Lymph: Denies: easy bruising All/Imm: Denies: urticaria Medications/Allergies Home Medications Medication Instructions Recorded Confirmed Last Taken Type levothyroxine 150 mcg capsule 150 mcg PO DAILY@0904/11/19 08/12/20 08/12/20 History mirtazapine 15 mg tablet 15 mg PO BEDTIME@2100 04/11/19 08/12/20 08/11/20 History nitroglycerin 0.4 mg sublingual 0.4 mg SUBLINGUAL Q5M PRN 04/11/19 08/12/20 04/19/20 06:00 History tablet pantoprazole 40 mg tablet,delayed 40 mg PO DAILY@0900 04/11/19 08/12/20 08/12/20 History release cetirizine 10 mg PO DAILY@0900 01/21/20 08/12/20 08/12/20 History RenaPlex-D 1 tab PO DAILY@0900 02/03/20 08/12/20 08/12/20 History acetaminophen [Tylenol Extra 1,000 mg PO PRN 02/03/20 08/12/20 05/06/20 History Strength] clopidogrel 75 mg PO DAILY@0900 05/07/20 08/12/20 08/12/20 History amiodarone 200 mg tablet 200 mg PO DAILY@0900 #90 tab 06/01/20 08/12/20 08/12/20 Rx atorvastatin 40 mg PO BEDTIME@2100 06/04/20 08/12/20 08/11/20 History bisacodyl 5 mg PO DAILY PRN 06/04/20 08/12/20 Unknown History lidocaine-prilocaine [Lido-Prilo See Rx Instructions .ROUTE .COMPLEX 06/04/20 08/12/20 08/11/20 History Josemanuel Pack] certolizumab pegol See Rx Instructions .ROUTE 06/15/20 08/12/20 07/16/20 Rx .COMPLEX #2 ea apixaban 5 mg tablet 5 mg PO BID@0900,2100 #180 tab 06/30/20 08/12/20 08/12/20 Rx ondansetron 4 mg PO Q6H PRN #14 tab 07/26/20 08/12/20 Unknown Rx amlodipine 5 mg PO DAILY@0900 08/12/20 08/12/20 08/12/20 History diltiazem HCl [Cardizem] 30 mg PO BID@0900,2100 08/12/20 08/12/20 08/12/20 History isosorbide mononitrate 60 mg PO DAILY@0900 08/12/20 08/12/20 08/12/20 History Allergies Allergy/AdvReac Type Severity Reaction Status Date / Time No Known Allergies Allergy Verified 08/12/20 14:02 PFSH Acute PFSH: Medical History Anemia ASHD (arteriosclerotic heart disease) Atrial fibrillation BPH (benign prostatic hyperplasia) CHF (congestive heart failure) CKD (chronic kidney disease) DDD (degenerative disc disease) Diabetes 1.5, managed as type 2 Diabetic gastroparesis Dyslipidemia ESRD (end stage renal disease) on dialysis GERD (gastroesophageal reflux disease) HTN (hypertension) Hypothyroidism Mitral regurgitation Myocardial infarction PAD (peripheral artery disease) Pulmonary HTN Rheumatoid arthritis Surgical History S/P appendectomy S/P carpal tunnel release S/P cervical spinal fusion S/P cholecystectomy Status post coronary angiogram Family History Father , AGE 61 Cancer LUNG Mother , AGE 62 CHF (congestive heart failure) Social History Smoking and tobacco status: never smoked Alcohol intake: never Marital status: service: No Vitals/I&O/Wt Last Vital Signs Temp 97.6 F 08/18/20 14:33 Pulse 78 08/18/20 20:26 Resp 20 H 08/18/20 20:26 BP 108/48 08/18/20 20:26 Pulse Ox 94 08/18/20 20:26 Weight last 48 hrs Weight 110.223 kg Physical Exam Narrative: EXAM NARRATIVE: Very pleasant cooperative male was laying comfortably in his bed EOMI, PERRLA No signs of fluid overload or dehydration, variable S1-S2 No acute respiratory distress no audible stridor or wheezing Abdomen soft nontender bowel sound present Right arm fistula Lower extremity no edema gangrene ulcer Venous stasis dermatitis treatment skin eczema noted No joint swelling EOMI, PERRLA no neurological deficit Awake alert oriented x3 GCS 15. Left abdominal pain signs of peritonitis, no recurrent episode of hematemesis Data : 08/18/20 17:10 08/18/20 17:10 A&P Assessment and plan (1) Hematemesis: Status: Acute (2) ESRD on dialysis: Status: Acute (3) Melanotic stools: Status: Acute Additional A&P Information Hematemesis Isolated event, patient does not drink alcohol no previous history of portal hypertension, no previous history of gastric ulcers, he takes Eliquis His last Eliquis dose was in the morning 08/18/2020 Currently hemodynamically stable hemoglobin seems to be around baseline, He is endorsing black/dark stools for last 1 week Of note, patient did not notice blood in his vomitus, this was reported by the nursing staff at the dialysis center I would hold Eliquis for now keep him n.p.o., Dr. Blackwell has been consulted by the ER physician Protonix 40 IV twice daily I would not start him on maintenance fluid because of his dialysis dependency, he is hemodynamically stable, no urgent need of endoscopy Full code DVT prophylaxis: SCD Attestations Medical Necessity Statement*: Anticipating discharge within 48 hours, overnight monitoring needed because of isolated event of hematemesis patient endorsing melanotic stools Time Spent in Patient Care: (>than 50% of time spent in counselling and/or direct pt care on unit). 30mins Coding Level of Care Code Acute Automotive Mechanical Engineer for Chg Fwd Diagnoses Hematemesis K92.0 ESRD on dialysis N18.6; Z99.2 Melanotic stools K92.1
[2020-08-18 21:53] VITALS: BP 121/57; PULSE 88; RESP 20; O2SAT 93
[2020-08-18] MEDS: HYDROcodone-acetaminophen 5-325 mg Tablet 1 TAB PO (22:08)
[2020-08-18 23:20] VITALS: BP 133/78; PULSE 82; RESP 16; TEMP 36.6; O2SAT 90
[2020-08-19] VITALS (12 sets, daily range): BP systolic 81–124; BP diastolic 45–81; PULSE 72–154; RESP 15–26; TEMP 36.1–36.9; O2SAT 90–98
[2020-08-19] MEDS: pantoprazole 40 mg SDV IVP ×3 (00:47→22:48)
--- NOTE | 2020-08-19 05:43 | P.CONIM_ITS ---
Providers/Reason For Consult Consulting Physician/Specialty*: General Surgery Donte Blackwell MD Reason for Consult*: Requesting EGD for melena and hematemesis. Attending Physician: Roger Groves MD Primary Care Provider: Hanane Saldaña MD History of Present Illness History of Present Illness Paul Cornelius is a 75 year old male who says that he has been having melanotic stool for about a week. Yesterday during dialysis he became nauseated and vomited and there was apparently some evidence of some dark blood. He was brought to the emergency room and was found to be hemodynamically stable but was admitted for further management. The patient says he has been on a blood thinner for a long time for a history of coronary artery disease, but he says he underwent a couple cardiac stent placements about a month ago and was placed on a second anticoagulant at that time. He does have both Plavix and Eliquis on his medication list. He denies any abdominal pain other than some occasional right lower quadrant discomfort which has been going on for some time. The patient has a history of some mild gastritis that was found back in 2016. He is taking Protonix once a day. He denies any heartburn, significant reflux symptoms, etc. Review of Systems General: Reports: 10 or more systems reviewed and unremarkable except in HPI and below Const: Denies: fever(s) GI: Reports: abdominal pain (Right lower quadrant, intermittent), nausea, vomiting (X1), hematemesis (X1) and hematochezia (X1 week) Meds/Allergies Home Medications and Allergies Home Medications Medication Instructions Recorded Confirmed Last Taken Type levothyroxine 150 mcg capsule 150 mcg PO DAILY@0900 04/11/19 08/12/20 08/12/20 History mirtazapine 15 mg tablet 15 mg PO BEDTIME@2100 04/11/19 08/12/20 08/11/20 History nitroglycerin 0.4 mg sublingual 0.4 mg SUBLINGUAL Q5M PRN 04/11/19 08/12/20 04/19/20 06:00 History tablet pantoprazole 40 mg tablet,delayed 40 mg PO DAILY@0900 04/11/19 08/12/20 08/12/20 History release cetirizine 10 mg PO DAILY@0900 01/21/20 08/12/20 08/12/20 History RenaPlex-D 1 tab PO DAILY@0900 02/03/20 08/12/20 08/12/20 History acetaminophen [Tylenol Extra 1,000 mg PO PRN 02/03/20 08/12/20 05/06/20 History Strength] clopidogrel 75 mg PO DAILY@0900 05/07/20 08/12/20 08/12/20 History amiodarone 200 mg tablet 200 mg PO DAILY@0900 #90 tab 06/01/20 08/12/20 08/12/20 Rx atorvastatin 40 mg PO BEDTIME@2100 06/04/20 08/12/20 08/11/20 History bisacodyl 5 mg PO DAILY PRN 06/04/20 08/12/20 Unknown History lidocaine-prilocaine [Lido-Prilo See Rx Instructions .ROUTE .COMPLEX 06/04/20 08/12/20 08/11/20 History Josemanuel Pack] certolizumab pegol See Rx Instructions .ROUTE 06/15/20 08/12/20 07/16/20 Rx .COMPLEX #2 ea apixaban 5 mg tablet 5 mg PO BID@0900,2100 #180 tab 06/30/20 08/12/20 08/12/20 Rx ondansetron 4 mg PO Q6H PRN #14 tab 07/26/20 08/12/20 Unknown Rx amlodipine 5 mg PO DAILY@0900 08/12/20 08/12/20 08/12/20 History diltiazem HCl [Cardizem] 30 mg PO BID@0900,2100 08/12/20 08/12/20 08/12/20 History isosorbide mononitrate 60 mg PO DAILY@0900 08/12/20 08/12/20 08/12/20 History Allergies Allergy/AdvReac Type Severity Reaction Status Date / Time No Known Allergies Allergy Verified 08/12/20 14:02 Current Medications Current Medications Generic Name Dose Route Start Last Admin Trade Name Freq PRN Reason Stop Dose Admin Pantoprazole Sodium 40 mg 08/18/20 23:06 08/19/20 00:47 Pantoprazole 40 Mg Sdv IVP 40 mg Q12H ANNEMARIE Administration PFSH Acute PFSH: Medical History (Updated 08/19/20 @ 05:53 by Donte Blackwell MD) Anemia ASHD (arteriosclerotic heart disease) Atrial fibrillation BPH (benign prostatic hyperplasia) CHF (congestive heart failure) CKD (chronic kidney disease) Colon polyps DDD (degenerative disc disease) Diabetes 1.5, managed as type 2 Diabetic gastroparesis Dyslipidemia ESRD (end stage renal disease) on dialysis GERD (gastroesophageal reflux disease) HTN (hypertension) Hypothyroidism Mitral regurgitation Myocardial infarction PAD (peripheral artery disease) Pulmonary HTN Rheumatoid arthritis Surgical History (Updated 08/19/20 @ 05:53 by Donte Blackwell MD) History of colonoscopy 02/2015 --2 small adenomatous polyps History of esophagogastroduodenoscopy (EGD) 02/2015 --mild gastritis Personal history of surgery to other organs Hemodialysis catheters, peritoneal dialysis catheter, dialysis fistula S/P appendectomy S/P carpal tunnel release S/P cervical spinal fusion S/P cholecystectomy Status post coronary angiogram Family History Father , AGE 61 Cancer LUNG Mother , AGE 62 CHF (congestive heart failure) Social History Smoking and tobacco status: never smoked Alcohol intake: never Marital status: service: No Vitals/I&O/Wt Last Vital Signs Temp 97.8 F 08/19/20 03:59 Pulse 90 08/19/20 03:59 Resp 15 08/19/20 03:59 BP 124/81 08/19/20 03:59 Pulse Ox 90 08/19/20 03:59 Weight last 48 hrs Weight 243 lb Physical Exam Narrative: EXAM NARRATIVE: The patient was encountered in his hospital room. He does not appear to be in any distress. The pupils seem equal. No carotid bruits are heard. The lungs are clear anteriorly. The heart is regularly irregular; it sounds like the patient may be in bigeminy. The abdomen is moderately obese but is soft. He does not have any appreciable tenderness to my exam. The lower extremities reveal no edema but there has been an amputation of the great toe on the left side. The patient has a dialysis fistula in the right upper extremity. Neurologically the patient appears to be grossly intact. A&P Assessment and plan (1) Hematemesis: The patient reportedly just had a single episode of hematemesis yesterday, but has been having melanotic stool x1 week. He denies any upper GI symptoms otherwise. He has been on BOTH Plavix and Eliquis over the past month. They are both on hold currently. I discussed another EGD with the patient in some detail this morning. Risks of the procedure were gone over. He seems to understand and agrees to proceed. The patient will be kept n.p.o. and we will proceed with an EGD this morning. Status: Acute (2) Melanotic stools: As above. Status: Acute (3) History of gastritis: The patient was found to have some mild gastritis on an EGD in 2015. Status: Acute (4) Anemia: The patient's hemoglobin was around 10 yesterday on presentation. His laboratory studies are still pending this morning, but I would not be surprised to see his hemoglobin a little lower this morning given equilibration. There does not appear to be any obvious significant ongoing bleeding at present. Status: Acute Consult Attestations Medical Necessity Statement: See admitting service's notation. Coding Level of Care Code Acute Light Bulb Tester [facility] Diagnoses Hematemesis K92.0 Melanotic stools K92.1 History of gastritis Z87.19 Anemia D64.9
[2020-08-19 05:44] LABS: Basophils # 0.1 10^3/uL (0.0-0.1); Basophils % 1.8 %; Eosinophils # 0.4 10^3/uL (0.0-0.8); Eosinophils % 7.1 %; Hematocrit 32.1 % (42.0-52.0); Hemoglobin 9.8 g/dL (11.7-16.6); Lymphocytes # 0.9 10^3/uL (0.8-4.8); Lymphocytes % 18.4 %; Mean Corpuscular HGB Conc 30.5 g/dL (30.0-36.0); Mean Corpuscular Hemoglobin 28.9 pg (28.0-34.0); Mean Corpuscular Volume 94.7 fL (80-94); Mean Platelet Volume 10.5 fL (7.4-10.4); Monocytes # 0.6 10^3/uL (0.2-0.9); Monocytes % 11.1 %; Neutrophils % 61.4 %; Nucleated Red Blood Cells % 0 %; Platelet Count 121 10^3/cmm (130-400); Red Blood Count 3.39 10^6/uL (4.1-5.3); Red Cell Distribution Width 17.3 % (12.1-15.1); White Blood Count 5.1 10^3/uL (4.0-10.0)
[2020-08-19 05:59] LABS: Anion Gap 11.1 (5-19); Blood Urea Nitrogen 13 mg/dL (8-23); Calcium 8.1 mg/dL (8.5-10.5); Carbon Dioxide 30 mmol/L (22-29); Chloride 98 mmol/L (98-107); Glucose 77 mg/dL (65-115); Osmolality Calculated 279 mOsm/kg (285-295); Potassium 4.1 mmol/L (3.5-5.1); Sodium 135 mmol/L (136-145)
[2020-08-19] MEDS: sodium chloride 0.9% 1,000 ML 30 ML IV (07:25)
[2020-08-19] MEDS: ondansetron 2 mg/ML SDV 2 mL 4 MG IVP (07:47)
--- NOTE | 2020-08-19 08:09 | ANES.PREANE2 ---
Pre-Anesthetic Assessment Pre-Anesthetic Assessment: Height/Weight: Height 1.85 m Weight 110.223 kg Temp Pulse Resp BP Pulse Ox 97 F L 154 H 18 85/55 91 08/19/20 07:09 08/19/20 07:09 08/19/20 07:09 08/19/20 07:09 08/19/20 07:09 Preop Diagnosis: Heme + Proposed Procedure: Operation Date: 08/19/20 08:15 Proposed Procedures p EGD(Not Applicable) - Donte Blackwell MD Last intake: Intake Last Liquid Date 08/18/20 Last Solid Date 08/17/20 Last Solid Time 00:00 Social: Social History: No alcohol and No tobacco Exam: Pre-Anes Outpt Exam: alert, oriented x 3, clear to auscultation bilaterally and regular rate & rhythm History/ROS: No significant history except as noted and No significant complaints Pulmonary: Comments: Pulm HTN CV/HEM: CV/HEM: Afib, CAD, HTN and PA : : None reported Hepatic: Hepatic: None reported GI: GI: GERD Metabolic: Metabolic: DM Musc/skel: Musc/skel: None reported Neuropsych: Neuropsych: None reported Anesthetic Plan: ASA status: 4 Anesthesia: Anesthesia Evaluation and MAC Risk of > 500 ml blood loss (7ml/kg in children): No Meds/Allergies Current Medications: Current Medications Generic Name Dose Route Start Last Admin Trade Name Freq PRN Reason Stop Dose Admin Sodium Chloride 1,000 mls @ 30 ml s/hr 08/19/20 07:15 08/19/20 07:25 Sodium Chloride 0.9% IV 08/20/20 07:14 30 mls/hr .Q24H ANNEMARIE Administration Ondansetron HCl 4 mg 08/19/20 07:05 08/19/20 07:47 Ondansetron 2 Mg /Ml Sdv 2 Ml IVP 4 mg Q15M PRN Administration Nausea/Vomiting P ACU PHASE II Pantoprazole Sodiu m 40 mg 08/18/20 23:06 08/19/20 00:47 Pantoprazole 40 Mg Sdv IVP 40 mg Q12H ANNEMARIE Administration PFSH Anesthesia PFSH: Medical History (Updated 08/19/20 @ 06:05 by Donte Blackwell MD) Amputation of toe of left foot Anemia ASHD (arteriosclerotic heart disease) Atrial fibrillation BPH (benign prostatic hyperplasia) CHF (congestive heart failure) CKD (chronic kidney disease) Colon polyps DDD (degenerative disc disease) Diabetes 1.5, managed as type 2 Diabetic gastroparesis Dyslipidemia ESRD (end stage renal disease) on dialysis GERD (gastroesophageal reflux disease) HTN (hypertension) Hypothyroidism Mitral regurgitation Myocardial infarction PAD (peripheral artery disease) Pulmonary HTN Rheumatoid arthritis Surgical History (Updated 08/19/20 @ 06:04 by Donte Blackwell MD) History of colonoscopy 02/2015 --2 small adenomatous polyps History of esophagogastroduodenoscopy (EGD) 02/2015 --mild gastritis Personal history of surgery to other organs Hemodialysis catheters, peritoneal dialysis catheter, dialysis fistula S/P appendectomy S/P carpal tunnel release S/P cervical spinal fusion S/P cholecystectomy Status post coronary angiogram Status post coronary artery stent placement x2 Family History Father , AGE 61 Cancer LUNG Mother , AGE 62 CHF (congestive heart failure) Social History Smoking and tobacco status: never smoked Alcohol intake: never Marital status: service: No Data Anesthesia CBC & Chem 7: 08/19/20 05:35 08/19/20 05:35 Other Labs: Laboratory Results - last 48 hr 08/18/20 08/18/20 08/18/20 17:10 17:10 17:10 WBC 5.5 RBC 3.43 L Hgb 9.9 L Hct 32.9 L MCV 95.9 H MCH 28.9 MCHC 30.1 RDW 17.4 H Plt Count 131 MPV 10.9 H Neut % (Auto) 58.9 Lymph % (Auto) 21.8 [place] % (Auto) 9.1 Eos % (Auto) 7.8 Baso % (Auto) 2.0 Neut # (Auto) 3.25 Lymph # (Auto) 1.2 [place] # (Auto) 0.5 Eos # (Auto) 0.4 Baso # (Auto) 0.1 Nucleated RBC % (auto) 0 Nucleated RBCs # 0.0 Sodium 135 L Potassium 3.9 Chloride 97 L Carbon Dioxide 29 Anion Gap 12.9 BUN 11 Creatinine 3.2 H GFR Calculation Not Reportable Glucose 86 Calculated Osmolality 279 L Calcium 8.3 L Total Bilirubin 0.8 AST 18 ALT 9 Alkaline Phosphatase 157 H Total Protein 7.2 Albumin 3.2 L Globulin 4.0 Lipase 28 08/19/20 08/19/20 05:35 05:35 WBC 5.1 RBC 3.39 L Hgb 9.8 L Hct 32.1 L MCV 94.7 H MCH 28.9 MCHC 30.5 RDW 17.3 H Plt Count 121 L MPV 10.5 H Neut % (Auto) 61.4 Lymph % (Auto) 18.4 [place] % (Auto) 11.1 Eos % (Auto) 7.1 Baso % (Auto) 1.8 Neut # (Auto) 3.10 Lymph # (Auto) 0.9 [place] # (Auto) 0.6 Eos # (Auto) 0.4 Baso # (Auto) 0.1 Nucleated RBC % (auto) 0 Nucleated RBCs # 0.0 Sodium 135 L Potassium 4.1 Chloride 98 Carbon Dioxide 30 H Anion Gap 11.1 BUN 13 Creatinine 4.2 H GFR Calculation Not Reportable Glucose 77 Calculated Osmolality 279 L Calcium 8.1 L Total Bilirubin AST ALT Alkaline Phosphatase Total Protein Albumin Globulin Lipase Cardiac Studies: No Data to Display
--- NOTE | 2020-08-19 08:18 | PC.PHAR ---
pts lula verified medications-lula states the pt use to use lantus but hasnt used for 7-8 months-ext med history shows last filled on 11/01/2019-pt states the medication entered are the med the pt takes
--- NOTE | 2020-08-19 11:14 | PC.CHAP ---
Pastoral Care Encounter/Spiritual Assessment Type of Contact [] Declined manager of application development visit [] Patient/Family/Request visit [] Outpatient visit [] Follow-up visit [] Physician referral [] Code/Alert [x] Routine visit [] Staff referral [] Actively dying [] Patient sleeping [] Family support [] [] Out of room [] Palliative care [] [x] Receiving care in room [] Pre-surgical visit [] Trauma [] Long length of stay [] ICU visit [] Other: Relational/Emotional Strength [] Patient feels connected with others/family/visitors/staff [x] Distress [] Loneliness/isolation [] Abandonment Spirituality of Patient [] Person of Jesika [] Attends Taoist of their Jesika [] Believes in Prayer [] Reads Bible or Taoism materials [] There are Spiritual issues to be addressed Dock Supervisor Interventions [] Prayer [] Active listening [] Non-anxious presence [] Spiritual/emotional support [] Crisis/trauma care [] Spiritual counseling [] Bereavement support [] Provided bereavement packet [] Provided Bible/devotional materials [] Provided toy/stuffed animal, coloring book to patient or family member [] Provided Communion [] Anointing/[place] [] Salvation [] Completed spiritual assessment [] Other: Impact on Illness or Injury [] Angry [] Fearful [x] Anxious [] Often cries [] Exhaustion [x] Unable to work [] Unable to attend congregation [] Unable to walk/stand [] Unable to read [] Unable to drive [] Unable to eat/drink [] Unable to sleep [] Unable to be with family [] Patient intubated [] Other: Summary with nurse and family unable to communicate Time spent with patient 10 mins
[2020-08-19] MEDS: acetaminophen 325 mg Tablet 650 MG PO (12:27)
--- NOTE | 2020-08-19 14:13 | PM.CONSULT ---
Providers/Reason For Consult Consulting Physician/Specialty*: Teresa Dasilva DO, telenephrology Reason for Consult*: ESRD Attending Physician: Luis Mcclure MD Primary Care Provider: Hanane Saldaña MD History of Present Illness History of Present Illness Paul Cornelius is a 75 year old male presented to hospital yesterday from dialysis with hematemesis. No further emesis today. Review of Systems Card: Denies: chest pain Resp: Denies: dyspnea Meds/Allergies Home Medications and Allergies Home Medications Medication Instructions Recorded Confirmed Last Taken Type mirtazapine 15 mg tablet 15 mg PO BEDTIME@2100 04/11/19 08/19/20 08/11/20 History nitroglycerin 0.4 mg sublingual 0.4 mg SUBLINGUAL Q5M PRN 04/11/19 08/19/20 04/19/20 06:00 History tablet pantoprazole 40 mg tablet,delayed 40 mg PO DAILY@0900 04/11/19 08/19/20 08/12/20 History release cetirizine 10 mg PO DAILY@0900 01/21/20 08/19/20 08/12/20 History RenaPlex-D 1 tab PO DAILY@0900 02/03/20 08/19/20 08/12/20 History acetaminophen [Tylenol Extra 1,000 mg PO PRN 02/03/20 08/19/20 05/06/20 History Strength] clopidogrel 75 mg PO DAILY@0900 05/07/20 08/19/20 08/12/20 History amiodarone 200 mg tablet 200 mg PO DAILY@0900 #90 tab 06/01/20 08/19/20 08/12/20 Rx atorvastatin 40 mg PO BEDTIME@2100 06/04/20 08/19/20 08/11/20 History lidocaine-prilocaine [Lido-Prilo See Rx Instructions .ROUTE .COMPLEX 06/04/20 08/19/20 08/11/20 History Josemanuel Pack] certolizumab pegol See Rx Instructions .ROUTE 06/15/20 08/19/20 07/16/20 Rx .COMPLEX #2 ea apixaban 5 mg tablet 5 mg PO BID@0900,2100 #180 tab 06/30/20 08/19/20 08/12/20 Rx ondansetron 4 mg PO Q6H PRN #14 tab 07/26/20 08/19/20 Unknown Rx amlodipine 5 mg PO DAILY@0900 08/12/20 08/19/20 08/12/20 History diltiazem HCl [Cardizem] 30 mg PO BID@0900,2100 08/12/20 08/19/20 08/12/20 History isosorbide mononitrate 60 mg PO DAILY@0900 08/12/20 08/19/20 08/12/20 History docusate sodium [Colace] 100 mg PO DAILY PRN 08/19/20 08/19/20 Unknown History levothyroxine 150 mcg PO QAM 08/19/20 08/19/20 Unknown History Allergies Allergy/AdvReac Type Severity Reaction Status Date / Time No Known Allergies Allergy Verified 08/19/20 08:18 Current Medications Current Medications Generic Name Dose Route Start Last Admin Trade Name Freq PRN Reason Stop Dose Admin Acetaminophen 650 mg 08/19/20 12:22 08/19/20 12:27 Acetaminophen 325 Mg Tablet PO 650 mg Q6H PRN Administration MILD PAIN Pantoprazole Sodium 40 mg 08/18/20 23:06 08/19/20 11:18 Pantoprazole 40 Mg Sdv IVP 40 mg Q12H ANNEMARIE Administration PFSH Acute PFSH: Medical History Amputation of toe of left foot Anemia ASHD (arteriosclerotic heart disease) Atrial fibrillation BPH (benign prostatic hyperplasia) CHF (congestive heart failure) CKD (chronic kidney disease) Colon polyps DDD (degenerative disc disease) Diabetes 1.5, managed as type 2 Diabetic gastroparesis Dyslipidemia ESRD (end stage renal disease) on dialysis GERD (gastroesophageal reflux disease) HTN (hypertension) Hypothyroidism Mitral regurgitation Myocardial infarction PAD (peripheral artery disease) Pulmonary HTN Rheumatoid arthritis Surgical History History of colonoscopy 02/2015 --2 small adenomatous polyps History of esophagogastroduodenoscopy (EGD) 02/2015 --mild gastritis Personal history of surgery to other organs Hemodialysis catheters, peritoneal dialysis catheter, dialysis fistula S/P appendectomy S/P carpal tunnel release S/P cervical spinal fusion S/P cholecystectomy Status post coronary angiogram Status post coronary artery stent placement x2 Family History Father , AGE 61 Cancer LUNG Mother , AGE 62 CHF (congestive heart failure) Social History Smoking and tobacco status: never smoked Alcohol intake: never Marital status: service: No Vitals/I&O/Wt Last Vital Signs Temp 97.9 F 08/19/20 12:34 Pulse 102 H 08/19/20 12:34 Resp 16 08/19/20 12:34 BP 120/61 08/19/20 12:34 Pulse Ox 98 08/19/20 12:34 08/18/20 08/19/20 08/19/20 22:59 06:59 14:59 Intake Total 400 / 400 Balance 400 / 400 Weight last 48 hrs Weight 110.223 kg Physical Exam Const: COMMON NORMALS: no acute distress GENERAL APPEARANCE: cooperative Extremity: OTHER: RUE AVF + thrill per RN Data Other Data: Other data: Exam: CT Abdomen And Pelvis Without Contrast Exam date and time: 08/18/2020 6:21 PM Kidneys and ureters: Renal atrophy not changed from previous. Bilateral small renal cysts not significantly changed. There is no evidence of hydronephrosis. There is no evidence of renal or ureteral calcifications. Stomach and bowel: There is no evidence of colitis/diverticulitis. There is no evidence of intestinal obstruction. Appendix: Not Identified 1. Moderate ascites which is a new finding. 2. Small left pleural effusion, smaller than on CT chest A&P Additional A&P Information 1. ESRD, HD MWF 2. UGI bleed - Hb stable Plan: HD tomorrow, 3.5 hours, 2L UF, no heparin. No IVs, BPs, blood draws LUE Consult Attestations Medical Necessity Statement: see above Time Spent in Patient Care: 16 - 35 minutes Coding Level of Care Code Acute Color Maker Formulator for Brendan Cummings
--- NOTE | 2020-08-19 14:44 | ANE.PACU2 ---
Inpatient post-anesthesia follow up: Airway intact: Yes Vital signs: Temperature 97.9 F Pulse Rate [Monito r] 82 Pulse Rate 102 Respiratory Rate 16 Blood Pressure [Le ft Arm] 124/72 Blood Pressure 120/61 Pulse Oximetry 98 Oxygen Delivery Me thod Nasal Cannula Oxygen Flow Rate 4 Fraction of Inspir ed Oxygen Hydration adequate: Yes Nausea and vomiting: No Pain level: 2 Mental status: Baseline
[2020-08-19 15:09] LABS: Hepatitis B Surface AB 3.5 (11.5-1000); Hepatitis B Surface Antigen Non-Reactive (Nonreactive); Hepatitis C Virus Antibody Non-Reactive (Nonreactive)
--- NOTE | 2020-08-19 15:13 | P.PN_ITS ---
Subjective Subjective: Interval history: Patient was seen and examined this morning. Overnight H&P Reviewed. Labs and vitals have been reviewed. S/P EGD Medications: Reviewed: Yes Vitals/I&O/Wt Last Vital Signs Temp 97.9 F 08/19/20 12:34 Pulse 102 H 08/19/20 12:34 Resp 16 08/19/20 12:34 BP 120/61 08/19/20 12:34 Pulse Ox 98 08/19/20 12:34 08/19/20 08/19/20 08/19/20 06:59 14:59 22:59 Intake Total 400 / 400 Balance 400 / 400 Weight last 48 hrs Weight 110.223 kg Physical Exam Const: COMMON NORMALS: patient oriented x3 HENMT: COMMON NORMALS: normocephalic and atraumatic HEAD & SCALP: normocephalic and atraumatic Resp: COMMON NORMALS: clear to auscultation bilaterally EFFORT & INSPECTION: Yes symmetric chest movement AUSCULTATION: clear to auscultation bilaterally Cardio: COMMON NORMALS: regular rate, regular rhythm, S1 normal heart sound present, S2 normal heart sound present, No gallops present (Cardio), No murmurs present (Cardio), No rub (Cardio) and Peripheral pulses 2+ throughout RATE: regular rate RHYTHM: regular rhythm HEART SOUNDS: S1 normal heart sound present and S2 normal heart sound present PERIPHERAL PULSES: Peripheral pulses 2+ throughout GI: COMMON NORMALS: Normal to inspection, nondistended, normoactive bowel sounds present, Soft to palpation, non-tender, No hepatosplenomegaly present and no masses AUSCULTATION: Yes normoactive bowel sounds PALPATION: Yes Soft to palpation and Yes No hepatosplenomegaly present RECTAL EXAM: Yes deferred Extremity: COMMON NORMALS: no clubbing, cyanosis or edema and no pedal edema Neuro: COMMON NORMALS: patient oriented x3 Data : 08/19/20 05:35 08/19/20 05:35 A&P Assessment and plan (1) Hematemesis: Status: Acute (2) ASHD (arteriosclerotic heart disease): Status: Acute (3) ESRD on dialysis: Status: Acute (4) Melanotic stools: Status: Acute (5) PAD (peripheral artery disease): Status: Acute (6) Pulmonary HTN: Status: Acute (7) Atrial fibrillation: Status: Acute Qualifiers: Atrial fibrillation type: paroxysmal Qualified Code(s): I48.0 - Paroxysmal atrial fibrillation (8) CHF (congestive heart failure): Status: Acute Qualifiers: Heart failure type: combined systolic and diastolic Heart failure chronicity: acute on chronic Qualified Code(s): I50.43 - Acute on chronic combined systolic (congestive) and diastolic (congestive) heart failure (9) HTN (hypertension): Status: Acute Qualifiers: Hypertension type: essential hypertension Qualified Code(s): I10 - Essential (primary) hypertension (10) Diabetes 1.5, managed as type 2: Status: Acute (11) Hypothyroidism: Status: Acute Additional A&P Information Hematemesis: Isolated event, patient does not drink alcohol no previous history of portal hypertension, no previous history of gastric ulcers, he takes Eliquis. S/P EGD :Mild Gastritis. small amount of blood was noted in antrum. His last Eliquis dose was in the morning 08/18/2020 Currently hemodynamically stable hemoglobin seems to be around baseline, He is endorsing black/dark stools for last 1 week Of note, patient did not notice blood in his vomitus, this was reported by the n ursing staff at the dialysis center I would hold Eliquis for now keep him n.p.o., Dr. Blackwell has been consulted by the ER physician Protonix 40 IV twice daily CAD S/P Stent : Patient has recent SHANIA placed in 03/2020 ( ostial left circumflex artery and proximal LAD with SHANIA x2 ) : Currently on PLavix and Eliquis. Will Resume Plavix from am. Continue to hold eiquis. Monitor CBC. DVT prophylaxis: SCD Attestations Medical Necessity Statement*: Patient needs to be in hospital for the management of G.I Bleed Coding Level of Care Code Acute Senior Office Support Assistant Sosa for [facility] Fwd Diagnoses Hematemesis K92.0 ASHD (arteriosclerotic heart disease) I25.10 ESRD on dialysis N18.6; Z99.2 Melanotic stools K92.1 PAD (peripheral artery disease) I73.9 Pulmonary HTN I27.20 Atrial fibrillation I48.0 Atrial fibrillation type: paroxysmal CHF (congestive heart failure) I50.43 Heart failure type: combined systolic and diastolic Heart failure chronicity: acute on chronic HTN (hypertension) I10 Hypertension type: essential hypertension Diabetes 1.5, managed as type 2 E13.9 Hypothyroidism E03.9
[2020-08-19] MEDS: atorvastatin 40 mg Tablet PO (21:35)
[2020-08-19] MEDS: dilTIAZem 30 mg Tablet PO (21:35)
[2020-08-19] MEDS: mirtazapine 15 mg Tablet PO (21:35)
[2020-08-19] MEDS: oxyCODONE-APAP 5-325 mg Tablet 1 TAB PO (22:46)
[2020-08-20] VITALS (10 sets, daily range): BP systolic 93–114; BP diastolic 55–72; PULSE 73–89; RESP 17–20; TEMP 36.4–36.8; O2SAT 95–99
[2020-08-20] MEDS: levothyroxine 150 mcg Tablet PO (05:51)
[2020-08-20 05:56] LABS: Basophils # 0.1 10^3/uL (0.0-0.1); Basophils % 1.9 %; Eosinophils # 0.4 10^3/uL (0.0-0.8); Eosinophils % 7.2 %; Hematocrit 29.8 % (42.0-52.0); Hemoglobin 9.1 g/dL (11.7-16.6); Lymphocytes # 1.1 10^3/uL (0.8-4.8); Mean Corpuscular HGB Conc 30.5 g/dL (30.0-36.0); Mean Corpuscular Hemoglobin 28.7 pg (28.0-34.0); Mean Platelet Volume 10.9 fL (7.4-10.4); Monocytes # 0.6 10^3/uL (0.2-0.9); Monocytes % 12.2 %; Neutrophils # 2.68 10^3/uL (1.8-7.7); Neutrophils % 55.5 %; Nucleated Red Blood Cells % 0 %; Platelet Count 120 10^3/cmm (130-400); Red Blood Count 3.17 10^6/uL (4.1-5.3); Red Cell Distribution Width 17.3 % (12.1-15.1); White Blood Count 4.8 10^3/uL (4.0-10.0)
[2020-08-20 06:19] LABS: Alanine Aminotransferase 8 U/L (0-41); Albumin Level 2.8 g/dL (3.5-5.2); Alkaline Phosphatase 141 IU/L (40-130); Anion Gap 16.3 (5-19); Aspartate Amino Transferase 16 U/L (0-40); Blood Urea Nitrogen 18 mg/dL (8-23); Calcium 8.1 mg/dL (8.5-10.5); Carbon Dioxide 27 mmol/L (22-29); Chloride 100 mmol/L (98-107); Globulin 3.1 g/dL (1.3-4.6); Glucose 79 mg/dL (65-115); Osmolality Calculated 289 mOsm/kg (285-295); Phosphorus 4.5 mg/dL (2.5-4.5); Potassium 4.3 mmol/L (3.5-5.1); Sodium 139 mmol/L (136-145); Total Bilirubin 0.6 mg/dL (0.15-1.2); Total Protein 5.9 g/dL (6.6-8.7)
[2020-08-20] MEDS: amiodarone 200 mg Tablet PO (08:48)
[2020-08-20] MEDS: clopidogrel 75 mg Tablet PO (08:48)
[2020-08-20] MEDS: dilTIAZem 30 mg Tablet PO ×2 (08:48→21:22)
[2020-08-20] MEDS: isosorbide mononitrate ER 60 mg Tablet PO (08:48)
[2020-08-20] MEDS: amlodipine 5 mg Tablet PO (08:48)
[2020-08-20 09:54] LABS: H. Pylori / CLO Test Negative
--- NOTE | 2020-08-20 11:47 | P.PN_ITS ---
Subjective Subjective: Interval history: seen after dialysis, feels well Medications: Reviewed: Yes Vitals/I&O/Wt Last Vital Signs Temp 97.5 F L 08/20/20 09:51 Pulse 75 08/20/20 09:51 Resp 18 08/20/20 09:51 BP 93/55 08/20/20 09:51 Pulse Ox 96 08/20/20 08:00 08/19/20 08/20/20 08/20/20 22:59 06:59 14:59 Intake Total 400 / 800 120 / 920 720 / 720 Balance 400 / 800 120 / 920 720 / 720 Weight last 48 hrs Weight 110.223 kg Physical Exam Const: COMMON NORMALS: no acute distress GENERAL APPEARANCE: cooperative Extremity: GENERAL: No edema OTHER: AVF no signs of infection per RN Data : 08/20/20 05:20 08/20/20 05:20 A&P Additional A&P Information 1. ESRD, HD MWF 2. UGI bleed - Hb stable 3. Coronary artery disease s/p stent 03/2020 Plan:No IVs, BPs, blood draws LUE. Next scheduled HD Wednesday 08/23 Attestations Medical Necessity Statement*: per primary service Time Spent in Patient Care: 16 - 35 minutes Coding Level of Care Code Acute Social Media Campaign Manager for [facility]
--- NOTE | 2020-08-20 13:13 | PM.PN ---
Subjective Subjective: Interval history: Patient was seen and examined this morning,overall doing better, plavix has been resumed. Vitals and labs have been resumed. Medications: Reviewed: Yes Vitals/I&O/Wt Last Vital Signs Temp 97.5 F L 08/20/20 09:51 Pulse 75 08/20/20 09:51 Resp 18 08/20/20 09:51 BP 93/55 08/20/20 09:51 Pulse Ox 96 08/20/20 08:00 08/19/20 08/20/20 08/20/20 22:59 06:59 14:59 Intake Total 400 / 800 120 / 920 720 / 720 Balance 400 / 800 120 / 920 720 / 720 Weight last 48 hrs Weight 110.223 kg Physical Exam Const: COMMON NORMALS: patient oriented x3 HENMT: COMMON NORMALS: normocephalic and atraumatic HEAD & SCALP: normocephalic and atraumatic Resp: COMMON NORMALS: clear to auscultation bilaterally EFFORT & INSPECTION: Yes symmetric chest movement AUSCULTATION: clear to auscultation bilaterally Cardio: COMMON NORMALS: regular rate, regular rhythm, S1 normal heart sound present, S2 normal heart sound present, No gallops present (Cardio), No murmurs present (Cardio), No rub (Cardio) and Peripheral pulses 2+ throughout RATE: regular rate RHYTHM: regular rhythm HEART SOUNDS: S1 normal heart sound present and S2 normal heart sound present PERIPHERAL PULSES: Peripheral pulses 2+ throughout GI: COMMON NORMALS: Normal to inspection, nondistended, normoactive bowel sounds present, Soft to palpation, non-tender, No hepatosplenomegaly present and no masses AUSCULTATION: Yes normoactive bowel sounds PALPATION: Yes Soft to palpation and Yes No hepatosplenomegaly present RECTAL EXAM: Yes deferred Extremity: COMMON NORMALS: no clubbing, cyanosis or edema and no pedal edema Neuro: COMMON NORMALS: patient oriented x3 Data : 08/21/20 06:06 08/21/20 06:06 A&P Assessment and plan (1) Hematemesis: Status: Acute (2) ASHD (arteriosclerotic heart disease): Status: Acute (3) ESRD on dialysis: Status: Acute (4) Melanotic stools: Status: Acute (5) PAD (peripheral artery disease): Status: Acute (6) Pulmonary HTN: Status: Acute (7) Atrial fibrillation: Status: Acute Qualifiers: Atrial fibrillation type: paroxysmal Qualified Code(s): I48.0 - Paroxysmal atrial fibrillation (8) CHF (congestive heart failure): Status: Acute Qualifiers: Heart failure chronicity: acute on chronic Heart failure type: combined systolic and diastolic Qualified Code(s): I50.43 - Acute on chronic combined systolic (congestive) and diastolic (congestive) heart failure (9) HTN (hypertension): Status: Acute Qualifiers: Hypertension type: essential hypertension Qualified Code(s): I10 - Essential (primary) hypertension (10) Diabetes 1.5, managed as type 2: Status: Acute (11) Hypothyroidism: Status: Acute Additional A&P Information Hematemesis: Isolated event, patient does not drink alcohol no previous history of portal hypertension, no previous history of gastric ulcers, he takes Eliquis. S/P EGD :Mild Gastritis. small amount of blood was noted in antrum. His last Eliquis dose was in the morning 08/18/2020 Currently hemodynamically stable.H/H is stable. He is endorsing black/dark stools for last 1 week Protonix 40 IV twice daily CAD S/P Stent : Patient has recent SHANIA placed in 03/2020 ( ostial left circumflex artery and proximal LAD with SHANIA x2 ) : Currently on PLavix and Eliquis. Will Resume Plavix from am. Continue to hold eiquis. Monitor CBC. DVT prophylaxis: SCD Attestations Medical Necessity Statement*: Patient needs to be in hospital for the management of G.I bleed and the need to resume, plavix and monitor CBC. Coding Level of Care Code Acute Hospice Executive Director for g Fwd Exam Detailed Diagnoses Hematemesis K92.0 ASHD (arteriosclerotic heart disease) I25.10 ESRD on dialysis N18.6; Z99.2 Melanotic stools K92.1 PAD (peripheral artery disease) I73.9 Pulmonary HTN I27.20 Atrial fibrillation I48.0 Atrial fibrillation type: paroxysmal CHF (congestive heart failure) I50.43 Heart failure chronicity: acute on chronic Heart failure type: combined systolic and diastolic HTN (hypertension) I10 Hypertension type: essential hypertension Diabetes 1.5, managed as type 2 E13.9 Hypothyroidism E03.9
[2020-08-20] MEDS: pantoprazole 40 mg SDV IVP (14:37)
[2020-08-20] MEDS: atorvastatin 40 mg Tablet PO (21:22)
[2020-08-20] MEDS: mirtazapine 15 mg Tablet PO (21:22)
[2020-08-21 01:24] VITALS: RESP 18
[2020-08-21] MEDS: oxyCODONE-APAP 5-325 mg Tablet 1 TAB PO (01:24)
[2020-08-21 01:37] VITALS: BP 107/64; PULSE 77; RESP 17; TEMP 36.5; O2SAT 98
[2020-08-21] MEDS: pantoprazole 40 mg SDV IVP (02:34)
[2020-08-21 03:13] VITALS: BP 107/58; PULSE 76; RESP 17; TEMP 36.9; O2SAT 97
--- NOTE | 2020-08-21 04:16 | PC.NURSE ---
SHIFT NOTE rested in bed this shift, verbalized pain to back and pain med administered, effective result. no loose stool this shift
[2020-08-21] MEDS: levothyroxine 150 mcg Tablet PO (06:00)
[2020-08-21 06:40] LABS: Basophils # 0.1 10^3/uL (0.0-0.1); Basophils % 1.9 %; Eosinophils # 0.4 10^3/uL (0.0-0.8); Eosinophils % 8.6 %; Lymphocytes % 23.8 %; Mean Corpuscular Hemoglobin 28.8 pg (28.0-34.0); Mean Corpuscular Volume 95.8 fL (80-94); Mean Platelet Volume 10.9 fL (7.4-10.4); Monocytes # 0.6 10^3/uL (0.2-0.9); Monocytes % 13.4 %; Neutrophils # 2.24 10^3/uL (1.8-7.7); Neutrophils % 51.8 %; Nucleated Red Blood Cells % 0 %; Platelet Count 123 10^3/cmm (130-400); Red Blood Count 3.13 10^6/uL (4.1-5.3); Red Cell Distribution Width 17.3 % (12.1-15.1); White Blood Count 4.3 10^3/uL (4.0-10.0)
[2020-08-21 07:22] LABS: Alanine Aminotransferase 6 U/L (0-41); Albumin Level 2.6 g/dL (3.5-5.2); Alkaline Phosphatase 144 IU/L (40-130); Anion Gap 13.3 (5-19); Aspartate Amino Transferase 18 U/L (0-40); Blood Urea Nitrogen 12 mg/dL (8-23); Calcium 7.8 mg/dL (8.5-10.5); Carbon Dioxide 28 mmol/L (22-29); Chloride 99 mmol/L (98-107); Globulin 3.6 g/dL (1.3-4.6); Glucose 80 mg/dL (65-115); Osmolality Calculated 281 mOsm/kg (285-295); Phosphorus 3.8 mg/dL (2.5-4.5); Potassium 4.3 mmol/L (3.5-5.1); Sodium 136 mmol/L (136-145); Total Bilirubin 0.5 mg/dL (0.15-1.2); Total Protein 6.2 g/dL (6.6-8.7)
[2020-08-21 07:55] VITALS: BP 101/65; PULSE 101; RESP 14; TEMP 36.5; O2SAT 96
[2020-08-21] MEDS: isosorbide mononitrate ER 60 mg Tablet PO (08:58)
[2020-08-21] MEDS: amlodipine 5 mg Tablet PO (08:58)
[2020-08-21] MEDS: dilTIAZem 30 mg Tablet PO (08:58)
[2020-08-21] MEDS: clopidogrel 75 mg Tablet PO (08:58)
[2020-08-21] MEDS: amiodarone 200 mg Tablet PO (08:58)
--- NOTE | 2020-08-21 09:58 | PM.PN ---
Subjective Subjective: Interval history: no complaints Medications: Reviewed: Yes Vitals/I&O/Wt Last Vital Signs Temp 97.7 F 08/21/20 07:55 Pulse 101 H 08/21/20 07:55 Resp 14 08/21/20 07:55 BP 101/65 08/21/20 07:55 Pulse Ox 96 08/21/20 07:55 08/20/20 08/21/20 08/21/20 22:59 06:59 14:59 Intake Total 480 / 1440 360 / 360 Output Total 0 / 0 Balance 480 / 1440 360 / 360 Weight last 48 hrs Weight 107.4 kg Physical Exam Const: COMMON NORMALS: no acute distress GENERAL APPEARANCE: cooperative Extremity: GENERAL: No edema Data : 08/21/20 06:06 08/21/20 06:06 Micro: Microbiology 08/20/20 15:01 Occult Blood (FIT) - Final Stool Routine Collection A&P Additional A&P Information 1. ESRD, HD MWF 2. UGI bleed - Hb stable 3. Coronary artery disease s/p stent 03/2020 Plan:No IVs, BPs, blood draws LUE. Next scheduled HD Wednesday 08/23 Attestations Medical Necessity Statement*: per primary service Time Spent in Patient Care: less than 15 minutes Coding Level of Care Code Acute Injection Operator for Brendan Cummings
--- NOTE | 2020-08-21 10:55 | P.DS_ITS ---
Discharge Providers Date of Admission: 08/18/20 21:11 Date of Discharge: August 21, 2020 Attending Provider at Admission: Roger Groves MD Attending Provider at Discharge: Luis Mcclure MD Primary Care Provider: Hanane Saldaña MD Diagnoses at Discharge Discharge Diagnosis (1) Hematemesis: Status: Resolved (2) ASHD (arteriosclerotic heart disease): Status: Chronic (3) ESRD on dialysis: Status: Chronic (4) Melanotic stools: Status: Resolved (5) PAD (peripheral artery disease): Status: Chronic (6) Pulmonary HTN: Status: Chronic (7) Atrial fibrillation: Status: Chronic Qualifiers: Atrial fibrillation type: paroxysmal Qualified Code(s): I48.0 - Paroxysmal atrial fibrillation (8) CHF (congestive heart failure): Status: Chronic Qualifiers: Heart failure chronicity: acute on chronic Heart failure type: combined systolic and diastolic Qualified Code(s): I50.43 - Acute on chronic combined systolic (congestive) and diastolic (congestive) heart failure (9) HTN (hypertension): Status: Chronic Qualifiers: Hypertension type: essential hypertension Qualified Code(s): I10 - Essential (primary) hypertension (10) Diabetes 1.5, managed as type 2: Status: Chronic (11) Hypothyroidism: Status: Chronic Reason for Visit Reason for Visit: RECTAL BLEEDING Hospital Course Hospital Course 75-year-old male with past medical history of coronary artery disease status post recent stent, ( 03/2020: ostial left circumflex artery and proximal LAD with SHANIA ). End-stage renal disease dialysis dependent Sunday, diabetes hypertension A. fib PAD pulmonary hypertension hypothyroidism CHF, who presented from dialysis center after experiencing an episode of hematemesis. Patient is stating that for last 1 week he has been noticing dark-colored stools. He was admitted for the management of GI bleed, status post EGD: Mild Gastritis. small amount of blood was noted in antrum. Patient was started on Protonix IV in the hospital stay, and was discharged on Protonix 40 mg p.o. twice daily. H&H remained stable throughout the hospital stay at baseline patient never required transfusion.Plavix was held for a day, and was later resumed. Eliquis has been continued to be held. Patient continued to receive routine hemodialysis during the hospital stay.Patient responded well to the above medical management and discharged in stable condition. He will follow with Dr. Childress as an outpatient, as well as his primary care physician in a week with repeat CBC. He has been educated on the signs and symptoms of acute blood loss. Physical Exam Const: COMMON NORMALS: patient oriented x3 HENMT: COMMON NORMALS: normocephalic and atraumatic HEAD & SCALP: normocephalic and atraumatic Resp: COMMON NORMALS: clear to auscultation bilaterally EFFORT & INSPECTION: Yes symmetric chest movement AUSCULTATION: clear to auscultation bilaterally Cardio: COMMON NORMALS: regular rate, regular rhythm, S1 normal heart sound present, S2 normal heart sound present, No gallops present (Cardio), No murmurs present (Cardio), No rub (Cardio) and Peripheral pulses 2+ throughout RATE: regular rate RHYTHM: regular rhythm HEART SOUNDS: S1 normal heart sound present and S2 normal heart sound present PERIPHERAL PULSES: Peripheral pulses 2+ throughout GI: COMMON NORMALS: Normal to inspection, nondistended, normoactive bowel sounds present, Soft to palpation, non-tender, No hepatosplenomegaly present and no masses AUSCULTATION: Yes normoactive bowel sounds PALPATION: Yes Soft to palpation and Yes No hepatosplenomegaly present RECTAL EXAM: Yes deferred Extremity: COMMON NORMALS: no clubbing, cyanosis or edema and no pedal edema Neuro: COMMON NORMALS: patient oriented x3 Discharge Data Data Completed and Pending: Completed Studies During Hospitalization Category Date Time Status CT abdomen pelvis wo con [id number] Urge nt Cat Scan 08/18/20 18:21 Completed XR chest 1V [place] ble [id number] Urgent Exams 08/18/20 16:46 Completed Pending at discharge Category Date Time Status Complete Blood Co unt w/Auto AM LABS Lab 08/22/20 04:00 Ordered Complete Blood Co unt w/Auto AM LABS Lab 08/23/20 04:00 Ordered Comprehensive Met abolic Panel AM LA BS Lab 08/22/20 04:00 Ordered Comprehensive Met abolic Panel AM LA BS Lab 08/23/20 04:00 Ordered H. Pylori / JOSE ROBERTO T est Routine Lab 08/20/20 11:34 Ordered Urinalysis Stat Lab 08/18/20 16:46 Uncollected Labs from last 24 hours 08/21/20 08/21/20 06:06 06:06 WBC 4.3 RBC 3.13 L Hgb 9.0 L Hct 30.0 L MCV 95.8 H MCH 28.8 MCHC 30.0 RDW 17.3 H Plt Count 123 L MPV 10.9 H Neut % (Auto) 51.8 Lymph % (Auto) 23.8 Bollinger % (Auto) 13.4 Eos % (Auto) 8.6 Baso % (Auto) 1.9 Neut # (Auto) 2.24 Lymph # (Auto) 1.0 Bollinger # (Auto) 0.6 Eos # (Auto) 0.4 Baso # (Auto) 0.1 Nucleated RBC % (a uto) 0 Nucleated RBCs # 0.0 Sodium 136 Potassium 4.3 Chloride 99 Carbon Dioxide 28 Anion Gap 13.3 BUN 12 Creatinine 4.3 H GFR Calculation Not Reportable Glucose 80 Calculated Osmolal ity 281 L Calcium 7.8 L Phosphorus 3.8 Total Bilirubin 0.5 AST 18 ALT 6 Alkaline Phosphata se 144 H Total Protein 6.2 L Albumin 2.6 L Globulin 3.6 Vitals: Last Vital Signs Temp 97.7 F 08/21/20 07:55 Pulse 101 H 08/21/20 07:55 Resp 14 08/21/20 07:55 BP 101/65 08/21/20 07:55 Pulse Ox 96 08/21/20 07:55 Discharge Plan Discharge Patient Disposition: Home Condition: Stable Prescriptions: New Protonix 40 mg tablet,delayed release (DR/EC) 40 mg PO BID Qty: 60 RF: 3 Continued nitroglycerin [Nitrostat] 0.4 mg tablet, sublingual 0.4 mg SUBLINGUAL Q5M PRN (Reason: CHEST PAINS) RF: 0 mirtazapine 15 mg tablet 15 mg PO BEDTIME@2100 RF: 0 Cimzia 400 mg/2 mL (200 mg/mL x 2) syringe kit See Rx Instructions .ROUTE .COMPLEX Qty: 2 RF: 5 amiodarone 200 mg tablet 200 mg PO DAILY@0900 Qty: 90 RF: 3 acetaminophen [Tylenol Extra Strength] 500 mg Tablet 1,000 mg PO PRN RF: 0 RenaPlex-D 800 mcg-12.5 mg -2,000 unit tablet 1 tab PO DAILY@0900 RF: 0 clopidogrel 75 mg tablet 75 mg PO DAILY@0900 RF: 0 atorvastatin 40 mg Tablet 40 mg PO BEDTIME@2100 RF: 0 lidocaine-prilocaine [Lido-Prilo Josemanuel Pack] 2.5-2.5 % Kit See Rx Instructions .ROUTE .COMPLEX RF: 0 ondansetron 4 mg tablet,disintegrating 4 mg PO Q6H PRN (Reason: nausea and vomiting) Qty: 14 RF: 0 amlodipine 5 mg tablet 5 mg PO DAILY@0900 RF: 0 isosorbide mononitrate 60 mg tablet extended release 24 hr 60 mg PO DAILY@0900 RF: 0 diltiazem HCl [Cardizem] 30 mg tablet 30 mg PO BID@0900,2099 RF: 0 levothyroxine 150 mcg tablet 150 mcg PO QAM RF: 0 Colace 100 mg Capsule 100 mg PO DAILY PRN (Reason: Constipation) RF: 0 cetirizine 10 mg Tablet 10 mg PO DAILY@0900 RF: 0 Held Eliquis 5 mg tablet 5 mg PO BID@0900,2099 Qty: 180 RF: 3 Hold Instructions: Resume on 09/09/20. Patient will see his Before resuming the eliquis. Discontinued pantoprazole 40 mg tablet,delayed release (DR/EC) 40 mg PO DAILY@0900 RF: 0 Discharge Orders: Discharge Order (Routine); Ordered 08/21/20 Ordered By: Luis Mcclure Other Ambulatory Orders: Complete Blood Count w/Auto (Routine) Timeframe: 1 Week Location: Determined by Patient Ordered By: Luis Mcclure Referrals: Walt Mcdonald M.D [Physician] - 1 week (Please call Sunday to schedule a follow up appointment.) Hnaane Saldaña MD [Primary Care Provider] - 1 week (Please call Sunday to schedule a follow up appointment. ) Discharge Diet: Diabetic Discharge Activity: Resume usual activity Patient Instructions: Pantoprazole (By mouth), GI Bleeding, Gastritis (DC), GI Discharge Instructions, Opioid Safety Discharge Attestations Time Spent in Discharge Care*: less than 30 min Specific Discharge Activities: educating patient, educating and/or supporting family/caregiver, discussing with pcp/other providers, discussing with test case developer/social workers/dc planners, documenting/other paperwork and evaluating patient/reviewing data Status at Discharge: Cognitive status at discharge: cognitively intact , Behavioral status at discharge: cooperative , Functional status at discharge: independent ambulation Overall status at discharge: patient is back to baseline Quality Metrics Clinical Quality Measures During this hospital stay, did patient experience: None Coding Level of Care Code Acute Chg FW DC note Exam Detailed Diagnoses Hematemesis K92.0 ASHD (arteriosclerotic heart disease) I25.10 ESRD on dialysis N18.6; Z99.2 Melanotic stools K92.1 PAD (peripheral artery disease) I73.9 Pulmonary HTN I27.20 Atrial fibrillation I48.0 Atrial fibrillation type: paroxysmal CHF (congestive heart failure) I50.43 Heart failure chronicity: acute on chronic Heart failure type: combined systolic and diastolic HTN (hypertension) I10 Hypertension type: essential hypertension Diabetes 1.5, managed as type 2 E13.9 Hypothyroidism E03.9
[2020-08-21 11:46] VITALS: BP 106/58; PULSE 76; RESP 14; TEMP 36.4; O2SAT 85
[2020-08-21 12:36] VITALS: BP 106/58; PULSE 76; RESP 14; TEMP 36.4; O2SAT 85
== END 2020-08-21 12:37 | disposition home or self-care (01) ==
LOC: ER 21:13 → MEDSURG 22:00
PROVIDERS: Internal Medicine; Registered Nurse; Surgery; Admitting Provider Internal Medicine; Emergency Provider Family Medicine; PCP Family Medicine; Visit Provider Internal Medicine
PROC: 0DJ08ZZ Inspection of Upper Intestinal Tract, Via Natural or Artificial Opening Endoscopic (ICD-10-PCS; CPT 43235; principal; 2020-08-19 08:15)
DX: K92.0 Hematemesis (principal); I25.10 Atherosclerotic heart disease of native coronary artery without angina pectoris; E13.22 Other specified diabetes mellitus with diabetic chronic kidney disease; I13.2 Hypertensive heart and chronic kidney disease with heart failure and with stage 5 chronic kidney disease, or end stage renal disease; I50.43 Acute on chronic combined systolic (congestive) and diastolic (congestive) heart failure; N18.6 End stage renal disease; Z99.2 Dependence on renal dialysis; K92.1 Melena; I73.9 Peripheral vascular disease, unspecified; I27.20 Pulmonary hypertension, unspecified; I48.0 Paroxysmal atrial fibrillation; E03.9 Hypothyroidism, unspecified; K92.2 Gastrointestinal hemorrhage, unspecified; Z95.5 Presence of coronary angioplasty implant and graft; K21.9 Gastro-esophageal reflux disease without esophagitis; N40.0 Benign prostatic hyperplasia without lower urinary tract symptoms; I25.2 Old myocardial infarction; Z82.49 Family history of ischemic heart disease and other diseases of the circulatory system
CPT/HCPCS: 36415; 43239; 71045; 74176; 80048; 80053; 82274; 83690; 84100; 85025; 86706; 86803; 87077; 87340; 90935; 93005; 96361; 96374; 96375; 99285; C9113; G0378; J2405; J7030; Q3014; Q4081

== ENCOUNTER → 2020-08-26 10:27 | Outpatient (BNVA) | payer MEDICARE, MEDICAID, SELFPAY | PROVIDERS: PCP Family Medicine; Visit Provider Family Medicine | DX: K92.2 Gastrointestinal hemorrhage, unspecified (principal); Z09 Encounter for follow-up examination after completed treatment for conditions other than malignant neoplasm | CPT/HCPCS: 85025 ==

== ENCOUNTER 2020-08-30 14:08 | Emergency (ER) | payer MEDICARE, MEDICAID, SELFPAY ==
[2020-08-30 14:23] VITALS: BMI 31.8
--- NOTE | 2020-08-30 14:30 | XRR_ITS ---
PROCEDURE INFORMATION: Exam: XR Chest Exam date and time: 08/30/2020 2:30 PM Age: 75 years old Clinical indication: Pain; Chest pressure; Additional info: Chest pain TECHNIQUE: Imaging protocol: XR of the chest. Views: 1 view. COMPARISON: CR (CHEST, ) 08/18/2020 4:54 PM FINDINGS: Lungs: There is atelectasis present in the right lower lobe. No consolidation. Pleural spaces: Unremarkable. No pleural effusion. No pneumothorax. Heart/Mediastinum: Unremarkable. No cardiomegaly. Bones/joints: Metallic surgical plate and screws are seen in the cervical spine. XR/XR chest 1V portable [id number] IMPRESSION: 1. No acute findings. 2. Right lower lobe atelectasis 3. Surgical hardware cervical spine
--- NOTE | 2020-08-30 14:30 | ECG_ITS ---
[facility] Test Date: 2020-08-30 Pat Name: Paul Cornelius Department: Room: Gender: Male Cinetechnician: : 1945 Requested By: Sanjeev Clayton Order Number: [id number] Reading MD: KIMBERLY MOORE Measurements Intervals [place] Rate: 107 P: 183 UT: 130 QRS: 88 QRSD: 117 T: 36 QT: 395 QTc: 529 Interpretive Statements SINUS TACHYCARDIA WITH FREQUENT VENTRICULAR PREMATURE COMPLEXES IN A BIGEMINAL PATTERN LOW QRS VOLTAGE IN EXTREMITY LEADS [QRS DEFLECTION < 0.5 mV IN LIMB LEADS] MODERATE INTRAVENTRICULAR CONDUCTION DELAY [110+ ms QRS DURATION] ST DEVIATION AND MODERATE T-WAVE ABNORMALITY, CONSIDER LATERAL ISCHEMIA [-0.1+ mV T WAVE IN I/aVL/V5/V6] INTERPRETATION BASED ON A DEFAULT AGE OF 40 YEARS Compared to ECG 08/18/2020 16:55:19 Ventricular premature complex(es) now present Low QRS voltage now present T-wave abnormality now present Possible ischemia now present Electronically Signed On 08-30-2020 18:48:36 CDT by KIMBERLY MOORE [email or web address]
--- NOTE | 2020-08-30 14:32 | W.ED.CHESTPA ---
HPI - Chest Pain General: Chief Complaint: Chest Pain Stated Complaint: A-FIB Time Seen by Provider: 08/30/20 14:12 Source: patient and EMS Mode of arrival: EMS Limitations: no limitations History of Present Illness: HPI narrative: Patient was in the middle dialysis today when he started having palpitations and chest pressure and nausea. He also complained of mild shortness of breath. He states he had approximately three quarters of his dialysis completed. He states he feels better now. He still has mild chest pain. He has mild palpitations now. Telemetry shows atrial fibrillation with a heart rate of 102. Patient does wear oxygen at home. His oxygen saturation is 98% on 2 L by nasal cannula. MD complaint: chest pain (Chest pressure) Pertinent past history: coronary artery disease and other (Reportedly had coronary stent approximately 2 months ago.) Onset (ago): minute(s) (20) Timing of current episode: other (Improving) Prior episodes: Yes Onset: during rest and other (During dialysis) Pain location: substernal and left chest Pain radiation: none Severity: moderate (Mild now) Quality: fullness and other (Pressure) Relieving factors: nothing Exacerbating factors: nothing Associated symptoms: Reports dyspnea, nausea, palpitations and other (Tachycardia); Deny abdominal pain, diaphoresis, fever(s), leg edema, syncope or vomiting Treatment prior to arrival: oxygen Review of Systems Const: Denies: fever(s), chills, body aches or diaphoresis Eyes: Denies: change in vision ENMT: Denies: throat pain Card: Reports: chest pain, palpitations and other (Tachycardia); Denies: edema or syncope Resp: Reports: dyspnea GI: Reports: nausea; Denies: abdominal pain or vomiting : Denies: flank pain Musc: Denies: neck pain or back pain Skin/Breast: Denies: rash or pruritus Neuro: Denies: headache(s) or numbness in extremities Psych: Denies: anxiety Frank/Lymph: Denies: enlarged lymph nodes PFSH ED PFSH: Medical History Acute upper gastrointestinal bleeding Amputation of toe of left foot Anemia ASHD (arteriosclerotic heart disease) Atrial fibrillation BPH (benign prostatic hyperplasia) CHF (congestive heart failure) CKD (chronic kidney disease) Colon polyps DDD (degenerative disc disease) Diabetes 1.5, managed as type 2 Diabetic gastroparesis Dialysis patient Dyslipidemia ESRD (end stage renal disease) on dialysis ESRD on dialysis GERD (gastroesophageal reflux disease) Hematemesis History of gastritis HTN (hypertension) Hypothyroidism Hypothyroidism Melanotic stools Mitral regurgitation Myocardial infarction PAD (peripheral artery disease) Pulmonary HTN Rheumatoid arthritis Surgical History History of colonoscopy 02/2015 --2 small adenomatous polyps History of esophagogastroduodenoscopy (EGD) 02/2015 --mild gastritis Personal history of surgery to other organs Hemodialysis catheters, peritoneal dialysis catheter, dialysis fistula S/P appendectomy S/P carpal tunnel release S/P cervical spinal fusion S/P cholecystectomy Status post coronary angiogram Status post coronary artery stent placement x2 Family History Father , AGE 61 Cancer LUNG Mother , AGE 62 CHF (congestive heart failure) Social History Smoking and tobacco status: never smoked Alcohol intake: never Marital status: service: No Physical Exam Const: COMMON NORMALS: no acute distress (Obese, complains of mild chest pain now), patient oriented x3, no limitations and well nourished GENERAL APPEARANCE: cooperative HENMT: COMMON NORMALS: normocephalic and atraumatic HEAD & SCALP: normocephalic and atraumatic FACE & SINUS: normal facial exam Eye: COMMON NORMALS: EOMs intact bilaterally Neck/C-Spine: COMMON NORMALS: full ROM, no lymphadenopathy, supple, no meningeal signs and no JVD GENERAL: Yes normal visual inspection Lymph: LYMPHATIC: no lymphadenopathy noted Chest: COMMONS NORMALS: normal inspection of the chest and normal palpation of entire chest wall CHEST: No Ecchymosis present and No rash Resp: COMMON NORMALS: normal respiratory effort, No retractions, No use of accessory muscles and clear to auscultation bilaterally EFFORT & INSPECTION: No respiratory distress AUSCULTATION: clear to auscultation bilaterally Cardio: COMMON NORMALS: no JVD and Peripheral pulses 2+ throughout JUGULAR VENOUS DISTENTION: no JVD RATE: tachycardic RHYTHM: abnormal rhythm irregularly irregular HEART SOUNDS: Murmur heart sound present (1/6 murmur L upper chest) PERIPHERAL PULSES: Peripheral pulses 2+ throughout GI: COMMON NORMALS: Normal to inspection, nondistended, normoactive bowel sounds present, Soft to palpation, non-tender and no bruits (obese) PALPATION: Yes Soft to palpation : COMMON NORMALS: Yes no CVA tenderness BLADDER/KIDNEY EXAM: Yes no CVA tenderness Back/Pelvis: COMMON NORMALS: no CVA tenderness Extremity: COMMON NORMALS: normal to inspection, full ROM and capillary refill normal Neuro: COMMON NORMALS: patient oriented x3, CN's II-XII intact bilaterally, no focal motor deficits and no sensory deficits noted MENINGEAL SIGNS: Yes no meningeal signs Psych: COMMON NORMALS: mental status grossly normal and Normal thought process present THOUGHT PROCESS: Normal thought process present Skin: COMMON NORMALS: no rashes or lesions noted and no wounds GENERAL SKIN EXAM: no rashes or lesions noted OTHER: Small ecchymosis to the right lower quadrant of the abdomen consistent with recent injury 1 week ago. Hemodialysis clamps still present right upper arm. Course ED course: 1622: Heart rate 84, blood pressure 107/53; rhythm atrial fibrillation rate controlled Vital Signs: Vital signs: Vital Signs Temperature 97.9 F 08/30/20 15:02 Pulse Rate 92 08/30/20 15:35 Respiratory Rate 11 L 08/30/20 15:35 Blood Pressure 99/51 08/30/20 15:35 Pulse Oximetry 99 08/30/20 15:35 MDM - Chest Pain MDM Narrative: Medical decision making narrative: Patient is unsure if he has restarted Eliquis or not. He was taken off Eliquis recently due to upper GI bleed. He has a small ecchymosis to the right lower quadrant of the abdomen that he believes occurred when he bruised his right lower abdomen approximately 1 week ago 1750: I discussed results of lab tests with the patient and . I recommended patient be admitted for further cardiac work-up. Both the and patient declined admission because they have a follow-up appoint with her medical reception in the morning. They stated they would rather go to the appointment then be admitted to the hospital. Patient is asymptomatic now. Patient did agree to return if worse. Lab Data: Attestation: I reviewed the patient's lab results. Labs: Lab Results 08/30/20 08/30/20 08/30/20 Range/Units 15:22 15:22 15:22 WBC 6.5 (4.0-10.0) 10^3/ uL RBC 3.81 L (4.1-5.3) 10^6/u L Hgb 11.0 L (11.7-16.6) g/dL Hct 35.4 L (42.0-52.0) % MCV 92.9 (80-94) fL MCH 28.9 (28.0-34.0) pg MCHC 31.1 (30.0-36.0) g/dL RDW 17.6 H (12.1-15.1) % Plt Count 140 (130-400) 10^3/c mm MPV 11.2 H (7.4-10.4) fL Neut % (Auto) 64.4 % Lymph % (Auto) 17.5 % [place] % (Auto) 9.1 % Eos % (Auto) 7.2 % Baso % (Auto) 1.5 % Neut # (Auto) 4.18 (1.8-7.7) 10^3/u L Lymph # (Auto) 1.1 (0.8-4.8) 10^3/u L [place] # (Auto) 0.6 (0.2-0.9) 10^3/u L Eos # (Auto) 0.5 (0.0-0.8) 10^3/u L Baso # (Auto) 0.1 (0.0-0.1) 10^3/u L Nucleated RBC % (a uto) 0 % Nucleated RBCs # 0.0 /100WBC APTT (23.9-36.7) SECO NDS Sodium 136 (136-145) mmol/L Potassium 4.0 (3.5-5.1) mmol/L Chloride 94 L (98-107) mmol/L Carbon Dioxide 29 (22-29) mmol/L Anion Gap 17.0 (5-19) BUN 16 (8-23) mg/dL Creatinine 4.1 H (0.7-1.2) mg/dL GFR Calculation Not Reportable Glucose 74 (65-115) mg/dL Calculated Osmolal ity 282 L (285-295) mOsm/k g Calcium 8.5 (8.5-10.5) mg/dL Magnesium 1.9 (1.7-2.3) mg/dL Troponin T Baselin e 71 H (0-15) ng/L Troponin T 120 Min senthil (0-15) ng/L Delta Troponin T (0-10) ABS# 08/30/20 08/30/20 Range/Units 17:10 17:10 WBC (4.0-10.0) 10^3/ uL RBC (4.1-5.3) 10^6/u L Hgb (11.7-16.6) g/dL Hct (42.0-52.0) % MCV (80-94) fL MCH (28.0-34.0) pg MCHC (30.0-36.0) g/dL RDW (12.1-15.1) % Plt Count (130-400) 10^3/c mm MPV (7.4-10.4) fL Neut % (Auto) % Lymph % (Auto) % [place] % (Auto) % Eos % (Auto) % Baso % (Auto) % Neut # (Auto) (1.8-7.7) 10^3/u L Lymph # (Auto) (0.8-4.8) 10^3/u L [place] # (Auto) (0.2-0.9) 10^3/u L Eos # (Auto) (0.0-0.8) 10^3/u L Baso # (Auto) (0.0-0.1) 10^3/u L Nucleated RBC % (a uto) % Nucleated RBCs # /100WBC APTT 39.0 H (23.9-36.7) SECO NDS Sodium (136-145) mmol/L Potassium (3.5-5.1) mmol/L Chloride (98-107) mmol/L Carbon Dioxide (22-29) mmol/L Anion Gap (5-19) BUN (8-23) mg/dL Creatinine (0.7-1.2) mg/dL GFR Calculation Glucose (65-115) mg/dL Calculated Osmolal ity (285-295) mOsm/k g Calcium (8.5-10.5) mg/dL Magnesium (1.7-2.3) mg/dL Troponin T Baselin e (0-15) ng/L Troponin T 120 Min senthil 64.79 H (0-15) ng/L Delta Troponin T -6.21 L (0-10) ABS# Imaging Data^: CXR: Attestation: I personally reviewed and interpreted this imaging study as follows: My impression: Chest x-ray shows atelectasis in the right lower lobe. Radiologist's impression: Paul Cornelius #: [id number]: 1945cct#:[id number]/Sex: 75 / MADM Date: 08/30/20Loc: ERRoom/Bed:Attending Dr: Ordering Provider/Ordering MD: Sanjeev Estrada MD Date of Service: 08/30/20 Procedure(s): XR chest 1V portable [id number] Accession Number(s): [id number] Report Number: [id number] PROCEDURE INFORMATION: Exam: XR Chest Exam date and time: 08/30/2020 2:30 PM Age: 75 years old Clinical indication: Pain; Chest pressure; Additional info: Chest pain TECHNIQUE: Imaging protocol: XR of the chest. Views: 1 view. COMPARISON: CR (CHEST, ) 08/18/2020 4:54 PM FINDINGS: Lungs: There is atelectasis present in the right lower lobe. No consolidation. Pleural spaces: Unremarkable. No pleural effusion. No pneumothorax. Heart/Mediastinum: Unremarkable. No cardiomegaly. Bones/joints: Metallic surgical plate and screws are seen in the cervical spine. XR/XR chest 1V portable [id number] IMPRESSION: 1. No acute findings. 2. Right lower lobe atelectasis 3. Surgical hardware cervical spine Dictated By:Quinton Cruz By:Quinton Cruz Date/Time:08/30/20 1514 EKG Data^: EKG 1: Attestation: I personally reviewed and interpreted this EKG as follows: EKG interpretation date: 08/30/20 EKG interpretation time: 14:27 Prior EKG tracings: not available for review Interpretation: EKG shows atrial fibrillation with rapid ventricular rate with heart rate 107. Patient has normal axis. Nonspecific ST-T changes, occasional PVCs, right bundle branch block normal T waves. Impression atrial fibrillation with rapid ventricular rate, right bundle branch block EKG 2: Attestation: I personally reviewed and interpreted this EKG as follows: EKG interpretation date: 08/30/20 EKG interpretation time: 16:27 Prior EKG tracings: available for review Interpretation: EKG #2 shows atrial fibrillation with rate controlled now. Patient has right bundle branch block, nonspecific ST-T changes, normal axis, normal T waves impression atrial fibrillation rate controlled with right bundle branch block, normal axis, nonspecific ST-T changes Critical Care Time Critical Care Time: Critical Care Time: Yes Total Critical Care Time: 40 Attestation: FRANKO Ceballos, jerod orders Discharge Plan Discharge Patient Disposition: Home Clinical Impression: Chronic kidney disease with end stage renal failure on dialysis Chest pain Qualifiers: Chest pain type: unspecified Qualified Code(s): R07.9 - Chest pain, unspecified Condition: Stable Prescriptions: No Action nitroglycerin [Nitrostat] 0.4 mg tablet, sublingual 0.4 mg SUBLINGUAL Q5M PRN (Reason: CHEST PAINS) RF: 0 mirtazapine 15 mg tablet 15 mg PO BEDTIME@2100 RF: 0 Cimzia 400 mg/2 mL (200 mg/mL x 2) syringe kit See Rx Instructions .ROUTE .COMPLEX Qty: 2 RF: 5 amiodarone 200 mg tablet 200 mg PO DAILY@0900 Qty: 90 RF: 3 Eliquis 5 mg tablet 5 mg PO BID@0900,2100 Qty: 180 RF: 3 Hold Instructions: Resume on 09/09/20. Patient will see his Before resuming the eliquis. acetaminophen [Tylenol Extra Strength] 500 mg Tablet 1,000 mg PO PRN RF: 0 RenaPlex-D 800 mcg-12.5 mg -2,000 unit tablet 1 tab PO DAILY@0900 RF: 0 clopidogrel 75 mg tablet 75 mg PO DAILY@0900 RF: 0 atorvastatin 40 mg Tablet 40 mg PO BEDTIME@2100 RF: 0 lidocaine-prilocaine [Lido-Prilo Josemanuel Pack] 2.5-2.5 % Kit See Rx Instructions .ROUTE .COMPLEX RF: 0 ondansetron 4 mg tablet,disintegrating 4 mg PO Q6H PRN (Reason: nausea and vomiting) Qty: 14 RF: 0 amlodipine 5 mg tablet 5 mg PO DAILY@0900 RF: 0 isosorbide mononitrate 60 mg tablet extended release 24 hr 60 mg PO DAILY@0900 RF: 0 diltiazem HCl [Cardizem] 30 mg tablet 30 mg PO BID@0900,2100 RF: 0 levothyroxine 150 mcg tablet 150 mcg PO QAM RF: 0 Colace 100 mg Capsule 100 mg PO DAILY PRN (Reason: Constipation) RF: 0 Protonix 40 mg tablet,delayed release (DR/EC) 40 mg PO BID Qty: 60 RF: 3 cetirizine 10 mg Tablet 10 mg PO DAILY@0900 RF: 0 Discharge Orders: Discharge ED (Routine); Ordered 08/30/20 Ordered By: Sanjeev Estrada Referrals: Hanane Saldaña MD [Primary Care Provider] - Discharge Activity: Increase activity as tolerated Patient Instructions: Chest Pain (ED) Activity Restrictions/Additional Instructions: Follow-up with your medical reception in the morning as scheduled. Return if symptoms worsen. Continue home medications as directed. Rest. Coding Level of Care Code ED Multisensor Intelligence Officer for Chg Fwd Exam Comprehensive
[2020-08-30 15:02] VITALS: BP 112/56; PULSE 101; RESP 19; TEMP 36.6; O2SAT 100
[2020-08-30 15:11] VITALS: RESP 24; O2SAT 99
[2020-08-30] MEDS: ondansetron 2 mg/ML SDV 2 mL 4 MG IVP (15:11)
[2020-08-30] MEDS: morphine 4 mg/mL SDV 1 mL 2 MG IVP (15:11)
[2020-08-30 15:16] VITALS: BP 101/52; PULSE 105; RESP 19; O2SAT 99
[2020-08-30 15:34] LABS: Basophils # 0.1 10^3/uL (0.0-0.1); Basophils % 1.5 %; Eosinophils # 0.5 10^3/uL (0.0-0.8); Eosinophils % 7.2 %; Hematocrit 35.4 % (42.0-52.0); Lymphocytes # 1.1 10^3/uL (0.8-4.8); Lymphocytes % 17.5 %; Mean Corpuscular HGB Conc 31.1 g/dL (30.0-36.0); Mean Corpuscular Hemoglobin 28.9 pg (28.0-34.0); Mean Corpuscular Volume 92.9 fL (80-94); Mean Platelet Volume 11.2 fL (7.4-10.4); Monocytes # 0.6 10^3/uL (0.2-0.9); Monocytes % 9.1 %; Neutrophils # 4.18 10^3/uL (1.8-7.7); Neutrophils % 64.4 %; Nucleated Red Blood Cells % 0 %; Platelet Count 140 10^3/cmm (130-400); Red Blood Count 3.81 10^6/uL (4.1-5.3); Red Cell Distribution Width 17.6 % (12.1-15.1); White Blood Count 6.5 10^3/uL (4.0-10.0)
[2020-08-30 15:35] VITALS: BP 99/51; PULSE 92; RESP 11; O2SAT 99
[2020-08-30 15:49] LABS: Blood Urea Nitrogen 16 mg/dL (8-23); Calcium 8.5 mg/dL (8.5-10.5); Carbon Dioxide 29 mmol/L (22-29); Chloride 94 mmol/L (98-107); Glucose 74 mg/dL (65-115); Magnesium 1.9 mg/dL (1.7-2.3); Osmolality Calculated 282 mOsm/kg (285-295); Sodium 136 mmol/L (136-145)
[2020-08-30 15:51] LABS: Troponin(5th) Baseline 71 ng/L (0-15)
--- NOTE | 2020-08-30 16:30 | ECG_ITS ---
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: : 1945 Requested By: Sanjeev Clayton Order Number: [id number] Reading MD: KIMBERLY MOORE Measurements Intervals [place] Rate: 82 P: UT: QRS: 97 QRSD: 112 T: 53 QT: 432 QTc: 508 Interpretive Statements SINUS RYTHM BORDERLINE RIGHT AXIS DEVIATION [QRS AXIS > 90] LOW QRS VOLTAGE IN EXTREMITY LEADS [QRS DEFLECTION < 0.5 mV IN LIMB LEADS] MODERATE INTRAVENTRICULAR CONDUCTION DELAY [110+ ms QRS DURATION] MODERATE ST DEPRESSION [0.05+ mV ST DEPRESSION] PROLONGED QT INTERVAL Compared to ECG 08/18/2020 16:55:19 Low QRS voltage now present ST (T wave) deviation now present Prolonged QT interval now present Left-axis deviation no longer present Myocardial infarct finding no longer present Electronically Signed On 08-30-2020 18:52:18 CDT by KIMBERLY MOORE [id number]
[2020-08-30 17:36] LABS: Troponin 5 2HR 64.79 ng/L (0-15); Troponin 5 2HR Delta -6.21 ABS# (0-10)
[2020-08-30 18:18] VITALS: BP 114/54; PULSE 79; RESP 18; O2SAT 98
== END 2020-08-30 18:40 | disposition home or self-care (01) ==
PROVIDERS: Emergency Provider Family Medicine; PCP Family Medicine
DX: R07.9 Chest pain, unspecified (principal); I13.2 Hypertensive heart and chronic kidney disease with heart failure and with stage 5 chronic kidney disease, or end stage renal disease; E13.22 Other specified diabetes mellitus with diabetic chronic kidney disease; N18.6 End stage renal disease; I50.9 Heart failure, unspecified; Z99.2 Dependence on renal dialysis; Z79.01 Long term (current) use of anticoagulants; Z79.02 Long term (current) use of antithrombotics/antiplatelets; E78.5 Hyperlipidemia, unspecified; I25.2 Old myocardial infarction
CPT/HCPCS: 36415; 71045; 80048; 83735; 84484; 85025; 85730; 93005; 96374; 96375; 99284; J2270; J2405; J3490

== ENCOUNTER 2020-09-02 18:01 | Inpatient (IN) | payer MEDICARE, MEDICAID, SELFPAY ==
--- NOTE | 2020-09-02 18:03 | ECG_ITS ---
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: : 1945 Requested By: Derek Preciado Order Number: [id number] Reading MD: KIMBERLY MOORE Measurements Intervals [place] Rate: 157 P: -81 IA: 70 QRS: 266 QRSD: 183 T: 48 QT: 354 QTc: 572 Interpretive Statements WIDE COMPLEX TACHYCARDIA, POSSIBLE ATRIAL FLUTTER MARKED RIGHT AXIS DEVIATION [QRS AXIS > 100] RIGHT BUNDLE BRANCH BLOCK [120+ ms QRS DURATION, UPRIGHT V1, 40+ ms S IN I/aVL/V4/V5/V6] POSSIBLE ANTERIOR MYOCARDIAL INFARCTION [30 ms Q WAVE IN V3/V4, OR R < 0.2 mV IN V4], OF INDETERMINATE AGE INFERIOR MYOCARDIAL INFARCTION [40+ ms Q WAVE AND/OR ST/T ABNORMALITY IN II/aVF], POSSIBLY OLD ACUTE AK Compared to ECG 08/30/2020 16:23:46 Right bundle-branch block now present Myocardial infarct finding now present Intraventricular conduction delay no longer present ST (T wave) deviation no longer present Prolonged QT interval no longer present Electronically Signed On 09-03-2020 14:28:36 CDT by KIMBERLY MOORE [email or web address]
--- NOTE | 2020-09-02 18:03 | XRR_ITS ---
PROCEDURE INFORMATION: Exam: XR Chest Exam date and time: 09/02/2020 6:03 PM Age: 75 years old Clinical indication: Shortness of breath; Additional info: Dyspnea TECHNIQUE: Imaging protocol: XR of the chest. Views: 1 view. COMPARISON: CR (CHEST, ) 08/30/2020 2:29 PM FINDINGS: The lung ferguson are hypoventilated. There are basilar infiltrates similar to the previous exam. There are bilateral pleural effusions. There is no pneumothorax. There is cardiomegaly. A device superimposes the chest. XR/XR chest 1V portable [id number] IMPRESSION: 1. Basilar infiltrates not significantly changed. 2. Bilateral pleural effusions. 3. Cardiomegaly, stable.
[2020-09-02 18:07] VITALS: PULSE 159; RESP 22; TEMP 37.5; O2SAT 83; BMI 32.0
[2020-09-02 18:07] LABS: Blood Gas Sample Type Arterial; Potassium Level - ABG 4.5 mmol/L (3.5-5.0)
[2020-09-02 18:08] LABS: Blood Gas Operator Identificat ED; Blood Gas Sample Site Brachial, left; Oxygen Device ROOM AIR
[2020-09-02 18:15] VITALS: BP 136/73; PULSE 154; RESP 32; O2SAT 99
[2020-09-02 18:22] LABS: Basophils # 0.1 10^3/uL (0.0-0.1); Basophils % 0.9 %; Eosinophils # 0.4 10^3/uL (0.0-0.8); Eosinophils % 3.1 %; Hematocrit 35.4 % (42.0-52.0); Hemoglobin 10.4 g/dL (11.7-16.6); Lymphocytes # 1.5 10^3/uL (0.8-4.8); Mean Corpuscular HGB Conc 29.4 g/dL (30.0-36.0); Mean Corpuscular Hemoglobin 28.5 pg (28.0-34.0); Mean Platelet Volume 11.1 fL (7.4-10.4); Monocytes # 0.7 10^3/uL (0.2-0.9); Monocytes % 4.9 %; Neutrophils # 10.94 10^3/uL (1.8-7.7); Neutrophils % 79.5 %; Nucleated Red Blood Cells % 0 %; Platelet Count 146 10^3/cmm (130-400); Red Blood Count 3.65 10^6/uL (4.1-5.3); Red Cell Distribution Width 17.8 % (12.1-15.1); White Blood Count 13.8 10^3/uL (4.0-10.0)
[2020-09-02] MEDS: ondansetron 2 mg/ML SDV 2 mL 4 MG IVP (18:22)
--- NOTE | 2020-09-02 18:26 | ED_ITS ---
HPI - Chest Pain General: Chief Complaint: Chest Pain Stated Complaint: CHEST PAIN Time Seen by Provider: 09/02/20 18:02 History of Present Illness: HPI narrative: The patient is a 75-year-old male who comes to the ER brought by [facility] after he is noted to have an elevated heart rate at home and shortness of breath. Patient said it started some hours ago. I was notified of his arrival approximately 30 minutes prior to when he arrived. EMS texted a picture which appeared to be possibly V. tach and another 1 which was less than likely on the twelve-lead. Recommended they start amiodarone. On arrival his heart rate was in the 150s and I discussed with Dr. Dunn who arrived shortly after the patient who felt it is more than likely fast A. fib or a flutter. Did not recommend cardioversion acutely admit recommended medical treatment of his tacky arrhythmia. He had stents placed in his heart earlier sometime this year and has coronary artery disease chronically. He is also chronically on Eliquis Pertinent past history: coronary artery disease and prior [place] Timing of current episode: constant Prior episodes: No Onset: during rest Pain radiation: none Relieving factors: nothing and other (Oxygen) Associated symptoms: Reports dyspnea, nausea, palpitations and vomiting; Deny abdominal pain Treatment prior to arrival: oxygen and other (Amiodarone.) Review of Systems General: Reports: 10 or more systems reviewed and unremarkable except in HPI and below Const: Denies: fatigue Eyes: Denies: change in vision, blurry vision or eye redness ENMT: Denies: throat pain, swelling of lips/tongue, ear or mastoid pain or nasal congestion Card: Reports: palpitations and irregular heart rhythm; Denies: chest pain, edema, dyspnea on exertion or orthopnea Resp: Reports: dyspnea GI: Reports: nausea and vomiting; Denies: abdominal pain, diarrhea or GI cramping : Denies: flank pain, urinary frequency or urinary urgency Musc: Denies: neck pain, back pain, extremity pain, joint pain, joint redness, limited range of motion or muscle weakness Skin/Breast: Denies: rash, pruritus, erythema, skin pain or skin tenderness Neuro: Denies: headache(s), numbness in extremities, weakness in extremities, sensory changes, difficulty walking, dizziness, confusion or Slurred speech pre sent Psych: Denies: anxiety or depression Endo: Denies: polyuria All/Imm: Denies: urticaria, throat swelling or tongue swelling PFSH ED PFSH: Medical History (Updated 09/02/20 @ 23:11 by Derek Preciado MD) Acute upper gastrointestinal bleeding (~07/2020) Amputation of toe of left foot Anemia ASHD (arteriosclerotic heart disease) Atrial fibrillation BPH (benign prostatic hyperplasia) C. difficile colitis (~05/2020) CHF (congestive heart failure) Colon polyps (~12/2019) COVID-19 DDD (degenerative disc disease) Diabetes 1.5, managed as type 2 Diabetic gastroparesis Dyslipidemia ESRD (end stage renal disease) on dialysis GERD (gastroesophageal reflux disease) History of gastritis HTN (hypertension) Hypothyroidism Mitral regurgitation PAD (peripheral artery disease) Pulmonary HTN Rheumatoid arthritis Surgical History History of colonoscopy 02/2015 --2 small adenomatous polyps History of esophagogastroduodenoscopy (EGD) 02/2015 --mild gastritis Personal history of surgery to other organs Hemodialysis catheters, peritoneal dialysis catheter, dialysis fistula S/P appendectomy S/P carpal tunnel release S/P cervical spinal fusion S/P cholecystectomy Status post coronary angiogram Status post coronary artery stent placement x2 Family History Father , AGE 61 Cancer LUNG Mother , AGE 62 CHF (congestive heart failure) Social History Alcohol intake: never Marital status: service: No Physical Exam Const: COMMON NORMALS: patient oriented x3, alert and well nourished GENERAL APPEARANCE: cooperative, in distress, anxious and ill appearing NUTRITIONAL APPEARANCE: obese ORIENTATION/CONSCIOUSNESS: Yes awake, Yes nat ented to person, Yes oriented to place and Yes oriented to time HENMT: COMMON NORMALS: normocephalic, external ears normal and Normal external nose present HEAD & SCALP: normal to inspection and normocephalic NOSE: Normal external nose present EXTERNAL EAR: Yes external ears normal MOUTH: Normal oral and palatal mucosa present THROAT: posterior oropharynx normal Eye: COMMON NORMALS: Equal, round and reactive pupils present and EOMs intact bilaterally GENERAL EYE: appearance normal, both eyes and all related structures PUPIL: Yes Equal, round and reactive pupils present Neck/C-Spine: COMMON NORMALS: full ROM, no lymphadenopathy, no meningeal signs and no JVD GENERAL: Yes normal visual inspection Lymph: LYMPHATIC: no lymphadenopathy noted Chest: COMMONS NORMALS: normal inspection of the chest and normal palpation of entire chest wall Resp: COMMON NORMALS: normal respiratory effort, No retractions, No use of accessory muscles, clear to auscultation bilaterally and percussion normal EFFORT & INSPECTION: Yes able to speak in complete sentences AUSCULTATION: clear to auscultation bilaterally PERCUSSION: percussion normal Cardio: COMMON NORMALS: no JVD, S1 normal heart sound present, S2 normal heart sound present and Peripheral pulses 2+ throughout RATE: tachycardic (Wide- complex tachycardia arrhythmia. Rate 150) HEART SOUNDS: S1 normal heart sound present and S2 normal heart sound present PERIPHERAL PULSES: Peripheral pulses 2+ throughout GI: COMMON NORMALS: Normal to inspection, nondistended, normoactive bowel sounds present, Soft to palpation, non-tender and no masses INSPECTION: Yes normal to inspection PALPATION: Yes Soft to palpation : COMMON NORMALS: Yes no CVA tenderness BLADDER/KIDNEY EXAM: Yes no CVA tenderness Back/Pelvis: COMMON NORMALS: no CVA tenderness, thoracic and lumbar spine normal to inspection, no thoracic nor lumbar tenderness and thoraco-lumbar ROM normal Extremity: COMMON NORMALS: normal to inspection, full ROM, capillary refill normal, no joint enlargement and no pedal edema NARRATIVE EXTREMITY EXAM: Right upper extremity fistula patent. GENERAL: Yes normal exam except as noted Neuro: COMMON NORMALS: patient oriented x3, CN's II-XII intact bilaterally, moves all extremities, no focal motor deficits, no sensory deficits noted and gait normal SENSORIUM/ORIENTATION: Yes alert, Yes oriented to person, Yes oriented to place and Yes oriented to time MENINGEAL SIGNS: Yes no meningeal signs Psych: COMMON NORMALS: mental status grossly normal, Normal thought process pr esent, cooperative, normal affect and speech normal ATTITUDE: Yes calm SPEECH: Yes normal speech THOUGHT PROCESS: Normal thought process present Skin: COMMON NORMALS: no rashes or lesions noted GENERAL SKIN EXAM: no rashes or lesions noted Procedures Procedural Sedation Indication: other (Cardioversion of tacky arrhythmia) Preparation: environmental monitoring specialist applied, pulse oximeter and supplemental O2 applied IV Etomidate dose (mg): 10 Patient Tolerated Procedure: well Complications: none Course Vital Signs: Vital signs: Vital Signs Temperature 99.5 F 09/02/20 18:07 Pulse Rate 71 09/02/20 22:28 Respiratory Rate 20 H 09/02/20 22:28 Blood Pressure 96/48 09/02/20 22:28 Pulse Oximetry 98 09/02/20 22:28 MDM - Chest Pain MDM Narrative: Medical decision making narrative: 627PM: EKG discussed with Dr. Lana miller. fib/flutter per him. not VT/SVT. Amiodarone 150 641: A. flutter. Dr. Schwartz in room since shortly after arival. amio drip/ 500cc fluid bolus. Pressure stable. Mentating well. Can cardiovert if decompensates at any time. 7:11 HR 150s. 5 metoprolol IV. BP 117/69. No changes in status. alert 727: He became altered and hypotensive with systolic 80s. Lana/Brenda/ Myself in room. Etomidate and syncronized cardioversion performed. Sinus rhythm resulted. somnolent from etomidate. satting 99. Patient recovered within 10 to 20 minutes from the etomidate and he has been satting well since. Discussed with Dr. Roebrt who accepts for admission to the ICU. The patient came to the ER with a tacky arrhythmia. Discussed with Dr. Schwartz who ultimately felt it was atrial flutter. The rate was 150s. We tried to medically cardioverted with amiodarone, IV fluids, and metoprolol without success. He did slightly be compromise and become hypotensive and altered. He was cardioverted medically with etomidate for sedation successfully on the first attempt. He stabilized after that and his blood pressure normalized as well satting well. Discussed with Dr. Robert who accepts for admission to the ICU. Lab Data: Labs: Lab Results 09/02/20 09/02/20 09/02/20 Range/Units 17:57 18:16 18:16 WBC 13.8 H (4.0-10.0) 10^3/ uL RBC 3.65 L (4.1-5.3) 10^6/u L Hgb 10.4 L (11.7-16.6) g/dL Hct 35.4 L (42.0-52.0) % MCV 97.0 H (80-94) fL MCH 28.5 (28.0-34.0) pg MCHC 29.4 L (30.0-36.0) g/dL RDW 17.8 H (12.1-15.1) % Plt Count 146 (130-400) 10^3/c mm MPV 11.1 H (7.4-10.4) fL Neut % (Auto) 79.5 % Lymph % (Auto) 11.0 % Shelby % (Auto) 4.9 % Eos % (Auto) 3.1 % Baso % (Auto) 0.9 % Neut # (Auto) 10.94 H (1.8-7.7) 10^3/u L Lymph # (Auto) 1.5 (0.8-4.8) 10^3/u L Shelby # (Auto) 0.7 (0.2-0.9) 10^3/u L Eos # (Auto) 0.4 (0.0-0.8) 10^3/u L Baso # (Auto) 0.1 (0.0-0.1) 10^3/u L Nucleated RBC % (a uto) 0 % Nucleated RBCs # 0.0 /100WBC PT 15.60 H (12.1-14.9) SECO NDS INR 1.21 H (0.8-1.2) APTT 32.5 (23.9-36.7) SECO NDS Specimen Type Arterial Sample Site Brachial, left ABG pH (7.35-7.45) ABG pCO2 (35-45) mmHg ABG pO2 (80.0-100.0) mmH g ABG HCO3 (22-26) mmol/L ABG O2 Saturation ABG Base Excess (-2.0-2.0) mmol/ L Silvio Test N/a A-a O2 Gradient (5-10) mmHg Hematocrit (42-52) % Hgb O2 Saturation (95-100) % Carboxyhemoglobin (0.4-20.1) %THgb Methemoglobin (0.4-1.5) % Total Hemoglobin (14-18) g/dL Sodium 142.0 (131-143) mmol/L Potassium 4.5 (3.5-5.0) mmol/L Glucose 154.0 H (70-115) mg/dL Ionized Calcium 1.0 L (1.1-1.4) mmol/L O2 Delivery Device Room air O2 Liters/Min % FiO2 21.0 % Chinese Language Professor ID Ed Chloride (98-107) mmol/L Carbon Dioxide (22-29) mmol/L Anion Gap (5-19) BUN (8-23) mg/dL Creatinine (0.7-1.2) mg/dL GFR Calculation Calculated Osmolal ity (285-295) mOsm/k g Lactate (0.5-2.2) mmol/L Calcium (8.5-10.5) mg/dL Magnesium (1.7-2.3) mg/dL Total Bilirubin (0.15-1.2) mg/dL AST (0-40) U/L ALT (0-41) U/L Alkaline Phosphata se (40-130) IU/L Creatine Kinase (39-308) U/L Troponin T Baselin e (0-15) ng/L Troponin T 120 Min duck[place] (0-15) ng/L Delta Troponin T (0-10) ABS# NT-Pro-B Natriuret Pep (0-125) pg/mL Total Protein (6.6-8.7) g/dL Albumin (3.5-5.2) g/dL Globulin (1.3-4.6) g/dL 09/02/20 09/02/20 09/02/20 Range/Units 18:16 18:16 18:16 WBC (4.0-10.0) 10^3/ uL RBC (4.1-5.3) 10^6/u L Hgb (11.7-16.6) g/dL Hct (42.0-52.0) % MCV (80-94) fL MCH (28.0-34.0) pg MCHC (30.0-36.0) g/dL RDW (12.1-15.1) % Plt Count (130-400) 10^3/c mm MPV (7.4-10.4) fL Neut % (Auto) % Lymph % (Auto) % Shelby % (Auto) % Eos % (Auto) % Baso % (Auto) % Neut # (Auto) (1.8-7.7) 10^3/u L Lymph # (Auto) (0.8-4.8) 10^3/u L Shelby # (Auto) (0.2-0.9) 10^3/u L Eos # (Auto) (0.0-0.8) 10^3/u L Baso # (Auto) (0.0-0.1) 10^3/u L Nucleated RBC % (a uto) % Nucleated RBCs # /100WBC PT (12.1-14.9) SECO NDS INR (0.8-1.2) APTT (23.9-36.7) SECO NDS Specimen Type Sample Site ABG pH (7.35-7.45) ABG pCO2 (35-45) mmHg ABG pO2 (80.0-100.0) mmH g ABG HCO3 (22-26) mmol/L ABG O2 Saturation ABG Base Excess (-2.0-2.0) mmol/ L Silvio Test A-a O2 Gradient (5-10) mmHg Hematocrit (42-52) % Hgb O2 Saturation (95-100) % Carboxyhemoglobin (0.4-20.1) %THgb Methemoglobin (0.4-1.5) % Total Hemoglobin (14-18) g/dL Sodium 139 (131-143) mmol/L Potassium 5.1 (3.5-5.0) mmol/L Glucose 142 H (70-115) mg/dL Ionized Calcium (1.1-1.4) mmol/L O2 Delivery Device O2 Liters/Min % FiO2 % Chinese Language Professor ID Chloride 99 (98-107) mmol/L Carbon Dioxide 24 (22-29) mmol/L Anion Gap 21.1 H (5-19) BUN 18 (8-23) mg/dL Creatinine 4.7 H (0.7-1.2) mg/dL GFR Calculation Not Reportable Calculated Osmolal ity 292 (285-295) mOsm/k g Lactate 4.8 H* (0.5-2.2) mmol/L Calcium 7.9 L (8.5-10.5) mg/dL Magnesium (1.7-2.3) mg/dL Total Bilirubin 0.6 (0.15-1.2) mg/dL AST 39 (0-40) U/L ALT 10 (0-41) U/L Alkaline Phosphata se 196 H (40-130) IU/L Creatine Kinase 62 (39-308) U/L Troponin T Baselin e 63 H (0-15) ng/L Troponin T 120 Min [place] (0-15) ng/L Delta Troponin T (0-10) ABS# NT-Pro-B Natriuret Pep 91824 H (0-125) pg/mL Total Protein 7.2 (6.6-8.7) g/dL Albumin 3.3 L (3.5-5.2) g/dL Globulin 3.9 (1.3-4.6) g/dL 09/02/20 09/02/20 09/02/20 Range/Units 18:16 19:33 20:32 WBC (4.0-10.0) 10^3/ uL RBC (4.1-5.3) 10^6/u L Hgb (11.7-16.6) g/dL Hct (42.0-52.0) % MCV (80-94) fL MCH (28.0-34.0) pg MCHC (30.0-36.0) g/dL RDW (12.1-15.1) % Plt Count (130-400) 10^3/c mm MPV (7.4-10.4) fL Neut % (Auto) % Lymph % (Auto) % Shelby % (Auto) % Eos % (Auto) % Baso % (Auto) % Neut # (Auto) (1.8-7.7) 10^3/u L Lymph # (Auto) (0.8-4.8) 10^3/u L Shelby # (Auto) (0.2-0.9) 10^3/u L Eos # (Auto) (0.0-0.8) 10^3/u L Baso # (Auto) (0.0-0.1) 10^3/u L Nucleated RBC % (a uto) % Nucleated RBCs # /100WBC PT (12.1-14.9) SECO NDS INR (0.8-1.2) APTT (23.9-36.7) SECO NDS Specimen Type Arterial Sample Site Brachial, left ABG pH 7.50 H (7.35-7.45) ABG pCO2 28.7 L (35-45) mmHg ABG pO2 73.0 L (80.0-100.0) mmH g ABG HCO3 22.1 (22-26) mmol/L ABG O2 Saturation 95.2 ABG Base Excess -0.4 (-2.0-2.0) mmol/ L Silvio Test N/a A-a O2 Gradient 5.2 (5-10) mmHg Hematocrit 31.6 L (42-52) % Hgb O2 Saturation 93.0 L (95-100) % Carboxyhemoglobin 1.2 (0.4-20.1) %THgb Methemoglobin 1.1 (0.4-1.5) % Total Hemoglobin 10.3 L (14-18) g/dL Sodium 141.0 (131-143) mmol/L Potassium 4.4 (3.5-5.0) mmol/L Glucose 127.0 H (70-115) mg/dL Ionized Calcium 1.0 L (1.1-1.4) mmol/L O2 Delivery Device Nrb O2 Liters/Min 15.0 % FiO2 % Chinese Language Professor ID Posjo Chloride (98-107) mmol/L Carbon Dioxide (22-29) mmol/L Anion Gap (5-19) BUN (8-23) mg/dL Creatinine (0.7-1.2) mg/dL GFR Calculation Calculated Osmolal ity (285-295) mOsm/k g Lactate (0.5-2.2) mmol/L Calcium (8.5-10.5) mg/dL Magnesium 1.9 (1.7-2.3) mg/dL Total Bilirubin (0.15-1.2) mg/dL AST (0-40) U/L ALT (0-41) U/L Alkaline Phosphata se (40-130) IU/L Creatine Kinase (39-308) U/L Troponin T Baselin e (0-15) ng/L Troponin T 120 Min [place] 63.52 H (0-15) ng/L Delta Troponin T 0.52 (0-10) ABS# NT-Pro-B Natriuret Pep (0-125) pg/mL Total Protein (6.6-8.7) g/dL Albumin (3.5-5.2) g/dL Globulin (1.3-4.6) g/dL 09/02/20 Range/Units 22:17 WBC (4.0-10.0) 10^3/ uL RBC (4.1-5.3) 10^6/u L Hgb (11.7-16.6) g/dL Hct (42.0-52.0) % MCV (80-94) fL MCH (28.0-34.0) pg MCHC (30.0-36.0) g/dL RDW (12.1-15.1) % Plt Count (130-400) 10^3/c mm MPV (7.4-10.4) fL Neut % (Auto) % Lymph % (Auto) % Shelby % (Auto) % Eos % (Auto) % Baso % (Auto) % Neut # (Auto) (1.8-7.7) 10^3/u L Lymph # (Auto) (0.8-4.8) 10^3/u L Shelby # (Auto) (0.2-0.9) 10^3/u L Eos # (Auto) (0.0-0.8) 10^3/u L Baso # (Auto) (0.0-0.1) 10^3/u L Nucleated RBC % (a uto) % Nucleated RBCs # /100WBC PT (12.1-14.9) SECO NDS INR (0.8-1.2) APTT (23.9-36.7) SECO NDS Specimen Type Sample Site ABG pH (7.35-7.45) ABG pCO2 (35-45) mmHg ABG pO2 (80.0-100.0) mmH g ABG HCO3 (22-26) mmol/L ABG O2 Saturation ABG Base Excess (-2.0-2.0) mmol/ L Silvio Test A-a O2 Gradient (5-10) mmHg Hematocrit (42-52) % Hgb O2 Saturation (95-100) % Carboxyhemoglobin (0.4-20.1) %THgb Methemoglobin (0.4-1.5) % Total Hemoglobin (14-18) g/dL Sodium (131-143) mmol/L Potassium (3.5-5.0) mmol/L Glucose (70-115) mg/dL Ionized Calcium (1.1-1.4) mmol/L O2 Delivery Device O2 Liters/Min % FiO2 % Chinese Language Professor ID Chloride (98-107) mmol/L Carbon Dioxide (22-29) mmol/L Anion Gap (5-19) BUN (8-23) mg/dL Creatinine (0.7-1.2) mg/dL GFR Calculation Calculated Osmolal ity (285-295) mOsm/k g Lactate 3.2 H (0.5-2.2) mmol/L Calcium (8.5-10.5) mg/dL Magnesium (1.7-2.3) mg/dL Total Bilirubin (0.15-1.2) mg/dL AST (0-40) U/L ALT (0-41) U/L Alkaline Phosphata se (40-130) IU/L Creatine Kinase (39-308) U/L Troponin T Baselin e (0-15) ng/L Troponin T 120 Min [place] (0-15) ng/L Delta Troponin T (0-10) ABS# NT-Pro-B Natriuret Pep (0-125) pg/mL Total Protein (6.6-8.7) g/dL Albumin (3.5-5.2) g/dL Globulin (1.3-4.6) g/dL Critical Care Time Critical Care Time: Critical Care Time: Yes Total Critical Care Time: 80 Attestation: Management of care of patient with tacky arrhythmia with clinically significant possibility of deterioration of condition. I was present in room for much of that time or discussing with consultants cardiology, hospitalist, and medically managing multiple drips as well as cardioversion. Discharge Plan Discharge Patient Disposition: Admitted As Inpatient Clinical Impression: Atrial flutter Condition: Stable Coding Level of Care Code ED Nurse Transitional for Brendan Cummings
[2020-09-02] MEDS: amiodarone 50 mg/mL SDV 3 mL 150 MG IVP (18:32)
[2020-09-02 18:37] VITALS: BP 100/60; PULSE 152; RESP 28
[2020-09-02 18:40] LABS: INR 1.21 (0.8-1.2)
[2020-09-02 18:41] LABS: Partial Thromboplastin Time 32.5 SECONDS (23.9-36.7)
[2020-09-02] MEDS: sodium chloride 0.9% 500 ML IV (18:43)
[2020-09-02 18:47] VITALS: BP 111/76; PULSE 153; RESP 24; O2SAT 92
[2020-09-02 18:48] LABS: Lactate (Lactic Acid level) 4.8 mmol/L (0.5-2.2); Troponin(5th) Baseline 63 ng/L (0-15)
--- NOTE | 2020-09-02 18:49 | P.CONIM_ITS ---
Providers/Reason For Consult Consulting Physician/Specialty*: Cardiology Reason for Consult*: Wide-complex tachycardia Primary Care Provider: Hanane Saldaña MD History of Present Illness History of Present Illness Paul Cornelius is a 75 year old male past medical history significant for end- stage renal disease on dialysis, history of coronary artery disease status post drug-eluting stent to proximal LAD and circumflex, history of atrial fibrillation on anticoagulation, hypertension, hyperlipidemia, recent GI bleed who is status post dialysis from yesterday was feeling short of breath nauseated call 911 he was noted to be in wide-complex tachycardia most likely atrial flutter with aberrant conduction. He was brought into the hospital. Currently he denies chest pain he feels some pressure because of tachycardia. He appeared to be stable vital knowles and can talk. He is awake and oriented. Initial cardiac markers troponin around 63. Twelve-lead EKG is not suggestive of significant ST elevation or acute coronary syndrome Meds/Allergies Home Medications and Allergies Home Medications Medication Instructions Recorded Confirmed Last Taken Type mirtazapine 15 mg tablet 15 mg PO BEDTIME@209904/11/19 09/03/20 08/11/20 History nitroglycerin 0.4 mg sublingual 0.4 mg SUBLINGUAL Q5M PRN 04/11/19 09/03/20 04/19/20 06:00 History tablet cetirizine 10 mg PO DAILY@0900 01/21/20 09/03/20 08/12/20 History RenaPlex-D 1 tab PO DAILY@0900 02/03/20 09/03/20 08/12/20 History acetaminophen [Tylenol Extra 1,000 mg PO Q6H PRN 02/03/20 09/03/20 05/06/20 History Strength] clopidogrel 75 mg PO DAILY@0900 05/07/20 09/03/20 08/12/20 History amiodarone 200 mg tablet 200 mg PO DAILY@0900 #90 tab 06/01/20 09/03/20 08/12/20 Rx atorvastatin 40 mg PO BEDTIME@209906/04/20 09/03/20 08/11/20 History lidocaine-prilocaine [Lido-Prilo See Rx Instructions .ROUTE .COMPLEX 06/04/20 09/03/20 08/11/20 History Josemanuel Pack] certolizumab pegol See Rx Instructions .ROUTE 06/15/20 09/03/20 07/16/20 Rx .COMPLEX #2 ea apixaban 5 mg tablet 5 mg PO BID@0900,2100 #180 tab 06/30/20 09/03/20 08/12/20 Rx ondansetron 4 mg PO Q6H PRN #14 tab 07/26/20 09/03/20 Unknown Rx diltiazem HCl [Cardizem] 30 mg PO BID@0900,2100 08/12/20 09/03/20 08/12/20 History isosorbide mononitrate 60 mg PO DAILY@0900 08/12/20 09/03/20 08/12/20 History docusate sodium [Colace] 100 mg PO DAILY PRN 08/19/20 09/03/20 Unknown History levothyroxine 150 mcg PO QAM 08/19/20 09/03/20 Unknown History pantoprazole [Protonix] 40 mg PO BID #60 tab 08/21/20 09/03/20 Unknown Rx amlodipine 5 mg tablet 2.5 mg PO DAILY tab 08/31/20 09/03/20 Unknown History Allergies Allergy/AdvReac Type Severity Reaction Status Date / Time No Known Allergies Allergy Verified 09/02/20 18:13 Current Medications Current Medications Generic Name Dose Route Start Last Admin Trade Name Freq PRN Reason Stop Dose Admin Sodium Chloride 500 mls @ 500 mls/hr 09/02/20 18:36 09/02/20 18:43 Sodium Chloride 0.9% IV 09/02/20 19:35 500 mls/hr ONCE ONE Administration PFSH Acute PFSH: Medical History (Updated 09/03/20 @ 10:28 by Victor Manuel Flynn MD) Acute upper gastrointestinal bleeding (~07/2020) Amputation of toe of left foot Anemia ASHD (arteriosclerotic heart disease) Atrial fibrillation BPH (benign prostatic hyperplasia) C. difficile colitis (~05/2020) CHF (congestive heart failure) Colon polyps COVID-19 (~12/2019) treated with monoclonal antibody COVID-19 vaccine administered (~05/2020) moderna DDD (degenerative disc disease) Diabetes 1.5, managed as type 2 Diabetic gastroparesis Dyslipidemia ESRD (end stage renal disease) on dialysis GERD (gastroesophageal reflux disease) History of gastritis HTN (hypertension) Hypothyroidism MGUS (monoclonal gammopathy of unknown significance) Mitral regurgitation PAD (peripheral artery disease) Pulmonary HTN Rheumatoid arthritis Surgical History (Updated 09/03/20 @ 00:11 by Vanna Robert MD) History of colonoscopy 02/2015 --2 small adenomatous polyps History of esophagogastroduodenoscopy (EGD) 02/2015 --mild gastritis; 07/2020 mild gastritis, some blood seen in antrum Personal history of surgery to other organs Hemodialysis catheters, peritoneal dialysis catheter, dialysis fistula S/P appendectomy S/P carpal tunnel release S/P cervical spinal fusion S/P cholecystectomy Status post coronary angiogram Status post coronary artery stent placement x2 Family History Father , AGE 61 Cancer LUNG Mother , AGE 62 CHF (congestive heart failure) Social History (Updated 09/03/20 @ 00:04 by Vanna Robert MD) Smoking and tobacco status: never smoked Alcohol intake: never Substance/Drug Use: never Household members: spouse Marital status: Vitals/I&O/Wt Last Vital Signs Temp 99.5 F 09/02/20 18:07 Pulse 153 H 09/02/20 18:47 Resp 24 H 09/02/20 18:47 BP 111/76 09/02/20 18:47 Pulse Ox 92 09/02/20 18:47 Weight last 48 hrs Weight 243 lb Physical Exam Narrative: EXAM NARRATIVE: GENERAL: Patient is alert, awake and oriented x3. Mildly distressed NECK: No jugular vein distension. HEENT: No cyanosis. No icterus. No pallor. HEART: Regular S1 and S2. No murmur, rub or gallop. LUNGS: Decreased breath sound bilaterally. ABDOMEN: Firm, nontender and distended. Positive bowel sounds. No guarding, rebound or tenderness. CENTRAL NERVOUS SYSTEM: Grossly nonfocal. EXTREMITIES: Lower extremities without edema bilaterally. Data Micro: Micro: Microbiology 09/02/20 18:16 Blood Culture - Pr eliminary Blood SPECIMEN [facility] A&P Assessment and plan (1) Wide-complex tachycardia: Most likely atrial flutter with aberrant conduction. Patient is on amiodarone at home. His blood pressure fluctuates between soft to normal. I will start him on IV amiodarone. If he become unstable may will cardiovert him since he is on anticoagulation. Status: Acute (2) HTN (hypertension): Within normal limits. Continue to monitor Status: Chronic Qualifiers: Hypertension type: essential hypertension Qualified Code(s): I10 - Essential (primary) hypertension (3) CKD (chronic kidney disease): As per medicine. Potassium within normal limit Status: Inactive Qualifiers: Chronic kidney disease stage: on chronic dialysis Qualified Code(s): N 18.6 - End stage renal disease; Z99.2 - Dependence on renal dialysis (4) Elevated troponin: Most likely secondary to decreased renal clearance and due to tachycardia. Status: Inactive (5) Coronary artery disease: Status post drug-eluting stent to LAD and circumflex few months ago. Continue clopidogrel add beta-xu and continue statin. Status: Chronic Qualifiers: Associated angina: without angina Coronary Disease-Associated Artery/Lesion type: [place] artery [place] vs. transplanted heart: [place] heart Qualified Code(s): I25.10 - Atherosclerotic heart disease of [place] coronary artery without angina pectoris Consult Attestations Medical Necessity Statement: Patient require admission to the hospital for above defined care. Coding Level of Care Code New Pt Acute Ballet Professor for g Fwd Patient Type New Medical Decision Making High Complexity Diagnoses Wide-complex tachycardia I47.2 HTN (hypertension) I10 Hypertension type: essential hypertension CKD (chronic kidney disease) N18.6; Z99.2 Chronic kidney disease stage: on chronic dialysis Elevated troponin R77.8 Coronary artery disease I25.10 Associated angina: without angina Coronary Disease-Associated Artery/Lesion type: [place] artery [place] vs. transplanted heart: [place] heart
--- NOTE | 2020-09-02 18:50 | PC.NURSE ---
patient is alert and oriented. c/o chest pain, dizziness and nausea. chest pain 5/10 at this time.
[2020-09-02 18:57] LABS: Albumin Level 3.3 g/dL (3.5-5.2); Alkaline Phosphatase 196 IU/L (40-130); Blood Urea Nitrogen 18 mg/dL (8-23); Calcium 7.9 mg/dL (8.5-10.5); Carbon Dioxide 24 mmol/L (22-29); Chloride 99 mmol/L (98-107); Creatine Phosphokinase 62 U/L (39-308); Globulin 3.9 g/dL (1.3-4.6); Glucose 142 mg/dL (65-115); Osmolality Calculated 292 mOsm/kg (285-295); Sodium 139 mmol/L (136-145); Total Bilirubin 0.6 mg/dL (0.15-1.2); Total Protein 7.2 g/dL (6.6-8.7)
[2020-09-02 19:01] LABS: Alanine Aminotransferase 10 U/L (0-41); Anion Gap 21.1 (5-19); Aspartate Amino Transferase 39 U/L (0-40); Potassium 5.1 mmol/L (3.5-5.1)
[2020-09-02] MEDS: metoprolol tartrate 1 mg/1 mL SDV 5 mL 5 MG IV (19:11)
[2020-09-02 19:45] LABS: ABG PCO2 28.7 mmHg (35-45); Alveolar-Arterial Oxygen Gradi 5.2 mmHg (5-10); Arterial Blood Gas Hematocrit 31.6 % (42-52); Base Excess ABG -0.4 mmol/L (-2.0-2.0); Blood Gas Sample Site Brachial, left; Blood Gas Sample Type Arterial; Carboxyhemoglobin 1.2 %THgb (0.4-20.1); HCO3 ABG 22.1 mmol/L (22-26); Methemoglobin 1.1 % (0.4-1.5); Oxygen Device NRB; Oxygen Saturation ABG 95.2; Potassium Level - ABG 4.4 mmol/L (3.5-5.0); Total Hemoglobin 10.3 g/dL (14-18)
[2020-09-02] MEDS: vancomycin 1,500 MG/300 ML PIGGYBACK 200 MG IV (19:59)
--- NOTE | 2020-09-02 20:03 | ECG_ITS ---
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 Measurements Intervals [place] Rate: 75 P: 2 VA: 251 QRS: -60 QRSD: 132 T: 107 QT: 437 QTc: 489 Interpretive Statements SINUS RHYTHM WITH FIRST DEGREE AV BLOCK MARKED LEFT AXIS DEVIATION [QRS AXIS < -30] INTRAVENTRICULAR CONDUCTION DELAY [130+ ms QRS DURATION] POSSIBLE ANTERIOR MYOCARDIAL INFARCTION [30 ms Q WAVE IN V3/V4, OR R < 0.2 mV IN V4], PROBABLY OLD Compared to ECG 09/02/2020 18:20:35 First degree AV block now present Left-axis deviation now present Intraventricular conduction delay now present Right-axis deviation no longer present Right bundle-branch block no longer present Myocardial infarct finding still present Electronically Signed On 09-03-2020 6:32:16 CDT by Farrah Guzman M.D. [id number]
[2020-09-02] MEDS: promethazine 25 mg/mL SDV 1 mL IM (20:29)
[2020-09-02 21:05] LABS: Troponin 5 2HR 63.52 ng/L (0-15); Troponin 5 2HR Delta 0.52 ABS# (0-10)
[2020-09-02 21:18] LABS: Magnesium 1.9 mg/dL (1.7-2.3)
[2020-09-02 22:28] VITALS: BP 96/48; PULSE 71; RESP 20; O2SAT 98
[2020-09-02] MEDS: piperacillin-tazobactam 3.375 GM in sodium chloride 0.9% (plus) 50 ML IV (22:31)
[2020-09-02 22:38] LABS: Lactate (Lactic Acid level) 3.2 mmol/L (0.5-2.2)
[2020-09-03] VITALS (96 sets, daily range): BP systolic 75–140; BP diastolic 35–87; PULSE 52–76; RESP 6–27; TEMP 36.2–37.3; O2SAT 86–100; BMI 32.1
--- NOTE | 2020-09-03 00:02 | PM.HP ---
Providers/Chief Complaint Admitting Physician: Vanna Robert MD Primary Care Provider: Hanane Saldaña MD Chief Complaint: CHEST PAIN History of Present Illness Paul Cornelius is a 75 year old male who presented to the emergency room chief complaint of dizziness and chest discomfort. He was brought in by EMS and had what was originally thought to be ventricular tachycardia heart rate 150s to 160s. On arrival here was evaluated by Dr. cShwartz who felt wide-complex tachycardia, not V. tach. No ST elevation. Initial and 2-hour troponin were in the 60s which is near prior values. He did have an elevation in BMP but again consistent with prior values. Patient has a known history of A. fib. Attempts at medical management for rate control were unsuccessful and patient ultimately had drop in pressures and was subsequently sedated and cardioverted. Historically he has been Plavix and Eliquis due to history of stents and atrial fibrillation. Plavix has been continued but Eliquis has been held for the last couple of weeks due to heme positive stools and an EGD showing some gastritis with a small amount of blood seen. He was put on twice daily PPI. He has had episodes of this dizziness for several weeks and the thought has been that this was due to A. fib with RVR episodes. Has been seen in the ER, cardiology clinic, dialysis and here. Denies any recent fevers. Denies having had similar symptoms in the past. He has had progressive decline of his baseline functioning but no reports of acute change in sensation or motor function. He just keeps feeling like he is drunk . Denies double vision, headaches, eye pain, neck pain. No speech or swallowing changes. Had Covid vaccine earlier this year and had Covid back in December of last year. No recent known Covid contacts. He is a dialysis patient on Wednesdays and Fridays. He was able to get his dialysis on Sunday. Despite sinus rhythm in the 70s in the emergency room he continues to complain of dizziness. Has had 4 episodes of vomiting today. He does get short of breath with exertion but denies nonproductive cough. He is being admitted for monitoring post cardioversion and further evaluation and care as indicated. Review of Systems Const: Reports: change in appetite; Denies: fever(s) or chills Eyes: Denies: change in vision, blurry vision or eye discomfort ENMT: Denies: throat pain or nasal congestion Card: Reports: chest pain, palpitations, edema, lightheadedness and dyspnea on exertion; Denies: syncope Resp: Denies: productive cough, non-productive cough, pain on inspiration or hemoptysis GI: Reports: nausea, vomiting, constipation and hematochezia (Within the last few weeks, had EGD 08/19/2020); Denies: abdominal pain or diarrhea : Reports: other (No longer makes urine) Musc: Reports: other (No new joint pain or acute swelling) Skin/Breast: Denies: pruritus or sores Neuro: Reports: numbness in extremities (Chronic), weakness in extremities (Chronic), difficulty walking (Chronic, no longer ambulates beyond transfers) and dizziness; Denies: headache(s), confusion or Slurred speech present Psych: Denies: anxiety or depression Medications/Allergies Home Medications Medication Instructions Recorded Confirmed Last Taken Type mirtazapine 15 mg tablet 15 mg PO BEDTIME@2100 04/11/19 08/31/20 08/11/20 History nitroglycerin 0.4 mg sublingual 0.4 mg SUBLINGUAL Q5M PRN 04/11/19 08/31/20 04/19/20 06:00 History tablet cetirizine 10 mg PO DAILY@0900 01/21/20 08/31/20 08/12/20 History RenaPlex-D 1 tab PO DAILY@0900 02/03/20 08/31/20 08/12/20 History acetaminophen [Tylenol Extra 1,000 mg PO PRN 02/03/20 08/31/20 05/06/20 History Strength] clopidogrel 75 mg PO DAILY@0900 05/07/20 08/31/20 08/12/20 History amiodarone 200 mg tablet 200 mg PO DAILY@0900 #90 tab 06/01/20 08/31/20 08/12/20 Rx atorvastatin 40 mg PO BEDTIME@2100 06/04/20 08/31/20 08/11/20 History lidocaine-prilocaine [Lido-Prilo See Rx Instructions .ROUTE .COMPLEX 06/04/20 08/31/20 08/11/20 History Josemanuel Pack] certolizumab pegol See Rx Instructions .ROUTE 06/15/20 08/31/20 07/16/20 Rx .COMPLEX #2 ea apixaban 5 mg tablet 5 mg PO BID@0900,2100 #180 tab 06/30/20 08/31/20 08/12/20 Rx ondansetron 4 mg PO Q6H PRN #14 tab 07/26/20 08/31/20 Unknown Rx diltiazem HCl [Cardizem] 30 mg PO BID@0900,2100 08/12/20 08/31/20 08/12/20 History isosorbide mononitrate 60 mg PO DAILY@0900 08/12/20 08/31/20 08/12/20 History Colace 100 mg PO DAILY PRN 08/19/20 08/31/20 Unknown History levothyroxine 150 mcg PO QAM 08/19/20 08/31/20 Unknown History pantoprazole [Protonix] 40 mg PO BID #60 tab 08/21/20 08/31/20 Unknown Rx amlodipine 5 mg tablet 2.5 mg PO DAILY tab 08/31/20 08/31/20 Unknown History Allergies Allergy/AdvReac Type Severity Reaction Status Date / Time No Known Allergies Allergy Verified 09/02/20 18:13 PFSH Acute PFSH: Medical History (Updated 09/03/20 @ 00:34 by Vanna Robert MD) Acute upper gastrointestinal bleeding (~07/2020) Amputation of toe of left foot Anemia ASHD (arteriosclerotic heart disease) Atrial fibrillation BPH (benign prostatic hyperplasia) C. difficile colitis (~05/2020) CHF (congestive heart failure) Colon polyps COVID-19 (~12/2019) treated with monoclonal antibody COVID-19 vaccine administered (~05/2020) moderna DDD (degenerative disc disease) Diabetes 1.5, managed as type 2 Diabetic gastroparesis Dyslipidemia ESRD (end stage renal disease) on dialysis GERD (gastroesophageal reflux disease) History of gastritis HTN (hypertension) Hypothyroidism Mitral regurgitation PAD (peripheral artery disease) Pulmonary HTN Rheumatoid arthritis Surgical History (Updated 09/03/20 @ 00:11 by Vanna Robert MD) History of colonoscopy 02/2015 --2 small adenomatous polyps History of esophagogastroduodenoscopy (EGD) 02/2015 --mild gastritis; 07/2020 mild gastritis, some blood seen in antrum Personal history of surgery to other organs Hemodialysis catheters, peritoneal dialysis catheter, dialysis fistula S/P appendectomy S/P carpal tunnel release S/P cervical spinal fusion S/P cholecystectomy Status post coronary angiogram Status post coronary artery stent placement x2 Family History Father , AGE 61 Cancer LUNG Mother , AGE 62 CHF (congestive heart failure) Social History (Updated 09/03/20 @ 00:04 by Vanna Robert MD) Smoking and tobacco status: never smoked Alcohol intake: never Substance/Drug Use: never Household members: spouse Marital status: Vitals/I&O/Wt Last Vital Signs Temp 99.5 F 09/02/20 18:07 Pulse 71 09/02/20 22:28 Resp 20 H 09/02/20 22:28 BP 96/48 09/02/20 22:28 Pulse Ox 98 09/02/20 22:28 Weight last 48 hrs Weight 110.223 kg Physical Exam Narrative: EXAM NARRATIVE: Constitutional: Awake and alert, not feeling well, hard of hearing HEENT: Normocephalic, extraocular movements are intact, no nystagmus noted pupils are equally reactive, no diplopia or ptosis, oropharynx edentulous, dry mucous membranes Neck: Supple Respiratory: Clear to auscultation anteriorly, decreased at bases Cardiovascular: Regular rhythm, murmur noted, peripheral pulses are equal upper extremities, decreased in lower extremities but equal, positive thrill and shunt in right upper extremity Abdomen: Soft, nontender, positive bowel sounds : Normal external genitalia Extremities: Trace pitting edema, some nodularity at elbows, no acutely appearing inflamed joints though chronic changes, missing left great toe Skin: Stasis changes Neuro: Speech clear, face symmetric, handgrip equal, no abnormal movements Psych: Normal affect, cooperative Data : 09/02/20 18:16 09/02/20 18:16 Micro: Microbiology 09/02/20 18:43 Blood Culture - Preliminary Blood SPECIMEN COLLECTED 09/02/20 18:16 Blood Culture - Preliminary Blood SPECIMEN COLLECTED Other data: EKG: [] Prior or outside records reviewed: [] Discussed with other providers: [] A&P Assessment and plan (1) Dizziness: Patient off-and-on for the last 2 weeks, associated with feel like I am drunk , nausea, vomiting and increased malaise. Has been attributed to A. fib with RVR though symptoms have continued status post cardioversion with improved heart rates. May have some autonomic insufficiency contributing to this as he no longer really walks very much due to neuropathy and pain, able to transfer to wheelchair assistance. Symptoms are not reproducible on examination though did occur while I was in the room. Intermittent vomiting, vertigo or vascular process are of concern. Status: Acute (2) Wide-complex tachycardia: That progressed to unstable state necessitating cardioversion Status: Acute (3) History of cardioversion: Done in the ER today Status: Acute (4) Atrial fibrillation: Chronic though has been difficult to control lately, Eliquis has been held secondary to GI bleed, has been on diltiazem and amiodarone orally Status: Chronic Qualifiers: Atrial fibrillation type: paroxysmal Qualified Code(s): I48.0 - Paroxysmal atrial fibrillation (5) Coronary artery disease: With stent placement in March of this year, on Plavix. Clinically also on statin therapy, isosorbide Status: Chronic Qualifiers: Coronary Disease-Associated Artery/Lesion type: [place] artery [place] vs. transplanted heart: [place] heart Associated angina: without angina Qualified Code(s): I25.10 - Atherosclerotic heart disease of [place] coronary artery without angina pectoris (6) Normocytic normochromic anemia: Appears stable compared to prior labs currently, component of anemia of chronic kidney disease with recent acute blood loss that did not require transfusion from GI losses Status: Acute (7) Acute upper gastrointestinal bleeding: The last 2 weeks, had EGD done by Dr. Blackwell on 08/19/2020 Status: Acute (8) ESRD (end stage renal disease) on dialysis: Dialysis Wednesdays and Fridays Status: Chronic (9) High risk medication use: On Cimzia for rheumatoid arthritis Status: Chronic (10) Rheumatoid arthritis: On immunosuppressive agents putting him at risk of infection Status: Chronic Additional A&P Information Elevated white count and lactic acid -I suspect that these are both secondary to acute issues in the emergency room. Had blood cultures collected and was empirically covered with antibiotics for possibility of infection. Given immunocompromise state and high risk medication use combined with presentation, difficult to fully rule out infection as the cause of his arrhythmia rather than the arrhythmia being primary currently, though do not get a strong sense of obvious infection from discussion with him and his Inpatient admission ICU care initially Continue amiodarone drip Was on Cardizem outpatient as well Dr. Schwartz saw in the emergency room, patient follows with Dr. Mcdonald outpatient, will confer with cardiology about further plans of care Secondary to cardioversion will initiate heparin but will have to watch H&H and for signs of bleeding closely IV PPI currently Antiemetics Type and screen Continue home Plavix secondary to stents Continue home statin therapy Continue home isosorbide at 30 mg daily Monitor blood pressures, had been hypotensive in the emergency room Have currently not resumed home amlodipine or diltiazem Check TSH, continue levothyroxine presently Check carotid ultrasound Trial of meclizine Continuing vancomycin and Zosyn presently at renal dosing Follow-up pending blood cultures Check sed rate and CRP, I expect him to have some baseline elevation secondary to his chronic comorbid conditions Monitor for any fevers or other symptoms Had Covid in December 2019 and was vaccinated with Moderna vaccine through dialysis clinic SCDs 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 Both were given an opportunity to ask questions. Full code Attestations Medical Necessity Statement*: Anticipated stay greater than 2 midnights in this gentleman presenting with symptomatic wide-complex tachycardia ultimately cardioverted. Other issues and plans as noted. Baseline functioning, comorbid conditions and acute issues over the last few weeks put him at high risk for rapid clinical decline without close monitoring and intervention. Coding Level of Care Code Acute Flat Folder for Jasbirg Fwd Diagnoses Dizziness R42 Wide-complex tachycardia I47.2 History of cardioversion Z98.890 Atrial fibrillation I48.0 Atrial fibrillation type: paroxysmal Coronary artery disease I25.10 Coronary Disease-Associated Artery/Lesion type: [place] artery [place] vs. transplanted heart: [place] heart Associated angina: without angina Normocytic normochromic anemia D64.9 Acute upper gastrointestinal bleeding K92.2 ESRD (end stage renal disease) on dialysis N18.6; Z99.2 High risk medication use Z79.899 Rheumatoid arthritis M06.9
--- NOTE | 2020-09-03 00:03 | ECG_ITS ---
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1945 Requested By: Derek Preciado Order Number: [id number] Justin MD: KIMBERLY MOORE Measurements Intervals [place] Rate: 68 P: 44 SC: 248 QRS: 103 QRSD: 106 T: 60 QT: 418 QTc: 448 Interpretive Statements SINUS RHYTHM WITH FIRST DEGREE AV BLOCK MARKED RIGHT AXIS DEVIATION [QRS AXIS > 100] LOW QRS VOLTAGE [QRS DEFLECTION < 0.5/1.0 mV IN LIMB/CHEST LEADS] Compared to ECG 09/02/2020 20:43:48 Right-axis deviation now present Low QRS voltage now present Left-axis deviation no longer present Intraventricular conduction delay no longer present Myocardial infarct finding no longer present Electronically Signed On 09-03-2020 14:30:29 CDT by KIMBERLY MOORE [id number]
[2020-09-03 01:29] LABS: Troponin 5 6HR 54.31 ng/L (0-15)
[2020-09-03 01:43] LABS: Troponin 5 6HR Delta -8.69 ng/L (0-12)
--- NOTE | 2020-09-03 03:00 | PC.NURSE ---
Transfer from ED to ICU Patient brought to ICU from ER by stretcher at 0250 and placed in ICU room 4. On 4L NC at time of transfer and has Amiodarone infusing at 33.3 mls/hr in the left forearm IV site. Patients gave the information provided in the admission assessment. She reports the patient uses a wheelchair at home and has no mobility of the legs. Patient belongings are at bedside, which is a pair of pants. Patient states that the patient has no other belongings with him at at the hospital.
--- NOTE | 2020-09-03 04:13 | PC.NURSE ---
Pt Arrive From ED Patient arrived from ED by stretcher and placed in ICU room 2. Patient belongings include a pair of pants which were placed at bedside. Patient confirms there are no other belongings brought in with the patient. Left forearm IV is patent, Amiodarone is infusing at
[2020-09-03 04:19] LABS: Basophils # 0.1 10^3/uL (0.0-0.1); Basophils % 0.5 %; Eosinophils # 0.1 10^3/uL (0.0-0.8); Eosinophils % 0.4 %; Hematocrit 31.6 % (42.0-52.0); Hemoglobin 9.5 g/dL (11.7-16.6); Lymphocytes # 1.1 10^3/uL (0.8-4.8); Lymphocytes % 5.8 %; Mean Corpuscular HGB Conc 30.1 g/dL (30.0-36.0); Mean Corpuscular Hemoglobin 28.6 pg (28.0-34.0); Mean Corpuscular Volume 95.2 fL (80-94); Mean Platelet Volume 12.7 fL (7.4-10.4); Monocytes # 1.4 10^3/uL (0.2-0.9); Monocytes % 7.4 %; Neutrophils # 16.48 10^3/uL (1.8-7.7); Neutrophils % 84.3 %; Nucleated Red Blood Cells % 0.1 %; Platelet Count 131 10^3/cmm (130-400); Red Blood Count 3.32 10^6/uL (4.1-5.3); Red Cell Distribution Width 17.8 % (12.1-15.1); White Blood Count 19.5 10^3/uL (4.0-10.0)
[2020-09-03] MEDS: ondansetron 2 mg/ML SDV 2 mL 4 MG IVP ×2 (05:08→17:20)
--- NOTE | 2020-09-03 05:10 | PC.NURSE ---
Amiodarone Drip Turned Amiodarone drip down to 17.2 mls/hr per protocol at 0500.
[2020-09-03 05:21] LABS: Erythrocyte Sedimentation Rate 46 mm/hr (0-10)
[2020-09-03] MEDS: heparin drip 25,000 UNIT/500 ML PREMIX 26.45 UNIT IV (05:27)
--- NOTE | 2020-09-03 05:30 | PC.NURSE ---
Heparin Drip Heparin drip initial loading dose was administered per the 40 units/kg Dr. Robert ordered. Which equaled 4400 units loading dose for bolus. Heparin drip was started per the 12 units/kg/hr that Dr. Robert ordered. Which equaled 26.4 mls/hr.
[2020-09-03] MEDS: pantoprazole 40 mg SDV IVP ×2 (05:40→16:56)
--- NOTE | 2020-09-03 06:00 | USCV_ITS ---
Paul Cornelius Age: 75 Gender: M : 1945 Exam Date: 09/03/2020 05:32 Ordering Phys: Vanna Robert MD Technologist: Citlalli Mena [place] [facility] [place]: Dizziness Risk Factors: Unknown Previous Vascular Surgery: Unknown Right Brachial BP: / Left Brachial BP: / Right Left Velocity (cm/s) Spectral Plaque Velocity (cm/s) Spectral Plaque Syst/Diast Broadening Syst/Diast Broadening 67.50/ 21.40 Prox CCA 104.80/ 12.50 Hetro 61.50/ 18.80 Mid CCA 73.60 / 18.10 Hetro 60.70/ 17.10 Distal CCA / Hetro 70.10/ 17.10 Prox ICA 82.10 / 19.30 Hetro 69.20/ 21.40 Mid ICA 91.70 / 26.60 88.00/ 18.80 Distal ICA 111.00/ 25.30 65.80 ECA 89.90 Hetro 1.43 ICA/CCA 1.51 Antegrade Vertebral Antegrade 20.30/ 5.90 cm/s 64.00/ 22.90 cm/s Bi Subclavian Tri 153.8 131.5 0 0 FINDINGS Comparison: none available. Technically difficult study. Diffuse bilateral scattered calcified plaque and intimal thickening throughout the common carotid arteries and extending through the bifurcation. Mild elevation of velocities and tortuous arteries. No stenosis. Antegrade vertebral arteries. CONCLUSIONS Bilateral ICA stenosis less than 50%. Diffuse mild atherosclerosis. Dr. Elizabet Sheikh DO (Electronically Signed) Final Date: 03 September 2020 09:06 S
--- NOTE | 2020-09-03 07:21 | PC.NURSE ---
Shift Summary Patient has Heparin infusing in the left wrist IV site at 26.4 mls/hr and Amiodarone is infusing in the left AC IV at 17.2 mls/hr. He is currently on 3L NC. No wounds or skin issues are noted at this time. Patient has an AV fistula in the right upper arm. He had one episode of nausea this morning and Zofran was given IVP.
[2020-09-03 09:31] LABS: Lactate (Lactic Acid level) 2.6 mmol/L (0.5-2.2)
[2020-09-03 09:41] LABS: Alanine Aminotransferase 30 U/L (0-41); Albumin Level 2.6 g/dL (3.5-5.2); Alkaline Phosphatase 157 IU/L (40-130); Anion Gap 18.5 (5-19); Aspartate Amino Transferase 95 U/L (0-40); Blood Urea Nitrogen 23 mg/dL (8-23); C Reactive Protein 86.7 mg/L (0.0-4.9); Calcium 7.5 mg/dL (8.5-10.5); Carbon Dioxide 25 mmol/L (22-29); Chloride 100 mmol/L (98-107); Globulin 3.7 g/dL (1.3-4.6); Glucose 108 mg/dL (65-115); Magnesium 1.8 mg/dL (1.7-2.3); Osmolality Calculated 292 mOsm/kg (285-295); Phosphorus 4.5 mg/dL (2.5-4.5); Potassium 4.5 mmol/L (3.5-5.1); Sodium 139 mmol/L (136-145); Thyroid Stimulating Hormone 6.67 uIU/mL (0.27-4.20); Total Bilirubin 0.7 mg/dL (0.15-1.2); Total Protein 6.3 g/dL (6.6-8.7); Uric Acid 4.1 mg/dL (3.4-7.0)
[2020-09-03 09:49] LABS: Creatine Phosphokinase 640 U/L (39-308)
[2020-09-03 10:04] LABS: Partial Thromboplastin Time 245.1 SECONDS (23.9-36.7)
[2020-09-03] MEDS: levothyroxine 150 mcg Tablet PO (10:16)
[2020-09-03] MEDS: docusate sodium 10 mg/mL (5ml) Liq 100 MG PO (10:16)
[2020-09-03] MEDS: isosorbide mononitrate ER 30 mg Tablet PO (10:16)
[2020-09-03] MEDS: lactobacillus 1 Tablet 1 TAB PO (10:16)
[2020-09-03] MEDS: clopidogrel 75 mg Tablet PO (10:16)
--- NOTE | 2020-09-03 10:19 | PM.PN ---
Subjective Subjective: Interval history: He is having some pain in his hips and knees which she says is a chronic issue. He denies chest pain. She denies trouble breathing. At home he is on chronic oxygen previously 4 L, recently on 2 L. Vitals/I&O/Wt Last Vital Signs Temp 99.1 F 09/03/20 03:24 Pulse 62 09/03/20 06:20 Resp 9 L 09/03/20 06:20 BP 90/43 09/03/20 06:20 Pulse Ox 99 09/03/20 06:20 09/02/20 09/03/20 09/03/20 22:59 06:59 14:59 Intake Total 346.451 / 346.451 Balance 346.451 / 346.451 Weight last 48 hrs Weight 110.393 kg Weight 110.223 kg Physical Exam Narrative: EXAM NARRATIVE: is at bedside. Const: COMMON NORMALS: no acute distress and patient oriented x3 NUTRITIONAL APPEARANCE: overweight HENMT: COMMON NORMALS: oropharynx normal Neck/C-Spine: COMMON NORMALS: no JVD Resp: COMMON NORMALS: normal respiratory effort and clear to auscultation bilaterally AUSCULTATION: clear to auscultation bilaterally Cardio: COMMON NORMALS: no JVD, regular rhythm, S1 normal heart sound present, S2 normal heart sound present and No murmurs present (Cardio) RHYTHM: regular rhythm HEART SOUNDS: S1 normal heart sound present and S2 normal heart sound present GI: COMMON NORMALS: Normal to inspection, nondistended, normoactive bowel sounds present and Soft to palpation PALPATION: Yes Soft to palpation and Yes Tenderness to palpation present (GI) (R ) Extremity: COMMON NORMALS: no joint enlargement and no pedal edema Neuro: COMMON NORMALS: patient oriented x3 and moves all extremities Skin: COMMON NORMALS: no rashes or lesions noted GENERAL SKIN EXAM: no rashes or lesions noted Data : 09/03/20 03:20 09/03/20 08:49 Micro: Microbiology 09/02/20 18:43 Blood Culture - Preliminary Blood SPECIMEN COLLECTED 09/02/20 18:16 Blood Culture - Preliminary Blood SPECIMEN COLLECTED A&P Assessment and plan (1) Abdominal pain: R side abdominal tenderness on palpation. Reports recent vomiting last several days. Leukocytosis. Discussed with him and his . Will request CT abdomen pelvis. If nothing concerning on imaging, could be secondary to vomiting due to dizziness. Bloody brown bowel movement noted this morning. Requesting stool studies. Status: Acute (2) Wide-complex tachycardia: Status post cardioversion for unstable tachycardia, thought to be atrial flutter with RVR with aberrant conduction. Currently on amiodarone drip. Sinus rhythm in the 60s. Today we will transition to oral amiodarone. Status: Acute (3) Atrial fibrillation: Continues on anticoagulation, however, does have history of recent GI bleed. Currently on heparin drip. Monitor hemoglobin. Status: Chronic Qualifiers: Atrial fibrillation type: paroxysmal Qualified Code(s): I48.0 - Paroxysmal atrial fibrillation (4) Dizziness: Monitor blood pressures, heart rates. PT, OT assessment. Status: Acute (5) History of cardioversion: On admit due to wide-complex tachycardia, likely A. fib with RVR with aberrant conduction Status: Acute (6) Coronary artery disease: With stent placement in March of this year, on Plavix. Clinically also on statin therapy, isosorbide Status: Chronic Qualifiers: Associated angina: without angina Coronary Disease-Associated Artery/Lesion type: [place] artery [place] vs. transplanted heart: [place] heart Qualified Code(s): I25.10 - Atherosclerotic heart disease of [place] coronary artery without angina pectoris (7) Normocytic normochromic anemia: Some blood documented in the stool this morning, although this was not reported per morning report, RN is going to confirm with him and . Monitor for any further bleeding. Recheck hemoglobin. In case indeed having blood in stool, may not be able to continue anticoagulation. Status: Acute (8) Acute upper gastrointestinal bleeding: The last 2 weeks, had EGD done by Dr. Blackwell on 08/19/2020 Status: Acute (9) ESRD (end stage renal disease) on dialysis: Dialysis Wednesdays and Fridays Status: Chronic (10) High risk medication use: On Cimzia for rheumatoid arthritis Status: Chronic (11) Rheumatoid arthritis: On immunosuppressive agents putting him at risk of infection Status: Chronic Additional A&P Information Hypothyroidism: TSH 6.67. May benefit from adjustment of levothyroxine dose and reassessment of thyroid function. Troponin elevation: Suspected secondary to tachycardia. He denies any chest pain. No shortness of breath near baseline oxygenation. Monitor for change in symptoms. Continue Plavix. Attestations Medical Necessity Statement*: Continue admission for optimization of rate control for atrial flutter, transition from IV amiodarone drip, monitoring after started on anticoagulation with possible GI bleeding, hemodialysis, assessment of abdominal pain. Coding Level of Care Code Acute Data Steward for Chg Fwd Exam Comprehensive Diagnoses Abdominal pain R10.9 Wide-complex tachycardia I47.2 Atrial fibrillation I48.0 Atrial fibrillation type: paroxysmal Dizziness R42 History of cardioversion Z98.890 Coronary artery disease I25.10 Associated angina: without angina Coronary Disease-Associated Artery/Lesion type: [place] artery [place] vs. transplanted heart: [place] heart Normocytic normochromic anemia D64.9 Acute upper gastrointestinal bleeding K92.2 ESRD (end stage renal disease) on dialysis N18.6; Z99.2 High risk medication use Z79.899 Rheumatoid arthritis M06.9
[2020-09-03] MEDS: vancomycin 1,000 MG in sodium chloride 0.9% 250 ML 250 MG IV ×2 (10:37→16:55)
--- NOTE | 2020-09-03 10:37 | CT_ITS ---
WS: [id number] CT ABDOMEN AND PELVIS NONCONTRAST HISTORY: Abdominal pain and vomiting. TECHNIQUE: Imaging performed through the abdomen and pelvis. Coronal and sagittal reformats are submi tted. All CT scans at [facility] use at least one of these dose optimization techniques: automated exposure control; mA and/or kV adjustment per patient size (includes targeted exams where d ose is matched to clinical indication); or iterative reconstruction. DLP: 1460.5 mGy.cm COMPARISON: 08/18/2020 Lower thorax: Small bilateral pleural effusions. Peripheral calcifications at the RIGHT lung base pro bably an old empyema. Chronic findings at the lung bases. Cardiomegaly and heavy calcification along the mitral annular valve plane. Liver: Normal size liver. No mass or bile duct dilatation. Gallbladder: Prior cholecystectomy. Pancreas: Atrophied pancreas with adjacent mesenteric edema. Spleen: Normal size spleen. Capsule calcification similar to prior studies probably from an old hemor rhage. Splenic artery calcifications. Adrenal glands: Normal. No mass. Right kidney: Marked atrophy with perinephric stranding. Left kidney: Marked atrophy with perinephric stranding. Aorta: Moderate to severe atherosclerosis abdominal aorta. No aneurysm. Atherosclerosis continues int o the common iliac arteries. Mild enlargement of the LEFT psoas muscle beginning at the level of the LEFT kidney and extending inf eriorly. There is a large amount of surrounding soft tissue edema and stranding. There is a moderate amount of ascites throughout the abdomen. Diffuse soft tissue anasarca and mesent travis edema. GI tract: No obstruction. Abdominal wall: Anasarca. Pelvis: Normal. Osseous structures: Unremarkable. CT/CT abdomen pelvis wo con [id number] IMPRESSION: 1. Small to moderate-sized LEFT retroperitoneal hematoma involving the psoas a nd iliacus muscles and the paracolic gutter. 2. Small to moderate amount of ascites with soft tissue anasarca and mesenteri c edema. 3. Chronic calcified RIGHT empyema. 4. Severe bilateral renal atrophy. 5. Small bilateral pleural effusions. Notified Victor Manuel Flynn MD at 09/03/2020 1:38 PM.
[2020-09-03] MEDS: acetaminophen 325 mg Tablet 650 MG PO ×2 (10:47→16:55)
--- NOTE | 2020-09-03 11:14 | PM.PN ---
Subjective Subjective: Interval history: Mr. Cornelius is seen for evaluation and management of end-stage kidney disease. Who presented yesterday from home with some chest pain, dizziness, palpitations, he was found to have a pulse of 150-160, with drop in blood pressure, this was found to be wide-complex tachycardia. He subsequently responded to DC cardioversion in the emergency room. Following this, he has maintained a robust blood pressure and is being maintained on a amiodarone infusion. He was last dialyzed on Sunday via a right arm aVF. This worked well and was without complication. Typically he has dialysis for roughly 4 hours. No overt uremic symptoms. No extremity edema, shortness of breath or other hypervolemic symptoms. Vitals/I&O/Wt Last Vital Signs Temp 99.1 F 09/03/20 03:24 Pulse 62 09/03/20 06:20 Resp 9 L 09/03/20 06:20 BP 90/43 09/03/20 06:20 Pulse Ox 99 09/03/20 06:20 09/02/20 09/03/20 09/03/20 22:59 06:59 14:59 Intake Total 346.451 / 346.451 Balance 346.451 / 346.451 Weight last 48 hrs Weight 110.393 kg Weight 110.223 kg Physical Exam Narrative: EXAM NARRATIVE: Constitutional: Awake, comfortable HEENT: Wet mucosa, no jvp, non icteric Lungs: Bilaterally clear without discernible wheeze, rales in all lung zones CVS: S1 S2, no murmurs Abdo: Soft, BS ok Ext 4: Minimal edema, peripheral perfusion with no cyanosis Neurological: Grossly non-focal Data : 09/03/20 03:20 09/03/20 08:49 Micro: Microbiology 09/02/20 18:43 Blood Culture - Preliminary Blood SPECIMEN COLLECTED 09/02/20 18:16 Blood Culture - Preliminary Blood SPECIMEN COLLECTED A&P Additional A&P Information 1. ESRD We will plan to do dialysis today, 2K, ultrafiltration of 2 L. We will evaluate him over the weekend with a plan to do dialysis again on Sunday morning Dose medication for GFR less than 15 on dialysis 2. Status post wide-complex tachycardia Status post cardioversion, thought to be atrial flutter with RVR with aberrant conduction, on amiodarone infusion, management per medical team. 3. Chronic ESRD issues to be managed as an outpatient including anemia of ESRD, secondary hyperparathyroidism etc. Continue home medication. Allen Lr MD Nephrology [phone] Patient seen and examined via telemedicine, with the assistance of the bedside RN > 25 min spent in evaluation and mgmt of patient Attestations Medical Necessity Statement*: ESRD mgmt Coding Level of Care Code Acute Hot Braider for Brendan Cummings
--- NOTE | 2020-09-03 11:45 | PC.OT ---
Evaluation on hold until tomorrow per medication protocol for heparin. Orders received.
[2020-09-03] MEDS: amiodarone 200 mg Tablet 400 MG PO (13:54)
[2020-09-03 13:58] LABS: Partial Thromboplastin Time 57.1 SECONDS (23.9-36.7)
[2020-09-03 14:02] LABS: Basophils # 0.1 10^3/uL (0.0-0.1); Basophils % 0.5 %; Eosinophils # 0.1 10^3/uL (0.0-0.8); Eosinophils % 0.5 %; Hematocrit 22.6 % (42.0-52.0); Lymphocytes # 1.5 10^3/uL (0.8-4.8); Lymphocytes % 8.3 %; Mean Corpuscular Hemoglobin 29.2 pg (28.0-34.0); Mean Corpuscular Volume 94.2 fL (80-94); Mean Platelet Volume 10.7 fL (7.4-10.4); Monocytes # 0.9 10^3/uL (0.2-0.9); Monocytes % 4.9 %; Neutrophils # 15.53 10^3/uL (1.8-7.7); Neutrophils % 83.3 %; Nucleated Red Blood Cells % 0 %; Platelet Count 103 10^3/cmm (130-400); Red Cell Distribution Width 17.6 % (12.1-15.1); White Blood Count 18.7 10^3/uL (4.0-10.0)
[2020-09-03] MEDS: sodium chloride 0.9% (100 ml) 100 ML 10 ML (16:52)
--- NOTE | 2020-09-03 17:00 | PC.NURSE ---
Tylenol given for severe pain because that is the only pain med on APR at this time. Message sent to Dr. Flynn to get a stronger pain medication. Current BP is 87/47
[2020-09-03] MEDS: morphine 4 mg/mL SDV 1 mL 2 MG IVP (17:20)
--- NOTE | 2020-09-03 17:25 | P.PN_ITS ---
Subjective Subjective: Interval history: Patient converted to sinus rhythm upon cardioversion in the ER. Most likely it was atrial flutter with rapid ventricular response and aberrant conduction. Overnight dropped hemoglobin noted to have moderate retroperitoneal hematoma. Anticoagulation was stopped. We will switch patient to p.o. amiodarone will increase it to 400 mg once a day. Vitals/I&O/Wt Last Vital Signs Temp 97.4 F L 09/03/20 17:01 Pulse 57 L 09/03/20 17:00 Resp 22 H 09/03/20 17:20 BP 92/55 09/03/20 17:03 Pulse Ox 92 09/03/20 17:01 09/03/20 09/03/20 09/03/20 06:59 14:59 22:59 Intake Total 346.451 / 346.451 370 / 370 300 / 670 Output Total 400 / 400 651 / 1051 Balance 346.451 / 346.451 -30 / -30 -351 / -381 Weight last 48 hrs Weight 244 lb 4.355 oz Weight 243 lb 6 oz Weight 243 lb Physical Exam Narrative: EXAM NARRATIVE: GENERAL: Patient is awake and alert hard of hearing NECK: No jugular vein distension. HEENT: No cyanosis. No icterus. No pallor. HEART: Regular S1 and S2. No murmur, rub or gallop. LUNGS: Decreased breath sound bilaterally. ABDOMEN: Firm, nontender and distended. Positive bowel sounds. No guarding, rebound or tenderness. CENTRAL NERVOUS SYSTEM: Grossly nonfocal. EXTREMITIES: Lower extremities without edema bilaterally. Data : 09/03/20 13:49 09/03/20 08:49 Micro: Microbiology 09/02/20 18:43 Blood Culture - Preliminary Blood SPECIMEN COLLECTED 09/02/20 18:16 Blood Culture - Preliminary Blood SPECIMEN COLLECTED A&P Assessment and plan (1) Wide-complex tachycardia: Atrial flutter was cardioverted into sinus rhythm patient to be switched to 400 mg once a day of amiodarone. Anticoagulation stopped due to retroperitoneal moderate hematoma. Status: Acute (2) HTN (hypertension): Within normal limits. Continue to monitor Status: Chronic Qualifiers: Hypertension type: essential hypertension Qualified Code(s): I10 - Essential (primary) hypertension (3) CKD (chronic kidney disease): On dialysis continue as per medicine and nephrology Status: Inactive Qualifiers: Chronic kidney disease stage: on chronic dialysis Qualified Code(s): N18.6 - End stage renal disease; Z99.2 - Dependence on renal dialysis (4) Elevated troponin: Most likely type II due to anemia and tachycardia. Continue to monitor Status: Inactive (5) Coronary artery disease: Status post drug-eluting stent to LAD and circumflex few months ago. Continue clopidogrel add beta-xu and continue statin. Status: Chronic Qualifiers: Coronary Disease-Associated Artery/Lesion type: [place] artery [place] vs. transplanted heart: [place] heart Associated angina: without angina Qualified Code(s): I25.10 - Atherosclerotic heart disease of [place] coronary artery without angina pectoris (6) Traumatic retroperitoneal hematoma: For now we recommend continuing Plavix transfusing him with 2 units of blood stopping aspirin and apixaban. Most likely secondary to nonfunctioning platelet due to renal failure, antiplatelet and anticoagulation combination along with trauma. Patient recently had stent placed almost 2 and half months ago. We will monitor him on Plavix after transfusion if he continues to drop hemoglobin we can make a case of stopping Plavix for few days however at this point I believe by transfusing him and stopping aspirin and apixaban may will work for him. I have discussed this plan with patient, his and our medicine colleagues Status: Acute Attestations Medical Necessity Statement*: Patient require continuation hospitalization for above defined care. Coding Level of Care Code Established Pt Acute Solid Waste Collector for Brendan Cummings Patient Type Established History Comprehensive Exam Comprehensive Medical Decision Making High Complexity Diagnoses Wide-complex tachycardia I47.2 HTN (hypertension) I10 Hypertension type: essential hypertension CKD (chronic kidney disease) N18.6; Z99.2 Chronic kidney disease stage: on chronic dialysis Elevated troponin R77.8 Coronary artery disease I25.10 Coronary Disease-Associated Artery/Lesion type: [place] artery [place] vs. transplanted heart: [place] heart Associated angina: without angina Traumatic retroperitoneal hematoma S36.892A
[2020-09-03] MEDS: atorvastatin 40 mg Tablet PO (20:57)
[2020-09-03] MEDS: sennosides 8.6 mg Tablet 17.2 MG PO (20:57)
[2020-09-03] MEDS: piperacillin-tazobactam 2.25 GM in sodium chloride 0.9% (plus) 50 ML IV (22:45)
[2020-09-04] VITALS (38 sets, daily range): BP systolic 83–116; BP diastolic 41–72; PULSE 53–68; RESP 12–25; TEMP 35.8–36.7; O2SAT 89–100; BMI 32.2
[2020-09-04] MEDS: morphine 4 mg/mL SDV 1 mL 2 MG IVP ×3 (00:53→10:29)
[2020-09-04] MEDS: pantoprazole 40 mg SDV IVP ×2 (01:07→16:17)
[2020-09-04 04:57] LABS: Basophils # 0.1 10^3/uL (0.0-0.1); Basophils % 0.8 %; Eosinophils # 0.6 10^3/uL (0.0-0.8); Hematocrit 23.1 % (42.0-52.0); Hemoglobin 7.1 g/dL (11.7-16.6); Lymphocytes # 1.5 10^3/uL (0.8-4.8); Lymphocytes % 10.8 %; Mean Corpuscular HGB Conc 30.7 g/dL (30.0-36.0); Mean Corpuscular Hemoglobin 28.3 pg (28.0-34.0); Mean Platelet Volume 11.7 fL (7.4-10.4); Monocytes # 0.8 10^3/uL (0.2-0.9); Neutrophils # 10.77 10^3/uL (1.8-7.7); Neutrophils % 77.8 %; Nucleated Red Blood Cells % 0 %; Platelet Count 115 10^3/cmm (130-400); Red Blood Count 2.51 10^6/uL (4.1-5.3); Red Cell Distribution Width 18.5 % (12.1-15.1); White Blood Count 13.9 10^3/uL (4.0-10.0)
[2020-09-04 05:10] LABS: Alanine Aminotransferase 67 U/L (0-41); Albumin Level 2.5 g/dL (3.5-5.2); Alkaline Phosphatase 121 IU/L (40-130); Anion Gap 16.2 (5-19); Aspartate Amino Transferase 144 U/L (0-40); Blood Urea Nitrogen 23 mg/dL (8-23); Calcium 7.4 mg/dL (8.5-10.5); Carbon Dioxide 27 mmol/L (22-29); Chloride 98 mmol/L (98-107); Globulin 3.1 g/dL (1.3-4.6); Glucose 98 mg/dL (65-115); Osmolality Calculated 288 mOsm/kg (285-295); Potassium 4.2 mmol/L (3.5-5.1); Sodium 137 mmol/L (136-145); Total Bilirubin 0.9 mg/dL (0.15-1.2); Total Protein 5.6 g/dL (6.6-8.7)
[2020-09-04] MEDS: levothyroxine 150 mcg Tablet PO (06:36)
--- NOTE | 2020-09-04 07:05 | PC.NURSE ---
Shift Summary Patient had an uneventful night. Remained on 2L NC. Left forearm and left AC IVs are saline locked at this time. Patient reported pain in the legs/back throughout the night at a 10 on the numeric scale of 1-10. PRN Morphine 2 mg was administered twice throughout the shift. Patient had no urine output all evening and had one smear bowel movement. He is alert and oriented x4.
[2020-09-04] MEDS: lactobacillus 1 Tablet 1 TAB PO ×2 (08:30→18:18)
[2020-09-04] MEDS: amiodarone 200 mg Tablet 400 MG PO (08:30)
[2020-09-04] MEDS: isosorbide mononitrate ER 30 mg Tablet PO (08:30)
[2020-09-04] MEDS: docusate sodium 10 mg/mL (5ml) Liq 100 MG PO ×2 (08:31→18:18)
[2020-09-04] MEDS: lidocaine 5% Patch 1 PATCH TOPICAL ×2 (08:32→20:00)
[2020-09-04] MEDS: sodium chloride 0.9% (100 ml) 100 ML (09:19)
--- NOTE | 2020-09-04 09:32 | P.PN_ITS ---
Subjective Subjective: Interval history: He states he just about getting by, not more than that. Feels weak. Having some pain in his left back/flank. No chest pain, not short of breath. We discussed with him and his additional options for assessment management of retroperitoneal hematoma, he had received 2 units of PBC transfusion yesterday, with inadequate response after transfusion, hemoglobin 7.1 today. Yesterday was on anticoagulation with heparin drip, Plavix, we discussed sheba tional transfusion 1 unit PRBC, reassessment of hemoglobin later today, if still continue to decrease, as anticoagulation was stopped yesterday, Plavix has been continued as per discussion of cardiology with them yesterday, or if signs of hemodynamic compromise, we would additionally image by CT angiogram abdomen pelvis to assess for active bleeding, which per discussion with them could mean need to seek additional evaluation and treatment by interventional radiology with embolization (discussed with him this would need to be done at an outside facility, requiring arrangements for transfer) and possible need to still discontinue Plavix, at risk of in-stent thrombosis in LAD, with risk of life- threatening MO. They verbalized understanding of the precarious nests of the situation, agreeable to continue with plan. Vitals/I&O/Wt Last Vital Signs Temp 97.6 F 09/04/20 09:13 Pulse 60 09/04/20 09:13 Resp 16 09/04/20 09:13 BP 106/47 09/04/20 09:13 Pulse Ox 98 09/04/20 09:13 09/03/20 09/04/20 09/04/20 22:59 06:59 14:59 Intake Total 1571.549 / 1941.549 150 / 2091.549 0 / 0 Output Total 651 / 1051 Balance 920.549 / 890.549 150 / 1040.549 0 / 0 Weight last 48 hrs Weight 110.875 kg Weight 110.8 kg Weight 110.393 kg Weight 110.223 kg Physical Exam Narrative: EXAM NARRATIVE: is at bedside. Const: COMMON NORMALS: no acute distress, patient oriented x3 and alert GENERAL APPEARANCE: cooperative and frail appearing NUTRITIONAL APPEARANCE: overweight ORIENTATION/CONSCIOUSNESS: Yes awake OTHER: Weak HENMT: COMMON NORMALS: oropharynx normal Neck/C-Spine: COMMON NORMALS: no JVD Resp: COMMON NORMALS: normal respiratory effort and clear to auscultation bilaterally AUSCULTATION: clear to auscultation bilaterally Cardio: COMMON NORMALS: no JVD, regular rhythm, S1 normal heart sound present, S2 normal heart sound present and No murmurs present (Cardio) RHYTHM: regular rhythm HEART SOUNDS: S1 normal heart sound present and S2 normal heart sound present GI: COMMON NORMALS: Normal to inspection, nondistended, normoactive bowel sounds present and Soft to palpation PALPATION: Yes Soft to palpation and Yes Tenderness to palpation present (GI) (R ) Extremity: COMMON NORMALS: no joint enlargement and no pedal edema Neuro: COMMON NORMALS: patient oriented x3 and moves all extremities SENSORIUM/ORIENTATION: Yes alert Skin: COMMON NORMALS: no rashes or lesions noted GENERAL SKIN EXAM: no rashes or lesions noted Data : 09/04/20 04:40 09/04/20 04:40 Micro: Microbiology 09/02/20 18:43 Blood Culture - Preliminary Blood NEGATIVE TO DATE 09/02/20 18:16 Blood Culture - Preliminary Blood NEGATIVE TO DATE A&P Assessment and plan (1) Traumatic retroperitoneal hematoma: He could not tolerate oral contrast yesterday, vomiting afterwards, so CT scan was changed to plain, on evaluation noted to have psoas, iliacus hematoma, with free fluid extending to the paracolic gutter, hemoglobin later noted decre ased to 7. 2 units PBC transfusion were requested. Heparin drip was stopped. Consideration given to discontinuation of Plavix and extensive discussions held with cardiology and family including risks and benefits, with decision made for now to continue with cautious reevaluation. Today hemoglobin noted with an adequate response to transfusion, 7.1, additional unit PBC transfusion is ordered. Will reassess hemoglobin later this afternoon. Discussed in case further blood transfusion as needed, or hemodynamic instability, will seek additional evaluation by CT angiogram abdomen pelvis to see if needing embolization, if able to continue further with Plavix. May have developed when he fell down several days ago hitting the tub as revealed by his on additional questioning. Status: Acute (2) Abdominal pain: R side today is not tender. On CT the right side did not reveal acute abnormality. Bloody brown bowel movement noted this morning. Requested stool studies. Status: Acute (3) Wide-complex tachycardia: Status post cardioversion for unstable tachycardia, thought to be atrial flutter with RVR with aberrant conduction. Switched to oral amiodarone. Sinus rhythm in the 60s. Status: Acute (4) Atrial fibrillation: Off anticoagulation. Monitor hemoglobin. PO amio Status: Chronic Qualifiers: Atrial fibrillation type: paroxysmal Qualified Code(s): I48.0 - Paroxysmal atrial fibrillation (5) Dizziness: Monitor blood pressures, heart rates. PT, OT assessment. Status: Acute (6) History of cardioversion: On admit due to wide-complex tachycardia, likely A. fib with RVR with aberrant conduction Status: Acute (7) Coronary artery disease: With stent placement in March of this year, on Plavix. Clinically also on statin therapy, isosorbide Status: Chronic Qualifiers: Coronary Disease-Associated Artery/Lesion type: [place] artery [place] vs. transplanted heart: [place] heart Associated angina: without angina Qualified Code(s): I25.10 - Atherosclerotic heart disease of [place] coronary artery without angina pectoris (8) Normocytic normochromic anemia: Some blood documented in the stool this morning, although this was not reported per morning report, RN is going to confirm with him and . Monitor for any further bleeding. Status: Acute (9) Acute upper gastrointestinal bleeding: The last 2 weeks, had EGD done by Dr. Blackwell on 08/19/2020 Status: Acute (10) ESRD (end stage renal disease) on dialysis: Dialysis Wednesdays and Fridays Status: Chronic (11) High risk medication use: On Cimzia for rheumatoid arthritis Status: Chronic (12) Rheumatoid arthritis: On immunosuppressive agents putting him at risk of infection Status: Chronic Additional A&P Information Hypothyroidism: TSH 6.67. May benefit from adjustment of levothyroxine dose and reassessment of thyroid function. Troponin elevation: Suspected secondary to tachycardia. He denies any chest pain. No shortness of breath near baseline oxygenation. Monitor for change in symptoms. Continue Plavix. Attestations Medical Necessity Statement*: Continue admission for assessment management following retroperitoneal hematoma, acute blood loss anemia, in setting of need for continued antiplatelet agent, coronary disease with recent stent. Coding Level of Care Code Acute Tree Topper for g Fwd Diagnoses Traumatic retroperitoneal hematoma S36.892A Abdominal pain R10.9 Wide-complex tachycardia I47.2 Atrial fibrillation I48.0 Atrial fibrillation type: paroxysmal Dizziness R42 History of cardioversion Z98.890 Coronary artery disease I25.10 Coronary Disease-Associated Artery/Lesion type: [place] artery [place] vs. transplanted heart: [place] heart Associated angina: without angina Normocytic normochromic anemia D64.9 Acute upper gastrointestinal bleeding K92.2 ESRD (end stage renal disease) on dialysis N18.6; Z99.2 High risk medication use Z79.899 Rheumatoid arthritis M06.9
--- NOTE | 2020-09-04 09:41 | P.PN_ITS ---
Subjective Subjective: Interval history: Patient is doing well. No complaints of chest pain, shortness of breath or palpitations. His Hgb is stable since receiving more transfusions. Vitals/I&O/Wt Last Vital Signs Temp 97.6 F 09/04/20 09:13 Pulse 60 09/04/20 09:13 Resp 16 09/04/20 09:13 BP 106/47 09/04/20 09:13 Pulse Ox 98 09/04/20 09:13 09/03/20 09/04/20 09/04/20 22:59 06:59 14:59 Intake Total 1571.549 / 1941.549 150 / 2091.549 0 / 0 Output Total 651 / 1051 Balance 920.549 / 890.549 150 / 1040.549 0 / 0 Weight last 48 hrs Weight 244 lb 7 oz Weight 244 lb 4.355 oz Weight 243 lb 6 oz Weight 243 lb Physical Exam Narrative: EXAM NARRATIVE: GENERAL: Patient is awake and alert hard of hearing NECK: No jugular vein distension. HEENT: No cyanosis. No icterus. No pallor. HEART: Regular S1 and S2. No murmur, rub or gallop. LUNGS: Decreased breath sound bilaterally. ABDOMEN: Firm, nontender and distended. Positive bowel sounds. No guarding, rebound or tenderness. CENTRAL NERVOUS SYSTEM: Grossly nonfocal. EXTREMITIES: Lower extremities without edema bilaterally. Data : 09/05/20 12:31 09/05/20 04:25 Micro: Microbiology 09/02/20 18:43 Blood Culture - Preliminary Blood NEGATIVE TO DATE 09/02/20 18:16 Blood Culture - Preliminary Blood NEGATIVE TO DATE A&P Assessment and plan (1) Wide-complex tachycardia: Atrial flutter was cardioverted into sinus rhythm patient to be switched to 400 mg once a day of amiodarone. Anticoagulation stopped due to retroperitoneal moderate hematoma. Status: Acute (2) HTN (hypertension): Within normal limits. Continue to monitor Status: Chronic Qualifiers: Hypertension type: essential hypertension Qualified Code(s): I10 - Essential (primary) hypertension (3) CKD (chronic kidney disease): On dialysis continue as per medicine and nephrology Status: Inactive Qualifiers: Chronic kidney disease stage: on chronic dialysis Qualified Code(s): N18.6 - End stage renal disease; Z99.2 - Dependence on renal dialysis (4) Elevated troponin: Most likely type II due to anemia and tachycardia. Continue to monitor Status: Inactive (5) Coronary artery disease: Status post drug-eluting stent to LAD and circumflex few months ago. Continue clopidogrel add beta-xu and continue statin. Status: Chronic Qualifiers: Coronary Disease-Associated Artery/Lesion type: [place] artery [place] vs. transplanted heart: [place] heart Associated angina: without angina Qualified Code(s): I25.10 - Atherosclerotic heart disease of [place] coronary artery without angina pectoris (6) Traumatic retroperitoneal hematoma: Given patient's recent stents, continue Plavix. Hemodynamically appears stable. Continue monitoring H&H. Continue holding Eliquis. Thank you for involving us with the care of this patient. We will continue to follow. Please call with questions. Status: Acute Attestations Medical Necessity Statement*: Care expected to cross 2 midnights. Coding Level of Care Code Acute Ammonia Solution Preparer for Brendan Cummings Diagnoses Wide-complex tachycardia I47.2 HTN (hypertension) I10 Hypertension type: essential hypertension CKD (chronic kidney disease) N18.6; Z99.2 Chronic kidney disease stage: on chronic dialysis Elevated troponin R77.8 Coronary artery disease I25.10 Coronary Disease-Associated Artery/Lesion type: [place] artery [place] vs. transplanted heart: [place] heart Associated angina: without angina Traumatic retroperitoneal hematoma S36.892A
--- NOTE | 2020-09-04 09:45 | PC.NURSE ---
autocompleted the blood product that was administered 09/03/20. this nurse was not the nurse administering the blood product on 09/03/20. The unit was autocompleted to allow this nurse to accurately chart vitals for the 2nd blood product.
--- NOTE | 2020-09-04 11:13 | P.PN_ITS ---
Subjective Subjective: Interval history: Events of the last 24hrs noted. HD went well yesterday but UF limited by soft pressures. Due to back pain CT A/P done demonstrating retroperitoneal bleed. S/p 2 units of PRBCs Sleepy after pain meds today but otherwise no other new acute issues. No hypervolemic Sx No uremic Sx Vitals/I&O/Wt Last Vital Signs Temp 97.6 F 09/04/20 09:32 Pulse 61 09/04/20 10:00 Resp 19 H 09/04/20 10:29 BP 109/49 09/04/20 10:00 Pulse Ox 99 09/04/20 10:29 09/03/20 09/04/20 09/04/20 22:59 06:59 14:59 Intake Total 1571.549 / 1941.549 150 / 2091.549 350 / 350 Output Total 651 / 1051 Balance 920.549 / 890.549 150 / 1040.549 350 / 350 Weight last 48 hrs Weight 110.875 kg Weight 110.8 kg Weight 110.393 kg Weight 110.223 kg Physical Exam Narrative: EXAM NARRATIVE: Constitutional: Sleepy, comfortable HEENT: Wet mucosa, no jvp, non icteric Lungs: Bilaterally clear without discernible wheeze, rales in all lung zones CVS: S1 S2, no murmurs Abdo: Soft, BS ok Ext 4: Minimal edema, peripheral perfusion with no cyanosis Neurological: Grossly non-focal Data : 09/04/20 04:40 09/04/20 04:40 Micro: Microbiology 09/02/20 18:43 Blood Culture - Preliminary Blood NEGATIVE TO DATE 09/02/20 18:16 Blood Culture - Preliminary Blood NEGATIVE TO DATE A&P Additional A&P Information 1. ESRD Cont MWF schedule, 2K, ultrafiltration of 2 L. We will evaluate him over the weekend with a plan to do dialysis again on Sunday morning Dose medication for GFR less than 15 on dialysis 2. Status post wide-complex tachycardia Status post cardioversion, thought to be atrial flutter with RVR with aberrant conduction. In SR over last 24hrs per RN report Amio and heparin on hold 3. Retroperitoneal bleed S/p PRBCs close monitoring for further intervention can consider DDAVP for uremic plt dysfunction if bleeding continues 4. Chronic ESRD issues to be managed as an outpatient including anemia of ESRD, secondary hyperparathyroidism etc. Continue home medication. Allen Lr MD Nephrology [phone] Patient seen and examined via telemedicine, with the assistance of the bedside RN > 25 min spent in evaluation and mgmt of patient Attestations Medical Necessity Statement*: ESRD mgmt Coding Level of Care Code Acute Assistant Guest Services Manager for Brendan Cummings
[2020-09-04] MEDS: piperacillin-tazobactam 2.25 GM in sodium chloride 0.9% (plus) 50 ML IV (12:47)
[2020-09-04 15:25] LABS: Hemoglobin 8.6 g/dL (11.7-16.6)
--- NOTE | 2020-09-04 16:41 | PC.PT ---
PT note; Dr.Haly Hernandez recommends hold physical therapy evaluation today.
[2020-09-04] MEDS: atorvastatin 40 mg Tablet PO (22:00)
[2020-09-04] MEDS: sennosides 8.6 mg Tablet 17.2 MG PO (22:00)
[2020-09-04] MEDS: piperacillin-tazobactam 3.375 GM in sodium chloride 0.9% (plus) 50 ML IV (22:14)
[2020-09-04] MEDS: acetaminophen 325 mg Tablet 650 MG PO (23:54)
[2020-09-05] VITALS (55 sets, daily range): BP systolic 78–134; BP diastolic 21–70; PULSE 58–65; RESP 12–21; TEMP 36.3–37.2; O2SAT 90–100
[2020-09-05] MEDS: pantoprazole 40 mg SDV IVP ×2 (02:04→13:17)
[2020-09-05 04:39] LABS: Basophils # 0.1 10^3/uL (0.0-0.1); Basophils % 1.3 %; Eosinophils # 0.7 10^3/uL (0.0-0.8); Eosinophils % 6.8 %; Hematocrit 24.8 % (42.0-52.0); Hemoglobin 7.7 g/dL (11.7-16.6); Lymphocytes # 1.1 10^3/uL (0.8-4.8); Lymphocytes % 10.4 %; Mean Corpuscular Hemoglobin 28.3 pg (28.0-34.0); Mean Corpuscular Volume 91.2 fL (80-94); Mean Platelet Volume 11.4 fL (7.4-10.4); Monocytes # 0.8 10^3/uL (0.2-0.9); Monocytes % 8.3 %; Neutrophils % 72.9 %; Nucleated Red Blood Cells % 0 %; Platelet Count 130 10^3/cmm (130-400); Red Blood Count 2.72 10^6/uL (4.1-5.3); Red Cell Distribution Width 18.5 % (12.1-15.1); White Blood Count 10.2 10^3/uL (4.0-10.0)
[2020-09-05 04:58] LABS: Alanine Aminotransferase 85 U/L (0-41); Albumin Level 2.4 g/dL (3.5-5.2); Alkaline Phosphatase 120 IU/L (40-130); Anion Gap 18.4 (5-19); Aspartate Amino Transferase 146 U/L (0-40); Blood Urea Nitrogen 29 mg/dL (8-23); Calcium 7.2 mg/dL (8.5-10.5); Carbon Dioxide 25 mmol/L (22-29); Chloride 99 mmol/L (98-107); Globulin 3.3 g/dL (1.3-4.6); Glucose 102 mg/dL (65-115); Osmolality Calculated 292 mOsm/kg (285-295); Potassium 4.4 mmol/L (3.5-5.1); Sodium 138 mmol/L (136-145); Total Bilirubin 0.9 mg/dL (0.15-1.2); Total Protein 5.7 g/dL (6.6-8.7)
[2020-09-05] MEDS: levothyroxine 150 mcg Tablet PO (06:00)
[2020-09-05] MEDS: lidocaine 5% Patch 1 PATCH TOPICAL ×2 (09:13→21:24)
[2020-09-05] MEDS: isosorbide mononitrate ER 30 mg Tablet PO (09:13)
[2020-09-05] MEDS: amiodarone 200 mg Tablet 400 MG PO (09:13)
[2020-09-05] MEDS: clopidogrel 75 mg Tablet PO (09:13)
[2020-09-05] MEDS: lactobacillus 1 Tablet 1 TAB PO ×2 (09:13→17:06)
--- NOTE | 2020-09-05 09:16 | PM.PN ---
Subjective Subjective: Interval history: He is having some pain in his legs but is able to move them around, possibly from staying in bed for a while. Pain in his back is better. Denies chest pain or pressure. Breathing is comfortable with nasal cannula. Vitals/I&O/Wt Last Vital Signs Temp 98.2 F 09/05/20 08:00 Pulse 61 09/05/20 08:00 Resp 18 09/05/20 08:00 BP 112/58 09/05/20 08:00 Pulse Ox 96 09/05/20 08:00 09/04/20 09/05/20 09/05/20 22:59 06:59 14:59 Intake Total 408 / 1108 288 / 1396 340 / 340 Output Total 0 / 0 0 / 0 0 / 0 Balance 408 / 1108 288 / 1396 340 / 340 Weight last 48 hrs Weight 114.986 kg Weight 110.875 kg Weight 110.8 kg Physical Exam Narrative: EXAM NARRATIVE: is at bedside. Const: COMMON NORMALS: patient oriented x3 and alert GENERAL APPEARANCE: cooperative and frail appearing NUTRITIONAL APPEARANCE: overweight ORIENTATION/CONSCIOUSNESS: Yes awake OTHER: Appears to be stronger, wakes up, pleasant, conversant. Not in distress. HENMT: COMMON NORMALS: oropharynx normal Neck/C-Spine: COMMON NORMALS: no JVD Resp: COMMON NORMALS: normal respiratory effort and clear to auscultation bilaterally AUSCULTATION: clear to auscultation bilaterally Cardio: COMMON NORMALS: no JVD, regular rhythm, S1 normal heart sound present, S2 normal heart sound present and No murmurs present (Cardio) RHYTHM: regular rhythm HEART SOUNDS: S1 normal heart sound present and S2 normal heart sound present GI: COMMON NORMALS: Normal to inspection, nondistended, normoactive bowel sounds present and Soft to palpation PALPATION: Yes Soft to palpation and Yes Tenderness to palpation present (GI) (R ) Extremity: COMMON NORMALS: no joint enlargement and no pedal edema Neuro: COMMON NORMALS: patient oriented x3 and moves all extremities SENSORIUM/ORIENTATION: Yes alert Skin: COMMON NORMALS: no rashes or lesions noted GENERAL SKIN EXAM: no rashes or lesions noted Data : 09/05/20 04:25 09/05/20 04:25 A&P Assessment and plan (1) Traumatic retroperitoneal hematoma: Hemoglobin down to 7.7 from 8.6 after transfusion. Recheck hemoglobin. On Plavix. See prior discussion. Retroperitoneal hematoma of psoas and illiacus and paracolic gutter. May have developed when he fell down several days ago hitting the tub as revealed by his on additional questioning. Status: Acute (2) Abdominal pain: Abdominal pain appears resolved. Bloody brown bowel movement noted the morning after admission? Does not appear we have had any further reports. Not clear whether this was charted correctly. Monitor. Status: Acute (3) Wide-complex tachycardia: Status post cardioversion for unstable tachycardia, thought to be atrial flutter with RVR with aberrant conduction. Switched to oral amiodarone. Sinus rhythm in the 60s. Monitor. Status: Acute (4) Atrial fibrillation: Off anticoagulation. Monitor hemoglobin. PO amio Status: Chronic Qualifiers: Atrial fibrillation type: paroxysmal Qualified Code(s): I48.0 - Paroxysmal atrial fibrillation (5) Dizziness: Monitor blood pressures, heart rates. PT, OT assessment. Status: Acute (6) History of cardioversion: On admit due to wide-complex tachycardia, likely A. fib with RVR with aberrant conduction Status: Acute (7) Coronary artery disease: With stent placement in March of this year, on Plavix. Clinically also on statin therapy, isosorbide Status: Chronic Qualifiers: Coronary Disease-Associated Artery/Lesion type: [place] artery [place] vs. transplanted heart: [place] heart Associated angina: without angina Qualified Code(s): I25.10 - Atherosclerotic heart disease of [place] coronary artery without angina pectoris (8) Normocytic normochromic anemia: Some blood documented in the stool this morning, although this was not reported per morning report, RN is going to confirm with him and . Monitor for any further bleeding. Status: Acute (9) Acute upper gastrointestinal bleeding: The last 2 weeks, had EGD done by Dr. Blackwell on 08/19/2020 Status: Acute (10) ESRD (end stage renal disease) on dialysis: Dialysis Wednesdays and Fridays Appreciate nephrology recommendations Status: Chronic (11) High risk medication use: On Cimzia for rheumatoid arthritis Status: Chronic (12) Rheumatoid arthritis: On immunosuppressive agents putting him at risk of infection Status: Chronic Additional A&P Information Hypothyroidism: TSH 6.67. Increase levothyroxine to 162 mcg. Follow-up thyroid function with primary provider. Troponin elevation: Suspected secondary to tachycardia. He denies any chest pain. No shortness of breath near baseline oxygenation. Monitor for change in symptoms. Continue Plavix. Attestations Medical Necessity Statement*: Continue admission for assessment of management of retroperitoneal hematoma with acute blood loss anemia in the setting of need for continued Plavix due to recent LAD stent. Coding Level of Care Code Acute Winemaker for [facility] Fwd Diagnoses Traumatic retroperitoneal hematoma S36.892A Abdominal pain R10.9 Wide-complex tachycardia I47.2 Atrial fibrillation I48.0 Atrial fibrillation type: paroxysmal Dizziness R42 History of cardioversion Z98.890 Coronary artery disease I25.10 Coronary Disease-Associated Artery/Lesion type: [place] artery [place] vs. transplanted heart: [place] heart Associated angina: without angina Normocytic normochromic anemia D64.9 Acute upper gastrointestinal bleeding K92.2 ESRD (end stage renal disease) on dialysis N18.6; Z99.2 High risk medication use Z79.899 Rheumatoid arthritis M06.9
[2020-09-05] MEDS: piperacillin-tazobactam 3.375 GM in sodium chloride 0.9% (plus) 50 ML IV ×2 (09:38→21:31)
--- NOTE | 2020-09-05 09:51 | PM.PN ---
Subjective Subjective: Interval history: No acute issues with Mr. Cornelius overnight. He remains stable. His abdomen is soft, he denies any significant pain. His heart rhythm on telemetry was apparently stable overnight according to RN report. No extremity edema, shortness of breath or other hypervolemic symptoms. No uremic symptoms. Vitals/I&O/Wt Last Vital Signs Temp 98.2 F 09/05/20 08:00 Pulse 61 09/05/20 08:00 Resp 18 09/05/20 08:00 BP 112/58 09/05/20 08:00 Pulse Ox 96 09/05/20 08:00 09/04/20 09/05/20 09/05/20 22:59 06:59 14:59 Intake Total 408 / 1108 288 / 1396 340 / 340 Output Total 0 / 0 0 / 0 0 / 0 Balance 408 / 1108 288 / 1396 340 / 340 Weight last 48 hrs Weight 114.986 kg Weight 110.875 kg Weight 110.8 kg Physical Exam Narrative: EXAM NARRATIVE: Constitutional: Sleepy, comfortable HEENT: Wet mucosa, no jvp, non icteric Lungs: Bilaterally clear without discernible wheeze, rales in all lung zones CVS: S1 S2, no murmurs Abdo: Soft, BS ok Ext 4: Minimal edema, peripheral perfusion with no cyanosis Neurological: Grossly non-focal Data : 09/05/20 04:25 09/05/20 04:25 A&P Additional A&P Information 1. ESRD Cont MWF schedule, 2K, ultrafiltration of 2 L. orders placed for dialysis in the am Dose medication for GFR less than 15 on dialysis 2. Status post wide-complex tachycardia Status post cardioversion, thought to be atrial flutter with RVR with aberrant conduction. In SR over last 24hrs per RN report Amio po On Plavix but no other anti-coagulants 3. Retroperitoneal bleed S/p PRBCs H/H roughly stable close monitoring for further intervention can consider DDAVP for uremic plt dysfunction if bleeding continues 4. Chronic ESRD issues to be managed as an outpatient including anemia of ESRD, secondary hyperparathyroidism etc. Continue home medication. Allen Lr MD Nephrology [phone] Patient seen and examined via telemedicine, with the assistance of the bedside RN > 25 min spent in evaluation and mgmt of patient Attestations Medical Necessity Statement*: eval for ESRD mgmt Coding Level of Care Code Acute Coordinator Of Online Programs for Brendan Cummings
[2020-09-05 12:45] LABS: Hemoglobin 8.8 g/dL (11.7-16.6)
[2020-09-05] MEDS: docusate sodium 10 mg/mL (5ml) Liq 100 MG PO (17:10)
[2020-09-05] MEDS: morphine 4 mg/mL SDV 1 mL 2 MG IVP (17:14)
--- NOTE | 2020-09-05 19:21 | PM.PN ---
Subjective Subjective: Interval history: Patitent is overall doing well. Hgb is stable now. No compalints of chest pain. Heart rate is well controlled. Vitals/I&O/Wt Last Vital Signs Temp 98.1 F 09/05/20 19:09 Pulse 65 09/05/20 19:00 Resp 19 H 09/05/20 19:00 BP 90/49 09/05/20 19:00 Pulse Ox 100 09/05/20 19:00 09/05/20 09/05/20 09/05/20 06:59 14:59 22:59 Intake Total 288 / 1396 750 / 750 240 / 990 Output Total 0 / 0 0 / 0 0 / 0 Balance 288 / 1396 750 / 750 240 / 990 Weight last 48 hrs Weight 253 lb 8 oz Weight 244 lb 7 oz Physical Exam Narrative: EXAM NARRATIVE: GENERAL: Patient is awake and alert hard of hearing NECK: No jugular vein distension. HEENT: No cyanosis. No icterus. No pallor. HEART: Regular S1 and S2. No murmur, rub or gallop. LUNGS: Decreased breath sound bilaterally. ABDOMEN: Firm, nontender and distended. Positive bowel sounds. No guarding, rebound or tenderness. CENTRAL NERVOUS SYSTEM: Grossly nonfocal. EXTREMITIES: Lower extremities without edema bilaterally. Data : 09/06/20 06:30 09/06/20 06:30 A&P Assessment and plan (1) Wide-complex tachycardia: Atrial flutter was cardioverted into sinus rhythm patient to be switched to 400 mg once a day of amiodarone. Anticoagulation stopped due to retroperitoneal moderate hematoma.Continue plavix Status: Acute (2) HTN (hypertension): Within normal limits. Continue to monitor Status: Chronic Qualifiers: Hypertension type: essential hypertension Qualified Code(s): I10 - Essential (primary) hypertension (3) CKD (chronic kidney disease): On dialysis continue as per medicine and nephrology Status: Inactive Qualifiers: Chronic kidney disease stage: on chronic dialysis Qualified Code(s): N18.6 - End stage renal disease; Z99.2 - Dependence on renal dialysis (4) Elevated troponin: Most likely type II due to anemia and tachycardia. Continue to monitor Status: Inactive (5) Coronary artery disease: Status post drug-eluting stent to LAD and circumflex few months ago. Continue clopidogrel add beta-xu and continue statin. Status: Chronic Qualifiers: Coronary Disease-Associated Artery/Lesion type: [place] artery [place] vs. transplanted heart: [place] heart Associated angina: without angina Qualified Code(s): I25.10 - Atherosclerotic heart disease of [place] coronary artery without angina pectoris (6) Traumatic retroperitoneal hematoma: Given patient's recent stents, continue Plavix. Hemodynamically appears stable. Continue monitoring H&H. Continue holding Eliquis. If hemoglobin stays stable by tomorrow, can consider discharging him with outpatient office visit with us. Thank you for involving us with the care of this patient. We will continue to follow. Please call with questions. Status: Acute Attestations Medical Necessity Statement*: Care expected to cross 2 midnights. Coding Level of Care Code Acute Activities Therapist for Brendan Cummings Diagnoses Wide-complex tachycardia I47.2 HTN (hypertension) I10 Hypertension type: essential hypertension CKD (chronic kidney disease) N18.6; Z99.2 Chronic kidney disease stage: on chronic dialysis Elevated troponin R77.8 Coronary artery disease I25.10 Coronary Disease-Associated Artery/Lesion type: [place] artery [place] vs. transplanted heart: [place] heart Associated angina: without angina Traumatic retroperitoneal hematoma S36.892A
[2020-09-05] MEDS: atorvastatin 40 mg Tablet PO (21:26)
[2020-09-05] MEDS: sennosides 8.6 mg Tablet 17.2 MG PO (21:26)
[2020-09-05] MEDS: sodium chloride 0.9% (100 ml) 100 ML (23:15)
[2020-09-06] VITALS (50 sets, daily range): BP systolic 79–193; BP diastolic 29–63; PULSE 59–67; RESP 14–22; TEMP 36.3–36.6; O2SAT 93–100; BMI 33.9
[2020-09-06] MEDS: pantoprazole 40 mg SDV IVP ×2 (02:07→13:34)
[2020-09-06] MEDS: ondansetron 2 mg/ML SDV 2 mL 4 MG IVP (02:54)
[2020-09-06] MEDS: levothyroxine 112 mcg Tablet PO (05:52)
[2020-09-06 06:41] LABS: Basophils # 0.2 10^3/uL (0.0-0.1); Basophils % 1.5 %; Eosinophils # 0.6 10^3/uL (0.0-0.8); Eosinophils % 5.9 %; Hematocrit 27.6 % (42.0-52.0); Hemoglobin 8.4 g/dL (11.7-16.6); Lymphocytes # 1.2 10^3/uL (0.8-4.8); Mean Corpuscular HGB Conc 30.4 g/dL (30.0-36.0); Mean Corpuscular Hemoglobin 28.3 pg (28.0-34.0); Mean Corpuscular Volume 92.9 fL (80-94); Mean Platelet Volume 11.3 fL (7.4-10.4); Monocytes # 1.1 10^3/uL (0.2-0.9); Monocytes % 10.8 %; Neutrophils # 7.02 10^3/uL (1.8-7.7); Neutrophils % 69.3 %; Nucleated Red Blood Cells # 0.1 /100WBC; Nucleated Red Blood Cells % 0.6 %; Platelet Count 140 10^3/cmm (130-400); Red Blood Count 2.97 10^6/uL (4.1-5.3); Red Cell Distribution Width 17.7 % (12.1-15.1); White Blood Count 10.1 10^3/uL (4.0-10.0)
[2020-09-06] MEDS: levothyroxine 50 mcg Tablet PO (06:45)
[2020-09-06 07:01] LABS: Alanine Aminotransferase 81 U/L (0-41); Albumin Level 2.6 g/dL (3.5-5.2); Alkaline Phosphatase 129 IU/L (40-130); Aspartate Amino Transferase 107 U/L (0-40); Blood Urea Nitrogen 36 mg/dL (8-23); Calcium 7.4 mg/dL (8.5-10.5); Carbon Dioxide 21 mmol/L (22-29); Chloride 98 mmol/L (98-107); Globulin 3.7 g/dL (1.3-4.6); Glucose 109 mg/dL (65-115); Osmolality Calculated 289 mOsm/kg (285-295); Sodium 135 mmol/L (136-145); Total Bilirubin 0.9 mg/dL (0.15-1.2); Total Protein 6.3 g/dL (6.6-8.7)
[2020-09-06] MEDS: acetaminophen 325 mg Tablet 650 MG PO (07:50)
--- NOTE | 2020-09-06 07:58 | PC.NURSE ---
recd. alert. c/o leg and back pain. b/p 98/40 manual. 110/37 on wrist. fawn here for dialysis
[2020-09-06] MEDS: midodrine 5 mg TABLET 10 MG PO (08:23)
[2020-09-06] MEDS: albumin 12.5 GM/50 ML VIAL IV ×2 (08:51→11:14)
--- NOTE | 2020-09-06 09:46 | PM.PN ---
Subjective Subjective: Interval history: Patient is doing well. Getting dialyzed. Hgb is stable. Denies abdominal discomfort. Blood pressure has been soft. Vitals/I&O/Wt Last Vital Signs Temp 97.9 F 09/06/20 07:30 Pulse 67 09/06/20 08:37 Resp 16 09/06/20 07:30 BP 110/37 09/06/20 07:30 Pulse Ox 99 09/06/20 08:37 09/05/20 09/06/20 09/06/20 22:59 06:59 14:59 Intake Total 240 / 990 0 / 990 Output Total 0 / 0 Balance 240 / 990 0 / 990 Weight last 48 hrs Weight 257 lb 0.9 oz Weight 253 lb 8 oz Physical Exam Narrative: EXAM NARRATIVE: GENERAL: Patient is awake and alert hard of hearing NECK: No jugular vein distension. HEENT: No cyanosis. No icterus. No pallor. HEART: Regular S1 and S2. No murmur, rub or gallop. LUNGS: Decreased breath sound bilaterally. ABDOMEN: Firm, nontender and distended. Positive bowel sounds. No guarding, rebound or tenderness. CENTRAL NERVOUS SYSTEM: Grossly nonfocal. EXTREMITIES: Lower extremities without edema bilaterally. Data : 09/07/20 03:36 09/07/20 03:36 A&P Assessment and plan (1) Wide-complex tachycardia: Atrial flutter was cardioverted into sinus rhythm patient to be switched to 400 mg once a day of amiodarone. Anticoagulation stopped due to retroperitoneal moderate hematoma.Continue plavix Status: Acute (2) HTN (hypertension): Within normal limits. Continue to monitor Status: Chronic Qualifiers: Hypertension type: essential hypertension Qualified Code(s): I10 - Essential (primary) hypertension (3) Coronary artery disease: Status post drug-eluting stent to LAD and circumflex few months ago. Continue clopidogrel add beta-xu and continue statin. Status: Chronic Qualifiers: Associated angina: without angina Coronary Disease-Associated Artery/Lesion type: [place] artery [place] vs. transplanted heart: [place] heart Qualified Code(s): I25.10 - Atherosclerotic heart disease of [place] coronary artery without angina pectoris (4) Traumatic retroperitoneal hematoma: Given patient's recent stents, continue Plavix. Hemodynamically appears stable. Continue monitoring H&H. Continue holding Eliquis. Patient's hemoglobin has stayed stable. Continue Plavix. Will recommend holding Eliquis. Blood pressure has been soft. Can watch for today in the hospital. Thank you for involving us with the care of this patient. We will continue to follow. Please call with questions. Status: Acute Attestations Medical Necessity Statement*: Care expected to cross 2 midnights. Coding Level of Care Code Acute Slot Service Specialist for Jasbirg Fwd Diagnoses Wide-complex tachycardia I47.2 HTN (hypertension) I10 Hypertension type: essential hypertension Coronary artery disease I25.10 Associated angina: without angina Coronary Disease-Associated Artery/Lesion type: [place] artery [place] vs. transplanted heart: [place] heart Traumatic retroperitoneal hematoma S36.924G
--- NOTE | 2020-09-06 10:42 | PC.NURSE ---
will give 0900 oral meds when dialysis is over d/t it possibly cleaning drug out.
--- NOTE | 2020-09-06 10:49 | P.PN_ITS ---
Subjective Subjective: Interval history: Mr. Cornelius is seen and examined on hemodialysis. No acute complaints today. Hemodynamics noted to be soft during dialysis treatment, I did use midodrine pretreatment and albumin infusions during his treatment. Chronic back and leg discomfort, no new abdominal discomfort. No further runs of wide-complex tachycardia noted on telemetry. Vitals/I&O/Wt Last Vital Signs Temp 97.9 F 09/06/20 07:30 Pulse 65 09/06/20 10:00 Resp 18 09/06/20 10:00 BP 105/45 09/06/20 10:00 Pulse Ox 100 09/06/20 10:00 09/05/20 09/06/20 09/06/20 22:59 06:59 14:59 Intake Total 240 / 990 0 / 990 290 / 290 Output Total 0 / 0 Balance 240 / 990 0 / 990 290 / 290 Weight last 48 hrs Weight 116.599 kg Weight 114.986 kg Physical Exam Narrative: EXAM NARRATIVE: Constitutional: Sleepy, comfortable HEENT: Wet mucosa, no jvp, non icteric Lungs: Bilaterally clear without discernible wheeze, rales in all lung zones CVS: S1 S2, no murmurs Abdo: Soft, BS ok Ext 4: Minimal edema, peripheral perfusion with no cyanosis Neurological: Grossly non-focal Data : 09/06/20 06:30 09/06/20 06:30 A&P Additional A&P Information 1. ESRD Cont MWF schedule, 2K, ultrafiltration of 2 L. seen and examined on dialysis Dose medication for GFR less than 15 on dialysis 2. Status post wide-complex tachycardia Status post cardioversion, thought to be atrial flutter with RVR with aberrant conduction. In SR over last 24hrs per RN report Amio po On Plavix but no other anti-coagulants 3. Retroperitoneal bleed S/p PRBCs H/H roughly stable 4. Chronic ESRD issues to be managed as an outpatient including anemia of ESRD, secondary hyperparathyroidism etc. Continue home medication. 5. Dispo Possible discharge after dialysis this afternoon, certainly okay from my own perspective. Allen rL MD Nephrology [phone] Patient seen and examined via telemedicine, with the assistance of the bedside RN > 25 min spent in evaluation and mgmt of patient Attestations Medical Necessity Statement*: mgmt of ESRD Coding Level of Care Code Acute Chemistry Research Assistant for Chg Emiliano
--- NOTE | 2020-09-06 11:20 | PC.SOCIAL ---
IMM Update Pg. 2 of IMM updated and reviewed with patient. Verbalized understanding. Copy provided.
[2020-09-06] MEDS: lidocaine 5% Patch 1 PATCH TOPICAL ×2 (11:24→20:29)
[2020-09-06] MEDS: morphine 4 mg/mL SDV 1 mL 2 MG IVP ×3 (11:32→22:39)
[2020-09-06 12:02] LABS: Creatine Phosphokinase 109 U/L (39-308)
[2020-09-06] MEDS: albumin 37.5 GM/150 ML VIAL IV (12:08)
--- NOTE | 2020-09-06 12:17 | PC.NURSE ---
dialysis conts. manfred. fair.
[2020-09-06] MEDS: predniSONE 20 mg Tablet PO (13:33)
[2020-09-06] MEDS: lactobacillus 1 Tablet 1 TAB PO ×2 (13:33→17:26)
[2020-09-06] MEDS: amiodarone 200 mg Tablet 400 MG PO (13:33)
[2020-09-06] MEDS: clopidogrel 75 mg Tablet PO (13:33)
[2020-09-06] MEDS: docusate sodium 10 mg/mL (5ml) Liq 100 MG PO ×2 (13:34→17:26)
[2020-09-06] MEDS: vancomycin 1,000 MG in sodium chloride 0.9% 250 ML 250 MG IV (13:38)
--- NOTE | 2020-09-06 14:18 | P.PN_ITS ---
Subjective Subjective: Interval history: Is a 75-year-old male who presented to the ER with complaints of dizziness and chest discomfort. He was also noted to be tachycardic. He has had some issues with increased joint pain and swelling. Blood pressure was also noted to be soft. The patient also had traumatic retroperitoneal hematoma. His blood counts have been monitored. The patient was in atrial flutter and was cardioverted to sinus rhythm. His p.o. medications were adjusted including once a day amiodarone. Anticoagulation was held due to retroperitoneal hematoma Vitals/I&O/Wt Last Vital Signs Temp 97.9 F 09/06/20 07:30 Pulse 60 09/06/20 12:00 Resp 18 09/06/20 12:00 BP 116/41 09/06/20 12:00 Pulse Ox 100 09/06/20 12:00 09/05/20 09/06/20 09/06/20 22:59 06:59 14:59 Intake Total 240 / 990 0 / 990 489 / 489 Output Total 0 / 0 Balance 240 / 990 0 / 990 489 / 489 Weight last 48 hrs Weight 257 lb 0.9 oz Weight 253 lb 8 oz Physical Exam Const: COMMON NORMALS: no acute distress Neck/C-Spine: COMMON NORMALS: no JVD Resp: COMMON NORMALS: normal respiratory effort and No retractions Cardio: COMMON NORMALS: no JVD and regular rate RATE: regular rate GI: COMMON NORMALS: Soft to palpation and non-tender PALPATION: Yes Soft to palpation Extremity: OTHER: Noted to have some swelling as well as swelling around his knee joints limited range of motion Data : 09/06/20 06:30 09/06/20 06:30 A&P Assessment and plan (1) ESRD (end stage renal disease) on dialysis: Status: Chronic (2) Rheumatoid arthritis: Status: Chronic (3) History of cardioversion: Status: Acute (4) Traumatic retroperitoneal hematoma: Status: Acute Additional A&P Information #ESRD --s/p HD --on HD MWF --appreciate renal recs #Hypotension --bp stable on midodrine, and albumin per renal --hold antihypertensives #Afib --HR stabel . s/p cardioversion --continue amiodarone #RA -active --consider adding Prednisone #elevated CK --repeat normal #weakness --likely multifactorial Attestations Medical Necessity Statement*: Paul Cornelius's hospital stay will require greater than 2 midnights for hypotension Coding Level of Care Code Acute Fire Protection Designer for Chg Fwd Diagnoses ESRD (end stage renal disease) on dialysis N18.6; Z99.2 Rheumatoid arthritis M06.9 History of cardioversion Z98.890 Traumatic retroperitoneal hematoma S36.892A
[2020-09-06] MEDS: piperacillin-tazobactam 3.375 GM in sodium chloride 0.9% (plus) 50 ML IV (15:23)
--- NOTE | 2020-09-06 16:28 | PC.NURSE ---
x2 attempts to start new iv site. vein rupture with each.
--- NOTE | 2020-09-06 18:05 | PC.NURSE ---
sat on side of bed for supper. manfred. well. appetite fair. brought food in.
[2020-09-06] MEDS: sennosides 8.6 mg Tablet 17.2 MG PO (20:29)
[2020-09-06] MEDS: atorvastatin 40 mg Tablet PO (20:29)
[2020-09-06] MEDS: oxyCODONE-APAP 5-325 mg Tablet 1 TAB PO (20:43)
[2020-09-07] VITALS (17 sets, daily range): BP systolic 89–161; BP diastolic 39–68; PULSE 61–77; RESP 15–20; TEMP 36.6–36.8; O2SAT 93–100
[2020-09-07] MEDS: piperacillin-tazobactam 3.375 GM in sodium chloride 0.9% (plus) 50 ML IV (02:04)
[2020-09-07] MEDS: pantoprazole 40 mg SDV IVP (02:04)
[2020-09-07] MEDS: morphine 4 mg/mL SDV 1 mL 2 MG IVP ×2 (02:07→05:49)
[2020-09-07 04:04] LABS: Basophils % 0.5 %; Eosinophils % 0.1 %; Hematocrit 26.5 % (42.0-52.0); Hemoglobin 8.1 g/dL (11.7-16.6); Lymphocytes # 0.4 10^3/uL (0.8-4.8); Mean Corpuscular HGB Conc 30.6 g/dL (30.0-36.0); Mean Corpuscular Hemoglobin 28.3 pg (28.0-34.0); Mean Corpuscular Volume 92.7 fL (80-94); Mean Platelet Volume 11.6 fL (7.4-10.4); Monocytes # 0.7 10^3/uL (0.2-0.9); Monocytes % 8.4 %; Neutrophils # 7.23 10^3/uL (1.8-7.7); Neutrophils % 84.6 %; Nucleated Red Blood Cells # 0.1 /100WBC; Nucleated Red Blood Cells % 0.9 %; Platelet Count 113 10^3/cmm (130-400); Red Blood Count 2.86 10^6/uL (4.1-5.3); Red Cell Distribution Width 17.3 % (12.1-15.1); White Blood Count 8.6 10^3/uL (4.0-10.0)
[2020-09-07 04:37] LABS: Anion Gap 18.7 (5-19); Blood Urea Nitrogen 22 mg/dL (8-23); Calcium 7.7 mg/dL (8.5-10.5); Carbon Dioxide 26 mmol/L (22-29); Chloride 98 mmol/L (98-107); Glucose 125 mg/dL (65-115); Osmolality Calculated 291 mOsm/kg (285-295); Potassium 4.7 mmol/L (3.5-5.1); Sodium 138 mmol/L (136-145)
[2020-09-07] MEDS: levothyroxine 112 mcg Tablet PO (05:48)
[2020-09-07] MEDS: levothyroxine 50 mcg Tablet PO (05:48)
--- NOTE | 2020-09-07 07:00 | PC.NURSE ---
bedside report received. at bedside. pt is alert and oriented at this time. no needs voiced.
--- NOTE | 2020-09-07 09:51 | PM.PN ---
Subjective Subjective: Interval history: Feels good, no new issues today. Hemodynamics noted to be soft yesterday during dialysis requiring both midodrine and albumin. No abdominal pain overnight, per RN, rhythm has been stable overnight. No edema or other hypervolemic symptoms. No uremic symptoms. Vitals/I&O/Wt Last Vital Signs Temp 97.3 F L 09/06/20 14:00 Pulse 68 09/07/20 08:39 Resp 17 09/07/20 08:00 BP 140/51 09/07/20 08:00 Pulse Ox 98 09/07/20 08:39 09/06/20 09/07/20 09/07/20 22:59 06:59 14:59 Intake Total 150 / 1439 50 / 1489 360 / 360 Balance 150 / 715 50 / 765 360 / 360 Weight last 48 hrs Weight 117.934 kg Weight 115.7 kg Weight 116.599 kg Physical Exam Narrative: EXAM NARRATIVE: Constitutional: Sleepy, comfortable HEENT: Wet mucosa, no jvp, non icteric Lungs: Bilaterally clear without discernible wheeze, rales in all lung zones CVS: S1 S2, no murmurs Abdo: Soft, BS ok Ext 4: Minimal edema, peripheral perfusion with no cyanosis Neurological: Grossly non-focal Data : 09/07/20 03:36 09/07/20 03:36 A&P Additional A&P Information 1. ESRD Cont MWF schedule, 2K, ultrafiltration of 2 L. Plan for tomorrow if he remains in house Dose medication for GFR less than 15 on dialysis 2. Status post wide-complex tachycardia Status post cardioversion, thought to be atrial flutter with RVR with aberrant conduction. In SR Amio po On Plavix but no other anti-coagulants 3. Retroperitoneal bleed S/p PRBCs H/H remains stable 4. Chronic ESRD issues to be managed as an outpatient including anemia of ESRD, secondary hyperparathyroidism etc. Continue home medication. 5. Dispo possible DC today Allen Lr MD Nephrology [phone] Patient seen and examined via telemedicine, with the assistance of the bedside RN > 25 min spent in evaluation and mgmt of patient Attestations Medical Necessity Statement*: Eval for ESRD mgmt Coding Level of Care Code Acute Banquet Manager for Chg Fwd
[2020-09-07] MEDS: clopidogrel 75 mg Tablet PO (09:56)
[2020-09-07] MEDS: lactobacillus 1 Tablet 1 TAB PO (09:56)
[2020-09-07] MEDS: isosorbide mononitrate ER 30 mg Tablet PO (09:56)
[2020-09-07] MEDS: lidocaine 5% Patch 1 PATCH TOPICAL (09:56)
[2020-09-07] MEDS: predniSONE 20 mg Tablet PO (09:57)
--- NOTE | 2020-09-07 10:38 | PC.CHAP ---
Pastoral Care Encounter/Spiritual Assessment Type of Contact [] Declined chain machine operator visit [] Patient/Family/Request visit [] Outpatient visit [] Follow-up visit [] Physician referral [] Code/Alert [x] Routine visit [] Staff referral [] Actively dying [] Patient sleeping [x] Family support [] [] Out of room [] Palliative care [] [x] Receiving care in room [] Pre-surgical visit [] Trauma [] Long length of stay [] ICU visit [] Other: Relational/Emotional Strength [x] Patient feels connected with others/family/visitors/staff [] Distress [] Loneliness/isolation [] Abandonment Spirituality of Patient [x] Person of [place] [x] Attends Jewish of their [place] [x] Believes in Prayer [x] Reads Bible or Mormonism materials [] There are Spiritual issues to be addressed Operations Program Manager Interventions [x] Prayer [x] Active listening [x] Non-anxious presence [] Spiritual/emotional support [] Crisis/trauma care [] Spiritual counseling [] Bereavement support [] Provided bereavement packet [] Provided Bible/devotional materials [] Provided toy/stuffed animal, coloring book to patient or family member [] Provided Communion [] Anointing/[place] [] Salvation [] Completed spiritual assessment [] Other: Impact on Illness or Injury [] Angry [] Fearful [] Anxious [] Often cries [] Exhaustion [] Unable to work [] Unable to attend zoroastrianism [] Unable to walk/stand [] Unable to read [] Unable to drive [] Unable to eat/drink [] Unable to sleep [] Unable to be with family [] Patient intubated [] Other: Summary 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 Happy, polite, confident, and a good outlook on life. Time spent with patient 10 minutes.
--- NOTE | 2020-09-07 13:29 | PM.PN ---
Subjective Subjective: Interval history: Patient is feeling better. Denies any chest pain or shortness of breath. Vitals/I&O/Wt Last Vital Signs Temp 97.9 F 09/07/20 10:00 Pulse 63 09/07/20 12:00 Resp 20 H 09/07/20 12:00 BP 89/45 09/07/20 12:00 Pulse Ox 99 09/07/20 12:00 09/06/20 09/07/20 09/07/20 22:59 06:59 14:59 Intake Total 150 / 1439 50 / 1489 540 / 540 Balance 150 / 715 50 / 765 540 / 540 Weight last 48 hrs Weight 260 lb Weight 255 lb 1.197 oz Weight 257 lb 0.9 oz Physical Exam Narrative: EXAM NARRATIVE: GENERAL: Patient is awake and alert hard of hearing NECK: No jugular vein distension. HEENT: No cyanosis. No icterus. No pallor. HEART: Regular S1 and S2. No murmur, rub or gallop. LUNGS: Decreased breath sound bilaterally. ABDOMEN: Firm, nontender and distended. Positive bowel sounds. No guarding, rebound or tenderness. CENTRAL NERVOUS SYSTEM: Grossly nonfocal. EXTREMITIES: Lower extremities without edema bilaterally. Data : 09/07/20 03:36 09/07/20 03:36 A&P Assessment and plan (1) Wide-complex tachycardia: Atrial flutter was cardioverted into sinus rhythm patient to be switched to 400 mg once a day of amiodarone. Anticoagulation stopped due to retroperitoneal moderate hematoma.Continue plavix Status: Resolved (2) HTN (hypertension): Within normal limits. Continue to monitor Qualifiers: Hypertension type: essential hypertension Qualified Code(s): I10 - Essential (primary) hypertension (3) Coronary artery disease: Status post drug-eluting stent to LAD and circumflex few months ago. Continue clopidogrel add beta-xu and continue statin. Qualifiers: Coronary Disease-Associated Artery/Lesion type: [place] artery [place] vs. transplanted heart: [place] heart Associated angina: without angina Qualified Code(s): I25.10 - Atherosclerotic heart disease of [place] coronary artery without angina pectoris (4) Traumatic retroperitoneal hematoma: Given patient's recent stents, continue Plavix. Continue holding Eliquis secondary to recent bleed. Blood pressure has improved some. Patient is ready to be discharged from cardiology standpoint. Outpatient cardiology visit. Thank you for involving us with the care of this patient. Please call with questions. Attestations Medical Necessity Statement*: Care expected to cross 2 midnights. Coding Level of Care Code Acute Support Analyst for Brendan Fwd Diagnoses Wide-complex tachycardia I47.2 HTN (hypertension) I10 Hypertension type: essential hypertension Coronary artery disease I25.10 Coronary Disease-Associated Artery/Lesion type: [place] artery [place] vs. transplanted heart: [place] heart Associated angina: without angina Traumatic retroperitoneal hematoma S36.148M
--- NOTE | 2020-09-07 17:00 | PC.NURSE ---
Discharge Discharge instructions given to the and patient. Prescriptions electronically send to [facility]. No questions or concerns noted regarding d/c. [facility] has delivered portable oxygen for discharge. pt discharged home with in private vehicle. x2 assist needed to transfer patient to private vehicle. transferred to vehicle via wheelchair. states that at home he will be more comfortable with the transfer to his personal wheelchair from the vehicle.
--- NOTE | 2020-09-08 16:08 | PM.DCS ---
Discharge Providers Date of Admission: 09/03/20 02:35 Date of Discharge: September 08, 2020 Attending Provider at Admission: Vanna Robert MD Attending Provider at Discharge: Vidal Milan MD Primary Care Provider: Hanane Saldaña MD Diagnoses at Discharge Discharge Diagnosis (1) Wide-complex tachycardia: Status: Resolved (2) HTN (hypertension): Qualifiers: Hypertension type: essential hypertension Qualified Code(s): I10 - Essential (primary) hypertension (3) Coronary artery disease: Qualifiers: Coronary Disease-Associated Artery/Lesion type: [place] artery [place] vs. transplanted heart: [place] heart Associated angina: without angina Qualified Code(s): I25.10 - Atherosclerotic heart disease of [place] coronary artery without angina pectoris (4) Traumatic retroperitoneal hematoma: Reason for Visit Reason for Visit: CHEST PAIN Hospital Course Hospital Course 75-year-old male who presented to the ER with complaints of dizziness and chest discomfort. He was also noted to be tachycardic. He has had some issues with increased joint pain and swelling. Blood pressure was also noted to be soft. The patient also had traumatic retroperitoneal hematoma. His blood counts have been monitored. The patient was in atrial flutter and was cardioverted to sinus rhythm. His p.o. medications were adjusted including once a day amiodarone. Anticoagulation was held due to retroperitoneal hematoma Nephrology consulted for dialysis. Repeat CK was normal. His weakness and pain also improved. He was given steroids. He was also given midodrine and albumin for hypotension. He was discharged in improved condition. Physical Exam Const: COMMON NORMALS: no acute distress and patient oriented x3 Neck/C-Spine: COMMON NORMALS: no JVD Resp: COMMON NORMALS: normal respiratory effort and No retractions Cardio: COMMON NORMALS: no JVD and regular rate RATE: regular rate GI: COMMON NORMALS: Soft to palpation and non-tender PALPATION: Yes Soft to palpation Extremity: COMMON NORMALS: normal to inspection Neuro: COMMON NORMALS: patient oriented x3 Psych: COMMON NORMALS: mental status grossly normal and Normal thought process present THOUGHT PROCESS: Normal thought process present Skin: COMMON NORMALS: no rashes or lesions noted and no wounds GENERAL SKIN EXAM: no rashes or lesions noted Discharge Data Data Completed and Pending: Completed Studies During Hospitalization Category Date Time Status CT abdomen pelvis wo con [id number] Rout ine Cat Scan 09/03/20 10:37 Completed XR chest 1V [place] [id number] Urgent Exams 09/02/20 18:03 Completed CV carotid duplex BI* [id number] Routine Ultrasound 09/03/20 06:00 Completed Labs from last 24 hours 09/03/20 08:49 Crossmatch See Detail Vitals: Last Vital Signs Temp 98.2 F 09/07/20 17:09 Pulse 63 09/07/20 17:09 Resp 15 09/07/20 17:09 BP 139/39 09/07/20 17:09 Pulse Ox 96 09/07/20 17:09 Discharge Plan Discharge Patient Disposition: Home Condition: Stable Prescriptions: New Pacerone 200 mg Tablet 400 mg PO DAILY Qty: 30 RF: 0 isosorbide mononitrate 30 mg Tablet Extended Release 24 Hr 30 mg PO DAILY Qty: 30 RF: 0 clopidogrel 75 mg Tablet 75 mg PO DAILY Qty: 20 RF: 0 levothyroxine 50 mcg Tablet 50 mcg PO QAM Qty: 30 RF: 0 levothyroxine 112 mcg Tablet 112 mcg PO QAM Qty: 30 RF: 0 Lactobacillus acidoph-L.bulgar 1 million cell Tablet 1 tab PO BID Qty: 30 RF: 0 prednisone 10 mg tablet 10 mg PO DAILY Qty: 30 RF: 0 Continued nitroglycerin [Nitrostat] 0.4 mg tablet, sublingual 0.4 mg SUBLINGUAL Q5M PRN (Reason: CHEST PAINS) RF: 0 mirtazapine 15 mg tablet 15 mg PO BEDTIME@2100 RF: 0 Cimzia 400 mg/2 mL (200 mg/mL x 2) syringe kit See Rx Instructions .ROUTE .COMPLEX Qty: 2 RF: 5 acetaminophen [Tylenol Extra Strength] 500 mg Tablet 1,000 mg PO Q6H PRN (Reason: Pain) RF: 0 RenaPlex-D 800 mcg-12.5 mg -2,000 unit tablet 1 tab PO DAILY@0900 RF: 0 clopidogrel 75 mg tablet 75 mg PO DAILY@0900 RF: 0 atorvastatin 40 mg Tablet 40 mg PO BEDTIME@2100 RF: 0 lidocaine-prilocaine [Lido-Prilo Josemanuel Pack] 2.5-2.5 % Kit See Rx Instructions .ROUTE .COMPLEX RF: 0 ondansetron 4 mg tablet,disintegrating 4 mg PO Q6H PRN (Reason: nausea and vomiting) Qty: 14 RF: 0 diltiazem HCl [Cardizem] 30 mg tablet 30 mg PO BID@0900,2100 RF: 0 amlodipine 5 mg tablet 2.5 mg PO DAILY RF: 0 docusate sodium [Colace] 100 mg Capsule 100 mg PO DAILY PRN (Reason: Constipation) RF: 0 pantoprazole [Protonix] 40 mg tablet,delayed release (DR/EC) 40 mg PO BID Qty: 60 RF: 3 cetirizine 10 mg Tablet 10 mg PO DAILY@0900 RF: 0 Held Eliquis 5 mg tablet 5 mg PO BID@0900,2100 Qty: 180 RF: 3 Hold Instructions: Resume on 09/09/20. Patient will see his Before resuming the eliquis. Discontinued amiodarone 200 mg tablet 200 mg PO DAILY@0900 Qty: 90 RF: 3 isosorbide mononitrate 60 mg tablet extended release 24 hr 60 mg PO DAILY@0900 RF: 0 levothyroxine 150 mcg tablet 150 mcg PO QAM RF: 0 Discharge Orders: Discharge Order (Routine); Ordered 09/07/20 Ordered By: Vidal Milan Referrals: [facility] [Outside] Hanane Saldaña MD [Primary Care Provider] - 09/14/20 3:20 pm Discharge Diet: Cardiac Discharge Activity: Resume usual activity Patient Instructions: Levothyroxine (By mouth), Prednisone (By mouth), Amiodarone (By mouth), Isosorbide Mononitrate (By mouth), Clopidogrel (By mouth), Probiotic (By mouth), Heart Healthy Diet, Opioid Safety Discharge Attestations Time Spent in Discharge Care*: less than 30 min Status at Discharge: Cognitive status at discharge: cognitively intact, Behavioral status at discharge: cooperative, Quality Metrics Clinical Quality Measures During this hospital stay, did patient experience: None Coding Level of Care Code Acute Chg FW DC note Diagnoses Wide-complex tachycardia I47.2 HTN (hypertension) I10 Hypertension type: essential hypertension Coronary artery disease I25.10 Coronary Disease-Associated Artery/Lesion type: [place] artery [place] vs. transplanted heart: [place] heart Associated angina: without angina Traumatic retroperitoneal hematoma S36.223Z
== END 2020-09-07 17:00 | disposition home health service (06) | DRG 308 ==
LOC: ER 23:11 → ICU 09-03 02:37
PROVIDERS: Internal Medicine; Admitting Provider Hospitalist; Emergency Provider Family Medicine; PCP Family Medicine; Visit Provider Internal Medicine
DX: I47.2 Ventricular tachycardia (principal); K29.71 Gastritis, unspecified, with bleeding; N18.6 End stage renal disease; I13.2 Hypertensive heart and chronic kidney disease with heart failure and with stage 5 chronic kidney disease, or end stage renal disease; S36.892A Contusion of other intra-abdominal organs, initial encounter; I48.0 Paroxysmal atrial fibrillation; I25.10 Atherosclerotic heart disease of native coronary artery without angina pectoris; Z95.5 Presence of coronary angioplasty implant and graft; Z89.422 Acquired absence of other left toe(s); D63.1 Anemia in chronic kidney disease; N40.0 Benign prostatic hyperplasia without lower urinary tract symptoms; K21.9 Gastro-esophageal reflux disease without esophagitis; Z86.010 Personal history of colon polyps; Z86.16 Personal history of COVID-19; M19.90 Unspecified osteoarthritis, unspecified site; E13.22 Other specified diabetes mellitus with diabetic chronic kidney disease; I50.9 Heart failure, unspecified; Z99.2 Dependence on renal dialysis; E78.5 Hyperlipidemia, unspecified; E03.9 Hypothyroidism, unspecified; I34.0 Nonrheumatic mitral (valve) insufficiency; E13.42 Other specified diabetes mellitus with diabetic polyneuropathy; E13.51 Other specified diabetes mellitus with diabetic peripheral angiopathy without gangrene; I27.20 Pulmonary hypertension, unspecified; M06.9 Rheumatoid arthritis, unspecified; Z79.02 Long term (current) use of antithrombotics/antiplatelets; I95.9 Hypotension, unspecified; Z99.81 Dependence on supplemental oxygen; W18.2XXA Fall in (into) shower or empty bathtub, initial encounter
CPT/HCPCS: 36415; 36430; 36600; 71045; 74176; 80048; 80051; 80053; 82330; 82550; 82805; 83605; 83735; 83880; 84100; 84443; 84484; 84550; 85018; 85025; 85610; 85651; 85730; 86140; 86850; 86900; 86920; 87040; 90935; 93005; 93880; 96365; 96366; 96367; 96375; 97110; 97163; 97166; 97530; 97535; 99285; C9113; J0282; J1644; J2270; J2405; J2543; J2550; J3370; J3490; J7040; J7050; J7060; J7512; P9016; P9047; Q3014

== ENCOUNTER → 2020-09-14 16:00 | Outpatient (BNVA) | payer MEDICARE, MEDICAID, SELFPAY | PROVIDERS: PCP Family Medicine; Visit Provider Family Medicine | DX: R53.1 Weakness (principal); K92.2 Gastrointestinal hemorrhage, unspecified; I48.0 Paroxysmal atrial fibrillation; Z09 Encounter for follow-up examination after completed treatment for conditions other than malignant neoplasm | CPT/HCPCS: 85025 ==

== ENCOUNTER 2020-11-15 10:51 | Emergency (ER) | payer MEDICARE, MEDICAID, SELFPAY ==
--- NOTE | 2020-11-15 10:58 | ED_ITS ---
HPI - General Adult General: Chief complaint: Back Pain/Injury Stated complaint: HYPOTENSION Time Seen by Provider: 11/15/20 10:54 History of Present Illness: HPI narrative: This patient is a 75-year-old male brought in by EMS regarding low blood pressure. Patient is a dialysis patient was getting up to go to dialysis morning. Patient states he felt weak so he sat down. His checked his blood pressure was 69 systolic. EMS reports that they arrived and the patient still had a blowup low blood pressure. When the patient got on the stretcher however his blood pressure came up. Patient admits that he did take his medications this morning. Patient takes multiple medications including amiodarone 200 mg amlodipine 5 mg and Cardizem 30 mg. Patient states he feels better now that he is laying flat. Patient denies any chest pain or shortness of breath. Will do medical evaluation treat as needed Onset (ago): minute(s) Exacerbating factors: movement Associated symptoms: Deny chest pain, dyspnea, headache(s), nausea, rash, palpitations or vomiting Review of Systems General: Reports: 10 or more systems reviewed and unremarkable except in HPI and below Const: Reports: fatigue; Denies: fever(s), chills or body aches Eyes: Denies: change in vision or blurry vision ENMT: Denies: throat pain, hoarseness or mouth pain Card: Denies: chest pain, palpitations, irregular heart rhythm, edema, swelling of feet/ankles or lightheadedness Resp: Denies: dyspnea, productive cough, non-productive cough, wheezing or pain on inspiration GI: Denies: abdominal pain, nausea or vomiting : Denies: flank pain, dysuria, urinary frequency, urinary urgency or urinary hesitancy Musc: Denies: neck pain, back pain, extremity pain, extremity swelling, joint pain, joint swelling, joint redness, joint warmth or limited range of motion Skin/Breast: Denies: rash, pruritus, erythema or skin tenderness Neuro: Denies: headache(s), numbness in extremities or weakness in extremities Psych: Denies: anxiety or depression FORMERLY [facility], 1928–1983 ED PFSH: Medical History Acute upper gastrointestinal bleeding (~07/2020) Anemia ASHD (arteriosclerotic heart disease) Atrial fibrillation BPH (benign prostatic hyperplasia) C. difficile colitis (~05/2020) CHF (congestive heart failure) Colon polyps Coronary artery disease COVID-19 (~12/2019) treated with monoclonal antibody COVID-19 vaccine administered (~05/2020) moderna DDD (degenerative disc disease) Diabetes 1.5, managed as type 2 Diabetic gastroparesis Dyslipidemia ESRD (end stage renal disease) on dialysis GERD (gastroesophageal reflux disease) History of gastritis HTN (hypertension) Hypothyroidism MGUS (monoclonal gammopathy of unknown significance) Mitral regurgitation Normocytic normochromic anemia PAD (peripheral artery disease) Pulmonary HTN Rheumatoid arthritis Traumatic retroperitoneal hematoma Surgical History Amputation of toe of left foot History of cardioversion (09/02/20) 09/02/20: atrial flutter with aberrant conduction History of colonoscopy 02/2015 --2 small adenomatous polyps History of esophagogastroduodenoscopy (EGD) 02/2015 --mild gastritis; 07/2020 mild gastritis, some blood seen in antrum Personal history of surgery to other organs Hemodialysis catheters, peritoneal dialysis catheter, dialysis fistula S/P appendectomy S/P carpal tunnel release S/P cervical spinal fusion S/P cholecystectomy Status post coronary angiogram Status post coronary artery stent placement x2 Family History Father , AGE 61 Cancer LUNG Mother , AGE 62 CHF (congestive heart failure) Social History Alcohol intake: never Household members: spouse Marital status: Physical Exam Const: COMMON NORMALS: no acute distress, average body habitus, patient oriented x3, no limitations, healthy appearing, alert and well nourished HENMT: COMMON NORMALS: normocephalic, atraumatic, hearing grossly normal bilaterally, external ears normal, EAC's normal, TM's normal bilaterally, Normal external nose present, Normal nasal mucous membranes and turbinates present, moist oral mucous membranes, oropharynx normal, dentition normal and gingiva normal HEAD & SCALP: normocephalic and atraumatic NOSE: Normal external nose present and Normal nasal mucous membranes and turbinates present EXTERNAL EAR: Yes external ears normal EXTERNAL AUDITORY CANAL: EAC's normal TYMPANIC MEMBRANE: TM's normal bilaterally Neck/C-Spine: COMMON NORMALS: full ROM, no lymphadenopathy, supple, no meningeal signs, no JVD, Thyroid normal and No carotid bruits THYROID: Thyroid normal Chest: COMMONS NORMALS: normal inspection of the chest, normal palpation of entire chest wall, normal inspection of the breasts and normal palpation of the breasts Breast/axilla inspection: Yes normal inspection of the breasts BREAST/AXILLA PALPATION: Yes normal palpation of the breasts Resp: COMMON NORMALS: normal respiratory effort, No retractions, No use of accessory muscles, clear to auscultation bilaterally and percussion normal AUSCULTATION: clear to auscultation bilaterally PERCUSSION: percussion normal Cardio: COMMON NORMALS: no JVD, regular rate, regular rhythm, S1 normal heart sound present, S2 normal heart sound present, No gallops present (Cardio), No clicks present (Cardio), No murmurs present (Cardio), No rub (Cardio) and Peripheral pulses 2+ throughout RATE: regular rate RHYTHM: regular rhythm HEART SOUNDS: S1 normal heart sound present and S2 normal heart sound present PERIPHERAL PULSES: Peripheral pulses 2+ throughout GI: COMMON NORMALS: Normal to inspection, nondistended, normoactive bowel so unds present, Soft to palpation, non-tender, No hepatosplenomegaly present, no masses and no bruits PALPATION: Yes Soft to palpation and Yes No hepatosplenomegaly present : COMMON NORMALS: Yes no CVA tenderness BLADDER/KIDNEY EXAM: Yes no CVA tenderness Back/Pelvis: COMMON NORMALS: no CVA tenderness, thoracic and lumbar spine normal to inspection, no thoracic nor lumbar tenderness, thoraco-lumbar ROM normal and straight leg raise negative bilaterally Extremity: COMMON NORMALS: normal to inspection, full ROM, capillary refill normal, no joint enlargement, no clubbing, cyanosis or edema, no calf tenderness and no pedal edema Neuro: COMMON NORMALS: patient oriented x3 SENSORIUM/ORIENTATION: Yes alert MENINGEAL SIGNS: Yes no meningeal signs Course Reevaluation(s): Reevaluation #1: Negative evaluation in the emergency department for any acute findings. Patient is a dialysis patient appears to become orthostatic. This is resolved after small fluid bolus. Initial troponin was elevated and 2-hour troponin was decreased most likely elevated troponin is related to patient's chronic kidney disease on dialysis. Patient has no EKG changes and has no complaints of chest pain or any other cardiac symptoms. I did discuss at length with patient about options. Patient request to be discharged home. Patient is to monitor his fluid intake but still does need hydrate reasonably to make sure he does not get orthostatic. Patient is to follow-up with his primary care physician in 2 to 3 days. Patient be discharged home per his request Time: 14:50 Vital Signs: Vital signs: Vital Signs Temperature 97.7 F 11/15/20 11:00 Pulse Rate 63 11/15/20 14:42 Respiratory Rate 17 11/15/20 14:42 Blood Pressure 128/64 11/15/20 14:42 Pulse Oximetry 100 11/15/20 14:42 MDM - General Adult MDM Narrative: Medical decision making narrative: Negative evaluation in the emergency department for any acute findings. Patient is a dialysis patient appears to become orthostatic. This is resolved after small fluid bolus. Initial troponin was elevated and 2-hour troponin was decreased most likely elevated troponin is related to patient's chronic kidney disease on dialysis. Patient has no EKG changes and has no complaints of chest pain or any other cardiac symptoms. I did discuss at length with patient about options. Patient request to be discharged home. Patient is to monitor his fluid intake but still does need hydrate reasonably to make sure he does not get orthostatic. Patient is to follow-up with his primary care physician in 2 to 3 days. Patient be d ischarged home per his request Lab Data: Labs: Lab Results 11/15/20 11/15/20 11/15/20 11:24 11:24 11:24 WBC 7.5 10^3/uL 10^3/ uL (4.0-10.0) RBC 4.57 10^6/uL 10^6 /uL (4.1-5.3) Hgb 12.4 g/dL g/dL (11.7-16.6) Hct 39.0 % L % (42.0-52.0) MCV 85.3 fl fl (80-94) MCH 27.1 pg L pg (28.0-34.0) MCHC 31.8 g/dL g/dL (30.0-36.0) RDW 19.9 % H % (12.1-15.1) Plt Count 110 10^3/cmm L 10 ^3/cmm (130-400) MPV 11.2 fL H fL (7.4-10.4) Neut % (Auto) 46.3 % % Lymph % (Auto) 31.9 % % [place] % (Auto) 13.4 % % Eos % (Auto) 6.2 % % Baso % (Auto) 2.1 % % Neut # (Auto) 3.45 10^3/uL 10^3 /uL (1.8-7.7) Lymph # (Auto) 2.4 10^3/uL 10^3/ uL (0.8-4.8) [place] # (Auto) 1.0 10^3/uL H 10^ 3/uL (0.2-0.9) Eos # (Auto) 0.5 10^3/uL 10^3/ uL (0.0-0.8) Baso # (Auto) 0.2 10^3/uL H 10^ 3/uL (0.0-0.1) Nucleated RBC % (a uto) 0 % % Nucleated RBCs # 0.0 /100WBC /100W BC PT 15.40 SECONDS H S ECONDS (12.1-14.9) INR 1.19 (0.8-1.2) APTT 40.1 SECONDS H SE CONDS (23.9-36.7) Sodium 133 mmol/L L mmol /L (136-145) Potassium 5.0 mmol/L mmol/L (3.5-5.1) Chloride 96 mmol/L L mmol/ L (98-107) Carbon Dioxide 28 mmol/L mmol/L (22-29) Anion Gap 14.0 (5-19) BUN 10 mg/dL mg/dL (8-23) Creatinine 5.0 mg/dL H mg/dL (0.7-1.2) GFR Calculation Not Reportable Glucose 66 mg/dL mg/dL (65-115) Calculated Osmolal ity 273 mOsm/kg L mOs m/kg (285-295) Calcium 8.2 mg/dL L mg/dL (8.5-10.5) Total Bilirubin 1.4 mg/dL H mg/dL (0.15-1.2) AST 45 U/L H U/L (0-40) ALT 12 U/L U/L (0-41) Alkaline Phosphata se 166 IU/L H IU/L (40-130) Troponin T Baselin e Troponin T 120 Min [place] Troponin T Total Protein 7.3 g/dL g/dL (6.6-8.7) Albumin 2.2 g/dL L g/dL (3.5-5.2) Globulin 5.1 g/dL H g/dL (1.3-4.6) 11/15/20 11/15/20 11:24 13:25 WBC RBC Hgb Hct MCV MCH MCHC RDW Plt Count MPV Neut % (Auto) Lymph % (Auto) [place] % (Auto) Eos % (Auto) Baso % (Auto) Neut # (Auto) Lymph # (Auto) [place] # (Auto) Eos # (Auto) Baso # (Auto) Nucleated RBC % (a uto) Nucleated RBCs # PT INR APTT Sodium Potassium Chloride Carbon Dioxide Anion Gap BUN Creatinine GFR Calculation Glucose Calculated Osmolal ity Calcium Total Bilirubin AST ALT Alkaline Phosphata se Troponin T Baselin e 115 ng/L H* ng/L (0-15) Troponin T 120 Min [place] 100.7 ng/L H ng/L (0-15) Delta Troponin T -14.3 ABS# L ABS# (0-10) Total Protein Albumin Globulin EKG Data^: EKG 1: Attestation: I personally reviewed and interpreted this EKG as follows: EKG interpretation date: 11/15/20 EKG interpretation time: 11:07 Prior EKG tracings: available for review Interpretation: Sinus rhythm with a first-degree AV block. Intermediate axis. Nonspecific ST changes. Heart rate 61 Discharge Plan Discharge Patient Disposition: Home Clinical Impression: Orthostasis, Chronic kidney disease with end stage renal failure on dialysis Condition: Stable Prescriptions: No Action Pacerone 200 mg tablet 200 mg PO DAILY RF: 0 nitroglycerin [Nitrostat] 0.4 mg tablet, sublingual 0.4 mg SUBLINGUAL Q5M PRN (Reason: CHEST PAINS) RF: 0 Cimzia 400 mg/2 mL (200 mg/mL x 2) syringe kit See Rx Instructions .ROUTE .COMPLEX Qty: 2 RF: 5 Eliquis 5 mg tablet 5 mg PO BID@0900,2100 Qty: 180 RF: 3 Hold Instructions: Resume on 09/23/20. followup with PCP to discuss restarting (DME) BEDSIDE COMMODE LARGE See Rx Instructions .Route .MEDSUPPLY Qty: 1 RF: 0 (DME) HOSPITAL BED LARGE See Rx Instructions .Route .MEDSUPPLY Qty: 1 RF: 0 (DME) LINDA LIFT LARGE See Rx Instructions .Route .MEDSUPPLY Qty: 1 RF: 0 acetaminophen [Tylenol Extra Strength] 500 mg Tablet 1,000 mg PO Q6H MDD SEE ALL PHARMACY COMMENTS PRN (Reason: Pain) RF: 0 RenaPlex-D 800 mcg-12.5 mg -2,000 unit tablet 1 tab PO DAILY@0900 RF: 0 atorvastatin 40 mg Tablet 40 mg PO BEDTIME@2100 RF: 0 lidocaine-prilocaine [Lido-Prilo Josemanuel Pack] 2.5-2.5 % Kit See Rx Instructions .ROUTE .COMPLEX RF: 0 ondansetron 4 mg tablet,disintegrating 4 mg PO Q6H PRN (Reason: nausea and vomiting) Qty: 14 RF: 0 docusate sodium [Colace] 100 mg Capsule 100 mg PO DAILY PRN (Reason: Constipation) RF: 0 pantoprazole [Protonix] 40 mg tablet,delayed release (DR/EC) 40 mg PO BID Qty: 60 RF: 3 isosorbide mononitrate 30 mg Tablet Extended Release 24 Hr 30 mg PO DAILY Qty: 30 RF: 0 clopidogrel 75 mg Tablet 75 mg PO DAILY Qty: 20 RF: 0 Lactobacillus acidoph-L.bulgar 1 million cell Tablet 1 tab PO BID Qty: 30 RF: 0 Discharge Orders: Discharge ED (Routine); Ordered 11/15/20 Ordered By: Pio Monroy Referrals: Bunny Ta MD [Primary Care Provider] - Discharge Diet: Advance as tolerated Discharge Activity: Resume usual activity Patient Instructions: Opioid Safety Activity Restrictions/Additional Instructions: Monitor fluid intake closely. However also monitor blood pressure. Make sure you do not get dehydrated but also make sure you do not drink too much fluids due to your dialysis and kidney problems. Continue with home medications.. Careful with moving from lying to sitting to standing positions due to risk of falls due to orthostasis. Follow-up with primary care physician in 2 to 3 days. Return to the emergency department as needed. 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
[2020-11-15 11:00] VITALS: BP 131/57; PULSE 64; RESP 18; TEMP 36.5; O2SAT 99; BMI 30.7
--- NOTE | 2020-11-15 11:00 | ECG_ITS ---
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1945 Requested By: Pio Monroy Order Number: [id number] Reading MD: Measurements Intervals [place] Rate: 61 P: 52 WV: 237 QRS: 1 QRSD: 116 T: 71 QT: 492 QTc: 499 Interpretive Statements SINUS RHYTHM WITH FIRST DEGREE AV BLOCK INDETERMINATE AXIS LOW QRS VOLTAGE IN EXTREMITY LEADS [QRS DEFLECTION < 0.5 mV IN LIMB LEADS] ANTEROSEPTAL MYOCARDIAL INFARCTION , OF INDETERMINATE AGE [40+ ms Q WAVE IN V1-V4] Compared to ECG 09/03/2020 00:06:45 Indeterminate axis now present Myocardial infarct finding now present Right-axis deviation no longer present [id number]
[2020-11-15] MEDS: sodium chloride 0.9% 500 ML IV (11:28)
[2020-11-15 11:29] VITALS: BP 131/57; PULSE 62; RESP 15; O2SAT 99
[2020-11-15 11:40] LABS: Basophils # 0.2 10^3/uL (0.0-0.1); Basophils % 2.1 %; Eosinophils # 0.5 10^3/uL (0.0-0.8); Eosinophils % 6.2 %; Hemoglobin 12.4 g/dL (11.7-16.6); Lymphocytes # 2.4 10^3/uL (0.8-4.8); Lymphocytes % 31.9 %; Mean Corpuscular HGB Conc 31.8 g/dL (30.0-36.0); Mean Corpuscular Hemoglobin 27.1 pg (28.0-34.0); Mean Corpuscular Volume 85.3 fl (80-94); Mean Platelet Volume 11.2 fL (7.4-10.4); Monocytes % 13.4 %; Neutrophils # 3.45 10^3/uL (1.8-7.7); Neutrophils % 46.3 %; Nucleated Red Blood Cells % 0 %; Platelet Count 110 10^3/cmm (130-400); Red Blood Count 4.57 10^6/uL (4.1-5.3); Red Cell Distribution Width 19.9 % (12.1-15.1); White Blood Count 7.5 10^3/uL (4.0-10.0)
[2020-11-15 11:55] LABS: INR 1.19 (0.8-1.2)
[2020-11-15 11:56] LABS: Partial Thromboplastin Time 40.1 SECONDS (23.9-36.7)
[2020-11-15 11:57] LABS: Alanine Aminotransferase 12 U/L (0-41); Albumin Level 2.2 g/dL (3.5-5.2); Alkaline Phosphatase 166 IU/L (40-130); Aspartate Amino Transferase 45 U/L (0-40); Blood Urea Nitrogen 10 mg/dL (8-23); Calcium 8.2 mg/dL (8.5-10.5); Carbon Dioxide 28 mmol/L (22-29); Chloride 96 mmol/L (98-107); Globulin 5.1 g/dL (1.3-4.6); Glucose 66 mg/dL (65-115); Osmolality Calculated 273 mOsm/kg (285-295); Sodium 133 mmol/L (136-145); Total Bilirubin 1.4 mg/dL (0.15-1.2); Total Protein 7.3 g/dL (6.6-8.7)
[2020-11-15 11:58] LABS: Troponin(5th) Baseline 115 ng/L (0-15)
[2020-11-15 12:51] VITALS: BP 114/53; PULSE 64; RESP 17; O2SAT 98
--- NOTE | 2020-11-15 13:00 | ECG_ITS ---
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1945 Requested By: Pio Monroy Order Number: [id number] Reading MD: Measurements Intervals [place] Rate: 63 P: NV: QRS: -51 QRSD: 124 T: 83 QT: 494 QTc: 506 Interpretive Statements UNCERTAIN REGULAR RHYTHM INDETERMINATE AXIS POSSIBLE ANTERIOR MYOCARDIAL INFARCTION , PROBABLY OLD [30 ms Q WAVE IN V3/V4, OR R < 0.2 mV IN V4] Compared to ECG 11/15/2020 11:07:00 Sinus rhythm no longer present First degree AV block no longer present Myocardial infarct finding still present [id number]
[2020-11-15 14:19] LABS: Troponin 5 2HR 100.7 ng/L (0-15); Troponin 5 2HR Delta -14.3 ABS# (0-10)
[2020-11-15 14:42] VITALS: BP 128/64; PULSE 63; RESP 17; O2SAT 100
[2020-11-15 15:16] VITALS: BP 127/64; PULSE 63; RESP 19; O2SAT 100
== END 2020-11-15 15:24 | disposition home or self-care (01) ==
PROVIDERS: Emergency Provider Emergency Medicine; PCP Family Medicine
DX: I95.1 Orthostatic hypotension (principal); I13.2 Hypertensive heart and chronic kidney disease with heart failure and with stage 5 chronic kidney disease, or end stage renal disease; E13.22 Other specified diabetes mellitus with diabetic chronic kidney disease; N18.6 End stage renal disease; I50.9 Heart failure, unspecified; Z99.2 Dependence on renal dialysis; I25.10 Atherosclerotic heart disease of native coronary artery without angina pectoris; E78.5 Hyperlipidemia, unspecified; Z79.01 Long term (current) use of anticoagulants; Z79.02 Long term (current) use of antithrombotics/antiplatelets
CPT/HCPCS: 80053; 84484; 85025; 85610; 85730; 93005; 96360; 99284; J7040

== ENCOUNTER 2020-11-16 09:54 | Outpatient (CLI) | payer MEDICARE, MEDICAID, SELFPAY ==
--- NOTE | 2020-11-16 10:11 | CT_ITS ---
WS: [id number] CT ABDOMEN AND PELVIS NONCONTRAST HISTORY: GENERALIZED ABDOMINAL PAIN TECHNIQUE: Imaging performed through the abdomen and pelvis. Coronal and sagittal reformats are submi tted. All CT scans at [facility] use at least one of these dose optimization techniques: auto mated exposure control; mA and/or kV adjustment per patient size (includes targeted exams where dose is matched to clinical indication); or iterative reconstruction. DLP: 2218.02 mGy.cm COMPARISON: 09/03/2020 and 08/18/2020 Lower thorax: Moderate enlargement the heart. Heavy calcification along the mitral annular valve plan e. No pericardial effusion. Mild dependent changes at the lung bases. RIGHT pleural effusion with ple ural calcification. There is a small layering LEFT pleural effusion. Liver: Normal size liver. No mass or bile duct dilatation. Gallbladder: Prior cholecystectomy. Pancreas: Diffuse atrophy. Spleen: Normal size spleen with granulomata. Splenic artery calcifications are extensive. Adrenal glands: Normal. No mass. Right kidney: Severe atrophy. Left kidney: Severe atrophy. Aorta: Extensive atherosclerosis aorta and mesenteric arteries. There is a moderate amount of ascites throughout the abdomen. This is probably related to the patient 's renal failure. Very similar in appearance to the prior study with only mild progression. GI tract: Prior appendectomy. No GI tract obstruction. No wall thickening. Abdominal wall: Diffuse soft tissue anasarca. Pelvis: Free fluid in the pelvis. No adenopathy. Extensive vascular calcifications throughout the pel vis. Osseous structures: No destructive bone lesions. CT/CT abdomen pelvis wo con [id number] IMPRESSION: 1. Moderate amount of ascites throughout the abdomen and pelvis. Very minimal progression since the prior study. 2. Diffuse soft tissue anasarca. 3. Small bilateral pleural effusions. Calcifications associated with the RIGHT pleural effusion may be related to asbestosis. 4. Severe bilateral renal atrophy. 5. Mitral annular valve calcifications and moderate cardiac enlargement.
--- NOTE | 2020-11-16 10:11 | CT_ITS ---
WS: [id number] CT LUMBAR SPINE, noncontrast. HISTORY: BACK PAIN TECHNIQUE: Contiguous 2.5 mm axial imaging are performed. Sagittal and coronal reformats are submitte d and reviewed. All CT scans at [facility] use at least one of these dose optimization techni ques: automated exposure control; mA and/or kV adjustment per patient size (includes targeted exams w here dose is matched to clinical indication); or iterative reconstruction. IV contrast: None DLP: 2456.39 mGy.cm COMPARISON: 02/03/2020 Posterior lumbar alignment is normal. Mild diffuse osteopenia. No vertebral body fracture. Pedicles a re intact. L1-2: Normal. L2-3: Mild annular disc bulging with contact on the ventral thecal sac and very shallow LEFT foramina l disc protrusion. No significant stenosis. L3-4: Mild annular disc bulging with mild ligamentum flavum disease and facet arthritis. Mild encroac hment upon the ventral thecal sac and within the neural foramen. Mild central, bilateral foraminal an d subarticular recess narrowing. Slightly greater on the RIGHT. L4-5: Moderate diffuse annular disc bulging with encroachment upon the ventral thecal sac. Moderate l igamentum flavum disease and facet arthritis. Progression of the central and bilateral subarticular r ecess and foraminal stenosis since the prior examination. Moderate central stenosis with moderate isaias ateral subarticular recess and foraminal stenosis. L5-S1: Mild diffuse annular disc bulging with a central disc protrusion contacting the ventral thecal sac. Very slight contact but no displacement on the LEFT S1 nerve root. Only very mild foraminal cleopatra nosis. Extensive atherosclerotic plaque within the aorta and mesenteric arteries. Calcification continues in to the common iliac arteries. There is free fluid in the RIGHT pelvis which will be better identified and described on the abdomen/ pelvis CT performed on the same day. Report to follow. Degenerative changes in the SI joints cj smith. CT/CT lumbar spine wo con* [id number] IMPRESSION: 1. Very mild progression of degenerative disc disease and facet arthritis sinc e 02/03/2020. 2. Moderate central, bilateral subarticular recess and foraminal stenosis L4-5 . 3. Mild foraminal stenosis at L5-S1. 4. Mild central, bilateral foraminal subarticular recess stenosis at L3-4, gre ater on the RIGHT.
== END 2020-11-16 09:55 | disposition home or self-care (01) ==
LOC: RADWPI 09:57 → RAD 10:46
PROVIDERS: PCP Family Medicine; Visit Provider Family Medicine
DX: R10.84 Generalized abdominal pain (principal); M51.36 Other intervertebral disc degeneration, lumbar region; M48.07 Spinal stenosis, lumbosacral region; M47.816 Spondylosis without myelopathy or radiculopathy, lumbar region; M48.061 Spinal stenosis, lumbar region without neurogenic claudication; R18.8 Other ascites; J90 Pleural effusion, not elsewhere classified; N26.1 Atrophy of kidney (terminal); I05.8 Other rheumatic mitral valve diseases
CPT/HCPCS: 72131; 74176

== ENCOUNTER 2020-11-22 11:15 | Emergency (ER) | payer MEDICARE, MEDICAID, SELFPAY ==
[2020-11-22 11:19] VITALS: BP 123/54; PULSE 70; TEMP 36.6; O2SAT 98; BMI 32.0
--- NOTE | 2020-11-22 11:27 | XR_ITS ---
WS: [id number] Exam: XR chest 1V portable [id number] Date/Time of Exam: 11/22/2020 11:28 AM Reason For Exam: dyspnea/cough Comparison 09/02/2020. There is infiltrate in the right lower lobe with bibasal small pleural effusions. Heart size is bertram l for technique. The mediastinum is not widened. Right-sided apical pleural thickening noted. No pneu mothorax. Hardware partially visualized in the lower cervical spine. XR/XR chest 1V portable [id number] IMPRESSION: 1. Right basal infiltrate with plaque atelectasis. 2. Small bibasal pleural effusions are noted.
--- NOTE | 2020-11-22 11:27 | CT_ITS ---
WS: [id number] CT ABDOMEN AND PELVIS WITH CONTRAST HISTORY: Weakness and hypoxia. TECHNIQUE: Imaging performed of the abdomen and pelvis with IV contrast. Single phase imaging of the abdomen. Coronal and sagittal reformats are submitted. All CT scans at [facility] use at [address] one of these dose optimization techniques: automated exposure control; mA and/or kV adjustment per patient size (includes targeted exams where dose is matched to clinical indication); or iterative re construction. IV CONTRAST: Visipaque 320; 95 mL IV. Oral contrast: Yes. DLP: 2098.95 mGy.cm COMPARISON: 11/16/2020 Lower thorax: Small bilateral pleural effusions. Calcification associated with the RIGHT pleural effu shahla. Long-term calcification in the RIGHT pleura. Heart is normal size. No hiatal hernia. Liver/biliary system: Normal size with no intrahepatic dilatation. Gallbladder: Status post cholecystectomy. Pancreas: Atrophied. Spleen: Normal size. Mild heterogeneity could be due to the phase of enhancement. Splenic infarcts ma y appear similar. Adrenal glands: Normal. Right kidney: Severe atrophy. Left kidney: Severe atrophy. Aorta: Extensive calcification within the aorta with no aneurysm. Lymphadenopathy: None. Free fluid: Moderate amount of ascites has not significantly progressed since the prior study. There is also soft tissue anasarca. GI tract: Unremarkable. Abdominal wall: Unremarkable abdominal wall. No hernia. Pelvis: Well-distended urinary bladder. Bones: Unremarkable. CT/CT abdomen pelvis w con* [id number] IMPRESSION: 1. Moderate amount of ascites and mild soft tissue anasarca. Similar to the pr ior study. 2. Small bilateral pleural effusions and RIGHT pleural calcifications, unchang ed. 3. No GI tract obstruction or free air. 4. Variable density within the spleen. May be due to early phase of injection. Less likely splenic infarcts.
--- NOTE | 2020-11-22 11:27 | ECG_ITS ---
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 Measurements Intervals [place] Rate: 68 P: [place]: QRS: -25 QRSD: 116 T: 56 QT: 463 QTc: 494 Interpretive Statements SUPRAVENTRICULAR RHYTHM LOW QRS VOLTAGE IN EXTREMITY LEADS [QRS DEFLECTION < 0.5 mV IN LIMB LEADS] POSSIBLE ANTERIOR MYOCARDIAL INFARCTION , OF INDETERMINATE AGE [30 ms Q WAVE IN V3/V4, OR R < 0.2 mV IN V4] Compared to ECG 11/15/2020 13:16:04 Supraventricular rhythm now present Low QRS voltage now present Sinus rhythm no longer present Indeterminate axis no longer present Myocardial infarct finding still present Electronically Signed On 11-22-2020 22:11:36 CDT by Walt Mcdonald M.D. [id number]
--- NOTE | 2020-11-22 11:53 | W.ED.GENADLT ---
HPI - General Adult General: Chief complaint: General Medical Stated complaint: weakness Time Seen by Provider: 11/22/20 11:20 History of Present Illness: HPI narrative: 85-year-old male presents emergency room with generalized weakness and mild hypoxia. He usually wears 3 L by nasal cannula he was being transported to his dialysis center and became very weak and somewhat hypoxic he was diverted here once he was restarted by EMS on oxygen his symptoms became better. He is not having any chest pain at this time. He is due for dialysis run today. Onset (ago): minute(s) Severity: mild Relieving factors: other (Oxygen ) Exacerbating factors: other (Being off of oxygen) Associated symptoms: Reports short of breath; Deny chest pain, confusion, cough, diaphoresis, decreased appetite, dyspnea, fevers/chills, headache(s), malaise, nausea, rash, palpitations, seizures, syncope, vomiting or weakness Treatments prior to arrival: other (Supplemental oxygen) Review of Systems Const: Denies: malaise or diaphoresis ENMT: Denies: throat pain, ear or mastoid pain, nasal discharge or nasal congestion Card: Denies: chest pain, palpitations or syncope Resp: Denies: dyspnea GI: Denies: nausea or vomiting : Denies: flank pain, dysuria, urinary frequency or urinary urgency Skin/Breast: Denies: rash Neuro: Denies: headache(s) or confusion PFSH ED PFSH: Medical History Acute upper gastrointestinal bleeding (~07/2020) Anemia ASHD (arteriosclerotic heart disease) Atrial fibrillation BPH (benign prostatic hyperplasia) C. difficile colitis (~05/2020) CHF (congestive heart failure) Colon polyps Coronary artery disease COVID-19 (~12/2019) treated with monoclonal antibody COVID-19 vaccine administered (~05/2020) moderna DDD (degenerative disc disease) Diabetes 1.5, managed as type 2 Diabetic gastroparesis Dyslipidemia ESRD (end stage renal disease) on dialysis GERD (gastroesophageal reflux disease) History of gastritis HTN (hypertension) Hypothyroidism MGUS (monoclonal gammopathy of unknown significance) Mitral regurgitation Normocytic normochromic anemia PAD (peripheral artery disease) Pulmonary HTN Rheumatoid arthritis Traumatic retroperitoneal hematoma Surgical History Amputation of toe of left foot History of cardioversion (09/02/20) 09/02/20: atrial flutter with aberrant conduction History of colonoscopy 02/2015 --2 small adenomatous polyps History of esophagogastroduodenoscopy (EGD) 02/2015 --mild gastritis; 07/2020 mild gastritis, some blood seen in antrum Personal history of surgery to other organs Hemodialysis catheters, peritoneal dialysis catheter, dialysis fistula S/P appendectomy S/P carpal tunnel release S/P cervical spinal fusion S/P cholecystectomy Status post coronary angiogram Status post coronary artery stent placement x2 Family History Father , AGE 61 Cancer LUNG Mother , AGE 62 CHF (congestive heart failure) Social History Smoking and tobacco status: never smoked Alcohol intake: never Household members: spouse Marital status: Physical Exam Const: COMMON NORMALS: no acute distress GENERAL APPEARANCE: cooperative and comfortable HENMT: COMMON NORMALS: normocephalic, atraumatic and hearing grossly normal bilaterally HEAD & SCALP: normocephalic and atraumatic Neck/C-Spine: COMMON NORMALS: no JVD Resp: COMMON NORMALS: normal respiratory effort, No retractions, No use of accessory muscles and clear to auscultation bilaterally AUSCULTATION: clear to auscultation bilaterally Cardio: COMMON NORMALS: no JVD, regular rate, regular rhythm and No murmurs present (Cardio) RATE: regular rate RHYTHM: regular rhythm GI: COMMON NORMALS: Soft to palpation and No hepatosplenomegaly present AUSCULTATION: Yes normoactive bowel sounds PALPATION: Yes Soft to palpation, No Tenderness to palpation present (GI), No Guarding due to palpation present (GI) and Yes No hepatosplenomegaly present Extremity: COMMON NORMALS: normal to inspection, capillary refill normal, no clubbing, cyanosis or edema, no calf tenderness and no pedal edema Skin: COMMON NORMALS: no rashes or lesions noted GENERAL SKIN EXAM: no rashes or lesions noted Course Vital Signs: Vital signs: Vital Signs Temperature 97.9 F 11/22/20 11:19 Pulse Rate 68 09/27/21 16:24 Blood Pressure 114/56 09/27/21 16:24 Pulse Oximetry 98 11/22/20 16:24 MDM - General Adult MDM Narrative: Medical decision making narrative: Labs and imaging reviewed as on the chart as well as EKG. Patient is completely asymptomatic and to problems he try to make the transport trip to dialysis without oxygen he became short of breath he is chronically on oxygen when this was replaced his symptoms resolved. He does definitely need dialysis today. He was discharged from here we will proceed to echo to dialysis clinic for his usual run of dialysis made arrangements to assist with oxygen. Lab Data: Labs: Lab Results 11/22/20 11/22/20 11/22/20 13:10 13:10 13:10 WBC 7.4 10^3/uL 10^3/ uL (4.0-10.0) RBC 4.78 10^6/uL 10^6 /uL (4.1-5.3) Hgb 12.9 g/dL g/dL (11.7-16.6) Hct 40.9 % L % (42.0-52.0) MCV 85.6 fl fl (80-94) MCH 27.0 pg L pg (28.0-34.0) MCHC 31.5 g/dL g/dL (30.0-36.0) RDW 21.8 % H % (12.1-15.1) Plt Count 137 10^3/cmm 10^3 /cmm (130-400) MPV 9.9 fL fL (7.4-10.4) Neut % (Auto) 52.0 % % Lymph % (Auto) 28.0 % % [place] % (Auto) 11.3 % % Eos % (Auto) 6.0 % % Baso % (Auto) 2.4 % % Neut # (Auto) 3.83 10^3/uL 10^3 /uL (1.8-7.7) Lymph # (Auto) 2.1 10^3/uL 10^3/ uL (0.8-4.8) [place] # (Auto) 0.8 10^3/uL 10^3/ uL (0.2-0.9) Eos # (Auto) 0.4 10^3/uL 10^3/ uL (0.0-0.8) Baso # (Auto) 0.2 10^3/uL H 10^ 3/uL (0.0-0.1) Nucleated RBC % (a uto) 0 % % Nucleated RBCs # 0.0 /100WBC /100W BC PT Cancelled INR Cancelled APTT Cancelled Sodium Cancelled Potassium Cancelled Chloride Cancelled Carbon Dioxide Cancelled Anion Gap Cancelled BUN Cancelled Creatinine Cancelled GFR Calculation Cancelled Glucose Cancelled Calculated Osmolal ity Cancelled Calcium Cancelled Magnesium Cancelled Total Bilirubin Cancelled AST Cancelled ALT Cancelled Alkaline Phosphata se Cancelled Total Protein Cancelled Albumin Cancelled Globulin Cancelled 11/22/20 11/22/20 13:51 13:51 WBC RBC Hgb Hct MCV MCH MCHC RDW Plt Count MPV Neut % (Auto) Lymph % (Auto) [place] % (Auto) Eos % (Auto) Baso % (Auto) Neut # (Auto) Lymph # (Auto) [place] # (Auto) Eos # (Auto) Baso # (Auto) Nucleated RBC % (a uto) Nucleated RBCs # PT 29.90 SECONDS H S ECONDS (12.1-14.9) INR 2.79 H (0.8-1.2) APTT 50.5 SECONDS H SE CONDS (23.9-36.7) Sodium 134 mmol/L L mmol /L (136-145) Potassium 4.7 mmol/L mmol/L (3.5-5.1) Chloride 96 mmol/L L mmol/ L (98-107) Carbon Dioxide 31 mmol/L H mmol/ L (22-29) Anion Gap 11.7 (5-19) BUN 12 mg/dL mg/dL (8-23) Creatinine 5.4 mg/dL H mg/dL (0.7-1.2) GFR Calculation Not Reportable Glucose 78 mg/dL mg/dL (65-115) Calculated Osmolal ity 277 mOsm/kg L mOs m/kg (285-295) Calcium 8.2 mg/dL L mg/dL (8.5-10.5) Magnesium 2.1 mg/dL mg/dL (1.7-2.3) Total Bilirubin 1.6 mg/dL H mg/dL (0.15-1.2) AST 43 U/L H U/L (0-40) ALT 12 U/L U/L (0-41) Alkaline Phosphata se 139 IU/L H IU/L (40-130) Total Protein 7.1 g/dL g/dL (6.6-8.7) Albumin 1.9 g/dL L g/dL (3.5-5.2) Globulin 5.2 g/dL H g/dL (1.3-4.6) Discharge Plan Discharge Patient Disposition: Home Clinical Impression: Chronic kidney disease with end stage renal failure on dialysis Condition: Stable Prescriptions: No Action Pacerone 200 mg tablet 200 mg PO DAILY RF: 0 nitroglycerin [Nitrostat] 0.4 mg tablet, sublingual 0.4 mg SUBLINGUAL Q5M PRN (Reason: CHEST PAINS) RF: 0 Cimzia 400 mg/2 mL (200 mg/mL x 2) syringe kit See Rx Instructions .ROUTE .COMPLEX Qty: 2 RF: 5 Eliquis 5 mg tablet 5 mg PO BID@0900,2100 Qty: 180 RF: 3 Hold Instructions: Resume on 09/09/20. Patient will see his Before resuming the eliquis. (DME) BEDSIDE COMMODE LARGE See Rx Instructions .Route .MEDSUPPLY Qty: 1 RF: 0 (DME) HOSPITAL BED LARGE See Rx Instructions .Route .MEDSUPPLY Qty: 1 RF: 0 (DME) LINDA LIFT LARGE See Rx Instructions .Route .MEDSUPPLY Qty: 1 RF: 0 acetaminophen [Tylenol Extra Strength] 500 mg Tablet 1,000 mg PO Q6H MDD SEE ALL PHARMACY COMMENTS PRN (Reason: Pain) RF: 0 RenaPlex-D 800 mcg-12.5 mg -2,000 unit tablet 1 tab PO DAILY@0900 RF: 0 atorvastatin 40 mg Tablet 40 mg PO BEDTIME@2100 RF: 0 lidocaine-prilocaine [Lido-Prilo Josemanuel Pack] 2.5-2.5 % Kit See Rx Instructions .ROUTE .COMPLEX RF: 0 ondansetron 4 mg tablet,disintegrating 4 mg PO Q6H PRN (Reason: nausea and vomiting) Qty: 14 RF: 0 docusate sodium [Colace] 100 mg Capsule 100 mg PO DAILY PRN (Reason: Constipation) RF: 0 pantoprazole [Protonix] 40 mg tablet,delayed release (DR/EC) 40 mg PO BID Qty: 60 RF: 3 isosorbide mononitrate 30 mg Tablet Extended Release 24 Hr 30 mg PO DAILY Qty: 30 RF: 0 clopidogrel 75 mg Tablet 75 mg PO DAILY Qty: 20 RF: 0 Lactobacillus acidoph-L.bulgar 1 million cell Tablet 1 tab PO BID Qty: 30 RF: 0 Discharge Orders: Discharge ED (Routine); Ordered 11/22/20 Ordered By: Terrell Peñaloza Referrals: Bunny Ta MD [Primary Care Provider] - Discharge Diet: Usual diet Discharge Activity: Limit activity as instructed Patient Instructions: Opioid Safety Activity Restrictions/Additional Instructions: Discharge to the dialysis clinic for usual run of dialysis. Coding Level of Care Code ED Supervisor Drying And Softening for Chg Fwd Exam Comprehensive
[2020-11-22 13:14] VITALS: BP 134/62; PULSE 68; O2SAT 98
[2020-11-22 13:17] LABS: Basophils # 0.2 10^3/uL (0.0-0.1); Basophils % 2.4 %; Eosinophils # 0.4 10^3/uL (0.0-0.8); Hematocrit 40.9 % (42.0-52.0); Hemoglobin 12.9 g/dL (11.7-16.6); Lymphocytes # 2.1 10^3/uL (0.8-4.8); Mean Corpuscular HGB Conc 31.5 g/dL (30.0-36.0); Mean Corpuscular Volume 85.6 fl (80-94); Mean Platelet Volume 9.9 fL (7.4-10.4); Monocytes # 0.8 10^3/uL (0.2-0.9); Monocytes % 11.3 %; Neutrophils # 3.83 10^3/uL (1.8-7.7); Nucleated Red Blood Cells % 0 %; Platelet Count 137 10^3/cmm (130-400); Red Blood Count 4.78 10^6/uL (4.1-5.3); Red Cell Distribution Width 21.8 % (12.1-15.1); White Blood Count 7.4 10^3/uL (4.0-10.0)
[2020-11-22] MEDS: iodixanol 320 mg/mL 100mL Btl IV (13:32)
[2020-11-22 13:53] VITALS: BP 134/62; PULSE 68; O2SAT 99
[2020-11-22 14:14] LABS: INR 2.79 (0.8-1.2)
[2020-11-22 14:15] LABS: Partial Thromboplastin Time 50.5 SECONDS (23.9-36.7)
[2020-11-22 14:24] LABS: Alanine Aminotransferase 12 U/L (0-41); Albumin Level 1.9 g/dL (3.5-5.2); Alkaline Phosphatase 139 IU/L (40-130); Anion Gap 11.7 (5-19); Aspartate Amino Transferase 43 U/L (0-40); Blood Urea Nitrogen 12 mg/dL (8-23); Calcium 8.2 mg/dL (8.5-10.5); Carbon Dioxide 31 mmol/L (22-29); Chloride 96 mmol/L (98-107); Globulin 5.2 g/dL (1.3-4.6); Glucose 78 mg/dL (65-115); Magnesium 2.1 mg/dL (1.7-2.3); Osmolality Calculated 277 mOsm/kg (285-295); Potassium 4.7 mmol/L (3.5-5.1); Sodium 134 mmol/L (136-145); Total Bilirubin 1.6 mg/dL (0.15-1.2); Total Protein 7.1 g/dL (6.6-8.7)
[2020-11-22 16:24] VITALS: BP 114/56; PULSE 68; O2SAT 98
== END 2020-11-22 16:26 | disposition home or self-care (01) ==
PROVIDERS: Emergency Provider Family Medicine; PCP Family Medicine
DX: I13.2 Hypertensive heart and chronic kidney disease with heart failure and with stage 5 chronic kidney disease, or end stage renal disease (principal); E13.22 Other specified diabetes mellitus with diabetic chronic kidney disease; N18.6 End stage renal disease; I50.9 Heart failure, unspecified; Z79.01 Long term (current) use of anticoagulants; Z79.02 Long term (current) use of antithrombotics/antiplatelets; I25.10 Atherosclerotic heart disease of native coronary artery without angina pectoris; E78.5 Hyperlipidemia, unspecified
CPT/HCPCS: 71045; 74177; 80053; 83735; 85025; 85610; 85730; 93005; 99283; Q9967